=== PATIENT | male | born 1960 | race Caucasian/White ===

== ENCOUNTER 2021-04-22 11:32 | Inpatient (IN) | payer MEDICARE, SELFPAY ==
[2021-04-22] VITALS (8 sets, daily range): BP systolic 107–157; BP diastolic 74–95; PULSE 67–91; RESP 16–18; TEMP 36.4–37.1; O2SAT 10–99; BMI 25.7
--- NOTE | ~2021-04-22 | XR_ITS ---
EXAMINATION: XR ABDOMEN KUB CLINICAL INDICATION: Abdominal pain COMPARISON: Previous CT of the abdomen and pelvis 04/22/2021 TECHNIQUE: AP view of the abdomen. FINDINGS: There is a Gonzalez catheter in the bladder. There is stool throughout the colon suggestive of constipation. There are no dilated loops of bowel to suggest obstruction. There is no evidence of free air. No calcifications are seen. Bony structures are unremarkable. XR/XR KUB IMPRESSION: Constipation. No evidence of obstruction.
--- NOTE | ~2021-04-22 | CT_ITS ---
EXAMINATION: CT ABDOMEN AND PELVIS WITH CONTRAST CLINICAL INFORMATION: Urinary retention. Lower abdominal pain. COMPARISON: None TECHNIQUE: Multidetector volumetric images were obtained from the superior aspect of the liver through the pubic symphysis following administration 85 mL of Omnipaque 350 intravenous contrast. Sagittal and coronal reformatted images were obtained on the technologist's workstation. Oral contrast: No This CT examination was performed using dose optimization techniques as appropriate, variously including the following: *Automated exposure control *Adjustment of mA and/or kV according to patient size (this includes techniques or standardized protocols for targeted exams where dose is matched to indication/reason for exam; i.e. extremities or head) *Use of iterative reconstruction technique DLP: 635 mGy-cm FINDINGS: LUNG BASES: There is a bibasilar dependent atelectasis. The heart size is normal. LIVER, GALLBLADDER, AND BILIARY TREE: The liver is normal in size, shape, and attenuation. No focal hepatic lesion or biliary ductal dilatation is present. The gallbladder is unremarkable with no evidence of radiopaque gallstones, gallbladder wall thickening, or obvious pericholecystic inflammatory changes. PANCREAS: Unremarkable. SPLEEN: Unremarkable. ADRENAL GLANDS: Unremarkable. KIDNEYS AND URETERS: The kidneys are normal in size, shape, and attenuation. No hydronephrosis, hydroureter, or calculi seen. No perinephric stranding. BLADDER: The bladder is nondistended with a Gonzalez's catheter within. GASTROINTESTINAL TRACT: There is scattered stool in the right gas seen throughout the colon without any distention. The small bowel loops are normal caliber. Appendix is normal caliber. No free air or free fluid seen. ABDOMINAL WALL: No significant hernia is appreciated. LYMPH NODES: Normal. VASCULAR: Unremarkable. PELVIC VISCERA: The prostate gland is enlarged with central gland calcification. The periprostatic fat planes are hazy.. OSSEOUS STRUCTURES: No lytic or sclerotic process seen. CT/CT abdomen pelvis w con IMPRESSION: Mild prostatomegaly with moderate central gland calcification.. The periprostatic fat planes are hazy. The bladder is undistended with a Gonzalez's catheter within.
--- NOTE | ~2021-04-22 | XR_ITS ---
EXAMINATION: XR CHEST CLINICAL INFORMATION: Rule out foreign body COMPARISON: None TECHNIQUE: Frontal view of the chest was obtained. FINDINGS: The cardiac and mediastinal contours are normal. The lungs are clear. There is no pleural effusion or pneumothorax area no foreign body is seen. 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 XR/XR chest 1V IMPRESSION: No evidence for acute disease in the chest. No foreign body seen.
--- NOTE | ~2021-04-22 | CT_ITS ---
EXAMINATION: CT HEAD WITHOUT CONTRAST CLINICAL INFORMATION: Rule out intracranial pathology such as stroke. Delirium. COMPARISON: None TECHNIQUE: Contiguous axial imaging was performed from the skull base to vertex without intravenous administration of contrast. This CT examination was performed using dose optimization techniques as appropriate, variously including the following: *Automated exposure control *Adjustment of mA and/or kV according to patient size (this includes techniques or standardized protocols for targeted exams where dose is matched to indication/reason for exam; i.e. extremities or head) *Use of iterative reconstruction technique DLP: 663 mGy-cm FINDINGS: There is no evidence of acute intracranial hemorrhage or territorial infarction. No abnormal mass effect or midline shift is seen. Seay to white matter differentiation is well preserved. No extra-axial fluid collections are identified. The ventricles are normal in size. 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 The osseous structures and soft tissues are normal. The mastoid air cells and visualized portions of the paranasal sinuses are well aerated. CT/CT head/brain wo con IMPRESSION: No acute intracranial hemorrhage or territorial infarction.
--- NOTE | 2021-04-22 12:12 | PC.NURSE ---
patients brother in law whom he lives with spoke with this RN regarding the patients behaviors and medical care. per his brother in law, Vickey- the patient has had increased agitation since his medications had been adjusted several months ago- with statements that were both HI/SI. Per Vickey he feels that the patient needs inpatient care wherein which his medications can be adjusted and his needs be better addressed. Vickey # [phone] Patient at this time denies SI/HI
[2021-04-22 12:42] LABS: MANUAL DIFF FLAG NO
[2021-04-22 12:50] LABS: Glucose Urine UA NEG (NEG); Leukocyte Esterase Urine NEG (NEG); Nitrite Urine NEG (NEG); Specific Gravity - Urine >= 1.030 (1.005-1.025); Urine Blood TRACE (NEG); Urine Ketones 15 MG/DL (NEG); Urine Protein NEG (NEG-TRACE)
[2021-04-22 12:52] LABS: Basophils Percent Auto 0.2 % (0-2); Eosinophils Percent Auto 0.2 % (0-4); Hematocrit 38.3 % (42-52); Hemoglobin 12.7 g/dl (14.0-18.0); Imm Gran Abs Auto 0.02 X10*3/uL (0.00-0.03); Imm Gran Pct Auto 0.5 % (0.0-0.4); Lymphocytes Absolute Auto 0.8 X10*3/uL (1.2-4.9); Lymphocytes Percent Auto 20.2 % (20-40); Mean Corpuscular HGB Conc 33.2 g/dl (31.0-36.0); Mean Corpuscular Hemoglobin 28.7 pg (27.0-33.0); Mean Corpuscular Volume 86.5 fL (80-98); Mean Platelet Volume 8.8 fL (9.4-12.4); Monocytes Absolute Auto 0.3 X10*3/uL (0.1-1.2); Monocytes Percent Auto 8.2 % (2-11); Neutrophils Absolute Auto 2.9 X10*3/uL (2.0-8.3); Neutrophils Percent Auto 70.7 % (45-73); Platelet Count 283 X10*3/uL (160-400); Red Blood Count 4.43 X10*6/uL (4.60-5.80); Red Cell Distribution Width 12.4 % (11.0-16.0); White Blood Count 4.2 X10*3/uL (4.8-10.8)
[2021-04-22 12:53] LABS: Appearance Urine CLEAR; Color Urine YELLOW
[2021-04-22 13:12] LABS: Mucus Urine 3+ /LPF; Squamous Epithelial Cell Urine 1+ /LPF
--- NOTE | 2021-04-22 13:14 | PHA.MEDREC ---
Pharmacy Consult ? Medication Reconciliation Pharmacy has completed the medication reconciliation. Patient has not taken any medications this morning. Patient had some AMS and brother was able to verify his medications. His brother reported that Seven was suppose to stop his Paliperidone 1.5mg at bedtime, and he last took it about two days ago. All other medications had no issues. Erica Morales, PharmD
[2021-04-22 13:21] LABS: Alanine Aminotransferase 11 U/L (0-40); Albumin Level 4.2 g/dL (3.5-5.0); Alkaline Phosphatase 74 U/L (39-117); Anion Gap 13 (12-20); Aspartate Amino Transferase 19 U/L (5-37); Bilirubin Total 0.8 mg/dL (0.0-1.0); Blood Urea Nitrogen 15 mg/dL (9-16); Calcium 9.5 mg/dL (8.4-10.2); Carbon Dioxide 24 mmol/L (22-29); Chloride 105 mmol/L (96-108); Creatinine Clr Calc Pharmacy 58.2; Estimated Glomerular Filt Rate 51; Glucose Random 93 mg/dL (60-115); Magnesium 2.2 mg/dL (1.6-2.6); Potassium 4.3 mmol/L (3.3-5.1); Sodium 138 mmol/L (135-145); Total Protein 6.6 g/dL (6.5-8.0)
[2021-04-22 13:25] LABS: Amphetamine Screen Urine Not Detected (Not Detect); Barbiturates, Urine Not Detected (Not Detect); Benzodiazepines Screen Urine POSITIVE (Not Detect); Cannabinoid Screen Urine Not Detected (Not Detect); Cocaine Screen Urine Not Detected (Not Detect); Opiate Screen Urine Not Detected (Not Detect); Phencyclidine Screen Urine Not Detected (Not Detect)
[2021-04-22] MEDS: 0.9 % Sodium Chloride 1,000 ML 999 ML IVCONT (13:39)
[2021-04-22 14:05] LABS: Lactic Acid 0.9 mmol/L (0.5-2.0)
--- NOTE | 2021-04-22 14:05 | ED.ABDPAIN ---
HPI - Abdominal Pain General Chief Complaint: General Medical Stated Complaint: groin pain Time Seen by Provider: 04/22/21 12:10 Source: patient and family ( Brother at bedside) Mode of arrival: ambulatory Limitations: no limitations History of Present Illness HPI narrative: 56-year-old male with a past medical history of bipolar 1 disorder, hyperlipidemia, hypertension and currently being treated for UTI with Bactrim started yesterday by his PCP presenting to the ED with complaints of suprapubic abdominal pain with associated urinary retention for the past 2 days worse today despite being on the Bactrim. He reports that he feels like he needs to avoid although is unable to. Patient also admits to being constipated. Family /brother at bedside also concerned about his psych medication changes that have been made several months ago and patient has been increasing delayed in his verbal responses and demeanor therefore they were concerned about this. Brother at bedside reports this is not my brother this is a complete change of my brother and I just want my brother the way he was and I believe it is because all the medication he is taking and they need to be reviewed . otherwise patient denies any SI/HI/ auditory or visual hallucinations or thoughts of self injury. patient denies any fevers, dizziness, headaches, change of vision, nausea /vomiting, chest pain, shortness of breath, palpitations, diarrhea, hematuria or any other symptoms complaints or concerns at this time. MD elicited complaint: abdominal pain and other ( Urinary retention) Onset (ago): day(s) ( Two days worse today) Pain Consistency: constant Location: suprapubic, pelvis and groin Severity: moderate Quality: cramping, aching and fullness Radiation: none Migration to: no migration Exacerbating factors: other ( trying to urinate) Relieving factors: nothing Associated symptoms: denies other symptoms Treatments prior to arrival: other ( taking Bactrim as prescribed) Related Data Home Medications Medication Instructions Recorded Confirmed acetaminophen 650 mg PO Q4H PRN 04/22/21 04/22/21 amlodipine 5 mg PO DAILY 04/22/21 04/22/21 clonazepam 1 mg PO DAILY PRN 04/22/21 04/22/21 clonazepam 2 mg PO BEDTIME 04/22/21 04/22/21 docusate sodium 100 mg PO DAILY PRN 04/22/21 04/22/21 lisinopril 20 mg PO DAILY 04/22/21 04/22/21 polyethylene glycol 3350 [Miralax] 17 g PO DAILY 04/22/21 04/22/21 quetiapine 300 mg PO BEDTIME 04/22/21 04/22/21 sulfamethoxazole-trimethoprim 1 tab PO BID 04/22/21 04/22/21 Allergies Allergy/AdvReac Type Severity Reaction Status Date / Time atorvastatin [From LIPITOR] Allergy Intermediate ELEVATED Unverified 07/08/20 14:38 LIVER ENZYMES Review of Systems Review of Systems Constitutional : No Weight loss, No Fever, No Chills, No Night Sweats, No Fatigue, NoMalaise ENT/Mouth: No ear pain, No sore throat, No Difficulty swallowing Cardiovascular : No Chest Pain, No SOB, No Dyspnea on Exertion, No Orthopnea, NoEdema, No Palpitations Respiratory : No Cough, No Sputum, No Wheezing, No Dyspnea Gastrointestinal : Positive abdominal pain / constipation, No Nausea, No Vomiting, No Diarrhea, No blood streaked emesis, No coffee-ground emesis, No gross hematemesis, No blood streak stool, No gross hematochezia, No Melena Genitourinary : positive urinary retention, No irregular bleeding, No Hematuria,No Urinary Incontinence, No Flank Pain Musculoskeletal : No joint pain, No Myalgias, No Joint Swelling Skin : No Skin Lesions, No rash Neuro : No Weakness, No Numbness, No Paresthesias, No Loss of Consciousness, NoDizziness, No Headache Psych : No Social Issues, Heme/Lymph: No Bruising, No Bleeding,No Lymphadenopathy Endocrine : No Polyuria, No Polydipsia, No Temperature Intolerance Yes all other systems are reviewed and are negative Physical Exam Vital Signs: Vital Signs: Last Vital Signs Temp 98.3 F 04/22/21 16:38 Pulse 78 04/22/21 16:38 Resp 18 04/22/21 16:38 BP 132/85 04/22/21 16:38 Pulse Ox 99 04/22/21 16:38 Body Mass Index 25.7 vital signs have been reviewed as normal and appeared to be correct. Blood pressure normal. Heart rate normal. Respiration rate normal. Temperature normal. Oxygen saturation normal. Appearance: Alert. Oriented X3. No acute distress. Head: Normal external exam. Normocephalic. Eyes: PERRLA. EOMI. Conjunctiva and sclera normal. Eyelids normal. ENT: Pharynx normal. Uvula midline. Moist mucous membranes. Neck: Normal inspection. Neck supple. FROM. No adenopathy. No meningeal signs. CVS: Normal heart rate and rhythm. Heart sound normal. No murmurs noted. Pulses normal throughout. Respiratory: No respiratory distress. Painless inspiration. Breath sounds normal. No wheezes/rales/rhonchi noted. Chest nontender. No accessory muscle usage noted or decreased air movement noted. Abdomen: Soft and mild ttp to suprapubic/groin area. Nondistended. No guarding. No rigidity. Bowel sounds normal in all 4 quadrants. No distention noted. No organomegaly noted. No visible injury noted. No rebound tenderness. Negative Rovsing sign. Negative obturator's sign. Negative psoas sign. Negative Carl sign. Back: No CVA tenderness. Full range of motion noted. Skin: Skin warm and dry. Normal skin color. Normal skin turgor. No rashes/lesions/lacerations noted. Extremities: Extremities exhibit normal range of motion. Extremities nontender. Neuro: Oriented X 3. No motor deficit. No sensory deficit. Reflexes normal. Normal steady gait. Psych: Appearance grossly normal, well-kept, mental status normal, speech and movement normal, speech clear, patient appears very sad and anxious along with depressed. Is cooperative. Normal thought process. Normal thought content. Normal good insight. Judgment good. Course Course Course Narrative: 12pm - 56-year-old male who is currently being treated for UTI with Bactrim by his PCP which he started yesterday presenting to the ED with complaints of suprapubic abdominal pain associated urinary retention since yesterday worse today despite being on the Bactrim. Brother also at bedside concerned about all his medications that he is on for his bipolar 1 disorder and wants him to be evaluated by psychiatry/crisis. Although patient denies any SI/HI /auditory visual sign a franco thoughts of self-injury. Plan: Labs, Blood cultures, lactic acid. Provide a L of IV fluids, bladder scanned him Place a Gonzalez catheter and obtain a CT scan of abdomen pelvis with IV contrast and re-evaluate. Reevaluation(s) Reevaluation #1: - labs return patient with 0 white blood cell count 4000. Mild baseline anemia which is improved when compared to prior. Creatinine 1.41. Otherwise all other labs are within normal limits. UA with 5-9 white blood cells although negative nitrates and patient is currently on Bactrim therefore will not change just until urine culture returns. Patient also has 15 ketones in urine. Patient given a L of IV fluids. Patient positive for benzos negative for all other drugs. - CT scan of abdomen and pelvis with IV contrast revealed Mild prostatomegaly with moderate central gland calcification.. The periprostatic fat planes are hazy. The bladder is undistended with a Gonzalez's catheter within. - therefore at this time patient is medically cleared and patient's brother wanted the patient to be seen by crisis to review the patient's medications due to he is uncomfortable the way his brother has been with the changes on the medication over the past few months. - I will instruct the patient to leave the Gonzalez catheter in place will give him referral to Urology and instructions to continue taking the Bactrim until the urine culture returns back. Patient and brother at bedside understand and agree with this plan. - Therefore At this time patient was placed in physician observation because the patient needs more time to be evaluated by crisis for possible medication changes. Will continue to monitor until then. Time: 15:47 Reevaluation #2: - Patient was evaluated by the care team and they are placing him in a section 12 inpatient bed search. Section 12 signed at this time by Dr. Yao. Patient and family at bedside understand and agree with this plan. Physician observation will be continued. At this time patient remains neuro intact. No focal neural deficits noted. Lungs clear to auscultation. cv rrr. abd is soft and nontender. Will continue to monitor. Time: 17:59 MDM - Abdominal Pain Medical Records Attestation: I reviewed the patient's medical records. Lab Data Attestation: I reviewed the patient's lab results. Result diagrams: 04/22/21 12:29 04/22/21 12:29 Labs: Lab Results 04/22/21 04/22/21 04/22/21 Range/Units 12:29 12: 12:29 WBC 4.2 L (4.8-10.8) X10*3/uL RBC 4.43 L (4.60-5.80) X10*6/uL Hgb 12.7 L (14.0-18.0) g/dl Hct 38.3 L (42-52) % MCV 86.5 (80-98) fL MCH 28.7 (27.0-33.0) pg MCHC 33.2 (31.0-36.0) g/dl RDW 12.4 (11.0-16.0) % Plt Count 283 (160-400) X10*3/uL MPV 8.8 L (9.4-12.4) fL Immature Gran % (Auto) 0.5 H (0.0-0.4) % Neut % (Auto) 70.7 (45-73) % Lymph % (Auto) 20.2 (20-40) % [place] % (Auto) 8.2 (2-11) % Eos % (Auto) 0.2 (0-4) % Baso % (Auto) 0.2 (0-2) % Lymph # (Auto) 0.8 L (1.2-4.9) X10*3/uL [place] # (Auto) 0.3 (0.1-1.2) X10*3/uL Eos # (Auto) 0.0 (0.0-0.4) X10*3/uL Baso # (Auto) 0.0 (0.0-0.2) X10*3/uL Abs Immat Gran (auto) 0.02 (0.00-0.03) X10*3/uL Absolute Neuts (auto) 2.9 (2.0-8.3) X10*3/uL Absolute Nucleated RBC 0.000 (0.0-0.012) X10*3/uL Nucleated RBC % (auto) 0.0 (0.0-0.2) /100WBC Sodium 138 (135-145) mmol/L Potassium 4.3 (3.3-5.1) mmol/L Chloride 105 (96-108) mmol/L Carbon Dioxide 24 (22-29) mmol/L Anion Gap 13 (12-20) BUN 15 (9-16) mg/dL Creatinine 1.41 H (0.5-1.4) mg/dL Estim Creat Clear Calc 58.2 Estimated GFR 51 Random Glucose 93 (60-115) mg/dL Lactic Acid (0.5-2.0) mmol/L Calcium 9.5 (8.4-10.2) mg/dL Magnesium 2.2 (1.6-2.6) mg/dL Total Bilirubin 0.8 (0.0-1.0) mg/dL AST 19 (5-37) U/L ALT 11 (0-40) U/L Alkaline Phosphatase 74 (39-117) U/L Total Protein 6.6 (6.5-8.0) g/dL Albumin 4.2 (3.5-5.0) g/dL Urine Color YELLOW Urine Appearance CLEAR Urine pH 6.0 (5.0-8.0) Ur Specific [place] >= 1.030 H (1.005-1.025) Urine Protein NEG (NEG-TRACE) MG/DL Urine Glucose (UA) NEG (NEG) MG/DL Urine Ketones 15 (NEG) MG/DL Urine Blood TRACE (NEG) Urine Nitrite NEG (NEG) Ur Leukocyte Esterase NEG (NEG) Urine RBC 5-9 H (0) /HPF Urine WBC 5-9 H (0-4) /HPF Ur Squamous Epith Cells 1+ /LPF Urine Bacteria NONE /LPF Urine Mucus 3+ /LPF Urine Opiates Screen (Not Detect) Ur Barbiturates Screen (Not Detect) Ur Phencyclidine Scrn (Not Detect) Ur Amphetamines Screen (Not Detect) U Benzodiazepines Scrn (Not Detect) Urine Cocaine Screen (Not Detect) U Marijuana (THC) Screen (Not Detect) 04/22/21 04/22/21 Range/Units 12:29 13:36 WBC (4.8-10.8) X10*3/uL RBC (4.60-5.80) X10*6/uL Hgb (14.0-18.0) g/dl Hct (42-52) % MCV (80-98) fL MCH (27.0-33.0) pg MCHC (31.0-36.0) g/dl RDW (11.0-16.0) % Plt Count (160-400) X10*3/uL MPV (9.4-12.4) fL Immature Gran % (Auto) (0.0-0.4) % Neut % (Auto) (45-73) % Lymph % (Auto) (20-40) % [place] % (Auto) (2-11) % Eos % (Auto) (0-4) % Baso % (Auto) (0-2) % Lymph # (Auto) (1.2-4.9) X10*3/uL [place] # (Auto) (0.1-1.2) X10*3/uL Eos # (Auto) (0.0-0.4) X10*3/uL Baso # (Auto) (0.0-0.2) X10*3/uL Abs Immat Gran (auto) (0.00-0.03) X10*3/uL Absolute Neuts (auto) (2.0-8.3) X10*3/uL Absolute Nucleated RBC (0.0-0.012) X10*3/uL Nucleated RBC % (auto) (0.0-0.2) /100WBC Sodium (135-145) mmol/L Potassium (3.3-5.1) mmol/L Chloride (96-108) mmol/L Carbon Dioxide (22-29) mmol/L Anion Gap (12-20) BUN (9-16) mg/dL Creatinine (0.5-1.4) mg/dL Estim Creat Clear Calc Estimated GFR Random Glucose (60-115) mg/dL Lactic Acid 0.9 (0.5-2.0) mmol/L Calcium (8.4-10.2) mg/dL Magnesium (1.6-2.6) mg/dL Total Bilirubin (0.0-1.0) mg/dL AST (5-37) U/L ALT (0-40) U/L Alkaline Phosphatase (39-117) U/L Total Protein (6.5-8.0) g/dL Albumin (3.5-5.0) g/dL Urine Color Urine Appearance Urine pH (5.0-8.0) Ur Specific [place] (1.005-1.025) Urine Protein (NEG-TRACE) MG/DL Urine Glucose (UA) (NEG) MG/DL Urine Ketones (NEG) MG/DL Urine Blood (NEG) Urine Nitrite (NEG) Ur Leukocyte Esterase (NEG) Urine RBC (0) /HPF Urine WBC (0-4) /HPF Ur Squamous Epith Cells /LPF Urine Bacteria /LPF Urine Mucus /LPF Urine Opiates Screen Not Detected (Not Detect) Ur Barbiturates Screen Not Detected (Not Detect) Ur Phencyclidine Scrn Not Detected (Not Detect) Ur Amphetamines Screen Not Detected (Not Detect) U Benzodiazepines Scrn POSITIVE H (Not Detect) Urine Cocaine Screen Not Detected (Not Detect) U Marijuana (THC) Screen Not Detected (Not Detect) Imaging Data CT scan abdomen pelvis with IV contrast: Attestation: I personally reviewed and interpreted this imaging study as follows: Radiologist's impression: FINDINGS: LUNG BASES: There is a bibasilar dependent atelectasis. The heart size is normal. LIVER, GALLBLADDER, AND BILIARY TREE: The liver is normal in size, shape, and attenuation. No focal hepatic lesion or biliary ductal dilatation is present. The gallbladder is unremarkable with no evidence of radiopaque gallstones, gallbladder wall thickening, or obvious pericholecystic inflammatory changes. PANCREAS: Unremarkable. SPLEEN: Unremarkable. ADRENAL GLANDS: Unremarkable. KIDNEYS AND URETERS: The kidneys are normal in size, shape, and attenuation. No hydronephrosis, hydroureter, or calculi seen. No perinephric stranding. BLADDER: The bladder is nondistended with a Gonzalez's catheter within. GASTROINTESTINAL TRACT: There is scattered stool in the right gas seen throughout the colon without any distention. The small bowel loops are normal caliber. Appendix is normal caliber. No free air or free fluid seen. ABDOMINAL WALL: No significant hernia is appreciated. LYMPH NODES: Normal. VASCULAR: Unremarkable. PELVIC VISCERA: The prostate gland is enlarged with central gland calcification. The periprostatic fat planes are hazy.. OSSEOUS STRUCTURES: No lytic or sclerotic process seen. CT/CT abdomen pelvis w con IMPRESSION: Mild prostatomegaly with moderate central gland calcification.. The periprostatic fat planes are hazy. The bladder is undistended with a Gonzalez's catheter within. Critical Care Time Critical Care Time Critical Care Time: Yes Total Critical Care Time: 60 Attestation: I personally attest to this time spent taking care of the patient Discharge Plan Discharge Clinical Impression: UTI (urinary tract infection), Gonzalez catheter in place, Enlarged prostate, Acute urinary retention, Depression Instructions: Urinary Retention in Men (ED), Enlarged Prostate (BPH) (ED), Urinary Tract Infection in Men (ED), Gonzalez Catheter Placement and Care (ED) Additional Instructions: continue taking your previously prescribed Bactrim as previously prescribed. We sent a urine culture of your urine if that urine culture grows a bacterial that is not susceptible to the antibiotic you are currently on we will call you and change the antibiotic although at this time he should continue taking the Bactrim as prescribed. You have a Gonzalez catheter in place due to an enlarged prostate / urinary retention and urinary tract infection therefore you should follow-up with the urologist I gave him number below. Return if any new or worsening symptoms. Prescriptions: No Action quetiapine 300 mg tablet 300 mg PO BEDTIME RF: 0 sulfamethoxazole-trimethoprim 400-80 mg tablet 1 tab PO BID RF: 0 lisinopril 20 mg tablet 20 mg PO DAILY RF: 0 clonazepam 1 mg Tablet 1 mg PO DAILY PRN (Reason: Anxiety) RF: 0 amlodipine 5 mg tablet 5 mg PO DAILY RF: 0 clonazepam 2 mg tablet 2 mg PO BEDTIME RF: 0 docusate sodium 100 mg capsule 100 mg PO DAILY PRN (Reason: constipation) RF: 0 acetaminophen 325 mg Tablet 650 mg PO Q4H PRN (Reason: Pain) RF: 0 polyethylene glycol 3350 [Miralax] 17 gram Powder In Packet 17 g PO DAILY RF: 0 Referrals: Aly Medina MD [Physician] - 2 days Physician,Unknown [Primary Care Provider] - 2 days (your pcp) Print Language: Spanish [facility] Past Medical History Attestation statement: The following information was validated with the patient. Medical History Bipolar 1 disorder Hyperlipemia Hypertension UTI (urinary tract infection) Social History Social History Advance Directives: Yes Advance Directives Information Provided: Yes Advance Directives on File: No
[2021-04-22] MEDS: iohexoL 350 MG/ML 100 ML INFUS..BTL 85 ML IV (15:14)
[2021-04-22] MEDS: lisinopriL 20 MG TABLET PO (18:19)
[2021-04-22] MEDS: amLODIPine Besylate 5 MG TABLET PO (18:19)
[2021-04-22] MEDS: Lidocaine HCl 2 % Urojet 10 ML JEL.PF.APP TOPICAL (18:53)
--- NOTE | 2021-04-22 19:07 | PC.NURSE ---
Please contact, brother, George Nava at [phone]. He states w/ brothers permission he would like to be part of the plan of care, please call him to consult.
[2021-04-22 19:19] LABS: COVID-19 Test Negative (Negative)
[2021-04-22] MEDS: Acetaminophen 325 MG TABLET 650 MG PO (19:34)
--- NOTE | 2021-04-22 19:39 | PC.NURSE ---
Pt given dinner, but states he is not hungry, tolerating gingerale well. Offered and declined other food options. Pt has very flat affect, minimal/slow responsiveness, appears to be fixated on catheter- pulling up gown and sheets to constantly visualize cath. Pt is hesitant but cooperative and aware with plan of care.
[2021-04-22] MEDS: clonazePAM 1 MG TABLET 2 MG PO (21:01)
--- NOTE | 2021-04-22 21:18 | PC.NURSE ---
attempted to ambulate the patient in order to see if he was safe to move into the pod with assist from emergency room registered nurse this rn aided the patient from sitting to standing position patient sandip unsteady on his feet and required 2+ assist to get back into the bed surgical garment assembler made aware
--- NOTE | 2021-04-22 22:40 | PC.NURSE ---
Patient refusing medications that this RN offered per his med rec. This RN attempted to convince patient to take his medications for approximately 15-20 minutes. Patient continued to refuse his medications despite unsuccessfully attempting to convince him otherwise. senior bioinformatics scientist and ED doc made aware.
[2021-04-23] VITALS (7 sets, daily range): BP systolic 119–147; BP diastolic 79–87; PULSE 71–111; RESP 16–20; TEMP 36.4–37.2; O2SAT 96–98
--- NOTE | 2021-04-23 | ECG_ITS ---
Test Reason : MEDICAL CLEARANCE Blood Pressure : / mmHG Vent. Rate : 078 BPM Atrial Rate : 078 BPM P-R Int : 164 ms QRS Dur : 084 ms QT Int : 406 ms P-R-T Axes : 040 -04 030 degrees QTc Int : 462 ms Normal sinus rhythm Normal ECG No previous ECGs available Referred By: Julio Rashid Electronically Signed By:KAYLA RENTERIA MD
[2021-04-23] MEDS: clonazePAM 1 MG TABLET PO (01:37)
[2021-04-23] MEDS: QUEtiapine Fumarate 300 MG TABLET PO ×2 (01:37→20:10)
--- NOTE | 2021-04-23 01:41 | PC.NURSE ---
Patient just got transferred from main ED, ambulated to POD, gait unsteady, patient disoriented, Night time [place] which he refused earlier administered after 2 attempts, patient believes his catheter is not inserted correctly that is why he keeps pulling it out, patient is on 1:1 for safety, will continue to monitor.
--- NOTE | 2021-04-23 03:59 | PC.NURSE ---
Patient requires a lot of redirection for medication but eventually end up taking his Bactrim , patient seems clearing up, Gonzalez is patent, will continue to monitor.
[2021-04-23] MEDS: diphenhydrAMINE HCL 25 MG TABLET 50 MG PO (05:32)
--- NOTE | 2021-04-23 05:54 | PC.NURSE ---
Patient was up until 0430, patient was disoriented and restless eventually subsided, appears sleeping at this time, patient has indwelling catheter, urine output was 775 ml at 0555 and input was 240 ml, patient is Bactrim for UTI, patient's disposition is section 12 inpatient bed search, will continue to monitor.
--- NOTE | 2021-04-23 07:17 | PC.NURSE ---
discussed appropriateness of patient staying in behavioral pod with Ahsan Sanchez RN. PT is ambulatory with assist of staff, has indwelling rich catheter and is a high fall risk. He does not ambulate without assistance and is confused. Pt to remain in Pod at this time.
[2021-04-23] MEDS: amLODIPine Besylate 5 MG TABLET PO (10:38)
--- NOTE | 2021-04-23 10:47 | PC.NURSE ---
discussed rich catheter with provider, decision made to trial remove catheter. Catheter removed, pt tolerated well but has been pulling on his penis since catheter was removed. Pt is not oriented to self, not place, time or situation.
--- NOTE | 2021-04-23 11:11 | PC.NURSE ---
family was in to visit while pt was sleeping. Male family member Mani asked to have patient's health care proxy changed from pt's mother to this male family member. Advised this family member to leave his phone number and crisis staff would discuss.
--- NOTE | 2021-04-23 11:19 | PC.NURSE ---
brother of pt Hugo called and asking for update. He sates he will call for updates but allow pt to rest and visit this afternoon.
[2021-04-23] MEDS: lisinopriL 20 MG TABLET PO (11:27)
--- NOTE | 2021-04-23 12:08 | MHC.CARE ---
CARE team (Christy) secured auth for pt. Pt was given 3 days from 04/23-04/25 with Auth #[id number] by Veronica Gillette. The reviewer will be Ama Benjamin and will require review on 04/26 at [id number].
--- NOTE | 2021-04-23 13:10 | PC.NURSE ---
pt has been standing in the door to his room with his hand on his penis. He refuses to try using a urinal, also will not walk to the bathroom. Report to nursing staff on floor, they are aware of pt's current behavior.
--- NOTE | 2021-04-23 13:17 | MHC.CARE ---
CARE spoke w pts brother/emergency contact (Keon [phone]) for brief update of plan. He expressed full support of the proposed admission due to how the family has been dealing with this for a while now . He explained he is referring to pts presentation is currently new and that pt is usually quite manic and rarely is this low . He did not not seek to make HCP changes or address that issue in discussion with t/w but did state that the family will look into this at a later time and his only concern was that the brother in law Vickey has no legal right to be acting on pts behalf and the family is aware that the KATIE Vickey is acting out of bounds in his efforts to call the ED, of which the family will redirect him. Pts brother, sister and mother are active in pts life and will help in his care as needed. Family is status quo on this issue as of now. Pt was unable to sign CV due to acuity and ED secured a section 12b.
--- NOTE | 2021-04-23 13:19 | PC.NURSE ---
pt was bladder scanned for 214 ml urine in bladder. Pt is being fed at this time by staff.
--- NOTE | 2021-04-23 16:34 | PC.ADMIT ---
Patient [place] [facility] [place] [facility] [place] [facility] [place] via wheelchair on a Section 12b. Patient had indwelling Gonzalez Catheter removed at 11am this morning. According to ED staff, Patient reportedly has voided 200 ml since Gonzalez removal. Last Bladder Scan was 216 ml at 13:15pm. Patient is assisted out of wheelchair and to bed by two staff, one on either side of patient. Patient refuses vitals and is only answering questions with the word no. Patient is unable to form sentences and respond in conversation. Significant thought blocking present. Patient is unable to sign admission paperwork at this time. All admission assessments are completed with the assistance of patient's brother, Hugo Nava: [phone]. Hugo reports patient began to exhibit current symptoms on Monday, April 19, 2021 but was reportedly displaying depressive symptoms prior to this. Depressive symptoms included being tearful and stating My life sucks. Patient is currently on a 1:1 for safety as patient is a high fall risk at this time. He stands up frequently from the bed and wanders about the room and to doorways. Patient is encouraged to continue trying to void in bathroom. Patient requires 1:1 assistance with meals and fluids. ED staff report patient takes medications in pudding. Per CARE team assessment, Patient presented to [facility] by EMS called by family as patient had been experiencing groin pain, constipation and was being treated for UTI on Bactrim filled 04/20/21. Family reported concerns about medications not properly working and the need for a medication adjustment. Per brotherHugo, patient had been prescribed Paliperidone 1.5 mg that community provider had instructed patient to taper down, but patient was unable to properly taper the medication independently at home. Additionally, patient is prescribed Klonopin 2mg at bedtime, 1mg as needed during day, and Seroquel 300mg at bedtime. [facility], Klonopin Script last filled 03/29 with 40 tabs given, and Seroquel script last filled 04/20. Brother, Hugo, reports when family checked patient's closet they found many prescriptions lined up inside. Hugo reports It looks like he has never thrown any of them away. Removing old prescriptions and bringing them to a pharmacy for proper disposal was discussed with Hugo.
--- NOTE | 2021-04-23 18:11 | PC.NURSE ---
Patient is beginning to speak more. Patient reports I can't pee. Patient has made several attempts standing at toilet with staff. Kayy Sen notified. Order for Bladder Scan and Flomax entered. Patient Bladder Scanned for 404 ml; notified Kayy Sen.
[2021-04-23] MEDS: Tamsulosin HCL 0.4 MG CAPSULE PO (18:50)
[2021-04-23] MEDS: clonazePAM 1 MG TABLET 2 MG PO (20:10)
[2021-04-23] MEDS: Acetaminophen 325 MG TABLET 650 MG PO (20:10)
[2021-04-24] VITALS (8 sets, daily range): BP systolic 106–126; BP diastolic 67–83; PULSE 67–103; RESP 16–18; TEMP 36.5–36.9; O2SAT 96–99
[2021-04-24] MEDS: Acetaminophen 325 MG TABLET 650 MG PO ×2 (07:49→15:02)
[2021-04-24] MEDS: amLODIPine Besylate 5 MG TABLET PO (07:58)
[2021-04-24] MEDS: lisinopriL 20 MG TABLET PO (07:59)
[2021-04-24] MEDS: Docusate Sodium 100 MG CAPSULE PO (08:00)
[2021-04-24 08:37] LABS: Anion Gap 13 (12-20); Carbon Dioxide 24 mmol/L (22-29); Chloride 106 mmol/L (96-108); Potassium 3.7 mmol/L (3.3-5.1); Sodium 139 mmol/L (135-145)
[2021-04-24 11:45] LABS: Glucose Urine UA NEG (NEG); Leukocyte Esterase Urine NEG (NEG); Nitrite Urine NEG (NEG); PH 5.5 (5.0-8.0); Specific Gravity - Urine >= 1.030 (1.005-1.025); Urine Blood 1+ (NEG); Urine Ketones 5 MG/DL (NEG); Urine Protein NEG (NEG-TRACE)
[2021-04-24 12:03] LABS: Appearance Urine CLEAR; Color Urine YELLOW
[2021-04-24 12:04] LABS: Mucus Urine 1+ /LPF
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
[2021-04-24] MEDS: Ibuprofen 800 MG TABLET PO ×2 (12:26→17:45)
--- NOTE | 2021-04-24 13:51 | P.CONIM_ITS ---
History of Present Illness Data of Consult Service Date: 04/24/21 Requesting physician: Shorty Hawley Primary Care Provider: Unknown Physician HPI Reason for consult: Medical evaluation, UTI, urinary retention 60 year male with HTN, HLD, Bipolar d/o, h/o tubular adenoma, recent treatment for UTI. Patient is presently admitted to Psych facility for compensated Bipolar desorder posibly related to not taking medication right. He has been having high volume urinary retention and necessitated a rich catheter insertion by a urologist this morning. Patient was cooperative with my evaluation, seem quite stoic, blunt with thought blocking but seem to respond apropriately to question. He relates that has had trouble voiding with some pain in the lower abdomen as of recent and has been treated with Bactrim for UTI. Present UA does not support urinary tract infection. Additional has no fever, no dysuria and most recent blood count did not show leukocytosis. Apart from this he is not re laying in other acute medical issues. Review of Systems Review of Systems: Gen: no fever Resp: no sob, no cough CV: no chest, no RASHID, no leg edema GI/: No n/v, no abd pain, Had urinary retention and lower abdominal ,has rich Neuro: No confusion Yes all other systems are reviewed and are negative [facility] Medical History Bipolar 1 disorder Hyperlipemia Hypertension UTI (urinary tract infection) Pertinent family history: Father with lymphadema Surgical History (Updated 04/24/21 @ 13:58 by Carroll Guerrero MD) H/O shoulder surgery Social History Household Members: Family and Other Household Members Other:: 85 year old mother Housing: House Do you presently have visiting nurse or other home services: No Alcohol intake: unknown Patient Tobacco Use Status: Never used Tobacco Smoked in Last 30 Days: No e-Cigarette/Vaping Use: Never Used Patient Interested in Nicotine Replacement: No Patient Given Instructions on How to Stop Smoking: No Second Hand Smoke Exposure: No Use of substances other than those prescribed or required for medical reasons: No Currently Displaying Signs/Symptoms of Drug Intoxication Withdrawal: No Any prior treatment program specific to substance use: No Have you been hit, kicked, punched, or otherwise hurt by someone within the past year? If so, by whom?: No Do you feel safe in your current relationship?: No Is there a partner from a previous relationship who is making you feel unsafe now?: No Are you made to feel afraid or neglected: No Advance Directives: Yes Advance Directives Information Provided: Yes Advance Directives on File: No Healthcare Proxy: No Guardian: No Do you have thoughts of harming others: None Do you have a plan to hurt others: No Plan Recently lost weight without trying: No Nutrition Risks: No Nutritional Risk Poor oral hygiene: No Meds Allergies Allergy/AdvReac Type Severity Reaction Status Date / Time atorvastatin [From LIPITOR] Allergy Intermediate ELEVATED Unverified 07/08/20 14:38 LIVER ENZYMES Active Medications: Current Medications Generic Name Dose Route Start Last Admin Trade Name Freq PRN Reason Stop Dose Admin Acetaminophen 650 mg 04/22/21 17:58 04/24/21 07:49 Acetaminophen 325 Mg Tablet PO 650 mg Q4H PRN Administration Pain Al Hydroxide/Mg Hydroxide 30 ml 04/23/21 14:17 Magnesium Hydrox/Alum Hydrox 30 Ml Oral.Susp PO Q6H PRN Heartburn/Nausea Amlodipine Besylate 5 mg 04/22/21 18:00 04/24/21 07:58 Amlodipine Besylate 5 Mg Tablet PO 5 mg DAILY MITRA Administration Protocol Clonazepam 1 mg 04/22/21 17:58 04/23/21 01:37 Clonazepam 1 Mg Tablet PO 1 mg DAILY PRN Administration Anxiety Clonazepam 2 mg 04/22/21 21:00 04/23/21 20:10 Clonazepam 1 Mg Tablet PO 2 mg BEDTIME MITRA Administration Docusate Sodium 100 mg 04/22/21 17:58 04/24/21 08:00 Docusate Sodium 100 Mg Capsule PO 100 mg DAILY PRN Administration constipation Ibuprofen 800 mg 04/24/21 12:30 04/24/21 12:26 Ibuprofen 800 Mg Tablet PO 800 mg TIDWM MITRA Administration Lisinopril 20 mg 04/22/21 18:00 04/24/21 07:59 Lisinopril 20 Mg Tablet PO 20 mg DAILY MITRA Administration Protocol Magnesium Hydroxide 30 ml 04/23/21 14:17 Milk Of Magnesia 30 Ml Oral.Susp PO DAILY PRN Constipation Polyethylene Glycol 17 gm 04/22/21 18:00 04/24/21 11:40 Polyethylene Glycol 3350 17 Gm Powd.Pack PO Not Given DAILY MITRA Quetiapine Fumarate 300 mg 04/22/21 21:00 04/23/21 20:10 Quetiapine Fumarate 300 Mg Tablet PO 300 mg BEDTIME MITRA Administration Tamsulosin HCl 0.4 mg 04/23/21 21:00 04/23/21 18:50 Tamsulosin Hcl 0.4 Mg Capsule PO 0.4 mg BEDTIME MITRA Administration Trimethoprim/Sulfamethoxazole 1 tab 04/22/21 21:00 04/24/21 07:50 Sulfamethox/Trimeth 400/80 1 Tab Tablet PO 05/01/21 09:01 1 tab BID MITRA Administration Home Medications Medication Instructions Recorded Confirmed Last Taken Type acetaminophen 650 mg PO Q4H PRN 04/22/21 04/22/21 Unknown History amlodipine 5 mg PO DAILY 04/22/21 04/22/21 04/21/21 History clonazepam 1 mg PO DAILY PRN 04/22/21 04/22/21 Unknown History clonazepam 2 mg PO BEDTIME 04/22/21 04/22/21 04/21/21 History docusate sodium 100 mg PO DAILY PRN 04/22/21 04/22/21 04/21/21 History lisinopril 20 mg PO DAILY 04/22/21 04/22/21 04/21/21 History polyethylene glycol 3350 [Miralax] 17 g PO DAILY 04/22/21 04/22/21 Unknown History quetiapine 300 mg PO BEDTIME 04/22/21 04/22/21 04/21/21 History sulfamethoxazole-trimethoprim 1 tab PO BID 04/22/21 04/22/21 04/21/21 History Physical Exam Vital Signs and Narrative: Vital Signs: Last Vital Signs Temp 97.7 F 04/24/21 06:00 Pulse 80 04/24/21 07:59 Resp 18 04/24/21 06:00 BP 118/82 04/24/21 07:59 Pulse Ox 99 04/24/21 06:00 Body Mass Index 25.7 Const: Other: Constitutional Awake and Alert, No apparent distress Neck Supple, No lymphadenopathy Cardiovascular RRR, No M/R/G, S1 S2, No S3 S4, No pedal edema Respiratory Lungs clear, No respiratory distress, normal resp effort Gastrointestinal Non tender, Non-distended : Rich in place, no hematuria Skin No rash Neurological Alert & oriented x3 Psychological Appropriate affect Results Labs CBC and Chem 7: 04/22/21 12:29 04/24/21 08:12 Labs: Laboratory Results - last 24 hr 04/24/21 04/24/21 08:12 11:15 Anion Gap 13 Urine Color YELLOW Urine Appearance CLEAR Urine pH 5.5 Ur Specific [place] >= 1.030 H Urine Protein NEG Urine Glucose (UA) NEG Urine Ketones 5 Urine Blood 1+ H Urine Nitrite NEG Ur Leukocyte Esterase NEG Urine RBC 5-9 H Urine WBC 1-4 Ur Squamous Epith Cells NONE Urine Bacteria NONE Urine Mucus 1+ Assessment and Plan (1) Hypertension: Status: Acute (2) Hyperlipemia: Status: Acute (3) UTI (urinary tract infection): Status: Acute 60 year old male with HTN, HLD, Bipolar, BPH admitted to Psych for Bipolar treated and noted to have urinary retention, ?UTI 1/ HTN-continue Lisinopril, and NorvascBP is well controlled. 2/? UTI--Present UA doesn't suggest UTI but may have been partially treated on outpatient basis, as such I would suggest he finish course of Bactrim, should watch for High K and falsely elevated Cr, typically no an issues with younger patients 3/HLD--He doesn't tolerated statin and therefore should be avoided 4/Urinary retention-likely from BPH, take instruction from Urolgy, especially when catheter should come out. Continue Flomax 5/Constipation--Docusate and Miralax 6/Bipolar/Psych issues--Management per psychiatry/Behavioral Service. 7/Mild Leukopenia--Monitor, no specific work up indicated at this time. please contact us for new issues or concerns. Thanks
[2021-04-24] MEDS: clonazePAM 1 MG TABLET PO (15:02)
[2021-04-24] MEDS: Milk of Magnesia 30 ML ORAL.SUSP PO (15:52)
[2021-04-24] MEDS: Tamsulosin HCL 0.4 MG CAPSULE PO (22:49)
[2021-04-24] MEDS: QUEtiapine Fumarate 300 MG TABLET PO (22:50)
[2021-04-24] MEDS: clonazePAM 1 MG TABLET 2 MG PO (22:50)
--- NOTE | 2021-04-25 00:31 | PC.NURSE ---
New order for hospitalist consult to be seen for 'delirium requires medical management.
--- NOTE | 2021-04-25 00:33 | PC.NURSE ---
PT needed much coaxing to take medications at HS, reaproached 3 times, notified PT trying to pull on Gonzalez catheter, sitter in room having to give constant redirection.
--- NOTE | 2021-04-25 05:30 | PC.NURSE ---
PT fell asleep at 4:30 am.4:30 am.
[2021-04-25] MEDS: polyethylene glycoL 3350 17 GM POWD.PACK PO (09:41)
[2021-04-25 10:00] LABS: MANUAL DIFF FLAG NO
[2021-04-25] MEDS: Docusate Sodium 100 MG CAPSULE PO (10:02)
[2021-04-25] MEDS: Acetaminophen 325 MG TABLET 650 MG PO (10:02)
[2021-04-25] MEDS: Ibuprofen 800 MG TABLET PO ×3 (10:03→20:01)
[2021-04-25] MEDS: clonazePAM 1 MG TABLET PO (10:03)
[2021-04-25 10:04] LABS: Basophils Percent Auto 0.4 % (0-2); Eosinophils Absolute Auto 0.1 X10*3/uL (0.0-0.4); Eosinophils Percent Auto 1.1 % (0-4); Hematocrit 41.1 % (42-52); Hemoglobin 13.9 g/dl (14.0-18.0); Imm Gran Abs Auto 0.01 X10*3/uL (0.00-0.03); Imm Gran Pct Auto 0.2 % (0.0-0.4); Lymphocytes Absolute Auto 1.6 X10*3/uL (1.2-4.9); Lymphocytes Percent Auto 27.8 % (20-40); Mean Corpuscular HGB Conc 33.8 g/dl (31.0-36.0); Mean Corpuscular Hemoglobin 29.1 pg (27.0-33.0); Mean Corpuscular Volume 86.2 fL (80-98); Mean Platelet Volume 8.8 fL (9.4-12.4); Monocytes Absolute Auto 0.5 X10*3/uL (0.1-1.2); Monocytes Percent Auto 9.2 % (2-11); Neutrophils Absolute Auto 3.4 X10*3/uL (2.0-8.3); Neutrophils Percent Auto 61.3 % (45-73); Platelet Count 263 X10*3/uL (160-400); Red Blood Count 4.77 X10*6/uL (4.60-5.80); Red Cell Distribution Width 12.6 % (11.0-16.0); White Blood Count 5.6 X10*3/uL (4.8-10.8)
[2021-04-25 10:08] VITALS: BP 128/80; PULSE 83
[2021-04-25] MEDS: lisinopriL 20 MG TABLET PO (10:08)
[2021-04-25 10:09] VITALS: BP 128/80; PULSE 83
[2021-04-25] MEDS: amLODIPine Besylate 5 MG TABLET PO (10:09)
[2021-04-25 10:15] LABS: Ammonia 28 umol/L (13-55)
[2021-04-25 10:24] LABS: Anion Gap 14 (12-20); Blood Urea Nitrogen 14 mg/dL (9-16); Calcium 9.6 mg/dL (8.4-10.2); Carbon Dioxide 23 mmol/L (22-29); Chloride 106 mmol/L (96-108); Creatinine Clr Calc Pharmacy 63.1; Estimated Glomerular Filt Rate 57; Glucose Random 107 mg/dL (60-115); Lactate Dehydrogenase 145 U/L (118-273); Magnesium 2.4 mg/dL (1.6-2.6); Sodium 139 mmol/L (135-145)
[2021-04-25 10:44] LABS: TSH reflex Free T4 0.49 uIU/mL (0.32-4.0)
[2021-04-25 11:22] LABS: Folate 4.5 ng/mL (> or = 4.0); Vitamin B12 605 pg/mL (200-900)
[2021-04-25] MEDS: Magnesium Citrate 300 ML SOLUTION PO (13:44)
--- NOTE | 2021-04-25 14:17 | HO.PSYCHPN ---
Subjective Subjective Date of Service: 04/25/21 Reason For Visit: Altered mental status Interim History: per staff, period of increased disorientation last evening, refusing medications. eventually allowed meds. slept after 0100. this morning wanting to remove his rich, fixated on it, that he didn't like that it was there (rather than that it was necessarily painful). on MD lorenzana this morning presented much the same as on [place] yesterday - psychomotorically retarded, paucity of thought. does appear to have leaden ridigity. relates an apparently delusional anecdote about his being given a hard time by some people in the room where he was previously staying here. hospitalist consulted on opinion r.e. new labs, nothing remarkable enough to warrant new intervention per hospitalist. some concern for NMS, but it would be an atypical presentation. presumed etiology of delirium is UTI, thought it apparently be well treated such that hospitalist also recommended DC of bactrim. Mental Status Exam Mental Status Exam Narrative: dressed in hospital [facility], seated in medical bed. PMR. cooperative. speech halting, soft, sparse, flat, incr latency. paucity of thought, perseverative thought, and blocked thoughts. affect blunted. mood not assessed. no SI/HI/AVH reported. Diagnostics Vital Signs (24Hr): Vital Signs - 24 hr 04/24/21 14:25 04/24/21 14:27 04/24/21 14:28 Temperature Pulse Rate 82 99 103 H Respiratory Rate Blood Pressure 114/69 107/67 106/70 Pulse Oximetry 04/24/21 17:39 04/24/21 22:13 04/25/21 10:08 Temperature 98.3 F 98.4 F Pulse Rate 93 99 83 Respiratory Rate 18 16 Blood Pressure 126/82 114/83 128/80 Pulse Oximetry 96 99 04/25/21 10:09 Temperature Pulse Rate 83 Respiratory Rate Blood Pressure 128/80 Pulse Oximetry Body Mass Index 25.7 Labs Results: 04/25/21 09:55 04/25/21 09:54 Labs: Laboratory Results - last 48 hr 04/24/21 04/24/21 04/25/21 08:12 11:15 09:54 WBC RBC Hgb Hct MCV MCH MCHC RDW Plt Count MPV Immature Gran % (Auto) Neut % (Auto) Lymph % (Auto) [place] % (Auto) Eos % (Auto) Baso % (Auto) Lymph # (Auto) [place] # (Auto) Eos # (Auto) Baso # (Auto) Abs Immat Gran (auto) Absolute Neuts (auto) Absolute Nucleated RBC Nucleated RBC % (auto) Sodium 139 139 Potassium 3.7 4.0 Chloride 106 106 Carbon Dioxide 24 23 Anion Gap 13 14 BUN 14 Creatinine 1.30 Estim Creat Clear Calc 63.1 Estimated GFR 57 Random Glucose 107 Calcium 9.6 Magnesium 2.4 Ammonia Lactate Dehydrogenase 145 Total Creatine Kinase 471 H Vitamin B12 Folate TSH 0.49 Urine Color YELLOW Urine Appearance CLEAR Urine pH 5.5 Ur Specific [place] >= 1.030 H Urine Protein NEG Urine Glucose (UA) NEG Urine Ketones 5 Urine Blood 1+ H Urine Nitrite NEG Ur Leukocyte Esterase NEG Urine RBC 5-9 H Urine WBC 1-4 Ur Squamous Epith Cells NONE Urine Bacteria NONE Urine Mucus 1+ 04/25/21 04/25/21 04/25/21 09:54 09:54 09:55 WBC 5.6 RBC 4.77 Hgb 13.9 L Hct 41.1 L MCV 86.2 MCH 29.1 MCHC 33.8 RDW 12.6 Plt Count 263 MPV 8.8 L Immature Gran % (Auto) 0.2 Neut % (Auto) 61.3 Lymph % (Auto) 27.8 [place] % (Auto) 9.2 Eos % (Auto) 1.1 Baso % (Auto) 0.4 Lymph # (Auto) 1.6 [place] # (Auto) 0.5 Eos # (Auto) 0.1 Baso # (Auto) 0.0 Abs Immat Gran (auto) 0.01 Absolute Neuts (auto) 3.4 Absolute Nucleated RBC 0.000 Nucleated RBC % (auto) 0.0 Sodium Potassium Chloride Carbon Dioxide Anion Gap BUN Creatinine Estim Creat Clear Calc Estimated GFR Random Glucose Calcium Magnesium Ammonia 28 Lactate Dehydrogenase Total Creatine Kinase Vitamin B12 605 Folate 4.5 TSH Urine Color Urine Appearance Urine pH Ur Specific [place] Urine Protein Urine Glucose (UA) Urine Ketones Urine Blood Urine Nitrite Ur Leukocyte Esterase Urine RBC Urine WBC Ur Squamous Epith Cells Urine Bacteria Urine Mucus Imaging Radiology Impressions: ITS Impressions Abdomen/Pelvis CT 04/22/21 12:16 IMPRESSION: Mild prostatomegaly with moderate central gland calcification.. The periprostatic fat planes are hazy. The bladder is undistended with a Rich's catheter within. Head CT 04/25/21 10:48 IMPRESSION: No acute intracranial hemorrhage or territorial infarction. Medications Medications Current Medications Generic Name Dose Route Start Last Admin Trade Name Freq PRN Reason Stop Dose Admin Acetaminophen 650 mg 04/22/21 17:58 04/25/21 10:02 Acetaminophen 325 Mg Tablet PO 650 mg Q4H PRN Administration Pain Al Hydroxide/Mg Hydroxide 30 ml 04/23/21 14:17 Magnesium Hydrox/Alum Hydrox 30 Ml Oral.Susp PO Q6H PRN Heartburn/Nausea Amlodipine Besylate 5 mg 04/22/21 18:00 04/25/21 10:09 Amlodipine Besylate 5 Mg Tablet PO 5 mg DAILY MITRA Administration Protocol Clonazepam 1 mg 04/22/21 17:58 04/25/21 10:03 Clonazepam 1 Mg Tablet PO 1 mg DAILY PRN Administration Anxiety Clonazepam 2 mg 04/22/21 21:00 04/24/21 22:50 Clonazepam 1 Mg Tablet PO 2 mg BEDTIME MITRA Administration Docusate Sodium 100 mg 04/22/21 17:58 04/25/21 10:02 Docusate Sodium 100 Mg Capsule PO 100 mg DAILY PRN Administration constipation Ibuprofen 800 mg 04/24/21 12:30 04/25/21 13:43 Ibuprofen 800 Mg Tablet PO 800 mg TIDWM MITRA Administration Lisinopril 20 mg 04/22/21 18:00 04/25/21 10:08 Lisinopril 20 Mg Tablet PO 20 mg DAILY MITRA Administration Protocol Magnesium Hydroxide 30 ml 04/23/21 14:17 04/24/21 15:52 Milk Of Magnesia 30 Ml Oral.Susp PO 30 ml DAILY PRN Administration Constipation Polyethylene Glycol 17 gm 04/22/21 18:00 04/25/21 09:41 Polyethylene Glycol 3350 17 Gm Powd.Pack PO 17 gm DAILY MITRA Administration Tamsulosin HCl 0.4 mg 04/23/21 21:00 04/24/21 22:49 Tamsulosin Hcl 0.4 Mg Capsule PO 0.4 mg BEDTIME MITRA Administration Allergies Allergies Allergy/AdvReac Type Severity Reaction Status Date / Time atorvastatin [From LIPITOR] Allergy Intermediate ELEVATED Verified 04/24/21 19:53 LIVER ENZYMES Assessment & Plan Assessment & Plan (1) Hypertension: Status: Acute Code(s): I10 - Essential (primary) hypertension (2) Hyperlipemia: Status: Acute Code(s): E78.5 - Hyperlipidemia, unspecified (3) UTI (urinary tract infection): Status: Acute Code(s): N39.0 - Urinary tract infection, site not specified Assessment and Plan: seroquel 300 QHS DCed for now out of an abundance of caution that altered mental status might be NMS. will continue klonopin dosing as per home regimen. HOLD any additional anti-psychotic medication for now. collect collateral from family and outpt prescriber. same presentation as yesterday. unclear whether recent MS changes are related to med changes reported to have been made in the past month or UTI delirium. continue watchful waiting approach as UTI is treated and as bladder is drained with rich. VSS and WNL, but pt does appear to have some leaden rigidity, which in combination with the delirium is concerning for NMS. progression of Sx is typically altered mental status first, then rigidity, then hyperthermia, and finally autonomic instability. the first two appear present in this individual, should be vigilant for development of the second two. supportive care for the time being. Greater than 50% of the session was spent on counseling and/or coordination of care Reason for contiued inpatient stay Substantial Risk for: inability to function
--- NOTE | 2021-04-25 16:49 | P.PNIM_ITS ---
Subjective Subjective Date of Service: 04/25/21 Interval History: Patient seen in f/u UTI and ? delirium. While attempting to evaluate patient, he is again very stoic in appearance and does answer question but with very high latency periods, he was not agitated altough he obesses about pulling sheet of of himself. I revewied his most recent vitals and found to be unremarkable, labs have included metabolic panel, CBC to be unremarkable, TSH, LFTS, B12, folate all are unremarkable. CPK level is 471, patient has no rigidity, no tremors, no fever. A head CT today was negative. Review of Systems Gen: no fever Resp: no sob, no cough CV: no chest, no RASHID, no leg edema GI: No n/v, no abd pain Neuro: hard to ascertain Physical Exam Vital Signs: Vital Signs: Last Vital Signs Temp 98.4 F 04/24/21 22:13 Pulse 83 04/25/21 10:09 Resp 16 04/24/21 22:13 BP 128/80 04/25/21 10:09 Pulse Ox 99 04/24/21 22:13 Body Mass Index 25.7 Const: Other: Constitutional Awake and alert, but slow to answer question Neck Supple, No lymphadenopathy Cardiovascular RRR, No M/R/G, S1 S2, No S3 S4, No pedal edema Respiratory Lungs clear, No respiratory distress Gastrointestinal Non tender, Non-distended : he has rich cath in, urine is clear Skin No rash Neurological Alert, he tells me he is [place], knows his name, hemoves all limbs freely-Neuro exam is otherwise limitted as patient is very slow to follow through commands. Psychological flat affect Objective Data Current Medications Generic Name Dose Route Start Last Admin Trade Name Akash PRN Reason Stop Dose Admin Acetaminophen 650 mg 04/22/21 17:58 04/25/21 10:02 Acetaminophen 325 Mg Tablet PO 650 mg Q4H PRN Administration Pain Al Hydroxide/Mg Hydroxide 30 ml 04/23/21 14:17 Magnesium Hydrox/Alum Hydrox 30 Ml Oral.Susp PO Q6H PRN Heartburn/Nausea Amlodipine Besylate 5 mg 04/22/21 18:00 04/25/21 10:09 Amlodipine Besylate 5 Mg Tablet PO 5 mg DAILY MITRA Administration Protocol Clonazepam 1 mg 04/22/21 17:58 04/25/21 10:03 Clonazepam 1 Mg Tablet PO 1 mg DAILY PRN Administration Anxiety Clonazepam 2 mg 04/22/21 21:00 04/24/21 22:50 Clonazepam 1 Mg Tablet PO 2 mg BEDTIME MITRA Administration Docusate Sodium 100 mg 04/22/21 17:58 04/25/21 10:02 Docusate Sodium 100 Mg Capsule PO 100 mg DAILY PRN Administration constipation Ibuprofen 800 mg 04/24/21 12:30 04/25/21 13:43 Ibuprofen 800 Mg Tablet PO 800 mg TIDWM MITRA Administration Lisinopril 20 mg 04/22/21 18:00 04/25/21 10:08 Lisinopril 20 Mg Tablet PO 20 mg DAILY MITRA Administration Protocol Magnesium Hydroxide 30 ml 04/23/21 14:17 04/24/21 15:52 Milk Of Magnesia 30 Ml Oral.Susp PO 30 ml DAILY PRN Administration Constipation Polyethylene Glycol 17 gm 04/22/21 18:00 04/25/21 09:41 Polyethylene Glycol 3350 17 Gm Powd.Pack PO 17 gm DAILY MITRA Administration Tamsulosin HCl 0.4 mg 04/23/21 21:00 04/24/21 22:49 Tamsulosin Hcl 0.4 Mg Capsule PO 0.4 mg BEDTIME MITRA Administration Labs CBC & Chem 7: 04/25/21 09:55 04/25/21 09:54 Labs: Laboratory Results - last 24 hr 04/25/21 04/25/21 04/25/21 09:54 09:54 09:54 WBC RBC Hgb Hct MCV MCH MCHC RDW Plt Count MPV Immature Gran % (Auto) Neut % (Auto) Lymph % (Auto) [place] % (Auto) Eos % (Auto) Baso % (Auto) Lymph # (Auto) [place] # (Auto) Eos # (Auto) Baso # (Auto) Abs Immat Gran (auto) Absolute Neuts (auto) Absolute Nucleated RBC Nucleated RBC % (auto) Sodium 139 Potassium 4.0 Chloride 106 Carbon Dioxide 23 Anion Gap 14 BUN 14 Creatinine 1.30 Estim Creat Clear Calc 63.1 Estimated GFR 57 Random Glucose 107 Calcium 9.6 Magnesium 2.4 Ammonia 28 Lactate Dehydrogenase 145 Total Creatine Kinase 471 H Vitamin B12 605 Folate 4.5 TSH 0.49 04/25/21 09:55 WBC 5.6 RBC 4.77 Hgb 13.9 L Hct 41.1 L MCV 86.2 MCH 29.1 MCHC 33.8 RDW 12.6 Plt Count 263 MPV 8.8 L Immature Gran % (Auto) 0.2 Neut % (Auto) 61.3 Lymph % (Auto) 27.8 [place] % (Auto) 9.2 Eos % (Auto) 1.1 Baso % (Auto) 0.4 Lymph # (Auto) 1.6 [place] # (Auto) 0.5 Eos # (Auto) 0.1 Baso # (Auto) 0.0 Abs Immat Gran (auto) 0.01 Absolute Neuts (auto) 3.4 Absolute Nucleated RBC 0.000 Nucleated RBC % (auto) 0.0 Sodium Potassium Chloride Carbon Dioxide Anion Gap BUN Creatinine Estim Creat Clear Calc Estimated GFR Random Glucose Calcium Magnesium Ammonia Lactate Dehydrogenase Total Creatine Kinase Vitamin B12 Folate TSH Microbiology Microbiology Results: Microbiology 04/22/21 13:36 Blood Culture - Preliminary Blood - Venous No growth after 48 hours. 04/22/21 13:33 Blood Culture - Preliminary Blood - Venous No growth after 48 hours. Quality Stroke Does the patient have a stroke diagnosis?: No VTE Prior VTE?: No VTE Risk Level:: Medical - moderate - high VTE Device Contraindication: N/A - Device Ordered VTE Drug Contraindication: N/A - Med Ordered Assessment and Plan (1) Rich catheter in place: Status: Acute (2) Hyperlipemia: Status: Acute (3) Acute urinary retention: Status: Acute (4) Enlarged prostate: Status: Acute Assessment and Plan: 60 year old male with BPH, HTN, HLD who has been admitted to [facility] with diagnosis of bipolar 1, prior to admission has been started on Bactrim for UTI, he has been started on anti anxiety and anti-psychotic meds, he has had urinary retention as result of BPH and urology inserted a rich cath yesterday, Psych is stating that they unsure if his condition is primary Psych or medical cause of delirium. Plan: After close review of labs, medication, and personal evaluation, there are no obvious medical cause of his condition, he does not have an active infection, presumed UTI that was treated with bactrim seems to have clear, his las UA as of 04/24 was negative for UTI and so I suggest discontinuing bactrim and following clinically at this time. His metablic profile, LFTS, B12, Folate and TSH, reviewed to be unremarkable as well, CPK of 471 is insignificant and can be repeated tomorrow, there is no evidence of NMS (no fever, no tachycardia, no signs of autonomic dysfunction). He has had CT scan of the head that is unremarkable. I have no noticed patient's condition to be waxing and waning for acute medical delirium. Could it be that present Psych medications are making his condition worse? I suggest review meds and adjust according, if it is not believed that these are necessary. As next step, I would recommend obtaining an Neurology consult and consider an EEG. Will follow
[2021-04-25 18:00] VITALS: BP 109/66; PULSE 80; RESP 16; TEMP 36.8; O2SAT 96
[2021-04-25] MEDS: clonazePAM 1 MG TABLET 2 MG PO (20:47)
[2021-04-25] MEDS: Tamsulosin HCL 0.4 MG CAPSULE PO (20:47)
--- NOTE | 2021-04-25 21:15 | PC.NURSE ---
Change of shift report included PT at risk for developing pressure sore in the coccyx region. This nurse assessed the area to find a small blanchable red gopi in the coccyx region. Protective barrier cream was applied to the region to prevent further skin breakdown.
--- NOTE | 2021-04-26 | ECG_ITS ---
Test Reason : CP Blood Pressure : / mmHG Vent. Rate : 095 BPM Atrial Rate : 095 BPM P-R Int : 150 ms QRS Dur : 082 ms QT Int : 354 ms P-R-T Axes : 063 -01 047 degrees QTc Int : 444 ms Normal sinus rhythm Normal ECG When compared with ECG of 23-APR-2021 12:24, No significant change was found Referred By: Pawan Cagle Electronically Signed By:SUSAN RODAS
[2021-04-26] MEDS: clonazePAM 0.5 MG TABLET PO (04:10)
[2021-04-26 06:00] VITALS: BP 120/96; PULSE 84; RESP 16; TEMP 36.9; O2SAT 96
[2021-04-26] MEDS: Ibuprofen 800 MG TABLET PO ×3 (09:14→18:15)
[2021-04-26 09:15] VITALS: BP 130/78
[2021-04-26] MEDS: lisinopriL 20 MG TABLET PO (09:15)
[2021-04-26 09:16] VITALS: BP 130/78
[2021-04-26] MEDS: amLODIPine Besylate 5 MG TABLET PO (09:16)
[2021-04-26] MEDS: polyethylene glycoL 3350 17 GM POWD.PACK PO (09:24)
--- NOTE | 2021-04-26 11:05 | PM.UROCN ---
History of Present Illness Consult details Consult date: 04/24/21 Narrative: asked to see patient due to urinary retention bladder scan was 600 cc no prior documented issue regarding prostate flat affect secondary to exacerbation of bipolar 18 Frisian Gonzalez catheter placed without difficulty. Over 600 cc urine obtained recommendation catheter stays 1 week can be seen outpatient for voiding trial of no longer in facility start alpha-marcy and finasteride Review of Systems Constitutional: Constitutional: Denies chills and Denies fever(s) Cardiovascular: Cardiovascular: Reports no additional cardiovascular complaints and Denies syncope Respiratory: Respiratory: Denies cough Gastrointestinal: Gastrointestinal: Denies abdominal pain and Denies heartburn Genitourinary: Genitourinary: Reports as per HPI and Denies change in libido Neurologic: Denies syncope Psychiatric: Psychiatric: Denies change in libido Endocrine: Endocrine: Denies change in libido [facility] Past Medical History Medical History Bipolar 1 disorder Hyperlipemia Hypertension UTI (urinary tract infection) Surgical History Surgical History (Updated 04/24/21 @ 13:58 by Carroll Guerrero MD) H/O shoulder surgery Social History Social History Household Members: Family and Other Household Members Other:: 85 year old mother Housing: House Do you presently have visiting nurse or other home services: No Alcohol intake: unknown Patient Tobacco Use Status: Never used Tobacco Smoked in Last 30 Days: No e-Cigarette/Vaping Use: Never Used Patient Interested in Nicotine Replacement: No Patient Given Instructions on How to Stop Smoking: No Second Hand Smoke Exposure: No Use of substances other than those prescribed or required for medical reasons: No Currently Displaying Signs/Symptoms of Drug Intoxication Withdrawal: No Any prior treatment program specific to substance use: No Have you been hit, kicked, punched, or otherwise hurt by someone within the past year? If so, by whom?: No Do you feel safe in your current relationship?: No Is there a partner from a previous relationship who is making you feel unsafe now?: No Are you made to feel afraid or neglected: No Advance Directives: Yes Advance Directives Information Provided: Yes Advance Directives on File: No Healthcare Proxy: No Guardian: No Do you have thoughts of harming others: None Do you have a plan to hurt others: No Plan Recently lost weight without trying: No Nutrition Risks: No Nutritional Risk Poor oral hygiene: No service: No Sexual orientation: Don't Know Meds Allergies Allergy/AdvReac Type Severity Reaction Status Date / Time atorvastatin [From LIPITOR] Allergy Intermediate ELEVATED Verified 04/24/21 19:53 LIVER ENZYMES Active Medications: Current Medications Generic Name Dose Route Start Last Admin Trade Name Akash PRN Reason Stop Dose Admin Acetaminophen 650 mg 04/22/21 17:58 04/25/21 10:02 Acetaminophen 325 Mg Tablet PO 650 mg Q4H PRN Administration Pain Al Hydroxide/Mg Hydroxide 30 ml 04/23/21 14:17 Magnesium Hydrox/Alum Hydrox 30 Ml Oral.Susp PO Q6H PRN Heartburn/Nausea Amlodipine Besylate 5 mg 04/22/21 18:00 04/26/21 09:16 Amlodipine Besylate 5 Mg Tablet PO 5 mg DAILY MITRA Administration Protocol Clonazepam 1 mg 04/22/21 17:58 04/25/21 10:03 Clonazepam 1 Mg Tablet PO 1 mg DAILY PRN Administration Anxiety Clonazepam 2 mg 04/22/21 21:00 04/25/21 20:47 Clonazepam 1 Mg Tablet PO 2 mg BEDTIME MITRA Administration Docusate Sodium 100 mg 04/22/21 17:58 04/25/21 10:02 Docusate Sodium 100 Mg Capsule PO 100 mg DAILY PRN Administration constipation Ibuprofen 800 mg 04/24/21 12:30 04/26/21 09:14 Ibuprofen 800 Mg Tablet PO 800 mg TIDWM MITRA Administration Lisinopril 20 mg 04/22/21 18:00 04/26/21 09:15 Lisinopril 20 Mg Tablet PO 20 mg DAILY MITRA Administration Protocol Magnesium Hydroxide 30 ml 04/23/21 14:17 04/24/21 15:52 Milk Of Magnesia 30 Ml Oral.Susp PO 30 ml DAILY PRN Administration Constipation Polyethylene Glycol 17 gm 04/22/21 18:00 04/26/21 09:24 Polyethylene Glycol 3350 17 Gm Powd.Pack PO 17 gm DAILY MITRA Administration Tamsulosin HCl 0.4 mg 04/23/21 21:00 04/25/21 20:47 Tamsulosin Hcl 0.4 Mg Capsule PO 0.4 mg BEDTIME MITRA Administration Home Medications Medication Instructions Recorded Confirmed Last Taken Type acetaminophen 650 mg PO Q4H PRN 04/22/21 04/22/21 Unknown History amlodipine 5 mg PO DAILY 04/22/21 04/22/21 04/21/21 History clonazepam 1 mg PO DAILY PRN 04/22/21 04/22/21 Unknown History clonazepam 2 mg PO BEDTIME 04/22/21 04/22/21 04/21/21 History docusate sodium 100 mg PO DAILY PRN 04/22/21 04/22/21 04/21/21 History lisinopril 20 mg PO DAILY 04/22/21 04/22/21 04/21/21 History polyethylene glycol 3350 [Miralax] 17 g PO DAILY 04/22/21 04/22/21 Unknown History quetiapine 300 mg PO BEDTIME 04/22/21 04/22/21 04/21/21 History sulfamethoxazole-trimethoprim 1 tab PO BID 04/22/21 04/22/21 04/21/21 History Physical Exam Vital Signs: Vital Signs: Last Vital Signs Temp 98.4 F 04/26/21 06:00 Pulse 84 04/26/21 06:00 Resp 16 04/26/21 06:00 BP 130/78 04/26/21 09:16 Pulse Ox 96 04/26/21 06:00 Body Mass Index 25.7 Const: General: cooperative, healthy appearing, comfortable and no acute distress Orientation/consciousness: patient oriented x3 HENMT: Face and sinus: Yes normal facial exam Mouth: moist mucous membranes Neck: Neck: Yes normal visual inspection, Yes full ROM and Yes trachea midline Chest: Chest palpation & inspection: normal inspection of the chest Resp: Effort & Inspection: normal respiratory effort, able to speak in complete sentences and no respiratory distress GI: Inspection: Yes normal to inspection Back/Spine/Pelvis: Cervical Spine: normal cervical lordosis Thoracic/Lumbar Spine: thoracic and lumbar spine normal to inspection Skin: General skin exam: no rashes or lesions noted Neuro: General: patient oriented x3, gait normal, tone normal and moves all extremities Extrem: General: Yes normal to inspection and Yes capillary refill normal Results Labs Result diagrams: 04/25/21 09:55 04/25/21 09:54 Labs: Urine 04/22/21 04/24/21 Range/Units 12:29 11:15 Urine Color YELLOW YELLOW Urine Appearance CLEAR CLEAR Urine pH 6.0 5.5 (5.0-8.0) Ur Specific [place] >= 1.030 H >= 1.030 H (1.005-1.025) Urine Protein NEG NEG (NEG-TRACE) MG/DL Urine Glucose (UA) NEG NEG (NEG) MG/DL All other labs normal. Assessment and Plan (1) Enlarged prostate: Status: Acute (2) Acute urinary retention: Status: Acute alpha-marcy and finasteride catheter out in 7 days Procedures Date of Service Date of Service: 04/24/21 Catheter Insertion (Urinary) Date of insertion: 04/24/21 Time of insertion: 10:08 Replacement of catheter present on admission: No Reason for placing: Acute urinary retention Estimated amount of urine (mLs): 1,000
[2021-04-26] MEDS: Finasteride 5 MG TABLET PO (12:24)
--- NOTE | 2021-04-26 12:51 | HO.PSYCHPN ---
Subjective Subjective Date of Service: 04/26/21 Reason For Visit: Altered mental status Interim History: The patient was selectively mute, standing partially naked, trying to manipulate his Gonzalez Catheter, nearly catatonic, very disorganized. He had a very long latency of response. As per sign-out, he has an EEG order to be done. Review of Systems Review of Systems Yes Unobtainable due to mental status Mental Status Exam Mental Status Exam Patient Appearance: Disheveled (on hospital gowns) Patient Orientation: Person Level of Consciousness: Awake, Disoriented and Inappropriate Patient Behavior: Passive, Confused and Good Eye Contact Mood Description: Suspicious Affect Description: Blunted Patient Cognition Impaired: Yes Ability to Follow Directions: Poor Speech Pattern: No Speech Hallucinations: None (unable to assess) Thought Process: Incoherent and Illogical Thought Content: positive for Poverty of Content Judgement: Poor Diagnostics Vital Signs (24Hr): Vital Signs - 24 hr 04/25/21 18:00 04/26/21 06:00 04/26/21 09:15 Temperature 98.2 F 98.4 F Pulse Rate 80 84 Respiratory Rate 16 16 Blood Pressure 109/66 120/96 H 130/78 Pulse Oximetry 96 96 04/26/21 09:16 Temperature Pulse Rate Respiratory Rate Blood Pressure 130/78 Pulse Oximetry Body Mass Index 25.7 Labs Results: 04/25/21 09:55 04/25/21 09:54 Labs: Laboratory Results - last 48 hr 04/25/21 04/25/21 04/25/21 09:54 09:54 09:54 WBC RBC Hgb Hct MCV MCH MCHC RDW Plt Count MPV Immature Gran % (Auto) Neut % (Auto) Lymph % (Auto) Russell % (Auto) Eos % (Auto) Baso % (Auto) Lymph # (Auto) Russell # (Auto) Eos # (Auto) Baso # (Auto) Abs Immat Gran (auto) Absolute Neuts (auto) Absolute Nucleated RBC Nucleated RBC % (auto) Sodium 139 Potassium 4.0 Chloride 106 Carbon Dioxide 23 Anion Gap 14 BUN 14 Creatinine 1.30 Estim Creat Clear Calc 63.1 Estimated GFR 57 Random Glucose 107 Calcium 9.6 Magnesium 2.4 Ammonia 28 Lactate Dehydrogenase 145 Total Creatine Kinase 471 H Vitamin B12 605 Folate 4.5 TSH 0.49 04/25/21 09:55 WBC 5.6 RBC 4.77 Hgb 13.9 L Hct 41.1 L MCV 86.2 MCH 29.1 MCHC 33.8 RDW 12.6 Plt Count 263 MPV 8.8 L Immature Gran % (Auto) 0.2 Neut % (Auto) 61.3 Lymph % (Auto) 27.8 Russell % (Auto) 9.2 Eos % (Auto) 1.1 Baso % (Auto) 0.4 Lymph # (Auto) 1.6 Russell # (Auto) 0.5 Eos # (Auto) 0.1 Baso # (Auto) 0.0 Abs Immat Gran (auto) 0.01 Absolute Neuts (auto) 3.4 Absolute Nucleated RBC 0.000 Nucleated RBC % (auto) 0.0 Sodium Potassium Chloride Carbon Dioxide Anion Gap BUN Creatinine Estim Creat Clear Calc Estimated GFR Random Glucose Calcium Magnesium Ammonia Lactate Dehydrogenase Total Creatine Kinase Vitamin B12 Folate TSH Imaging Radiology Impressions: ITS Impressions Abdomen/Pelvis CT 04/22/21 12:16 IMPRESSION: Mild prostatomegaly with moderate central gland calcification.. The periprostatic fat planes are hazy. The bladder is undistended with a Gonzalez's catheter within. Head CT 04/25/21 10:48 IMPRESSION: No acute intracranial hemorrhage or territorial infarction. Medications Medications Current Medications Generic Name Dose Route Start Last Admin Trade Name Freq PRN Reason Stop Dose Admin Acetaminophen 650 mg 04/22/21 17:58 04/25/21 10:02 Acetaminophen 325 Mg Tablet PO 650 mg Q4H PRN Administration Pain Al Hydroxide/Mg Hydroxide 30 ml 04/23/21 14:17 Magnesium Hydrox/Alum Hydrox 30 Ml Oral.Susp PO Q6H PRN Heartburn/Nausea Amlodipine Besylate 5 mg 04/22/21 18:00 04/26/21 09:16 Amlodipine Besylate 5 Mg Tablet PO 5 mg DAILY MITRA Administration Protocol Clonazepam 1 mg 04/22/21 17:58 04/25/21 10:03 Clonazepam 1 Mg Tablet PO 1 mg DAILY PRN Administration Anxiety Clonazepam 2 mg 04/22/21 21:00 04/25/21 20:47 Clonazepam 1 Mg Tablet PO 2 mg BEDTIME MITRA Administration Docusate Sodium 100 mg 04/22/21 17:58 04/25/21 10:02 Docusate Sodium 100 Mg Capsule PO 100 mg DAILY PRN Administration constipation Finasteride 5 mg 04/26/21 11:15 04/26/21 12:24 Finasteride 5 Mg Tablet PO 5 mg DAILY MITRA Administration Ibuprofen 800 mg 04/24/21 12:30 04/26/21 12:23 Ibuprofen 800 Mg Tablet PO 800 mg TIDWM MITRA Administration Lisinopril 20 mg 04/22/21 18:00 04/26/21 09:15 Lisinopril 20 Mg Tablet PO 20 mg DAILY MITRA Administration Protocol Magnesium Hydroxide 30 ml 04/23/21 14:17 04/24/21 15:52 Milk Of Magnesia 30 Ml Oral.Susp PO 30 ml DAILY PRN Administration Constipation Polyethylene Glycol 17 gm 04/22/21 18:00 04/26/21 09:24 Polyethylene Glycol 3350 17 Gm Powd.Pack PO 17 gm DAILY MITRA Administration Tamsulosin HCl 0.4 mg 04/23/21 21:00 04/25/21 20:47 Tamsulosin Hcl 0.4 Mg Capsule PO 0.4 mg BEDTIME MITRA Administration Allergies Allergies Allergy/AdvReac Type Severity Reaction Status Date / Time atorvastatin [From LIPITOR] Allergy Intermediate ELEVATED Verified 04/24/21 19:53 LIVER ENZYMES Assessment & Plan Assessment & Plan (1) Enlarged prostate: Status: Acute Code(s): N40.0 - Benign prostatic hyperplasia without lower urinary tract symptoms (2) Acute urinary retention: Status: Acute Code(s): R33.8 - Other retention of urine (3) Bipolar 1 disorder: Status: Acute Code(s): F31.9 - Bipolar disorder, unspecified (4) Altered mental status: Status: Acute Code(s): R41.82 - Altered mental status, unspecified (5) Gonzalez catheter in place: Status: Acute Code(s): Z97.8 - Presence of other specified devices (6) Bipolar 1 disorder: Status: Acute Code(s): F31.9 - Bipolar disorder, unspecified Assessment and Plan: Adult male with bipolar disorder admitted for altered mental status after antpsychotics were chagned. No evidence of NMS at this moment, nl ammonia and low CPK. Plan: Gather collateral. Possibility of ECT? Greater than 50% of the session was spent on counseling and/or coordination of care Reason for contiued inpatient stay Substantial Risk for: inability to function, rapid decompensation, med/psych decompensation and other (catatonia)
[2021-04-26 17:21] VITALS: BP 118/78; PULSE 92; TEMP 36.2; O2SAT 96
--- NOTE | 2021-04-26 17:42 | HO.PM.IMPN ---
Subjective Subjective Date of Service: 04/26/21 Interval History: Patient seen in again this morning in f/u he is again very stoic in appearance and does answer question but with very high latency periods, he was not agitated altough he obesses about rich catheter. He is rather calm and uter very few words--in other words no significant change Review of Systems Gen: no fever Resp: no sob, no cough CV: no chest, no RASHID, no leg edema GI: No n/v, no abd pain Neuro: not participating, no focal finding Physical Exam Vital Signs: Vital Signs: Last Vital Signs Temp 97.2 F 04/26/21 17:21 Pulse 92 04/26/21 17:21 Resp 16 04/26/21 06:00 BP 118/78 04/26/21 17:21 Pulse Ox 96 04/26/21 17:21 Body Mass Index 25.7 Const: Other: Constitutional Awake and alert, but slow to answer question Neck Supple, No lymphadenopathy Cardiovascular RRR, No M/R/G, S1 S2, No S3 S4, No pedal edema Respiratory Lungs clear, No respiratory distress Gastrointestinal Non tender, Non-distended : he has rich cath in, urine is clear Skin No rash Neurological Alert, moves extremities spontaneously, exam very limitted Objective Data Current Medications Generic Name Dose Route Start Last Admin Trade Name Akash PRN Reason Stop Dose Admin Acetaminophen 650 mg 04/22/21 17:58 04/25/21 10:02 Acetaminophen 325 Mg Tablet PO 650 mg Q4H PRN Administration Pain Al Hydroxide/Mg Hydroxide 30 ml 04/23/21 14:17 Magnesium Hydrox/Alum Hydrox 30 Ml Oral.Susp PO Q6H PRN Heartburn/Nausea Amlodipine Besylate 5 mg 04/22/21 18:00 04/26/21 09:16 Amlodipine Besylate 5 Mg Tablet PO 5 mg DAILY MITRA Administration Protocol Clonazepam 1 mg 04/22/21 17:58 04/25/21 10:03 Clonazepam 1 Mg Tablet PO 1 mg DAILY PRN Administration Anxiety Clonazepam 2 mg 04/22/21 21:00 04/25/21 20:47 Clonazepam 1 Mg Tablet PO 2 mg BEDTIME MITRA Administration Docusate Sodium 100 mg 04/22/21 17:58 04/25/21 10:02 Docusate Sodium 100 Mg Capsule PO 100 mg DAILY PRN Administration constipation Finasteride 5 mg 07/06/21 11:15 04/26/21 12:24 Finasteride 5 Mg Tablet PO 5 mg DAILY MITRA Administration Ibuprofen 800 mg 04/24/21 12:30 04/26/21 12:23 Ibuprofen 800 Mg Tablet PO 800 mg TIDWM MITRA Administration Lisinopril 20 mg 04/22/21 18:00 04/26/21 09:15 Lisinopril 20 Mg Tablet PO 20 mg DAILY MITRA Administration Protocol Magnesium Hydroxide 30 ml 04/23/21 14:17 04/24/21 15:52 Milk Of Magnesia 30 Ml Oral.Susp PO 30 ml DAILY PRN Administration Constipation Polyethylene Glycol 17 gm 04/22/21 18:00 04/26/21 09:24 Polyethylene Glycol 3350 17 Gm Powd.Pack PO 17 gm DAILY MITRA Administration Tamsulosin HCl 0.4 mg 04/23/21 21:00 04/25/21 20:47 Tamsulosin Hcl 0.4 Mg Capsule PO 0.4 mg BEDTIME MITRA Administration Labs CBC & Chem 7: 04/25/21 09:55 04/25/21 09:54 Quality Stroke Does the patient have a stroke diagnosis?: No VTE Prior VTE?: No VTE Risk Level:: Medical - moderate - high VTE Device Contraindication: N/A - Device Ordered VTE Drug Contraindication: N/A - Med Ordered Assessment and Plan (1) Rich catheter in place: Status: Acute (2) Hyperlipemia: Status: Acute (3) Acute urinary retention: Status: Acute (4) Enlarged prostate: Status: Acute Assessment and Plan: 60 year old male with BPH, HTN, HLD who has been admitted to [facility] with diagnosis of bipolar 1, prior to admission has been started on Bactrim for UTI, he has been started on anti anxiety and anti-psychotic meds, he has had urinary retention as result of BPH and urology inserted a rich cath yesterday, Psych is stating that they unsure if his condition is primary Psych or medical cause of delirium. Plan: 04/25/21 After close review of labs, medication, and personal evaluation, there are no obvious medical cause of his condition, he does not have an active infection, presumed UTI that was treated with bactrim seems to have clear, his las UA as of 04/24 was negative for UTI and so I suggest discontinuing bactrim and following clinically at this time. His metablic profile, LFTS, B12, Folate and TSH, reviewed to be unremarkable as well, CPK of 471 is insignificant and can be repeated tomorrow, there is no evidence of NMS (no fever, no tachycardia, no signs of autonomic dysfunction). He has had CT scan of the head that is unremarkable. I have no noticed patient's condition to be waxing and waning for acute medical delirium. Could it be that present Psych medications are making his condition worse? I suggest review meds and adjust according, if it is not believed that these are necessary. As next step, I would recommend obtaining an Neurology consult and consider an EEG. Will follow 04/26/21 No sginificant change, vital are stable, there is still no medical explanation for his present condition, he seems very depressed and I would agree with ECT as treatment option, he was not able participate in EEG exam and we are still waiting ro Neurology evalation. Lisa welch is still in, Uro to decide on when this come out. Because he is highly imobile, I recommend Lovenox injection to prevent DVT. Continue HTN meds
--- NOTE | 2021-04-26 17:48 | P.CNNE_ITS ---
History of Present Illness Data of Consult Service Date: 04/26/21 Primary Care Provider: Unknown Physician HPI Reason for consult: Altered mental status, flat affect and very slow responses This is a 60-year-old man with a history of bipolar 1 disorder who apparently had acute urinary retention from an enlarged prostate and had a Gonzalez catheter in place and a UTI. He was recently taken off Invega which was apparently prescribed for her schizoaffective disorder. I was asked to see him because of his altered mental status. According to his family he has never been like this. He is very slow in his responses with a flat affect and almost catatonic. He does not provide any information and keeps talking about his catheter needing to be removed and repeating will it be taken out Review of Systems Eyes: Eyes: Reports no additional eye complaints ENT: Reports system reviewed and no additional complaints, except as documen sepideh and Reports Normal hearing present Cardiovascular: Cardiovascular: Reports no additional cardiovascular complaints Respiratory: Respiratory: Reports no additional respiratory complaints Gastrointestinal: Gastrointestinal: Reports no additional gastrointestinal complaints Genitourinary: Genitourinary: Reports no additional male genitourinary complaints Musculoskeletal: Musculoskeletal: Reports no additional musculoskeletal complaints Integumentary/Breasts: Skin/Breast: Reports system reviewed and no additional complaints, except as docu Neurologic: Reports as per HPI and Reports Normal hearing present Psychiatric: Psychiatric: Reports as per HPI Endocrine: Endocrine: Reports no additional endocrine complaints Hematologic/Lymphatic: Hematologic/Lymphatic: Reports no additional hemato logic/lymphatic complaints Allergic/Immunologic: Allergic/Immunologic: Reports no additional allergic/immunologic complaints [facility] Past Medical History Medical History (Updated 04/26/21 @ 12:57 by Pawan Cagle) Bipolar 1 disorder Hyperlipemia Hypertension UTI (urinary tract infection) Surgical History Surgical History (Updated 04/24/21 @ 13:58 by Carroll Guerrero MD) H/O shoulder surgery Social History Social History Household Members: Family and Other Household Members Other:: 85 year old mother Housing: House Do you presently have visiting nurse or other home services: No Alcohol intake: unknown Patient Tobacco Use Status: Never used Tobacco Smoked in Last 30 Days: No e-Cigarette/Vaping Use: Never Used Patient Interested in Nicotine Replacement: No Patient Given Instructions on How to Stop Smoking: No Second Hand Smoke Exposure: No Use of substances other than those prescribed or required for medical reasons: No Currently Displaying Signs/Symptoms of Drug Intoxication Withdrawal: No Any prior treatment program specific to substance use: No Have you been hit, kicked, punched, or otherwise hurt by someone within the past year? If so, by whom?: No Do you feel safe in your current relationship?: No Is there a partner from a previous relationship who is making you feel unsafe now?: No Are you made to feel afraid or neglected: No Advance Directives: Yes Advance Directives Information Provided: Yes Advance Directives on File: No Healthcare Proxy: No Guardian: No Do you have thoughts of harming others: None Do you have a plan to hurt others: No Plan Recently lost weight without trying: No Nutrition Risks: No Nutritional Risk Poor oral hygiene: No service: No Sexual orientation: Don't Know Meds Allergies Allergy/AdvReac Type Severity Reaction Status Date / Time atorvastatin [From LIPITOR] Allergy Intermediate ELEVATED Verified 04/24/21 19:53 LIVER ENZYMES Active Medications: Current Medications Generic Name Dose Route Start Last Admin Trade Name Ceferinoq PRN Reason Stop Dose Admin Acetaminophen 650 mg 04/22/21 17:58 04/25/21 10:02 Acetaminophen 325 Mg Tablet PO 650 mg Q4H PRN Administration Pain Al Hydroxide/Mg Hydroxide 30 ml 04/23/21 14:17 Magnesium Hydrox/Alum Hydrox 30 Ml Oral.Susp PO Q6H PRN Heartburn/Nausea Amlodipine Besylate 5 mg 04/22/21 18:00 04/26/21 09:16 Amlodipine Besylate 5 Mg Tablet PO 5 mg DAILY MITRA Administration Protocol Clonazepam 1 mg 04/22/21 17:58 04/25/21 10:03 Clonazepam 1 Mg Tablet PO 1 mg DAILY PRN Administration Anxiety Clonazepam 2 mg 04/22/21 21:00 04/25/21 20:47 Clonazepam 1 Mg Tablet PO 2 mg BEDTIME MITRA Administration Docusate Sodium 100 mg 04/22/21 17:58 04/25/21 10:02 Docusate Sodium 100 Mg Capsule PO 100 mg DAILY PRN Administration constipation Finasteride 5 mg 04/26/21 11:15 04/26/21 12:24 Finasteride 5 Mg Tablet PO 5 mg DAILY MITRA Administration Ibuprofen 800 mg 04/24/21 12:30 04/26/21 12:23 Ibuprofen 800 Mg Tablet PO 800 mg TIDWM MITRA Administration Lisinopril 20 mg 04/22/21 18:00 04/26/21 09:15 Lisinopril 20 Mg Tablet PO 20 mg DAILY MITRA Administration Protocol Magnesium Hydroxide 30 ml 04/23/21 14:17 04/24/21 15:52 Milk Of Magnesia 30 Ml Oral.Susp PO 30 ml DAILY PRN Administration Constipation Polyethylene Glycol 17 gm 04/22/21 18:00 04/26/21 09:24 Polyethylene Glycol 3350 17 Gm Powd.Pack PO 17 gm DAILY MITRA Administration Tamsulosin HCl 0.4 mg 04/23/21 21:00 04/25/21 20:47 Tamsulosin Hcl 0.4 Mg Capsule PO 0.4 mg BEDTIME MITRA Administration Home Medications Medication Instructions Recorded Confirmed Last Taken Type acetaminophen 650 mg PO Q4H PRN 04/22/21 04/22/21 Unknown History amlodipine 5 mg PO DAILY 04/22/21 04/22/21 04/21/21 History clonazepam 1 mg PO DAILY PRN 04/22/21 04/22/21 Unknown History clonazepam 2 mg PO BEDTIME 04/22/21 04/22/21 04/21/21 History docusate sodium 100 mg PO DAILY PRN 04/22/21 04/22/21 04/21/21 History lisinopril 20 mg PO DAILY 04/22/21 04/22/21 04/21/21 History polyethylene glycol 3350 [Miralax] 17 g PO DAILY 04/22/21 04/22/21 Unknown History quetiapine 300 mg PO BEDTIME 04/22/21 04/22/21 04/21/21 History sulfamethoxazole-trimethoprim 1 tab PO BID 04/22/21 04/22/21 04/21/21 History Physical Exam Vital Signs: Vital Signs: Last Vital Signs Temp 97.2 F 04/26/21 17:21 Pulse 92 04/26/21 17:21 Resp 16 04/26/21 06:00 BP 118/78 04/26/21 17:21 Pulse Ox 96 04/26/21 17:21 Body Mass Index 25.7 Const: Other: Flat affect bradycardia cane easier Almost catatonic with a mask facies with very slow and delayed responses. With only speaking single words or shoort sentence and keeps repeating the same thing. Does not follow commands. General: comfortable, no acute distress, well developed, alert and awake Nutritional Appearance: well nourished Limitations: no limitations HENMT: Head: Yes normal to inspection, Yes normocephalic and Yes atraumatic Ears: hearing grossly normal bilaterally General nose exam: Normal external nose present Face and sinus: Yes normal facial exam Mouth: Normal oral and palatal mucosa present Eyes: General: appearance normal, both eyes and all related structures Visual Sharma: normal visual sharma by confrontation Alignment and Position: alignment normal Periorbital: periorbital findings normal Eyelids: Yes eyelids normal Conjunctivae: conjunctivae normal Sclerae: sclerae normal Corneas: corneas normal Pupils: Equal, round and reactive pupils present and Pupil accommodation reflex normal EOM: EOMs intact bilaterally Direct Ophthalmoscopy: normal light reflex Neck: Neck: Yes normal visual inspection, Yes full ROM and Yes no meningeal signs Thyroid: Thyroid normal Carotids: normal carotid upstroke and bounding pulses Chest: Chest palpation & inspection: normal inspection of the chest Resp: Effort & Inspection: normal respiratory effort Auscultation: clear to auscultation bilaterally Cardio: Rate: regular rate Rhythm: regular rhythm Heart sounds: S1 normal heart sound present and S2 normal heart sound present Peripheral pulses: Peripheral pulses 2+ throughout GI: Inspection: Yes normal to inspection Percussion: Yes normal to percussion Auscultation: normal bowel sounds Rectal Exam - Male: Yes deferred Back/Spine/Pelvis: Cervical Spine: normal cervical lordosis and cervical ROM normal Thoracic/Lumbar Spine: thoracic and lumbar spine normal to inspection Skin: General skin exam: no rashes or lesions noted Neuro: Other: Flat affect with mask face sees general bradykinesia, almost catatonic. Very delayed responses, if any. General: gait normal, tone normal, moves all extremities, Normal light touch and pain sensation, no meningeal signs, no focal motor deficits, CN's II-XI intact bilaterally, normal sensation to monofilament and deep tendon reflexes 2+ bilaterally Cranial nerves: Yes CN's II-XII intact bilaterally, Yes Equal, round and reactive pupils present, Yes Bilaterally intact EOM present, Yes Nystagmus not present, Yes Normal facial strength present, Yes Midline tongue present, Yes Normal gag reflex present, Yes Symmetric palate elevation present, Yes Normal hearing present and Yes Ability to bilaterally rotate head present Cognition (Neuro): abnormal cognition Speech: Other speech findings present (Neuro) Motor exam (neuro): 5/5 motor strength present throughout, no tremor noted, no asterixis, Motor fasciculations not present, Normal motor muscle tone present throughout and Motor abnormalities not present Sensory Exam: Bilaterally intact graphesthesia Deep tendon reflexes (DTR's): Right triceps reflex intensity grade: 2+, Left triceps reflex intensity grade: 2+, Rt Biceps (C5, C6): 2+, Left biceps reflex intensity grade: 2+, Right brachioradialis reflex intensity grade: 2+, Left brachioradialis reflex intensity grade: 2+, Right patellar reflex intensity grade: 2+, Left patellar reflex intensity grade: 2+, Right ankle reflex intensity grade: 2+ and Left ankle reflex intensity grade: 2+ Plantar Reflex Responses: downgoing: right, left and bilateral Pupils: Normal pupillary reactivity/response: bilateral Extrem: General: Yes normal to inspection, Yes normal exam except as noted and Yes no pedal edema Psych: Appearance: grossly normal Mental Status: mental status grossly normal Speech and movement: Normal speech and movement present and Clear speech present Affect: normal affect Attitude: cooperative Thought process: Normal thought process present Results Labs CBC & Chem 7: 04/25/21 09:55 04/25/21 09:54 Microbiology Microbiology Results: Microbiology 04/22/21 13:36 Blood - Venous Blood Culture - Preliminary No growth after 48 hours. 04/22/21 13:33 Blood - Venous Blood Culture - Preliminary No growth after 48 hours. 04/22/21 13:37 Urine Catheterized - Straight Catheter Urine Culture - Final No growth. Assessment and Plan (1) Altered mental status: Status: Acute Would recommend MRI of the brain and an EEG. Investigate whether this could be from withdrawal of Invega Procedures Date of Service Date of Service: 04/26/21
[2021-04-26] MEDS: Tamsulosin HCL 0.4 MG CAPSULE PO (21:19)
[2021-04-26] MEDS: clonazePAM 1 MG TABLET 2 MG PO (21:20)
--- NOTE | 2021-04-27 | EEG_ITS ---
The waking background activity consists of low voltage fast frequencies seen diffusely, intermixed with muscle artifacts intermittently in the temporal regions. Photic stimulation and hyperventilation were omitted. No sleep stages are identified. No focal, lateralizing, or paroxysmal discharges seen. IMPRESSION: No definite diagnostic abnormality is seen on this waking EEG. There is no evidence of diffuse slowing to suggest encephalopathy and no epileptiform discharges. MD HERIBERTO Zeng/NICHOLAS / [id number]
[2021-04-27] MEDS: clonazePAM 1 MG TABLET PO ×2 (00:28→10:40)
[2021-04-27] MEDS: Acetaminophen 325 MG TABLET 650 MG PO (00:28)
[2021-04-27 06:00] VITALS: BP 102/69; BP 112/81; PULSE 69; PULSE 86; RESP 18; TEMP 36.2; O2SAT 99
[2021-04-27 06:54] VITALS: BP 123/72; PULSE 94
--- NOTE | 2021-04-27 07:48 | P.PNIM_ITS ---
Subjective Subjective Date of Service: 04/27/21 Interval History: Patient seen in again this morning in f/u, he seems a bit more response this morning, othwerwise no major changes. Neuro is recommending MRI and EEG Review of Systems Gen: no fever Resp: no sob, no cough CV: no chest, no RASHID, no leg edema GI: No n/v, no abd pain Neuro: not participating, no focal finding Physical Exam Vital Signs: Vital Signs: Last Vital Signs Temp 97.1 F 04/27/21 06:00 Pulse 94 04/27/21 06:54 Resp 18 04/27/21 06:00 BP 123/72 04/27/21 06:54 Pulse Ox 99 04/27/21 06:00 Body Mass Index 25.7 Const: Other: Constitutional Awake and alert, but slow to answer questions Neck Supple, No lymphadenopathy Cardiovascular RRR, No M/R/G, S1 S2, No S3 S4, No pedal edema Respiratory Lungs clear, No respiratory distress Gastrointestinal Non tender, Non-distended : he has rich cath in, urine is clear Skin No rash Neurological Alert, moves extremities spontaneously, exam very limitted Objective Data Current Medications Generic Name Dose Route Start Last Admin Trade Name Freq PRN Reason Stop Dose Admin Acetaminophen 650 mg 04/22/21 17:58 04/27/21 00:28 Acetaminophen 325 Mg Tablet PO 650 mg Q4H PRN Administration Pain Al Hydroxide/Mg Hydroxide 30 ml 04/23/21 14:17 Magnesium Hydrox/Alum Hydrox 30 Ml Oral.Susp PO Q6H PRN Heartburn/Nausea Amlodipine Besylate 5 mg 04/22/21 18:00 04/26/21 09:16 Amlodipine Besylate 5 Mg Tablet PO 5 mg DAILY MITRA Administration Protocol Clonazepam 1 mg 04/22/21 17:58 04/27/21 00:28 Clonazepam 1 Mg Tablet PO 1 mg DAILY PRN Administration Anxiety Clonazepam 2 mg 04/22/21 21:00 04/26/21 21:20 Clonazepam 1 Mg Tablet PO 2 mg BEDTIME MITRA Administration Docusate Sodium 100 mg 04/22/21 17:58 04/25/21 10:02 Docusate Sodium 100 Mg Capsule PO 100 mg DAILY PRN Administration constipation Enoxaparin Sodium 40 mg 04/26/21 18:00 04/26/21 19:43 Enoxaparin Sodium 40 Mg/0.4 Ml Syringe SUBCUT Not Given Q24H [facility] Finasteride 5 mg 04/26/21 11:15 04/26/21 12:24 Finasteride 5 Mg Tablet PO 5 mg DAILY MITRA Administration Ibuprofen 800 mg 04/24/21 12:30 04/26/21 18:15 Ibuprofen 800 Mg Tablet PO 800 mg TIDWM MITRA Administration Lisinopril 20 mg 04/22/21 18:00 04/26/21 09:15 Lisinopril 20 Mg Tablet PO 20 mg DAILY MITRA Administration Protocol Magnesium Hydroxide 30 ml 04/23/21 14:17 04/24/21 15:52 Milk Of Magnesia 30 Ml Oral.Susp PO 30 ml DAILY PRN Administration Constipation Polyethylene Glycol 17 gm 04/22/21 18:00 04/26/21 09:24 Polyethylene Glycol 3350 17 Gm Powd.Pack PO 17 gm DAILY MITRA Administration Tamsulosin HCl 0.4 mg 04/23/21 21:00 04/26/21 21:19 Tamsulosin Hcl 0.4 Mg Capsule PO 0.4 mg BEDTIME MITRA Administration Labs CBC & Chem 7: 04/25/21 09:55 04/25/21 09:54 Quality Stroke Does the patient have a stroke diagnosis?: No VTE Prior VTE?: No VTE Risk Level:: Medical - moderate - high VTE Device Contraindication: N/A - Device Ordered VTE Drug Contraindication: N/A - Med Ordered Assessment and Plan (1) Rich catheter in place: Status: Acute (2) Hyperlipemia: Status: Acute (3) Acute urinary retention: Status: Acute (4) Enlarged prostate: Status: Acute Assessment and Plan: 60 year old male with BPH, HTN, HLD who has been admitted to [facility] with diagnosis of bipolar 1, prior to admission has been started on Bactrim for UTI, he has been started on anti anxiety and anti-psychotic meds, he has had urinary retention as result of BPH and urology inserted a rich cath yesterday, Psych is stating that they unsure if his condition is primary Psych or medical cause of delirium. Plan: 04/25/21 After close review of labs, medication, and personal evaluation, there are no obvious medical cause of his condition, he does not have an active infection, presumed UTI that was treated with bactrim seems to have clear, his las UA as of 04/24 was negative for UTI and so I suggest discontinuing bactrim and following clinically at this time. His metablic profile, LFTS, B12, Folate and TSH, reviewed to be unremarkable as well, CPK of 471 is insignificant and can be repeated tomorrow, there is no evidence of NMS (no fever, no tachycardia, no signs of autonomic dysfunction). He has had CT scan of the head that is unremarkable. I have no noticed patient's condition to be waxing and waning for acute medical delirium. Could it be that present Psych medications are making his condition worse? I suggest review meds and adjust according, if it is not believed that these are necessary. As next step, I would recommend obtaining an Neurology consult and consider an EEG. Will follow 04/26/21 No sginificant change, vital are stable, there is still no medical explanation for his present condition, he seems very depressed and I would agree with ECT as treatment option, he was not able participate in EEG exam and we are still waiting ro Neurology evalation. Rich cather is still in, Uro to decide on when this come out. Because he is highly imobile, I recommend Lovenox injection to prevent DVT. Continue HTN meds 04/27/21 Requesting MRI and EEG per neuro recommendation, ? withdrawal from Invega. Recheck CPK level and BMP . will discuss with Psychiatrist
[2021-04-27 08:14] LABS: Anion Gap 15 (12-20); Blood Urea Nitrogen 16 mg/dL (9-16); Calcium 9.8 mg/dL (8.4-10.2); Carbon Dioxide 25 mmol/L (22-29); Chloride 106 mmol/L (96-108); Creatinine Clr Calc Pharmacy 57.8; Estimated Glomerular Filt Rate 51; Glucose Random 101 mg/dL (60-115); Potassium 4.7 mmol/L (3.3-5.1); Sodium 141 mmol/L (135-145)
[2021-04-27 09:21] VITALS: BP 114/74; PULSE 87
[2021-04-27] MEDS: Ibuprofen 800 MG TABLET PO ×3 (09:21→17:55)
[2021-04-27] MEDS: Finasteride 5 MG TABLET PO (09:21)
[2021-04-27] MEDS: lisinopriL 20 MG TABLET PO (09:21)
[2021-04-27] MEDS: amLODIPine Besylate 5 MG TABLET PO (09:34)
[2021-04-27] MEDS: polyethylene glycoL 3350 17 GM POWD.PACK PO (09:36)
--- NOTE | 2021-04-27 12:01 | P.PNPSI_ITS ---
Subjective Subjective Date of Service: 04/27/21 Reason For Visit: Altered mental status Interim History: The patient remains with an extreme delayed response. He has some waxy stifffness and he seems on delirium. Neurology is involved and they are going to do an EEG and MRI Review of Systems Acute medical concerns: No Medical Review of Systems: unchanged Mental Status Exam Mental Status Exam Patient Appearance: Disheveled Level of Consciousness: Obtunded Patient Behavior: Posturing and Confused Mood Description: Withdrawn Affect Description: Blunted Patient Cognition Impaired: Yes Ability to Follow Directions: Poor Speech Pattern: Difficulty Finding Words and Mumbled Thought Process: Slowed Thinking Thought Content: positive for Poverty of Content Judgement: Poor Diagnostics Vital Signs (24Hr): Vital Signs - 24 hr 04/26/21 17:21 04/27/21 06:00 04/27/21 06:54 Temperature 97.2 F 97.1 F Pulse Rate 92 86 94 Respiratory Rate 18 Blood Pressure 118/78 112/81 123/72 Pulse Oximetry 96 99 04/27/21 09:21 Temperature Pulse Rate 87 Respiratory Rate Blood Pressure 114/74 Pulse Oximetry Body Mass Index 25.7 Labs Results: 04/25/21 09:55 04/27/21 06:42 Labs: Laboratory Results - last 48 hr 04/27/21 06:42 Sodium 141 Potassium 4.7 Chloride 106 Carbon Dioxide 25 Anion Gap 15 BUN 16 Creatinine 1.42 H Estim Creat Clear Calc 57.8 Estimated GFR 51 Random Glucose 101 Calcium 9.8 Total Creatine Kinase 1098 H D Imaging Radiology Impressions: ITS Impressions Abdomen/Pelvis CT 04/22/21 12:16 IMPRESSION: Mild prostatomegaly with moderate central gland calcification.. The periprostatic fat planes are hazy. The bladder is undistended with a Rich's catheter within. Head CT 04/25/21 10:48 IMPRESSION: No acute intracranial hemorrhage or territorial infarction. Chest X-Ray 04/27/21 11:37 IMPRESSION: No evidence for acute disease in the chest. No foreign body seen. Medications Medications Current Medications Generic Name Dose Route Start Last Admin Trade Name Freq PRN Reason Stop Dose Admin Acetaminophen 650 mg 04/22/21 17:58 04/27/21 00:28 Acetaminophen 325 Mg Tablet PO 650 mg Q4H PRN Administration Pain Al Hydroxide/Mg Hydroxide 30 ml 04/23/21 14:17 Magnesium Hydrox/Alum Hydrox 30 Ml Oral.Susp PO Q6H PRN Heartburn/Nausea Amlodipine Besylate 5 mg 04/22/21 18:00 04/27/21 09:34 Amlodipine Besylate 5 Mg Tablet PO 5 mg DAILY MITRA Administration Protocol Clonazepam 1 mg 04/22/21 17:58 04/27/21 10:40 Clonazepam 1 Mg Tablet PO 1 mg DAILY PRN Administration Anxiety Clonazepam 2 mg 04/22/21 21:00 04/26/21 21:20 Clonazepam 1 Mg Tablet PO 2 mg BEDTIME MITRA Administration Docusate Sodium 100 mg 04/22/21 17:58 04/25/21 10:02 Docusate Sodium 100 Mg Capsule PO 100 mg DAILY PRN Administration constipation Enoxaparin Sodium 40 mg 04/26/21 18:00 04/26/21 19:43 Enoxaparin Sodium 40 Mg/0.4 Ml Syringe SUBCUT Not Given Q24H MITRA Finasteride 5 mg 04/26/21 11:15 04/27/21 09:21 Finasteride 5 Mg Tablet PO 5 mg DAILY MITRA Administration Ibuprofen 800 mg 04/24/21 12:30 04/27/21 09:21 Ibuprofen 800 Mg Tablet PO 800 mg TIDWM MITRA Administration Lisinopril 20 mg 04/22/21 18:00 04/27/21 09:21 Lisinopril 20 Mg Tablet PO 20 mg DAILY MITRA Administration Protocol Magnesium Hydroxide 30 ml 04/23/21 14:17 04/24/21 15:52 Milk Of Magnesia 30 Ml Oral.Susp PO 30 ml DAILY PRN Administration Constipation Polyethylene Glycol 17 gm 04/22/21 18:00 04/27/21 09:36 Polyethylene Glycol 3350 17 Gm Powd.Pack PO 17 gm DAILY MITRA Administration Tamsulosin HCl 0.4 mg 04/23/21 21:00 04/26/21 21:19 Tamsulosin Hcl 0.4 Mg Capsule PO 0.4 mg BEDTIME MITRA Administration Allergies Allergies Allergy/AdvReac Type Severity Reaction Status Date / Time atorvastatin [From LIPITOR] Allergy Intermediate ELEVATED Verified 04/24/21 19:53 LIVER ENZYMES Assessment & Plan Assessment & Plan (1) Rihc catheter in place: Status: Acute Code(s): Z97.8 - Presence of other specified devices (2) Hyperlipemia: Status: Acute Code(s): E78.5 - Hyperlipidemia, unspecified (3) Acute urinary retention: Status: Acute Code(s): R33.8 - Other retention of urine (4) Enlarged prostate: Status: Acute Code(s): N40.0 - Benign prostatic hyperplasia without lower urinary tract symptoms Assessment and Plan: 60 year old male with BPH, HTN, HLD who has been admitted to Psych with diagno sis of bipolar 1, prior to admission has been started on Bactrim for UTI, he has been started on anti anxiety and anti-psychotic meds, he has had urinary retention as result of BPH and urology inserted a rich cath yesterday, Psych is stating that they unsure if his condition is primary Psych or medical cause of delirium. Plan: 04/25/21 After close review of labs, medication, and personal evaluation, there are no obvious medical cause of his condition, he does not have an active infection, presumed UTI that was treated with bactrim seems to have clear, his las UA as of 04/24 was negative for UTI and so I suggest discontinuing bactrim and following clinically at this time. His metablic profile, LFTS, B12, Folate and TSH, reviewed to be unremarkable as well, CPK of 471 is insignificant and can be repeated tomorrow, there is no evidence of NMS (no fever, no tachycardia, no signs of autonomic dysfunction). He has had CT scan of the head that is unremarkable. I have no noticed patient's condition to be waxing and waning for acute medical delirium. Could it be that present Psych medications are making his condition worse? I suggest review meds and adjust according, if it is not believed that these are necessary. As next step, I would recommend obtaining an Neurology consult and consider an EEG. Will follow 04/26/21 No sginificant change, vital are stable, there is still no medical explanation for his present condition, he seems very depressed and I would agree with ECT as treatment option, he was not able participate in EEG exam and we are still waiting ro Neurology evalation. Rich cather is still in, Uro to decide on when this come out. Because he is highly imobile, I recommend Lovenox injection to prevent DVT. Continue HTN meds 04/27/21 Requesting MRI and EEG per neuro recommendation, ? withdrawal from Invega. Recheck CPK level and BMP . will discuss with Psychiatrist Psychiatry 04/27 Remains in a nearly catatonic state. No evidence of NMS since his VS are s table. Plan: Continue Neurologic assessment. File for Section 7 and 8 TODAY Greater than 50% of the session was spent on counseling and/or coordination of care Reason for contiued inpatient stay Substantial Risk for: harm to self, inability to function, rapid decompensation and med/psych decompensation
[2021-04-27] MEDS: LORazepam 1 MG TABLET PO ×2 (14:51→20:11)
[2021-04-27] MEDS: Enoxaparin Sodium 40 MG/0.4 ML SYRINGE SUBCUT (17:55)
[2021-04-27 18:00] VITALS: BP 125/75; PULSE 78; RESP 18; TEMP 36.3; O2SAT 98
[2021-04-27] MEDS: clonazePAM 1 MG TABLET 2 MG PO (20:11)
[2021-04-27] MEDS: Tamsulosin HCL 0.4 MG CAPSULE PO (20:11)
[2021-04-28 06:00] VITALS: BP 110/70; PULSE 60
[2021-04-28] MEDS: LORazepam 1 MG TABLET PO (06:49)
[2021-04-28 06:55] VITALS: BP 122/79; BP 127/76; PULSE 75; PULSE 89
[2021-04-28 08:00] VITALS: BP 110/72; PULSE 63; RESP 16; TEMP 36.9; O2SAT 96
--- NOTE | 2021-04-28 08:47 | P.PNIM_ITS ---
Subjective Subjective Date of Service: 04/28/21 Interval History: Patient seen in again this morning in f/u, he is again not saying much, he was not able to complete MRI due to lack of cooperation, and EEG was not performed either. Renal function has bumped as of yesterday. Review of Systems Gen: no fever Resp: no sob, no cough CV: no chest, no RASHID, no leg edema GI: No n/v, no abd pain Neuro: not participating, no focal finding, Physical Exam Vital Signs: Vital Signs: Last Vital Signs Temp 98.4 F 04/28/21 08:00 Pulse 63 04/28/21 08:00 Resp 16 04/28/21 08:00 BP 110/72 04/28/21 08:00 Pulse Ox 96 04/28/21 08:00 Body Mass Index 25.7 Const: Other: Constitutional Awake and alert, but very slow to ansewr Neck Supple, No lymphadenopathy Cardiovascular RRR, No M/R/G, S1 S2, No S3 S4, No pedal edema Respiratory Lungs clear, No respiratory distress Gastrointestinal Non tender, Non-distended : he has rich cath in, urine is clear Skin No rash Neurological Alert, moves extremities spontaneously, exam very limitte, he is not exhibiting any rigidity Objective Data Current Medications Generic Name Dose Route Start Last Admin Trade Name Ceferinoq PRN Reason Stop Dose Admin Acetaminophen 650 mg 04/22/21 17:58 04/27/21 00:28 Acetaminophen 325 Mg Tablet PO 650 mg Q4H PRN Administration Pain Al Hydroxide/Mg Hydroxide 30 ml 04/23/21 14:17 Magnesium Hydrox/Alum Hydrox 30 Ml Oral.Susp PO Q6H PRN Heartburn/Nausea Amlodipine Besylate 5 mg 04/22/21 18:00 04/27/21 09:34 Amlodipine Besylate 5 Mg Tablet PO 5 mg DAILY MITRA Administration Protocol Clonazepam 2 mg 04/22/21 21:00 04/27/21 20:11 Clonazepam 1 Mg Tablet PO 2 mg BEDTIME MITRA Administration Docusate Sodium 100 mg 04/22/21 17:58 04/25/21 10:02 Docusate Sodium 100 Mg Capsule PO 100 mg DAILY PRN Administration constipation Enoxaparin Sodium 40 mg 04/26/21 18:00 04/27/21 17:55 Enoxaparin Sodium 40 Mg/0.4 Ml Syringe SUBCUT 40 mg Q24H MITRA Administration Finasteride 5 mg 04/26/21 11:15 04/27/21 09:21 Finasteride 5 Mg Tablet PO 5 mg DAILY MITRA Administration Ibuprofen 800 mg 04/24/21 12:30 04/27/21 17:55 Ibuprofen 800 Mg Tablet PO 800 mg TIDWM MITRA Administration Lisinopril 20 mg 04/22/21 18:00 04/27/21 09:21 Lisinopril 20 Mg Tablet PO 20 mg DAILY MITRA Administration Protocol Lorazepam 1 mg 04/27/21 14:00 04/28/21 06:49 Lorazepam 1 Mg Tablet PO 1 mg Q8H MITRA Administration Lorazepam 0.5 mg 04/27/21 13:51 Lorazepam 0.5 Mg Tablet PO Q8H PRN Anxiety Magnesium Hydroxide 30 ml 04/23/21 14:17 04/24/21 15:52 Milk Of Magnesia 30 Ml Oral.Susp PO 30 ml DAILY PRN Administration Constipation Polyethylene Glycol 17 gm 04/22/21 18:00 04/27/21 09:36 Polyethylene Glycol 3350 17 Gm Powd.Pack PO 17 gm DAILY MITRA Administration Tamsulosin HCl 0.4 mg 04/23/21 21:00 04/27/21 20:11 Tamsulosin Hcl 0.4 Mg Capsule PO 0.4 mg BEDTIME MITRA Administration Labs CBC & Chem 7: 04/25/21 09:55 04/27/21 06:[address] scan abdomen pelvis with IV contrast: Radiologist's impression: Impressions Chest X-Ray 04/27/21 11:37 IMPRESSION: No evidence for acute disease in the chest. No foreign body seen. Microbiology Microbiology Results: Microbiology 04/22/21 13:33 Blood Culture - Final Blood - Venous No growth after 5 days. 04/22/21 13:36 Blood Culture - Final Blood - Venous No growth after 5 days. Quality Stroke Does the patient have a stroke diagnosis?: No VTE Prior VTE?: No VTE Risk Level:: Medical - moderate - high VTE Device Contraindication: N/A - Device Ordered VTE Drug Contraindication: N/A - Med Ordered Assessment and Plan (1) Rich catheter in place: Status: Acute (2) Hyperlipemia: Status: Acute (3) Acute urinary retention: Status: Acute (4) Enlarged prostate: Status: Acute Assessment and Plan: 60 year old male with BPH, HTN, HLD who has been admitted to Psych with diagnosis of bipolar 1, prior to admission has been started on Bactrim for UTI, he has been started on anti anxiety and anti-psychotic meds, he has had urinary retention as result of BPH and urology inserted a rich cath yesterday, Psych is stating that they unsure if his condition is primary Psych or medical cause of delirium. Plan: 04/25/21 After close review of labs, medication, and personal evaluation, there are no obvious medical cause of his condition, he does not have an active infect ion, presumed UTI that was treated with bactrim seems to have clear, his las UA as of 04/24 was negative for UTI and so I suggest discontinuing bactrim and following clinically at this time. His metablic profile, LFTS, B12, Folate and TSH, reviewed to be unremarkable as well, CPK of 471 is insignificant and can be repeated tomorrow, there is no evidence of NMS (no fever, no tachycardia, no signs of autonomic dysfunction). He has had CT scan of the head that is unremarkable. I have no noticed patient's condition to be waxing and waning for acute medical delirium. Could it be that present Psych medications are making his condition worse? I suggest review meds and adjust according, if it is not believed that these are necessary. As next step, I would recommend obtaining an Neurology consult and consider an EEG. Will follow 04/26/21 No sginificant change, vital are stable, there is still no medical explanation for his present condition, he seems very depressed and I would agree with ECT as treatment option, he was not able participate in EEG exam and we are still waiting ro Neurology evalation. Rich cather is still in, Uro to decide on when this come out. Because he is highly imobile, I recommend Lovenox injection to prevent DVT. Continue HTN meds 04/27/21 Requesting MRI and EEG per neuro recommendation, ? withdrawal from Invega. Recheck CPK level and BMP . will discuss with Psychiatrist 04/27 Remains in a nearly catatonic state. No evidence of NMS since his VS are sta ble. Plan: Continue Neurologic assessment. File for Section 7 and 8 TODAY 04/28 No major change, was not able to complete MRI d/t lack of cooperation, EEG not yet done either. Creatine was 1.42 (Record reviewed shows that he likely has CKD 2), I am told he's not eating much and probably not drinking much either. Repeat lab today, he may need IVF if labs worsening, I will discuss next step with Psychiatrist, MRI may need to be done under consicous sedation. Still not sure that this is state of delirium or primary psychitric state
[2021-04-28 10:40] LABS: Anion Gap 12 (12-20); Blood Urea Nitrogen 20 mg/dL (9-16); Calcium 9.6 mg/dL (8.4-10.2); Carbon Dioxide 27 mmol/L (22-29); Chloride 107 mmol/L (96-108); Creatinine Clr Calc Pharmacy 64.6; Estimated Glomerular Filt Rate 58; Glucose Random 112 mg/dL (60-115); Potassium 4.1 mmol/L (3.3-5.1); Sodium 142 mmol/L (135-145)
--- NOTE | 2021-04-28 12:56 | P.PNPSI_ITS ---
Subjective Subjective Date of Service: 04/28/21 Reason For Visit: Altered mental status Interim History: The patient's mental state is worse, now he is nearly mute, he couldn't cooperate with the MRI. Hospitalist has followed him closely and he is going to receive IV fluids and we will try to push Ativan IV to see if he wakes up. I called his brohter and left a message Review of Systems Review of Systems Yes Unobtainable due to mental status Mental Status Exam Mental Status Exam Patient Appearance: Disheveled and Inappropriate Level of Consciousness: Awake and Disoriented Patient Behavior: Posturing Mood Description: Apathetic Affect Description: Blunted Patient Cognition Impaired: No Ability to Follow Directions: Poor Speech Pattern: No Speech Thought Process: Confusion (thought blocking) Thought Content: positive for Poverty of Content Judgement: Poor Diagnostics Vital Signs (24Hr): Vital Signs - 24 hr 04/27/21 18:00 04/28/21 06:00 04/28/21 06:55 Temperature 97.3 F Pulse Rate 78 60 89 Respiratory Rate 18 Blood Pressure 125/75 110/70 122/79 Pulse Oximetry 98 04/28/21 08:00 Temperature 98.4 F Pulse Rate 63 Respiratory Rate 16 Blood Pressure 110/72 Pulse Oximetry 96 Body Mass Index 25.7 Labs Results: 04/25/21 09:55 04/28/21 09:27 Labs: Laboratory Results - last 48 hr 04/27/21 04/28/21 06:42 09:27 Sodium 141 142 Potassium 4.7 4.1 Chloride 106 107 Carbon Dioxide 25 27 Anion Gap 15 12 BUN 16 20 H Creatinine 1.42 H 1.27 Estim Creat Clear Calc 57.8 64.6 Estimated GFR 51 58 Random Glucose 101 112 Calcium 9.8 9.6 Total Creatine Kinase 1098 H D Imaging Radiology Impressions: ITS Impressions Abdomen/Pelvis CT 04/22/21 12:16 IMPRESSION: Mild prostatomegaly with moderate central gland calcification.. The periprostatic fat planes are hazy. The bladder is undistended with a Rich's catheter within. Head CT 04/25/21 10:48 IMPRESSION: No acute intracranial hemorrhage or territorial infarction. Chest X-Ray 04/27/21 11:37 IMPRESSION: No evidence for acute disease in the chest. No foreign body seen. Medications Medications Current Medications Generic Name Dose Route Start Last Admin Trade Name Freq PRN Reason Stop Dose Admin Acetaminophen 650 mg 04/22/21 17:58 04/27/21 00:28 Acetaminophen 325 Mg Tablet PO 650 mg Q4H PRN Administration Pain Al Hydroxide/Mg Hydroxide 30 ml 04/23/21 14:17 Magnesium Hydrox/Alum Hydrox 30 Ml Oral.Susp PO Q6H PRN Heartburn/Nausea Amlodipine Besylate 5 mg 04/22/21 18:00 04/27/21 09:34 Amlodipine Besylate 5 Mg Tablet PO 5 mg DAILY MITRA Administration Protocol Clonazepam 2 mg 04/22/21 21:00 04/27/21 20:11 Clonazepam 1 Mg Tablet PO 2 mg BEDTIME MITRA Administration Docusate Sodium 100 mg 04/22/21 17:58 04/25/21 10:02 Docusate Sodium 100 Mg Capsule PO 100 mg DAILY PRN Administration constipation Enoxaparin Sodium 40 mg 04/26/21 18:00 04/27/21 17:55 Enoxaparin Sodium 40 Mg/0.4 Ml Syringe SUBCUT 40 mg Q24H MITRA Administration Finasteride 5 mg 04/26/21 11:15 04/27/21 09:21 Finasteride 5 Mg Tablet PO 5 mg DAILY MITRA Administration Ibuprofen 800 mg 04/24/21 12:30 04/27/21 17:55 Ibuprofen 800 Mg Tablet PO 800 mg TIDWM MITRA Administration Lisinopril 20 mg 04/22/21 18:00 04/27/21 09:21 Lisinopril 20 Mg Tablet PO 20 mg DAILY MITRA Administration Protocol Lorazepam 1 mg 04/27/21 14:00 04/28/21 06:49 Lorazepam 1 Mg Tablet PO 1 mg Q8H MITRA Administration Lorazepam 0.5 mg 04/27/21 13:51 Lorazepam 0.5 Mg Tablet PO Q8H PRN Anxiety Magnesium Hydroxide 30 ml 04/23/21 14:17 04/24/21 15:52 Milk Of Magnesia 30 Ml Oral.Susp PO 30 ml DAILY PRN Administration Constipation Polyethylene Glycol 17 gm 04/22/21 18:00 04/27/21 09:36 Polyethylene Glycol 3350 17 Gm Powd.Pack PO 17 gm DAILY MITRA Administration Tamsulosin HCl 0.4 mg 04/23/21 21:00 04/27/21 20:11 Tamsulosin Hcl 0.4 Mg Capsule PO 0.4 mg BEDTIME MITRA Administration Allergies Allergies Allergy/AdvReac Type Severity Reaction Status Date / Time atorvastatin [From LIPITOR] Allergy Intermediate ELEVATED Verified 04/24/21 19:53 LIVER ENZYMES Assessment & Plan Assessment & Plan (1) Rich catheter in place: Status: Acute Code(s): Z97.8 - Presence of other specified devices (2) Hyperlipemia: Status: Acute Code(s): E78.5 - Hyperlipidemia, unspecified (3) Acute urinary retention: Status: Acute Code(s): R33.8 - Other retention of urine (4) Enlarged prostate: Status: Acute Code(s): N40.0 - Benign prostatic hyperplasia without lower urinary tract symptoms Assessment and Plan: 60 year old male with BPH, HTN, HLD who has been admitted to [facility] with diagnosis of bipolar 1, prior to admission has been started on Bactrim for UTI, he has been started on anti anxiety and anti-psychotic meds, he has had urinary retention as result of BPH and urology inserted a rich cath yesterday, Psych is stating that they unsure if his condition is primary Psych or medical cause of delirium. Plan: 04/25/21 After close review of labs, medication, and personal evaluation, there are no obvious medical cause of his condition, he does not have an active infection, presumed UTI that was treated with bactrim seems to have clear, his las UA as of 04/24 was negative for UTI and so I suggest discontinuing bactrim and following clinically at this time. His metablic profile, LFTS, B12, Folate and TSH, reviewed to be unremarkable as well, CPK of 471 is insignificant and can be repeated tomorrow, there is no evidence of NMS (no fever, no tachycardia, no signs of autonomic dysfunction). He has had CT scan of the head that is unremarkable. I have no noticed patient's condition to be waxing and waning for acute medical delirium. Could it be that present Psych medications are making his condition worse? I suggest review meds and adjust according, if it is not believed that these are necessary. As next step, I would recommend obtaining an Neurology consult and consider an EEG. Will follow 04/26/21 No sginificant change, vital are stable, there is still no medical explanation for his present condition, he seems very depressed and I would agree with ECT as treatment option, he was not able participate in EEG exam and we are still waiting ro Neurology evalation. Lisa welch is still in, Uro to decide on when this come out. Because he is highly imobile, I recommend Lovenox injection to prevent DVT. Continue HTN meds 04/27/21 Requesting MRI and EEG per neuro recommendation, ? withdrawal from In hebert. Recheck CPK level and BMP . will discuss with Psychiatrist 04/27 Remains in a nearly catatonic state. No evidence of NMS since his VS are stable. Plan: Continue Neurologic assessment. File for Section 7 and 8 TODAY 04/28 No major change, was not able to complete MRI d/t lack of cooperation, EEG not yet done either. Creatine was 1.42 (Record reviewed shows that he likely has CKD 2), I am told he's not eating much and probably not drinking much either. Repeat lab today, he may need IVF if labs worsening, I will discuss next step with Psychiatrist, MRI may need to be done under consicous sedation. Still not sure that this is state of delirium or primary psychitric state Psychiatry Since the patient is catatonic and he is not taking fluids, we will start an IV line, hydrate him and start Ativan IV and reassess Greater than 50% of the session was spent on counseling and/or coordination of care Reason for contiued inpatient stay Substantial Risk for: inability to function, rapid decompensation and med/psych decompensation
[2021-04-28 13:00] VITALS: BMI 24.1
[2021-04-28 13:45] VITALS: BP 110/72; PULSE 63
[2021-04-28 13:46] VITALS: BP 110/72; PULSE 63
[2021-04-28] MEDS: LORazepam 2 MG/ML VIAL 1 MG IVPUSH ×2 (14:41→21:57)
[2021-04-28] MEDS: 0.9 % Sodium Chloride 1,000 ML 100 ML IVCONT (14:50)
[2021-04-28 18:00] VITALS: BP 127/84; PULSE 64; RESP 16; TEMP 36.3; O2SAT 96
[2021-04-28] MEDS: Enoxaparin Sodium 40 MG/0.4 ML SYRINGE SUBCUT (19:29)
--- NOTE | 2021-04-28 19:55 | PC.NURSE ---
Soft wrist restraints applied to right and left wrist from 15:05pm - 15:55pm due to agitation and patient trying to remove IV site from right arm. Additionally, patient became agitated and aggressive with sitter, grabbing her arms and pulling her towards him. IV Ativan administered for psychomotor anxiety and agitation with positive effect. Wrist restraints removed as soon as Patient was safe enough to do so.
--- NOTE | 2021-04-28 19:59 | PC.NURSE ---
Patient's Brother - George's Email Address - [email or web address]
[2021-04-29] MEDS: 0.9 % Sodium Chloride 1,000 ML 100 ML IVCONT ×2 (00:02→09:30)
[2021-04-29] MEDS: LORazepam 2 MG/ML VIAL 1 MG IVPUSH ×2 (05:26→12:12)
[2021-04-29 06:00] VITALS: BP 120/81; PULSE 71; RESP 15; TEMP 36.9; O2SAT 97
[2021-04-29 08:54] LABS: Anion Gap 11 (12-20); Blood Urea Nitrogen 19 mg/dL (9-16); Calcium 9.2 mg/dL (8.4-10.2); Carbon Dioxide 23 mmol/L (22-29); Chloride 113 mmol/L (96-108); Creatinine Clr Calc Pharmacy 79.7; Estimated Glomerular Filt Rate > 60; Glucose Random 101 mg/dL (60-115); Potassium 4.2 mmol/L (3.3-5.1); Sodium 143 mmol/L (135-145)
--- NOTE | 2021-04-29 11:25 | HO.PM.IMPN ---
Subjective Subjective Date of Service: 04/29/21 Interval History: went to see patient this morning he is sleeping, did not wake him up since he only slept 10 hours in last 5 days case discussed with patient's nurse and psychiatrist. unable to obtain review of system as above. Physical Exam Vital Signs: Vital Signs: Last Vital Signs Temp 98.5 F 04/29/21 06:00 Pulse 71 04/29/21 06:00 Resp 15 04/29/21 06:00 BP 120/81 04/29/21 06:00 Pulse Ox 97 04/29/21 06:00 Body Mass Index 24.1 as per nurse and Psychiatry patient remains catatonic , noted to be moving all 4 extremities Objective Data Current Medications Generic Name Dose Route Start Last Admin Trade Name Freq PRN Reason Stop Dose Admin Acetaminophen 650 mg 04/22/21 17:58 04/27/21 00:28 Acetaminophen 325 Mg Tablet PO 650 mg Q4H PRN Administration Pain Al Hydroxide/Mg Hydroxide 30 ml 04/23/21 14:17 Magnesium Hydrox/Alum Hydrox 30 Ml Oral.Susp PO Q6H PRN Heartburn/Nausea Amlodipine Besylate 5 mg 04/22/21 18:00 04/29/21 10:35 Amlodipine Besylate 5 Mg Tablet PO Not Given DAILY MITRA Protocol Clonazepam 2 mg 04/22/21 21:00 04/28/21 23:25 Clonazepam 1 Mg Tablet PO Not Given BEDTIME MITRA Docusate Sodium 100 mg 04/22/21 17:58 04/25/21 10:02 Docusate Sodium 100 Mg Capsule PO 100 mg DAILY PRN Administration constipation Enoxaparin Sodium 40 mg 04/26/21 18:00 04/28/21 19:29 Enoxaparin Sodium 40 Mg/0.4 Ml Syringe SUBCUT 40 mg Q24H MITRA Administration Finasteride 5 mg 04/26/21 11:15 04/29/21 10:35 Finasteride 5 Mg Tablet PO Not Given DAILY MITRA Sodium Chloride 1,000 mls @ 100 mls/hr 04/28/21 13:00 04/29/21 09:30 Ns IVCONT 100 mls/hr .Q10H MITRA Administration Ibuprofen 800 mg 04/24/21 12:30 04/29/21 10:35 Ibuprofen 800 Mg Tablet PO Not Given TIDWM MITRA Lisinopril 20 mg 04/22/21 18:00 07/09/21 10:35 Lisinopril 20 Mg Tablet PO Not Given DAILY [facility] Protocol Lorazepam 0.5 mg 04/27/21 13:51 Lorazepam 0.5 Mg Tablet PO Q8H PRN Anxiety Lorazepam 1 mg 04/28/21 20:09 04/29/21 05:26 Lorazepam 2 Mg/Ml Vial IVPUSH 1 mg Q6H PRN Administration anxiety/restlessness Magnesium Hydroxide 30 ml 04/23/21 14:17 04/24/21 15:52 Milk Of Magnesia 30 Ml Oral.Susp PO 30 ml DAILY PRN Administration Constipation Polyethylene Glycol 17 gm 04/22/21 18:00 04/29/21 10:35 Polyethylene Glycol 3350 17 Gm Powd.Pack PO Not Given DAILY [facility] Sodium Chloride 3 ml 04/28/21 16:00 04/29/21 10:34 0.9 % Sodium Chloride Flush 3 Ml Syringe IVFLUSH Not Given QSHIFT [facility] Tamsulosin HCl 0.4 mg 04/23/21 21:00 04/28/21 23:25 Tamsulosin Hcl 0.4 Mg Capsule PO Not Given BEDTIME [facility] Labs CBC & Chem 7: 04/25/21 09:55 04/29/21 08:12 Labs: Laboratory Results - last 24 hr 04/29/21 08:12 Sodium 143 Potassium 4.2 Chloride 113 H Carbon Dioxide 23 Anion Gap 11 L BUN 19 H Creatinine 1.03 Estim Creat Clear Calc 79.7 Estimated GFR > 60 Random Glucose 101 Calcium 9.2 Total Creatine Kinase 197 H D Quality Stroke Does the patient have a stroke diagnosis?: No VTE Prior VTE?: No VTE Risk Level:: Medical - moderate - high VTE Device Contraindication: N/A - Device Ordered VTE Drug Contraindication: N/A - Med Ordered Assessment and Plan (1) Altered mental status: Status: Acute (2) Bipolar 1 disorder: Status: Acute (3) Acute urinary retention: Status: Acute (4) Enlarged prostate: Status: Acute (5) Rich catheter in place: Status: Acute (6) Hypertension: Status: Acute (7) Hyperlipemia: Status: Acute Assessment and Plan: 60 year old male with BPH, HTN, HLD who has been admitted to [facility] with diagnosis of bipolar 1, prior to admission has been started on Bactrim for UTI, he has been started on anti anxiety and anti-psychotic meds, he has had urinary retention as result of BPH and urology inserted a rich cath yesterday, Psych is stating that they unsure if his condition is primary Psych or medical cause of delirium. Plan: 04/25/21 After close review of labs, medication, and personal evaluation, there are no obvious medical cause of his condition, he does not have an active infection, presumed UTI that was treated with bactrim seems to have clear, his las UA as of 04/24 was negative for UTI and so I suggest discontinuing bactrim and following clinically at this time. His metablic profile, LFTS, B12, Folate and TSH, reviewed to be unremarkable as well, CPK of 471 is insignificant and can be repeated tomorrow, there is no evidence of NMS (no fever, no tachycardia, no signs of autonomic dysfunction). He has had CT scan of the head that is unremarkable. I have no noticed patient's condition to be waxing and waning for acute medical delirium. Could it be that present Psych medications are making his condition worse? I suggest review meds and adjust according, if it is not believed that these are necessary. As next step, I would recommend obtaining an Neurology consult and consider an EEG. Will follow 04/26/21 No sginificant change, vital are stable, there is still no medical explanation for his present condition, he seems very depressed and I would agree with ECT as treatment option, he was not able participate in EEG exam and we are still waiting ro Neurology evalation. Rich cather is still in, Uro to decide on when this come out. Because he is highly imobile, I recommend Lovenox injection to prevent DVT. Continue HTN meds 04/27/21 Requesting MRI and EEG per neuro recommendation, ? withdrawal from In[facility]ga. Recheck CPK level and BMP . will discuss with Psychiatrist Remains in a nearly catatonic state. No evidence of NMS since his VS are stable. Plan: Continue Neurologic assessment. File for Section 7 and 8 TODAY 04/28 No major change, was not able to complete MRI d/t lack of cooperation, EEG not yet done either. Creatine was 1.42 (Record reviewed shows that he likely has CKD 2), I am told he's not eating much and probably not drinking much either. Repeat lab today, he may need IVF if labs worsening, I will discuss next step with Psychiatrist, MRI may need to be done under consicous sedation. Still not sure that this is state of delirium or primary psychitric state 04/29 patient sleeping this morning, by mouth intake remains poor, remains catatonic as per nurse and Psychiatry, CPK improved to 197 and creatinine normalized, since patient moving all [address] on admission and now examination and findings most suggestive of catatonia will DC MRI, Psychiatry planning on ECT and will go to court to section him, will decrease IV fluid to 1 L daily and changed to Ringer lactate follow ANGEL [email or web address]
--- NOTE | 2021-04-29 12:29 | P.PNPSI_ITS ---
Subjective Subjective Date of Service: 04/29/21 Reason For Visit: Altered mental status Interim History: The patient has been sleeping after several days of poor sleep. Medically, he looks better but he is still catatonic. We discussed options and I consulted with Dr. Hurst so Ativan would be increased to target catatonia. Review of Systems Review of Systems Yes Unobtainable due to mental status Mental Status Exam Mental Status Exam Patient Appearance: Appropriate (on hospital gowns) Level of Consciousness: Sedated Patient Behavior: Confused Mood Description: Blunted Affect Description: Blunted Patient Cognition Impaired: No Ability to Follow Directions: Poor Speech Pattern: No Speech Thought Process: Illogical and Slowed Thinking Thought Content: positive for Poverty of Content and positive for Thought Blocking Judgement: Poor Diagnostics Vital Signs (24Hr): Vital Signs - 24 hr 04/28/21 13:45 04/28/21 13:46 04/28/21 18:00 Temperature 97.3 F Pulse Rate 63 63 64 Respiratory Rate 16 Blood Pressure 110/72 110/72 127/84 Pulse Oximetry 96 04/29/21 06:00 Temperature 98.5 F Pulse Rate 71 Respiratory Rate 15 Blood Pressure 120/81 Pulse Oximetry 97 Body Mass Index 24.1 Labs Results: 04/25/21 09:55 04/29/21 08:12 Labs: Laboratory Results - last 48 hr 04/28/21 04/29/21 09:27 08:12 Sodium 142 143 Potassium 4.1 4.2 Chloride 107 113 H Carbon Dioxide 27 23 Anion Gap 12 11 L BUN 20 H 19 H Creatinine 1.27 1.03 Estim Creat Clear Calc 64.6 79.7 Estimated GFR 58 > 60 Random Glucose 112 101 Calcium 9.6 9.2 Total Creatine Kinase 197 H D Imaging Radiology Impressions: ITS Impressions Abdomen/Pelvis CT 04/22/21 12:16 IMPRESSION: Mild prostatomegaly with moderate central gland calcification.. The periprostatic fat planes are hazy. The bladder is undistended with a Rich's catheter within. Head CT 04/25/21 10:48 IMPRESSION: No acute intracranial hemorrhage or territorial infarction. Chest X-Ray 04/27/21 11:37 IMPRESSION: No evidence for acute disease in the chest. No foreign body seen. Medications Medications Current Medications Generic Name Dose Route Start Last Admin Trade Name Freq PRN Reason Stop Dose Admin Acetaminophen 650 mg 04/22/21 17:58 04/27/21 00:28 Acetaminophen 325 Mg Tablet PO 650 mg Q4H PRN Administration Pain Al Hydroxide/Mg Hydroxide 30 ml 04/23/21 14:17 Magnesium Hydrox/Alum Hydrox 30 Ml Oral.Susp PO Q6H PRN Heartburn/Nausea Amlodipine Besylate 5 mg 04/22/21 18:00 04/29/21 10:35 Amlodipine Besylate 5 Mg Tablet PO Not Given DAILY COUNT INCLUDES THE [facility] Protocol Clonazepam 2 mg 04/22/21 21:00 04/28/21 23:25 Clonazepam 1 Mg Tablet PO Not Given BEDTIME COUNT INCLUDES THE [facility] Docusate Sodium 100 mg 04/22/21 17:58 04/25/21 10:02 Docusate Sodium 100 Mg Capsule PO 100 mg DAILY PRN Administration constipation Enoxaparin Sodium 40 mg 04/26/21 18:00 04/28/21 19:29 Enoxaparin Sodium 40 Mg/0.4 Ml Syringe SUBCUT 40 mg Q24H MITRA Administration Finasteride 5 mg 04/26/21 11:15 04/29/21 10:35 Finasteride 5 Mg Tablet PO Not Given DAILY COUNT INCLUDES THE [facility] Lactated Ringer's 1,000 mls @ 100 mls/hr 04/29/21 11:30 Lr IV 04/29/21 21:29 .Q10H COUNT INCLUDES THE [facility] Ibuprofen 800 mg 04/24/21 12:30 04/29/21 10:35 Ibuprofen 800 Mg Tablet PO Not Given TIDWM COUNT INCLUDES THE [facility] Lisinopril 20 mg 04/22/21 18:00 04/29/21 10:35 Lisinopril 20 Mg Tablet PO Not Given DAILY COUNT INCLUDES THE [facility] Protocol Lorazepam 0.5 mg 04/27/21 13:51 Lorazepam 0.5 Mg Tablet PO Q8H PRN Anxiety Lorazepam 1 mg 04/28/21 20:09 04/29/21 12:12 Lorazepam 2 Mg/Ml Vial IVPUSH 1 mg Q6H PRN Administration anxiety/restlessness Magnesium Hydroxide 30 ml 04/23/21 14:17 04/24/21 15:52 Milk Of Magnesia 30 Ml Oral.Susp PO 30 ml DAILY PRN Administration Constipation Polyethylene Glycol 17 gm 04/22/21 18:00 04/29/21 10:35 Polyethylene Glycol 3350 17 Gm Powd.Pack PO Not Given DAILY COUNT INCLUDES THE [facility] Sodium Chloride 3 ml 04/28/21 16:00 04/29/21 10:34 0.9 % Sodium Chloride Flush 3 Ml Syringe IVFLUSH Not Given QSHIFT MITRA Tamsulosin HCl 0.4 mg 04/23/21 21:00 04/28/21 23:25 Tamsulosin Hcl 0.4 Mg Capsule PO Not Given BEDTIME MITRA Allergies Allergies Allergy/AdvReac Type Severity Reaction Status Date / Time atorvastatin [From LIPITOR] Allergy Intermediate ELEVATED Verified 04/24/21 19:53 LIVER ENZYMES Assessment & Plan Assessment & Plan (1) Altered mental status: Status: Acute Code(s): R41.82 - Altered mental status, unspecified (2) Bipolar 1 disorder: Status: Acute Code(s): F31.9 - Bipolar disorder, unspecified (3) Acute urinary retention: Status: Acute Code(s): R33.8 - Other retention of urine (4) Enlarged prostate: Status: Acute Code(s): N40.0 - Benign prostatic hyperplasia without lower urinary tract symptoms (5) Rich catheter in place: Status: Acute Code(s): Z97.8 - Presence of other specified devices (6) Hypertension: Status: Acute Code(s): I10 - Essential (primary) hypertension (7) Hyperlipemia: Status: Acute Code(s): E78.5 - Hyperlipidemia, unspecified (8) Catatonia: Status: Acute Code(s): F06.1 - Catatonic disorder due to known physiological condition Assessment and Plan: 60 year old male with BPH, HTN, HLD who has been admitted to [facility] with diagnosis of bipolar 1, prior to admission has been started on Bactrim for UTI, he has been started on anti anxiety and anti-psychotic meds, he has had urinary retention as result of BPH and urology inserted a rich cath yesterday, Psych is stating that they unsure if his condition is primary Psych or medical cause of delirium. Plan: 04/25/21 After close review of labs, medication, and personal evaluation, there are no obvious medical cause of his condition, he does not have an active infection, presumed UTI that was treated with bactrim seems to have clear, his las UA as of 04/24 was negative for UTI and so I suggest discontinuing bactrim and following clinically at this time. His metablic profile, LFTS, B12, Folate and TSH, reviewed to be unremarkable as well, CPK of 471 is insignificant and can be repeated tomorrow, there is no evidence of NMS (no fever, no tachycardia, no signs of autonomic dysfunction). He has had CT scan of the head that is unremarkable. I have no noticed patient's condition to be waxing and waning for acute medical delirium. Could it be that present Psych medications are making his condition worse? I suggest review meds and adjust according, if it is not believed that these are necessary. As next step, I would recommend obtaining an Neurology consult and consider an EEG. Will follow 04/26/21 No sginificant change, vital are stable, there is still no medical explanation for his present condition, he seems very depressed and I would agree with ECT as treatment option, he was not able participate in EEG exam and we are still waiting ro Neurology evalation. Lisa welch is still in, Uro to decide on when this come out. Because he is highly imobile, I recommend Lovenox injection to prevent DVT. Continue HTN meds 04/27/21 Requesting MRI and EEG per neuro recommendation, ? withdrawal from [facility]. Recheck CPK level and BMP . will discuss with Psychiatrist Remains in a nearly catatonic state. No evidence of NMS since his VS are stable. Plan: Continue Neurologic assessment. File for Section 7 and 8 TODAY 04/28 No major change, was not able to complete MRI d/t lack of cooperation, EEG not yet done either. Creatine was 1.42 (Record reviewed shows that he likely has CKD 2), I am told he's not eating much and probably not drinking much either. Repeat lab today, he may need IVF if labs worsening, I will discuss next step with Psychiatrist, MRI may need to be done under consicous sedation. Still not sure that this is state of delirium or primary psychitric state 04/29 patient sleeping this morning, by mouth intake remains poor, remains catatonic as per nurse and Psychiatry, CPK improved to 197 and creatinine normalized, since patient moving all [address] on admission and now examination and findings most suggestive of catatonia will DC MRI, Psychiatry planning on ECT and will go to court to section him, will decrease IV fluid to 1 L daily and changed to Ringer lactate follow BMP closley Psychiatry: Increase Ativan to 2 mg IVP Q6H. Consider ECT Court for Sunday. Yesterday we explained the situation with details to his brother. Greater than 50% of the session was spent on counseling and/or coordination of care Reason for contiued inpatient stay Substantial Risk for: inability to function, rapid decompensation and med/psych decompensation
[2021-04-29 13:12] VITALS: BP 146/89; PULSE 81; RESP 14; TEMP 36.9; O2SAT 98
[2021-04-29] MEDS: Ibuprofen 800 MG TABLET PO (16:52)
[2021-04-29] MEDS: Enoxaparin Sodium 40 MG/0.4 ML SYRINGE SUBCUT (16:53)
[2021-04-29] MEDS: Lactated Ringers 1,000 ML 100 ML IV (18:42)
[2021-04-29 18:43] VITALS: BP 119/73; PULSE 89; RESP 18; TEMP 36.3; O2SAT 97
[2021-04-29] MEDS: LORazepam 2 MG/ML VIAL IVPUSH (18:43)
[2021-04-29 18:45] VITALS: BP 119/73; PULSE 89; RESP 18; TEMP 36.3
--- NOTE | 2021-04-29 20:06 | PC.NURSE ---
Patient started the day in a Catatonic state; nonverbal, poor eye contact, not participating in care. Delayed tracking, delayed responses, thought blocking, severe muscle rigidity. Direct care - Full Bed bath, bed change provided to patient and he was brought out to dayroom for meals. Patient initially refused water and food, but then took Sorbet from 1:1 sitter. Patient became more animated throughout the day engaging more with 1:1 sitter and eating/drinking more. Patient's brother, George arrived to unit and patient began standing up and sitting down and making repetitive statements You have to understand this is not my fault. This has gone too far. My brain is too far gone. Patient was assured staff and medical team were working to do everything they could to help patient get better. Patient presenting with paranoid thought content and acting suspicious of this RN. Patient comfortable with 1:1 sitters, Consuming all of dinner meal.
[2021-04-29] MEDS: Tamsulosin HCL 0.4 MG CAPSULE PO (20:42)
[2021-04-30 01:00] VITALS: BP 123/73; PULSE 73; RESP 16; TEMP 36.7; O2SAT 97
[2021-04-30] MEDS: 0.9 % Sodium Chloride Flush 3 ML SYRINGE IVFLUSH ×3 (01:10→17:48)
[2021-04-30] MEDS: LORazepam 2 MG/ML VIAL IVPUSH ×4 (01:10→18:02)
[2021-04-30 06:00] VITALS: BP 114/75; PULSE 62; RESP 16; TEMP 36.4; O2SAT 97
[2021-04-30 09:47] VITALS: BP 124/77; PULSE 72
[2021-04-30] MEDS: lisinopriL 20 MG TABLET PO (09:47)
[2021-04-30 09:49] VITALS: BP 124/77; PULSE 72
[2021-04-30] MEDS: Ibuprofen 800 MG TABLET PO ×2 (09:49→19:04)
[2021-04-30] MEDS: amLODIPine Besylate 5 MG TABLET PO (09:49)
[2021-04-30] MEDS: Finasteride 5 MG TABLET PO (09:51)
[2021-04-30] MEDS: polyethylene glycoL 3350 17 GM POWD.PACK PO (10:36)
[2021-04-30 10:58] VITALS: BP 124/77; PULSE 72; RESP 16
[2021-04-30 11:11] LABS: Anion Gap 11 (12-20); Blood Urea Nitrogen 22 mg/dL (9-16); Calcium 9.4 mg/dL (8.4-10.2); Carbon Dioxide 26 mmol/L (22-29); Chloride 111 mmol/L (96-108); Creatinine Clr Calc Pharmacy 72.6; Estimated Glomerular Filt Rate > 60; Glucose Random 114 mg/dL (60-115); Potassium 3.8 mmol/L (3.3-5.1); Sodium 144 mmol/L (135-145)
[2021-04-30] MEDS: Lactated Ringers 1,000 ML 100 ML IVCONT ×2 (11:30→22:42)
--- NOTE | 2021-04-30 15:52 | HO.PSYCHPN ---
Subjective Subjective Date of Service: 04/30/21 Reason For Visit: Altered mental status Interim History: Remains catatonic, akinetic and mute but has some PO intake. More expressive with eyes. IV ativan good response. Agree with Posey and ECT. Review of Systems Review of Systems Gen: no fever Resp: no sob, no cough CV: no chest, no RASHID, no leg edema GI: No n/v, no abd pain Neuro: not participating, no focal finding, Yes all other systems are reviewed and are negative and Unobtainable due to mental status Constitutional: Denies chills and Denies fever(s) Eyes: Reports no additional eye complaints Reports system reviewed and no additional complaints, except as documented and Reports Normal hearing present Cardiovascular: Reports no additional cardiovascular complaints and Denies syncope Respiratory: Reports no additional respiratory complaints and Denies cough Gastrointestinal: Reports no additional gastrointestinal complaints, Denies abdominal pain and Denies heartburn Genitourinary: Reports no additional male genitourinary complaints, Reports as per HPI and Denies change in libido Musculoskeletal: Reports no additional musculoskeletal complaints Skin/Breast: Reports system reviewed and no additional complaints, except as docu Reports as per HPI, Reports Normal hearing present and Denies syncope Psychiatric: Reports as per HPI and Denies change in libido Endocrine: Reports no additional endocrine complaints and Denies change in libido Hematologic/Lymphatic: Reports no additional hematologic/lymphatic complaints Allergic/Immunologic: Reports no additional allergic/immunologic complaints Mental Status Exam Mental Status Exam Narrative: dressed in [facility], seated in medical bed. PMR. cooperative. speech halting, soft, sparse, flat, incr latency. paucity of thought, perseverative thought, and blocked thoughts. affect blunted. mood not assessed. no SI/HI/AVH reported. Patient Appearance: Appropriate (on hospital gowns) Patient Orientation: Person Level of Consciousness: Sedated Patient Behavior: Confused Mood Description: Blunted Affect Description: Blunted Patient Cognition Impaired: No Ability to Follow Directions: Poor Speech Pattern: No Speech Diagnostics Vital Signs (24Hr): Vital Signs - 24 hr 04/29/21 18:43 04/29/21 18:45 04/30/21 01:00 Temperature 97.4 F 97.4 F 98.1 F Pulse Rate 89 89 73 Respiratory Rate 18 18 16 Blood Pressure 119/73 119/73 123/73 Pulse Oximetry 97 97 04/30/21 06:00 04/30/21 09:47 04/30/21 09:49 Temperature 97.5 F Pulse Rate 62 72 72 Respiratory Rate 16 Blood Pressure 114/75 124/77 124/77 Pulse Oximetry 97 04/30/21 10:58 Temperature Pulse Rate 72 Respiratory Rate 16 Blood Pressure 124/77 Pulse Oximetry Body Mass Index 24.1 Labs Results: 04/25/21 09:55 04/30/21 10:29 Labs: Laboratory Results - last 48 hr 04/29/21 04/30/21 08:12 10:29 Sodium 143 144 Potassium 4.2 3.8 Chloride 113 H 111 H Carbon Dioxide 23 26 Anion Gap 11 L 11 L BUN 19 H 22 H Creatinine 1.03 1.13 Estim Creat Clear Calc 79.7 72.6 Estimated GFR > 60 > 60 Random Glucose 101 114 Calcium 9.2 9.4 Total Creatine Kinase 197 H D Imaging Radiology Impressions: ITS Impressions Abdomen/Pelvis CT 04/22/21 12:16 IMPRESSION: Mild prostatomegaly with moderate central gland calcification.. The periprostatic fat planes are hazy. The bladder is undistended with a Rich's catheter within. Head CT 04/25/21 10:48 IMPRESSION: No acute intracranial hemorrhage or territorial infarction. Chest X-Ray 04/27/21 11:37 IMPRESSION: No evidence for acute disease in the chest. No foreign body seen. Medications Medications Current Medications Generic Name Dose Route Start Last Admin Trade Name Freq PRN Reason Stop Dose Admin Acetaminophen 650 mg 04/22/21 17:58 04/27/21 00:28 Acetaminophen 325 Mg Tablet PO 650 mg Q4H PRN Administration Pain Al Hydroxide/Mg Hydroxide 30 ml 04/23/21 14:17 Magnesium Hydrox/Alum Hydrox 30 Ml Oral.Susp PO Q6H PRN Heartburn/Nausea Amlodipine Besylate 5 mg 04/22/21 18:00 04/30/21 09:49 Amlodipine Besylate 5 Mg Tablet PO 5 mg DAILY MITRA Administration Protocol Docusate Sodium 100 mg 04/22/21 17:58 04/25/21 10:02 Docusate Sodium 100 Mg Capsule PO 100 mg DAILY PRN Administration constipation Enoxaparin Sodium 40 mg 04/26/21 18:00 04/29/21 16:53 Enoxaparin Sodium 40 Mg/0.4 Ml Syringe SUBCUT 40 mg Q24H MITRA Administration Finasteride 5 mg 04/26/21 11:15 04/30/21 09:51 Finasteride 5 Mg Tablet PO 5 mg DAILY MITRA Administration Lactated Ringer's 1,000 mls @ 100 mls/hr 04/30/21 10:00 04/30/21 11:30 Lr IVCONT 100 mls/hr .Q10H MITRA Administration Ibuprofen 800 mg 04/24/21 12:30 04/30/21 13:52 Ibuprofen 800 Mg Tablet PO Not Given TIDWM MITRA Lisinopril 20 mg 04/22/21 18:00 04/30/21 09:47 Lisinopril 20 Mg Tablet PO 20 mg DAILY MITRA Administration Protocol Lorazepam 0.5 mg 04/27/21 13:51 Lorazepam 0.5 Mg Tablet PO Q8H PRN Anxiety Lorazepam 2 mg 04/29/21 13:00 04/30/21 13:12 Lorazepam 2 Mg/Ml Vial IVPUSH 2 mg Q6H MITRA Administration Magnesium Hydroxide 30 ml 04/23/21 14:17 04/24/21 15:52 Milk Of Magnesia 30 Ml Oral.Susp PO 30 ml DAILY PRN Administration Constipation Polyethylene Glycol 17 gm 04/22/21 18:00 04/30/21 10:36 Polyethylene Glycol 3350 17 Gm Powd.Pack PO 17 gm DAILY MITRA Administration Sodium Chloride 3 ml 04/28/21 16:00 04/30/21 09:59 0.9 % Sodium Chloride Flush 3 Ml Syringe IVFLUSH 3 ml QSHIFT MITRA Administration Tamsulosin HCl 0.4 mg 04/23/21 21:00 04/29/21 20:42 Tamsulosin Hcl 0.4 Mg Capsule PO 0.4 mg BEDTIME MITRA Administration Allergies Allergies Allergy/AdvReac Type Severity Reaction Status Date / Time atorvastatin [From LIPITOR] Allergy Intermediate ELEVATED Verified 04/24/21 19:53 LIVER ENZYMES Assessment & Plan Assessment & Plan (1) Altered mental status: Status: Acute Code(s): R41.82 - Altered mental status, unspecified (2) Bipolar 1 disorder: Status: Acute Code(s): F31.9 - Bipolar disorder, unspecified (3) Acute urinary retention: Status: Acute Code(s): R33.8 - Other retention of urine (4) Enlarged prostate: Status: Acute Code(s): N40.0 - Benign prostatic hyperplasia without lower urinary tract symptoms (5) Rich catheter in place: Status: Acute Code(s): Z97.8 - Presence of other specified devices (6) Hypertension: Status: Acute Code(s): I10 - Essential (primary) hypertension (7) Hyperlipemia: Status: Acute Code(s): E78.5 - Hyperlipidemia, unspecified (8) Catatonia: Status: Acute Code(s): F06.1 - Catatonic disorder due to known physiological condition Assessment and Plan: 60 year old male with BPH, HTN, HLD who has been admitted to [facility] with diagnosis of bipolar 1, prior to admission has been started on Bactrim for UTI, he has been started on anti anxiety and anti-psychotic meds, he has had urinary retention as result of BPH and urology inserted a rich cath yesterday, Psych is stating that they unsure if his condition is primary Psych or medical cause of delirium. Plan: 04/25/21 After close review of labs, medication, and personal evaluation, there are no obvious medical cause of his condition, he does not have an active infection, presumed UTI that was treated with bactrim seems to have clear, his las UA as of 04/24 was negative for UTI and so I suggest discontinuing bactrim and following clinically at this time. His metablic profile, LFTS, B12, Folate and TSH, reviewed to be unremarkable as well, CPK of 471 is insignificant and can be repeated tomorrow, there is no evidence of NMS (no fever, no tachycardia, no signs of autonomic dysfunction). He has had CT scan of the head that is unremarkable. I have no noticed patient's condition to be waxing and waning for acute medical delirium. Could it be that present Psych medications are making his condition worse? I suggest review meds and adjust according, if it is not believed that these are necessary. As next step, I would recommend obtaining an Neurology consult and consider an EEG. Will follow 04/26/21 No sginificant change, vital are stable, there is still no medical explanation for his present condition, he seems very depressed and I would agree with ECT as treatment option, he was not able participate in EEG exam and we are still waiting ro Neurology evalation. Rich cather is still in, Uro to decide on when this come out. Because he is highly imobile, I recommend Lovenox injection to prevent DVT. Continue HTN meds 04/27/21 Requesting MRI and EEG per neuro recommendation, ? withdrawal from [facility]. Recheck CPK level and BMP . will discuss with Psychiatrist Remains in a nearly catatonic state. No evidence of NMS since his VS are stable. Plan: Continue Neurologic assessment. File for Section 7 and 8 TODAY 04/28 No major change, was not able to complete MRI d/t lack of cooperation, EEG not yet done either. Creatine was 1.42 (Record reviewed shows that he likely has CKD 2), I am told he's not eating much and probably not drinking much either. Repeat lab today, he may need IVF if labs worsening, I will discuss next step with Psychiatrist, MRI may need to be done under consicous sedation. Still not sure that this is state of delirium or primary psychitric state 04/29 patient sleeping this morning, by mouth intake remains poor, remains catatonic as per nurse and Psychiatry, CPK improved to 197 and creatinine normalized, since patient moving all [address] on admission and now examination and findings most suggestive of catatonia will DC MRI, Psychiatry planning on ECT and will go to court to section him, will decrease IV fluid to 1 L daily and changed to Ringer lactate follow BMP navi Psychiatry: Increase Ativan to 2 mg IVP Q6H. Consider ECT Court for Sunday. Yesterday we explained the situation with details to his brother. Greater than 50% of the session was spent on counseling and/or coordination of care Reason for contiued inpatient stay Substantial Risk for: inability to function and med/psych decompensation
[2021-04-30 18:00] VITALS: BP 123/79; PULSE 76; RESP 16; TEMP 36.5; O2SAT 98
[2021-04-30] MEDS: Enoxaparin Sodium 40 MG/0.4 ML SYRINGE SUBCUT (18:01)
--- NOTE | 2021-04-30 18:08 | P.PNIM_ITS ---
Subjective Subjective Date of Service: 04/30/21 Interval History: Patient seen examined, he remains catatonic, staring not answering any questions, RN notified patient took his meal today. Unable to obtain review of system due to catatonia Physical Exam Vital Signs: Vital Signs: Last Vital Signs Temp 97.5 F 04/30/21 06:00 Pulse 72 04/30/21 10:58 Resp 16 04/30/21 10:58 BP 124/77 04/30/21 10:58 Pulse Ox 97 04/30/21 06:00 Body Mass Index 24.1 General no acute distress, not verbalizing. Neck no JVD. CVS regular rate rhythm, Respiratory no respiratory distress Extremities no edema. Neuro not assist Objective Data Current Medications Generic Name Dose Route Start Last Admin Trade Name Freq PRN Reason Stop Dose Admin Acetaminophen 650 mg 04/22/21 17:58 04/27/21 00:28 Acetaminophen 325 Mg Tablet PO 650 mg Q4H PRN Administration Pain Al Hydroxide/Mg Hydroxide 30 ml 04/23/21 14:17 Magnesium Hydrox/Alum Hydrox 30 Ml Oral.Susp PO Q6H PRN Heartburn/Nausea Amlodipine Besylate 5 mg 04/22/21 18:00 04/30/21 09:49 Amlodipine Besylate 5 Mg Tablet PO 5 mg DAILY MITRA Administration Protocol Docusate Sodium 100 mg 04/22/21 17:58 04/25/21 10:02 Docusate Sodium 100 Mg Capsule PO 100 mg DAILY PRN Administration constipation Enoxaparin Sodium 40 mg 04/26/21 18:00 04/30/21 18:01 Enoxaparin Sodium 40 Mg/0.4 Ml Syringe SUBCUT 40 mg Q24H MITRA Administration Finasteride 5 mg 04/26/21 11:15 04/30/21 09:51 Finasteride 5 Mg Tablet PO 5 mg DAILY MITRA Administration Lactated Ringer's 1,000 mls @ 100 mls/hr 04/30/21 10:00 04/30/21 11:30 Lr IVCONT 100 mls/hr .Q10H MITRA Administration Ibuprofen 800 mg 04/24/21 12:30 04/30/21 13:52 Ibuprofen 800 Mg Tablet PO Not Given TIDWM MITRA Lisinopril 20 mg 04/22/21 18:00 04/30/21 09:47 Lisinopril 20 Mg Tablet PO 20 mg DAILY MITRA Administration Protocol Lorazepam 0.5 mg 04/27/21 13:51 Lorazepam 0.5 Mg Tablet PO Q8H PRN Anxiety Lorazepam 2 mg 04/29/21 13:00 04/30/21 18:02 Lorazepam 2 Mg/Ml Vial IVPUSH 2 mg Q6H MITRA Administration Magnesium Hydroxide 30 ml 04/23/21 14:17 04/24/21 15:52 Milk Of Magnesia 30 Ml Oral.Susp PO 30 ml DAILY PRN Administration Constipation Polyethylene Glycol 17 gm 04/22/21 18:00 04/30/21 10:36 Polyethylene Glycol 3350 17 Gm Powd.Pack PO 17 gm DAILY MITRA Administration Sodium Chloride 3 ml 04/28/21 16:00 04/30/21 17:48 0.9 % Sodium Chloride Flush 3 Ml Syringe IVFLUSH 3 ml QSHIFT MITRA Administration Tamsulosin HCl 0.4 mg 04/23/21 21:00 04/29/21 20:42 Tamsulosin Hcl 0.4 Mg Capsule PO 0.4 mg BEDTIME MITRA Administration Labs CBC & Chem 7: 04/25/21 09:55 04/30/21 10:29 Labs: Laboratory Results - last 24 hr 04/30/21 10:29 Sodium 144 Potassium 3.8 Chloride 111 H Carbon Dioxide 26 Anion Gap 11 L BUN 22 H Creatinine 1.13 Estim Creat Clear Calc 72.6 Estimated GFR > 60 Random Glucose 114 Calcium 9.4 Quality Stroke Does the patient have a stroke diagnosis?: No VTE Prior VTE?: No VTE Risk Level:: Medical - moderate - high VTE Device Contraindication: N/A - Device Ordered VTE Drug Contraindication: N/A - Med Ordered Assessment and Plan (1) Catatonia: Status: Acute (2) Bipolar 1 disorder: Status: Acute (3) Acute urinary retention: Status: Acute (4) Rich catheter in place: Status: Acute (5) Hypertension: Status: Acute (6) Hyperlipemia: Status: Acute Assessment and Plan: 60 year old male with BPH, HTN, HLD who has been admitted to Psych with diagnosi s of bipolar 1, prior to admission has been started on Bactrim for UTI, he has been started on anti anxiety and anti-psychotic meds, he has had urinary retention as result of BPH and urology inserted a rich cath yesterday, Psych is stating that they unsure if his condition is primary Psych or medical cause of delirium. Plan: 04/25/21 After close review of labs, medication, and personal evaluation, there are no obvious medical cause of his condition, he does not have an active infection, presumed UTI that was treated with bactrim seems to have clear, his las UA as of 04/24 was negative for UTI and so I suggest discontinuing bactrim and following clinically at this time. His metablic profile, LFTS, B12, Folate and TSH, reviewed to be unremarkable as well, CPK of 471 is insignificant and can be repeated tomorrow, there is no evidence of NMS (no fever, no tachycardia, no signs of autonomic dysfunction). He has had CT scan of the head that is unremarkable. I have no noticed patient's condition to be waxing and waning for acute medical delirium. Could it be that present Psych medications are making his condition worse? I suggest review meds and adjust according, if it is not believed that these are necessary. As next step, I would recommend obtaining an Neurology consult and consider an EEG. Will follow 04/26/21 No sginificant change, vital are stable, there is still no medical explanation for his present condition, he seems very depressed and I would agree with ECT as treatment option, he was not able participate in EEG exam and we are still waiting ro Neurology evalation. Rich cather is still in, Uro to decide on when this come out. Because he is highly imobile, I recommend Lovenox injection to prevent DVT. Continue HTN meds 04/27/21 Requesting MRI and EEG per neuro recommendation, ? withdrawal from Invega. Recheck CPK level and BMP . will discuss with Psychiatrist Remains in a nearly catatonic state. No evidence of NMS since his VS are stable. Plan: Continue Neurologic assessment. File for Section 7 and 8 TODAY 04/28 No major change, was not able to complete MRI d/t lack of cooperation, EEG not yet done either. Creatine was 1.42 (Record reviewed shows that he likely has CKD 2), I am told he's not eating much and probably not drinking much either. Repeat lab today, he may need IVF if labs worsening, I will discuss next step with Psychiatrist, MRI may need to be done under consicous sedation. Still not sure that this is state of delirium or primary psychitric state 04/29 patient sleeping this morning, by mouth intake remains poor, remains catatonic as per nurse and Psychiatry, CPK improved to 197 and creatinine normalized, since patient moving all [address] on admission and now examination and findings most suggestive of catatonia will DC MRI, Psychiatry planning on ECT and will go to court to section him, will decrease I V fluid to 1 L daily and changed to Ringer lactate follow BMP navi 04/30 patient remains catatonic, although some improvement in the sense that he is taking diet, electrolytes and renal function remains stable, if patient is tolerating diet will discontinue further IV fluid Reassess patient in the morning, check BMP on Sunday, psychiatrists increase Ativan to 2 mg q.6 hr plan is for ECT and court for Sunday.
[2021-04-30] MEDS: Tamsulosin HCL 0.4 MG CAPSULE PO (20:52)
[2021-05-01] MEDS: LORazepam 2 MG/ML VIAL IVPUSH ×4 (00:33→21:56)
[2021-05-01] MEDS: 0.9 % Sodium Chloride Flush 3 ML SYRINGE IVFLUSH ×2 (00:38→06:48)
[2021-05-01] MEDS: Acetaminophen 325 MG TABLET 650 MG PO (04:43)
[2021-05-01 04:59] VITALS: BP 156/96; PULSE 85; RESP 16; TEMP 36.4; O2SAT 95
--- NOTE | 2021-05-01 07:23 | HO.PSYCHPN ---
Subjective Subjective Date of Service: 05/01/21 Reason For Visit: Altered mental status Interim History: 04/30:Patient seen examined, he remains catatonic, staring not answering any questions, RN notified patient took his meal today. 05/01: Improving PO intake. Even talked to his brother but lapses into catatonia at other times. Was sedated when I visited. Marked waxy flexibility noted. Ct plan per Dr Orr. Hospitalist following Unable to obtain review of system due to catatonia Review of Systems Review of Systems Gen: no fever Resp: no sob, no cough CV: no chest, no RASHID, no leg edema GI: No n/v, no abd pain Neuro: not participating, no focal finding, Yes all other systems are reviewed and are negative and Unobtainable due to mental status Constitutional: Denies chills and Denies fever(s) Eyes: Reports no additional eye complaints Reports system reviewed and no additional complaints, except as documented and Reports Normal hearing present Cardiovascular: Reports no additional cardiovascular complaints and Denies syncope Respiratory: Reports no additional respiratory complaints and Denies cough Gastrointestinal: Reports no additional gastrointestinal complaints, Denies abdominal pain and Denies heartburn Genitourinary: Reports no additional male genitourinary complaints, Reports as per HPI and Denies change in libido Musculoskeletal: Reports no additional musculoskeletal complaints Skin/Breast: Reports system reviewed and no additional complaints, except as docu Reports as per HPI, Reports Normal hearing present and Denies syncope Psychiatric: Reports as per HPI and Denies change in libido Endocrine: Reports no additional endocrine complaints and Denies change in libido Hematologic/Lymphatic: Reports no additional hematologic/lymphatic complaints Allergic/Immunologic: Reports no additional allergic/immunologic complaints Mental Status Exam Mental Status Exam Narrative: dressed in [facility], seated in medical bed. PMR. cooperative. speech halting, soft, sparse, flat, incr latency. paucity of thought, perseverative thought, and blocked thoughts. affect blunted. mood not assessed. no SI/HI/AVH reported. Patient Appearance: Appropriate (on hospital gowns) Patient Orientation: Person Level of Consciousness: Sedated Patient Behavior: Confused Mood Description: Blunted Affect Description: Blunted Patient Cognition Impaired: No Ability to Follow Directions: Poor Speech Pattern: No Speech Diagnostics Vital Signs (24Hr): Vital Signs - 24 hr 04/30/21 09:47 04/30/21 09:49 04/30/21 10:58 Temperature Pulse Rate 72 72 72 Respiratory Rate 16 Blood Pressure 124/77 124/77 124/77 Pulse Oximetry 04/30/21 18:00 05/01/21 04:59 Temperature 97.7 F 97.5 F Pulse Rate 76 85 Respiratory Rate 16 16 Blood Pressure 123/79 156/96 H Pulse Oximetry 98 95 Body Mass Index 24.1 Labs Results: 04/25/21 09:55 04/30/21 10:29 Labs: Laboratory Results - last 48 hr 04/29/21 04/30/21 08:12 10:29 Sodium 143 144 Potassium 4.2 3.8 Chloride 113 H 111 H Carbon Dioxide 23 26 Anion Gap 11 L 11 L BUN 19 H 22 H Creatinine 1.03 1.13 Estim Creat Clear Calc 79.7 72.6 Estimated GFR > 60 > 60 Random Glucose 101 114 Calcium 9.2 9.4 Total Creatine Kinase 197 H D Imaging Radiology Impressions: ITS Impressions Abdomen/Pelvis CT 04/22/21 12:16 IMPRESSION: Mild prostatomegaly with moderate central gland calcification.. The periprostatic fat planes are hazy. The bladder is undistended with a Rich's catheter within. Head CT 04/25/21 10:48 IMPRESSION: No acute intracranial hemorrhage or territorial infarction. Chest X-Ray 04/27/21 11:37 IMPRESSION: No evidence for acute disease in the chest. No foreign body seen. Medications Medications Current Medications Generic Name Dose Route Start Last Admin Trade Name Freq PRN Reason Stop Dose Admin Acetaminophen 650 mg 04/22/21 17:58 05/01/21 04:43 Acetaminophen 325 Mg Tablet PO 650 mg Q4H PRN Administration Pain Al Hydroxide/Mg Hydroxide 30 ml 04/23/21 14:17 Magnesium Hydrox/Alum Hydrox 30 Ml Oral.Susp PO Q6H PRN Heartburn/Nausea Amlodipine Besylate 5 mg 04/22/21 18:00 04/30/21 09:49 Amlodipine Besylate 5 Mg Tablet PO 5 mg DAILY MITRA Administration Protocol Docusate Sodium 100 mg 04/22/21 17:58 04/25/21 10:02 Docusate Sodium 100 Mg Capsule PO 100 mg DAILY PRN Administration constipation Enoxaparin Sodium 40 mg 04/26/21 18:00 04/30/21 18:01 Enoxaparin Sodium 40 Mg/0.4 Ml Syringe SUBCUT 40 mg Q24H MITRA Administration Finasteride 5 mg 04/26/21 11:15 04/30/21 09:51 Finasteride 5 Mg Tablet PO 5 mg DAILY MITRA Administration Lactated Ringer's 1,000 mls @ 100 mls/hr 04/30/21 10:00 04/30/21 22:42 Lr IVCONT 100 mls/hr .Q10H MITRA Administration Ibuprofen 800 mg 04/24/21 12:30 04/30/21 19:04 Ibuprofen 800 Mg Tablet PO 800 mg TIDWM MITRA Administration Lisinopril 20 mg 04/22/21 18:00 04/30/21 09:47 Lisinopril 20 Mg Tablet PO 20 mg DAILY MITRA Administration Protocol Lorazepam 0.5 mg 04/27/21 13:51 Lorazepam 0.5 Mg Tablet PO Q8H PRN Anxiety Lorazepam 2 mg 04/29/21 13:00 05/01/21 06:37 Lorazepam 2 Mg/Ml Vial IVPUSH 2 mg Q6H MITRA Administration Magnesium Hydroxide 30 ml 04/23/21 14:17 04/24/21 15:52 Milk Of Magnesia 30 Ml Oral.Susp PO 30 ml DAILY PRN Administration Constipation Polyethylene Glycol 17 gm 04/22/21 18:00 04/30/21 10:36 Polyethylene Glycol 3350 17 Gm Powd.Pack PO 17 gm DAILY MITRA Administration Sodium Chloride 3 ml 04/28/21 16:00 05/01/21 06:48 0.9 % Sodium Chloride Flush 3 Ml Syringe IVFLUSH 3 ml QSHIFT MITRA Administration Tamsulosin HCl 0.4 mg 04/23/21 21:00 04/30/21 20:52 Tamsulosin Hcl 0.4 Mg Capsule PO 0.4 mg BEDTIME MITRA Administration Allergies Allergies Allergy/AdvReac Type Severity Reaction Status Date / Time atorvastatin [From LIPITOR] Allergy Intermediate ELEVATED Verified 04/24/21 19:53 LIVER ENZYMES Assessment & Plan Assessment & Plan (1) Catatonia: Status: Acute Code(s): F06.1 - Catatonic disorder due to known physiological condition (2) Bipolar 1 disorder: Status: Acute Code(s): F31.9 - Bipolar disorder, unspecified (3) Acute urinary retention: Status: Acute Code(s): R33.8 - Other retention of urine (4) Rich catheter in place: Status: Acute Code(s): Z97.8 - Presence of other specified devices (5) Hypertension: Status: Acute Code(s): I10 - Essential (primary) hypertension (6) Hyperlipemia: Status: Acute Code(s): E78.5 - Hyperlipidemia, unspecified Assessment and Plan: 60 year old male with BPH, HTN, HLD who has been admitted to [facility] with diagnosis of bipolar 1, prior to admission has been started on Bactrim for UTI, he has been started on anti anxiety and anti-psychotic meds, he has had urinary retention as result of BPH and urology inserted a rich cath yesterday, Psych is stating that they unsure if his condition is primary Psych or medical cause of delirium. Plan: 04/25/21 After close review of labs, medication, and personal evaluation, there are no obvious medical cause of his condition, he does not have an active infection, presumed UTI that was treated with bactrim seems to have clear, his las UA as of 04/24 was negative for UTI and so I suggest discontinuing bactrim and following clinically at this time. His metablic profile, LFTS, B12, Folate and TSH, reviewed to be unremarkable as well, CPK of 471 is insignificant and can be repeated tomorrow, there is no evidence of NMS (no fever, no tachycardia, no signs of autonomic dysfunction). He has had CT scan of the head that is unremarkable. I have no noticed patient's condition to be waxing and waning for acute medical delirium. Could it be that present Psych medications are making his condition worse? I suggest review meds and adjust according, if it is not believed that these are necessary. As next step, I would recommend obtaining an Neurology consult and consider an EEG. Will follow 04/26/21 No sginificant change, vital are stable, there is still no medical explanation for his present condition, he seems very depressed and I would agree with ECT as treatment option, he was not able participate in EEG exam and we are still waiting ro Neurology evalation. Rich cather is still in, Uro to decide on when this come out. Because he is highly imobile, I recommend Lovenox injection to prevent DVT. Continue HTN meds 04/27/21 Requesting MRI and EEG per neuro recommendation, ? withdrawal from Invega. Recheck CPK level and BMP . will discuss with Psychiatrist Remains in a nearly catatonic state. No evidence of NMS since his VS are stable. Plan: Continue Neurologic assessment. File for Section 7 and 8 TODAY 04/28 No major change, was not able to complete MRI d/t lack of cooperation, EEG not yet done either. Creatine was 1.42 (Record reviewed shows that he likely has CKD 2), I am told he's not eating much and probably not drinking much either. Repeat lab today, he may need IVF if labs worsening, I will discuss next step with Psychiatrist, MRI may need to be done under consicous sedation. Still not sure that this is state of delirium or primary psychitric state 04/29 patient sleeping this morning, by mouth intake remains poor, remains catatonic as per nurse and Psychiatry, CPK improved to 197 and creatinine normalized, since patient moving all [address] on admission and now examination and findings most suggestive of catatonia will DC MRI, Psychiatry planning on ECT and will go to court to section him, will decrease IV fluid to 1 L daily and changed to Ringer lactate follow BMP navi 04/30 patient remains catatonic, although some improvement in the sense that he is taking diet, electrolytes and renal function remains stable, if patient is tolerating diet will discontinue further IV fluid Reassess patient in the morning, check BMP on Sunday, psychiatrists increase Ativan to 2 mg q.6 hr plan is for ECT and court for Sunday. Greater than 50% of the session was spent on counseling and/or coordination of care Reason for contiued inpatient stay Substantial Risk for: inability to function and med/psych decompensation
[2021-05-01] MEDS: Ibuprofen 800 MG TABLET PO (12:08)
[2021-05-01 12:09] VITALS: BP 134/88; PULSE 93
[2021-05-01] MEDS: lisinopriL 20 MG TABLET PO (12:09)
[2021-05-01 12:10] VITALS: BP 134/88; PULSE 93
[2021-05-01] MEDS: amLODIPine Besylate 5 MG TABLET PO (12:10)
[2021-05-01] MEDS: Finasteride 5 MG TABLET PO (12:11)
[2021-05-01] MEDS: polyethylene glycoL 3350 17 GM POWD.PACK PO (12:19)
--- NOTE | 2021-05-01 16:04 | PM.EVENT ---
Event Note Date of Service: 05/01/21 Event Note: Patient started ambulating this afternoon, ate well, talking with family, family visiting at this time Spoke with RN no other acute issues Vitals stable Assessment and plan Catatonia, no acute medical issues renal function and electrolytes improved, DC IV fluids follow BMP at a.m. further treatment plan as per Psychiatry, will sign off.
--- NOTE | 2021-05-01 17:27 | PC.NURSE ---
Spoke with the Pt's brother, he reports the pt has a history of escalation of aggressive behaviors when in a manic phase. He reports the family has gotten crisis involved when necessary.
[2021-05-01 18:00] VITALS: BP 113/77; PULSE 87; RESP 16; TEMP 36.2; O2SAT 99
[2021-05-01] MEDS: Tamsulosin HCL 0.4 MG CAPSULE PO (21:10)
[2021-05-02] MEDS: 0.9 % Sodium Chloride Flush 3 ML SYRINGE IVFLUSH ×3 (02:06→17:20)
[2021-05-02] MEDS: LORazepam 2 MG/ML VIAL IVPUSH ×4 (02:06→19:20)
[2021-05-02 06:00] VITALS: BP 130/85; PULSE 66; RESP 15; TEMP 36.3; O2SAT 96
--- NOTE | 2021-05-02 07:45 | P.PNPSI_ITS ---
Subjective Subjective Date of Service: 05/02/21 Reason For Visit: Altered mental status Interim History: The patient has been catatonic during the weekend but at least he was eating but yesterday, after 1:30 pm he walked to the sensory room, he was verbal and ambulatory, paranoid but more awake. He later tried to pull his IV line and Fol[place], He slept only 2 hours after the fire alarm started at midnight. Today, he remains catatonic but more relatable with some staff, with a very long delayed on response. Review of Systems Acute medical concerns: No Medical Review of Systems: unchanged Mental Status Exam Mental Status Exam Patient Appearance: Disheveled (on hospital gowns) Patient Orientation: Person Level of Consciousness: Disoriented and Obtunded Patient Behavior: Avoidant and Confused Mood Description: Withdrawn Affect Description: Blunted Patient Cognition Impaired: No Ability to Follow Directions: Poor Speech Pattern: Long Pauses Hallucinations: None Delusions: Paranoid Ideation Thought Process: Slowed Thinking Thought Content: positive for Poverty of Content Judgement: Poor Diagnostics Vital Signs (24Hr): Vital Signs - 24 hr 05/01/21 12:09 05/01/21 12:10 05/01/21 18:00 Temperature 97.2 F Pulse Rate 93 93 87 Respiratory Rate 16 Blood Pressure 134/88 134/88 113/77 Pulse Oximetry 99 05/02/21 06:00 Temperature 97.3 F Pulse Rate 66 Respiratory Rate 15 Blood Pressure 130/85 Pulse Oximetry 96 Body Mass Index 24.1 Labs Results: 04/25/21 09:55 05/02/21 07:55 Labs: Laboratory Results - last 48 hr 04/30/21 10:29 Sodium 144 Potassium 3.8 Chloride 111 H Carbon Dioxide 26 Anion Gap 11 L BUN 22 H Creatinine 1.13 Estim Creat Clear Calc 72.6 Estimated GFR > 60 Random Glucose 114 Calcium 9.4 Imaging Radiology Impressions: ITS Impressions Abdomen/Pelvis CT 04/22/21 12:16 IMPRESSION: Mild prostatomegaly with moderate central gland calcification.. The periprostatic fat planes are hazy. The bladder is undistended with a Rich's catheter within. Head CT 04/25/21 10:48 IMPRESSION: No acute intracranial hemorrhage or territorial infarction. Chest X-Ray 04/27/21 11:37 IMPRESSION: No evidence for acute disease in the chest. No foreign body seen. Medications Medications Current Medications Generic Name Dose Route Start Last Admin Trade Name Freq PRN Reason Stop Dose Admin Acetaminophen 650 mg 04/22/21 17:58 05/01/21 04:43 Acetaminophen 325 Mg Tablet PO 650 mg Q4H PRN Administration Pain Al Hydroxide/Mg Hydroxide 30 ml 04/23/21 14:17 Magnesium Hydrox/Alum Hydrox 30 Ml Oral.Susp PO Q6H PRN Heartburn/Nausea Amlodipine Besylate 5 mg 04/22/21 18:00 05/01/21 12:10 Amlodipine Besylate 5 Mg Tablet PO 5 mg DAILY [facility] Administration Protocol Docusate Sodium 100 mg 04/22/21 17:58 04/25/21 10:02 Docusate Sodium 100 Mg Capsule PO 100 mg DAILY PRN Administration constipation Enoxaparin Sodium 40 mg 04/26/21 18:00 05/01/21 21:18 Enoxaparin Sodium 40 Mg/0.4 Ml Syringe SUBCUT Not Given Q24H MITRA Finasteride 5 mg 04/26/21 11:15 05/01/21 12:11 Finasteride 5 Mg Tablet PO 5 mg DAILY MITRA Administration Ibuprofen 800 mg 04/24/21 12:30 05/01/21 18:57 Ibuprofen 800 Mg Tablet PO Not Given TIDWM MITRA Lisinopril 20 mg 04/22/21 18:00 05/01/21 12:09 Lisinopril 20 Mg Tablet PO 20 mg DAILY MITRA Administration Protocol Lorazepam 0.5 mg 04/27/21 13:51 Lorazepam 0.5 Mg Tablet PO Q8H PRN Anxiety Lorazepam 2 mg 04/29/21 13:00 05/02/21 02:06 Lorazepam 2 Mg/Ml Vial IVPUSH 2 mg Q6H MITRA Administration Magnesium Hydroxide 30 ml 04/23/21 14:17 04/24/21 15:52 Milk Of Magnesia 30 Ml Oral.Susp PO 30 ml DAILY PRN Administration Constipation Polyethylene Glycol 17 gm 04/22/21 18:00 05/01/21 12:19 Polyethylene Glycol 3350 17 Gm Powd.Pack PO 17 gm DAILY MITRA Administration Sodium Chloride 3 ml 04/28/21 16:00 05/02/21 02:06 0.9 % Sodium Chloride Flush 3 Ml Syringe IVFLUSH 3 ml QSHIFT MITRA Administration Tamsulosin HCl 0.4 mg 04/23/21 21:00 05/01/21 21:10 Tamsulosin Hcl 0.4 Mg Capsule PO 0.4 mg BEDTIME MITRA Administration Allergies Allergies Allergy/AdvReac Type Severity Reaction Status Date / Time atorvastatin [From LIPITOR] Allergy Intermediate ELEVATED Verified 04/24/21 19:53 LIVER ENZYMES Assessment & Plan Assessment & Plan (1) Catatonia: Status: Acute Code(s): F06.1 - Catatonic disorder due to known physiological condition (2) Bipolar 1 disorder: Status: Acute Code(s): F31.9 - Bipolar disorder, unspecified (3) Acute urinary retention: Status: Acute Code(s): R33.8 - Other retention of urine (4) Rich catheter in place: Status: Acute Code(s): Z97.8 - Presence of other specified devices (5) Hypertension: Status: Acute Code(s): I10 - Essential (primary) hypertension (6) Hyperlipemia: Status: Acute Code(s): E78.5 - Hyperlipidemia, unspecified Assessment and Plan: 60 year old male with BPH, HTN, HLD who has been admitted to [facility] with diagnosis of bipolar 1, prior to admission has been started on Bactrim for UTI, he has been started on anti anxiety and anti-psychotic meds, he has had urinary retention as result of BPH and urology inserted a rich cath yesterday, [facility] is stating that they unsure if his condition is primary Psych or medical cause of delirium. Plan: 04/25/21 After close review of labs, medication, and personal evaluation, there are no obvious medical cause of his condition, he does not have an active infection, presumed UTI that was treated with bactrim seems to have clear, his las UA as of 04/24 was negative for UTI and so I suggest discontinuing bactrim and following clinically at this time. His metablic profile, LFTS, B12, Folate and TSH, reviewed to be unremarkable as well, CPK of 471 is insignificant and can be repeated tomorrow, there is no evidence of NMS (no fever, no tachycardia, no signs of autonomic dysfunction). He has had CT scan of the head that is unremarkable. I have no noticed patient's condition to be waxing and waning for acute medical delirium. Could it be that present Psych medications are making his condition worse? I suggest review meds and adjust according, if it is not believed that these are necessary. As next step, I would recommend obtaining an Neurology consult and consider an EEG. Will follow 04/26/21 No sginificant change, vital are stable, there is still no medical explanation for his present condition, he seems very depressed and I would agree with ECT as treatment option, he was not able participate in EEG exam and we are still waiting ro Neurology evalation. Lisa welch is still in, Uro to decide on when this come out. Because he is highly imobile, I recommend Loven ox injection to prevent DVT. Continue HTN meds 04/27/21 Requesting MRI and EEG per neuro recommendation, ? withdrawal from Invega. Recheck CPK level and BMP . will discuss with Psychiatrist Remains in a nearly catatonic state. No evidence of NMS since his VS are stable. Plan: Continue Neurologic assessment. File for Section 7 and 8 TODAY 04/28 No major change, was not able to complete MRI d/t lack of cooperation, EEG not yet done either. Creatine was 1.42 (Record reviewed shows that he likely has CKD 2), I am told he's not eating much and probably not drinking much either. Repeat lab today, he may need IVF if labs worsening, I will discuss next step with Psychiatrist, MRI may need to be done under consicous sedation. Still not sure that this is state of delirium or primary psychitric state 04/29 patient sleeping this morning, by mouth intake remains poor, remains catatonic as per nurse and Psychiatry, CPK improved to 197 and creatinine normalized, since patient moving all [address] on admission and now examination and findings most suggestive of catatonia will DC MRI, Psychiatry planning on ECT and will go to court to section him, will decrease IV fluid to 1 L daily and changed to Ringer lactate follow BMP rosa iselaley 04/30 patient remains catatonic, although some improvement in the sense that he is taking diet, electrolytes and renal function remains stable, if patient is tolerating diet will discontinue further IV fluid Reassess patient in the morning, check BMP on Sunday, psychiatrists increase Ativan to 2 mg q.6 hr plan is for ECT and court for Sunday. Psychiatry 05/02 Slight improvement of catatonia, seems more paranoid and psychotic. Plan: Gather collateral regareding prior treatment. I will call his prescriber Juan Carlos Reynolds at [facility] to get information of prior treatments. Continue with Ativan IVP Greater than 50% of the session was spent on counseling and/or coordination of care Reason for contiued inpatient stay Substantial Risk for: inability to function, rapid decompensation and med/psych decompensation
[2021-05-02] MEDS: Ibuprofen 800 MG TABLET PO ×2 (08:01→17:21)
[2021-05-02] MEDS: Finasteride 5 MG TABLET PO (08:01)
[2021-05-02] MEDS: polyethylene glycoL 3350 17 GM POWD.PACK PO (08:01)
[2021-05-02] MEDS: lisinopriL 20 MG TABLET PO (08:02)
[2021-05-02] MEDS: amLODIPine Besylate 5 MG TABLET PO (08:02)
[2021-05-02 08:15] VITALS: BP 134/82; PULSE 68
[2021-05-02 08:27] LABS: Anion Gap 14 (12-20); Blood Urea Nitrogen 16 mg/dL (9-16); Calcium 9.4 mg/dL (8.4-10.2); Carbon Dioxide 22 mmol/L (22-29); Chloride 109 mmol/L (96-108); Creatinine Clr Calc Pharmacy 90.2; Estimated Glomerular Filt Rate > 60; Glucose Random 105 mg/dL (60-115); Potassium 3.6 mmol/L (3.3-5.1); Sodium 141 mmol/L (135-145)
[2021-05-02] MEDS: Sodium Phosphate,Mono-Dibasic 133 ML ENEMA PR (14:09)
[2021-05-02 18:00] VITALS: BP 139/88; PULSE 75; TEMP 36.6; O2SAT 98
[2021-05-02] MEDS: Enoxaparin Sodium 40 MG/0.4 ML SYRINGE SUBCUT (18:10)
[2021-05-02] MEDS: Tamsulosin HCL 0.4 MG CAPSULE PO (20:30)
[2021-05-03] MEDS: 0.9 % Sodium Chloride Flush 3 ML SYRINGE IVFLUSH ×3 (00:38→16:08)
[2021-05-03] MEDS: LORazepam 2 MG/ML VIAL IVPUSH ×4 (01:16→20:05)
[2021-05-03 06:00] VITALS: BP 126/83; PULSE 75; RESP 20; TEMP 36.6; O2SAT 99
[2021-05-03] MEDS: Ibuprofen 800 MG TABLET PO ×3 (07:47→17:30)
[2021-05-03 07:48] VITALS: BP 115/85; PULSE 60
[2021-05-03] MEDS: amLODIPine Besylate 5 MG TABLET PO (07:48)
[2021-05-03 07:49] VITALS: BP 115/85; PULSE 60
[2021-05-03] MEDS: lisinopriL 20 MG TABLET PO (07:49)
[2021-05-03] MEDS: polyethylene glycoL 3350 17 GM POWD.PACK PO (07:49)
[2021-05-03] MEDS: Finasteride 5 MG TABLET PO (07:49)
[2021-05-03 07:59] VITALS: BP 115/85; PULSE 60; TEMP 36.4; O2SAT 98
--- NOTE | 2021-05-03 10:04 | HO.PSYCHPN ---
Subjective Subjective Date of Service: 05/03/21 Reason For Visit: Altered mental status Interim History: The patient remains catatonic but responds sproadically. We contacted Juan Carlos Reynolds and he gave a lot of collateral information. Still with poor sleep and catatonic but at least, he is having meals with help of staff. BM yesterday after fleet enema. Mental Status Exam Mental Status Exam Patient Appearance: Well Grooomed (on hospital gowns) Level of Consciousness: Disoriented and Lethargic Patient Behavior: Passive Mood Description: Withdrawn Affect Description: Blunted Patient Cognition Impaired: No Ability to Follow Directions: Poor Speech Pattern: Delayed (mute at times) Delusions: Paranoid Ideation Thought Process: Slowed Thinking (thought blocking) Thought Content: positive for Poverty of Content Judgement: Poor Diagnostics Vital Signs (24Hr): Vital Signs - 24 hr 05/02/21 18:00 05/03/21 06:00 05/03/21 07:48 Temperature 97.8 F 97.8 F Pulse Rate 75 75 60 Respiratory Rate 20 Blood Pressure 139/88 126/83 115/85 Pulse Oximetry 98 99 05/03/21 07:49 05/03/21 07:59 Temperature 97.5 F Pulse Rate 60 60 Respiratory Rate Blood Pressure 115/85 115/85 Pulse Oximetry 98 Body Mass Index 24.1 Labs Results: 04/25/21 09:55 05/02/21 07:55 Labs: Laboratory Results - last 48 hr 05/02/21 07:55 Sodium 141 Potassium 3.6 Chloride 109 H Carbon Dioxide 22 Anion Gap 14 BUN 16 Creatinine 0.91 Estim Creat Clear Calc 90.2 Estimated GFR > 60 Random Glucose 105 Calcium 9.4 Imaging Radiology Impressions: ITS Impressions Abdomen/Pelvis CT 04/22/21 12:16 IMPRESSION: Mild prostatomegaly with moderate central gland calcification.. The periprostatic fat planes are hazy. The bladder is undistended with a Rich's catheter within. Head CT 04/25/21 10:48 IMPRESSION: No acute intracranial hemorrhage or territorial infarction. Chest X-Ray 04/27/21 11:37 IMPRESSION: No evidence for acute disease in the chest. No foreign body seen. KUB X-Ray 05/02/21 10:19 IMPRESSION: Constipation. No evidence of obstruction. Medications Medications Current Medications Generic Name Dose Route Start Last Admin Trade Name Freq PRN Reason Stop Dose Admin Acetaminophen 650 mg 04/22/21 17:58 05/01/21 04:43 Acetaminophen 325 Mg Tablet PO 650 mg Q4H PRN Administration Pain Al Hydroxide/Mg Hydroxide 30 ml 04/23/21 14:17 Magnesium Hydrox/Alum Hydrox 30 Ml Oral.Susp PO Q6H PRN Heartburn/Nausea Amlodipine Besylate 5 mg 04/22/21 18:00 05/03/21 07:48 Amlodipine Besylate 5 Mg Tablet PO 5 mg DAILY MITRA Administration Protocol Docusate Sodium 100 mg 04/22/21 17:58 04/25/21 10:02 Docusate Sodium 100 Mg Capsule PO 100 mg DAILY PRN Administration constipation Enoxaparin Sodium 40 mg 04/26/21 18:00 05/02/21 18:10 Enoxaparin Sodium 40 Mg/0.4 Ml Syringe SUBCUT 40 mg Q24H MITRA Administration Finasteride 5 mg 04/26/21 11:15 05/03/21 07:49 Finasteride 5 Mg Tablet PO 5 mg DAILY MITRA Administration Ibuprofen 800 mg 04/24/21 12:30 05/03/21 07:47 Ibuprofen 800 Mg Tablet PO 800 mg TIDWM MITRA Administration Lisinopril 20 mg 04/22/21 18:00 05/03/21 07:49 Lisinopril 20 Mg Tablet PO 20 mg DAILY MITRA Administration Protocol Lorazepam 0.5 mg 04/27/21 13:51 Lorazepam 0.5 Mg Tablet PO Q8H PRN Anxiety Lorazepam 2 mg 04/29/21 13:00 05/03/21 06:52 Lorazepam 2 Mg/Ml Vial IVPUSH 2 mg Q6H MITRA Administration Magnesium Hydroxide 30 ml 04/23/21 14:17 04/24/21 15:52 Milk Of Magnesia 30 Ml Oral.Susp PO 30 ml DAILY PRN Administration Constipation Polyethylene Glycol 17 gm 04/22/21 18:00 05/03/21 07:49 Polyethylene Glycol 3350 17 Gm Powd.Pack PO 17 gm DAILY MITRA Administration Sodium Chloride 3 ml 04/28/21 16:00 05/03/21 07:49 0.9 % Sodium Chloride Flush 3 Ml Syringe IVFLUSH 3 ml QSHIFT MITRA Administration Tamsulosin HCl 0.4 mg 04/23/21 21:00 05/02/21 20:30 Tamsulosin Hcl 0.4 Mg Capsule PO 0.4 mg BEDTIME MITRA Administration Allergies Allergies Allergy/AdvReac Type Severity Reaction Status Date / Time atorvastatin [From LIPITOR] Allergy Intermediate ELEVATED Verified 04/24/21 19:53 LIVER ENZYMES Assessment & Plan Assessment & Plan (1) Catatonia: Status: Acute Code(s): F06.1 - Catatonic disorder due to known physiological condition (2) Bipolar 1 disorder: Status: Acute Code(s): F31.9 - Bipolar disorder, unspecified (3) Acute urinary retention: Status: Acute Code(s): R33.8 - Other retention of urine (4) Rich catheter in place: Status: Acute Code(s): Z97.8 - Presence of other specified devices (5) Hypertension: Status: Acute Code(s): I10 - Essential (primary) hypertension (6) Hyperlipemia: Status: Acute Code(s): E78.5 - Hyperlipidemia, unspecified Assessment and Plan: 60 year old male with BPH, HTN, HLD who has been admitted to [facility] with diagnosis of bipolar 1, prior to admission has been started on Bactrim for UTI, he has been started on anti anxiety and anti-psychotic meds, he has had urinary retention as result of BPH and urology inserted a rich cath yesterday, [facility] is stating that they unsure if his condition is primary Psych or medical cause of delirium. Plan: 04/25/21 After close review of labs, medication, and personal evaluation, there are no obvious medical cause of his condition, he does not have an active infection, presumed UTI that was treated with bactrim seems to have clear, his las UA as of 04/24 was negative for UTI and so I suggest discontinuing bactrim and following clinically at this time. His metablic profile, LFTS, B12, Folate and TSH, reviewed to be unremarkable as well, CPK of 471 is insignificant and can be repeated tomorrow, there is no evidence of NMS (no fever, no tachycardia, no signs of autonomic dysfunction). He has had CT scan of the head that is unremarkable. I have no noticed patient's condition to be waxing and waning for acute medical delirium. Could it be that present Psych medications are making his condition worse? I suggest review meds and adjust according, if it is not believed that these are necessary. As next step, I would recommend obtaining an Neurology consult and consider an EEG. Will follow 04/26/21 No sginificant change, vital are stable, there is still no medical explanation for his present condition, he seems very depressed and I would agree with ECT as treatment option, he was not able participate in EEG exam and we are still waiting ro Neurology evalation. Lisa welch is still in, Uro to decide on when this come out. Because he is highly imobile, I recommend Lovenox injection to prevent DVT. Continue HTN meds 04/27/21 Requesting MRI and EEG per neuro recommendation, ? withdrawal from Invega. Recheck CPK level and BMP . will discuss with Psychiatrist Remains in a nearly catatonic state. No evidence of NMS since his VS are stable. Plan: Continue Neurologic assessment. File for Section 7 and 8 TODAY 04/28 No major change, was not able to complete MRI d/t lack of cooperation, EEG not yet done either. Creatine was 1.42 (Record reviewed shows that he likely has CKD 2), I am told he's not eating much and probably not drinking much either. Repeat lab today, he may need IVF if labs worsening, I will discuss next step with Psychiatrist, MRI may need to be done under consicous sedation. Still not sure that this is state of delirium or primary psychitric state 04/29 patient sleeping this morning, by mouth intake remains poor, remains catatonic as per nurse and Psychiatry, CPK improved to 197 and creatinine normalized, since patient moving all [address] on admission and now examination and findings most suggestive of catatonia will DC MRI, Psychiatry planning on ECT and will go to court to section him, will decrease IV fluid to 1 L daily and changed to Ringer lactate follow BMP navi 04/30 patient remains catatonic, although some improvement in the sense that he is taking diet, electrolytes and renal function remains stable, if patient is tolerating diet will discontinue further IV fluid Reassess patient in the morning, check BMP on Sunday, psychiatrists increase Ativan to 2 mg q.6 hr plan is for ECT and court for Sunday. Psychiatry 05/03 Slight improvement of catatonia, seems more paranoid and psychotic. Plan: - Start Seroquel 200 mg p qhs - Continue with Ativan IVP Greater than 50% of the session was spent on counseling and/or coordination of care Reason for contiued inpatient stay Substantial Risk for: inability to function, rapid decompensation and med/psych decompensation
[2021-05-03] MEDS: QUEtiapine Fumarate 100 MG TABLET 200 MG PO ×2 (11:59→21:28)
--- NOTE | 2021-05-03 12:50 | PC.NURSE ---
Patient receiving IV Ativan. IV infiltrated 05/03/21. New IV inserted by Nurse Weasand Trimmer. Patient tolerated well. Due to agressive behavior that was beginning to escalate, notified. Orders were given for Seroquel 200 mg po stat. Patient observed to be resting comfortably at this time. Patient is perseverating on what he perceives to be the removal of his genitalia. He does have an indwelling rich in place. His thoughts and speech are becoming clearer however his speech continues to be delayed. His movements remain rigid and an assist is required to transfer. Uses WC on the unit. Appetitie fluctuates between adequate and poor.
[2021-05-03] MEDS: Enoxaparin Sodium 40 MG/0.4 ML SYRINGE SUBCUT (17:31)
[2021-05-03 17:57] VITALS: BP 133/82; PULSE 74; TEMP 36.8; O2SAT 100
[2021-05-03] MEDS: Tamsulosin HCL 0.4 MG CAPSULE PO (21:28)
[2021-05-03] MEDS: Acetaminophen 325 MG TABLET 650 MG PO (23:06)
[2021-05-03] MEDS: QUEtiapine Fumarate 200 MG TABLET PO (23:55)
[2021-05-04] MEDS: 0.9 % Sodium Chloride Flush 3 ML SYRINGE IVFLUSH ×4 (01:03→20:37)
--- NOTE | 2021-05-04 01:08 | PC.NURSE ---
PT got agitated at 11pm, trying to get out of bed, pulling at IV, notified, instructed this RN to give prn Seroquel. PRN Seroquel given at 23:55 with some effect. IV patent no S/S of infection or infiltration. Gonzalez catheter putting out clear yellow urine. PT appears delusional and says, My brain is never going to be the same. I am going to . Don't let me . Why are you doing this to me. Come on. PT is currently resting in bed.
[2021-05-04] MEDS: LORazepam 2 MG/ML VIAL IVPUSH ×4 (06:34→20:28)
[2021-05-04 06:45] VITALS: BP 138/85; PULSE 84; RESP 16; TEMP 36.4; O2SAT 98
[2021-05-04] MEDS: Finasteride 5 MG TABLET PO (09:30)
[2021-05-04] MEDS: lisinopriL 20 MG TABLET PO (09:30)
[2021-05-04] MEDS: Ibuprofen 800 MG TABLET PO ×3 (09:31→16:43)
[2021-05-04] MEDS: polyethylene glycoL 3350 17 GM POWD.PACK PO (09:32)
[2021-05-04 10:00] VITALS: BP 122/77; PULSE 105
[2021-05-04] MEDS: amLODIPine Besylate 5 MG TABLET PO (10:00)
--- NOTE | 2021-05-04 11:17 | P.PNPSI_ITS ---
Subjective Subjective Date of Service: 05/04/21 Reason For Visit: Altered mental status Interim History: The patient was agitated during the night and requiered SEroquel several times. It seems that he is having agitated catatonic symptoms. No food or liquid intake in the last hours. We will coordinate with medicine and hospitalist. Mental Status Exam Mental Status Exam Patient Appearance: Well Grooomed Level of Consciousness: Awake and Disoriented Patient Behavior: Confused, Uncooperative (Catatonic) and Poor Eye Contact Mood Description: Withdrawn Affect Description: Blunted and Angry Patient Cognition Impaired: No Ability to Follow Directions: Poor Speech Pattern: No Speech Hallucinations: None Delusions: Paranoid Ideation Thought Process: Incoherent and Illogical Thought Content: positive for Thought Blocking Judgement: Poor Diagnostics Vital Signs (24Hr): Vital Signs - 24 hr 05/03/21 17:57 05/04/21 06:45 05/04/21 10:00 Temperature 98.2 F 97.6 F Pulse Rate 74 84 105 H Respiratory Rate 16 Blood Pressure 133/82 138/85 122/77 Pulse Oximetry 100 98 Body Mass Index 24.1 Labs Results: 04/25/21 09:55 05/02/21 07:55 Imaging Radiology Impressions: ITS Impressions Abdomen/Pelvis CT 04/22/21 12:16 IMPRESSION: Mild prostatomegaly with moderate central gland calcification.. The periprostatic fat planes are hazy. The bladder is undistended with a Rich's catheter within. Head CT 04/25/21 10:48 IMPRESSION: No acute intracranial hemorrhage or territorial infarction. Chest X-Ray 04/27/21 11:37 IMPRESSION: No evidence for acute disease in the chest. No foreign body seen. KUB X-Ray 05/02/21 10:19 IMPRESSION: Constipation. No evidence of obstruction. Medications Medications Current Medications Generic Name Dose Route Start Last Admin Trade Name Freq PRN Reason Stop Dose Admin Acetaminophen 650 mg 04/22/21 17:58 05/03/21 23:06 Acetaminophen 325 Mg Tablet PO 650 mg Q4H PRN Administration Pain Al Hydroxide/Mg Hydroxide 30 ml 04/23/21 14:17 Magnesium Hydrox/Alum Hydrox 30 Ml Oral.Susp PO Q6H PRN Heartburn/Nausea Amlodipine Besylate 5 mg 04/22/21 18:00 05/04/21 10:00 Amlodipine Besylate 5 Mg Tablet PO 5 mg DAILY MITRA Administration Protocol Docusate Sodium 100 mg 04/22/21 17:58 04/25/21 10:02 Docusate Sodium 100 Mg Capsule PO 100 mg DAILY PRN Administration constipation Enoxaparin Sodium 40 mg 04/26/21 18:00 05/03/21 17:31 Enoxaparin Sodium 40 Mg/0.4 Ml Syringe SUBCUT 40 mg Q24H MITRA Administration Finasteride 5 mg 04/26/21 11:15 05/04/21 09:30 Finasteride 5 Mg Tablet PO 5 mg DAILY MITRA Administration Ibuprofen 800 mg 04/24/21 12:30 05/04/21 09:31 Ibuprofen 800 Mg Tablet PO 800 mg TIDWM MITRA Administration Lisinopril 20 mg 04/22/21 18:00 05/03/21 07:49 Lisinopril 20 Mg Tablet PO 20 mg DAILY MITRA Administration Protocol Lorazepam 2 mg 04/29/21 13:00 05/04/21 06:34 Lorazepam 2 Mg/Ml Vial IVPUSH 2 mg Q6H MITRA Administration Magnesium Hydroxide 30 ml 04/23/21 14:17 04/24/21 15:52 Milk Of Magnesia 30 Ml Oral.Susp PO 30 ml DAILY PRN Administration Constipation Polyethylene Glycol 17 gm 04/22/21 18:00 05/04/21 09:32 Polyethylene Glycol 3350 17 Gm Powd.Pack PO 17 gm DAILY MITRA Administration Quetiapine Fumarate 200 mg 05/03/21 21:00 05/03/21 21:28 Quetiapine Fumarate 100 Mg Tablet PO 200 mg BEDTIME MITRA Administration Quetiapine Fumarate 200 mg 05/03/21 11:52 05/03/21 23:55 Quetiapine Fumarate 200 Mg Tablet PO 200 mg TID PRN Administration PSYCHOSIS Sodium Chloride 3 ml 04/28/21 16:00 05/04/21 09:32 0.9 % Sodium Chloride Flush 3 Ml Syringe IVFLUSH 3 ml QSHIFT MITRA Administration Tamsulosin HCl 0.4 mg 04/23/21 21:00 05/03/21 21:28 Tamsulosin Hcl 0.4 Mg Capsule PO 0.4 mg BEDTIME MITRA Administration Allergies Allergies Allergy/AdvReac Type Severity Reaction Status Date / Time atorvastatin [From LIPITOR] Allergy Intermediate ELEVATED Verified 04/24/21 19:53 LIVER ENZYMES Assessment & Plan Assessment & Plan (1) Catatonia: Status: Acute Code(s): F06.1 - Catatonic disorder due to known physiological condition (2) Bipolar 1 disorder: Status: Acute Code(s): F31.9 - Bipolar disorder, unspecified (3) Acute urinary retention: Status: Acute Code(s): R33.8 - Other retention of urine (4) Rich catheter in place: Status: Acute Code(s): Z97.8 - Presence of other specified devices (5) Hypertension: Status: Acute Code(s): I10 - Essential (primary) hypertension (6) Hyperlipemia: Status: Acute Code(s): E78.5 - Hyperlipidemia, unspecified Assessment and Plan: 60 year old male with BPH, HTN, HLD who has been admitted to [facility] with diagnosis of bipolar 1, prior to admission has been started on Bactrim for UTI, he has been started on anti anxiety and anti-psychotic meds, he has had urinary retention as result of BPH and urology inserted a rich cath yesterday, Psych is stating that they unsure if his condition is primary Psych or medical cause of delirium. Plan: 04/25/21 After close review of labs, medication, and personal evaluation, there are no obvious medical cause of his condition, he does not have an active infection, presumed UTI that was treated with bactrim seems to have clear, his las UA as of 04/24 was negative for UTI and so I suggest discontinuing bactrim and following clinically at this time. His metablic profile, LFTS, B12, Folate and TSH, reviewed to be unremarkable as well, CPK of 471 is insignificant and can be repeated tomorrow, there is no evidence of NMS (no fever, no tachycardia, no signs of autonomic dysfunction). He has had CT scan of the head that is un remarkable. I have no noticed patient's condition to be waxing and waning for acute medical delirium. Could it be that present Psych medications are making his condition worse? I suggest review meds and adjust according, if it is not believed that these are necessary. As next step, I would recommend obtaining an Neurology consult and consider an EEG. Will follow 04/26/21 No sginificant change, vital are stable, there is still no medical explanation for his present condition, he seems very depressed and I would agree with ECT as treatment option, he was not able participate in EEG exam and we are still waiting ro Neurology evalation. Lisa welch is still in, Uro to decide on when this come out. Because he is highly imobile, I recommend Lovenox injection to prevent DVT. Continue HTN meds 04/27/21 Requesting MRI and EEG per neuro recommendation, ? withdrawal from Invega. Recheck CPK level and BMP . will discuss with Psychiatrist Remains in a nearly catatonic state. No evidence of NMS since his VS are stable. Plan: Continue Neurologic assessment. File for Section 7 and 8 TODAY 04/28 No major change, was not able to complete MRI d/t lack of cooperation, EEG not yet done either. Creatine was 1.42 (Record reviewed shows that he likely has CKD 2), I am told he's not eating much and probably not drinking much either. Repeat lab today, he may need IVF if labs worsening, I will discuss next step with Psychiatrist, MRI may need to be done under consicous sedation. Still not sure that this is state of delirium or primary psychitric state 04/29 patient sleeping this morning, by mouth intake remains poor, remains catatonic as per nurse and Psychiatry, CPK improved to 197 and creatinine normalized, since patient moving all [address] on admission and now examination and findings most suggestive of catatonia will DC MRI, Psychiatry planning on ECT and will go to court to section him, will decrease IV fluid to 1 L daily and changed to Ringer lactate follow BMP [facility] 04/30 patient remains catatonic, although some improvement in the sense that he is taking diet, electrolytes and renal function remains stable, if patient is tolerating diet will discontinue further IV fluid Reassess patient in the morning, check BMP on Sunday, psychiatrists increase Ativan to 2 mg q.6 hr plan is for ECT and court for Sunday. Psychiatry 05/03 Slight improvement of catatonia, seems more paranoid and psychotic. Plan: - Start Seroquel 200 mg p qhs - Continue with Ativan IVP Psychiatry 05/04 Increase Seroquel 100 mg po tid and 200 qhs, keep PRN Greater than 50% of the session was spent on counseling and/or coordination of care Reason for contiued inpatient stay Substantial Risk for: harm to self, harm to others, inability to function, rapid decompensation and med/psych decompensation
[2021-05-04] MEDS: QUEtiapine Fumarate 100 MG TABLET PO ×2 (16:15→20:28)
[2021-05-04 18:00] VITALS: BP 111/67; PULSE 93; RESP 18; TEMP 36.8; O2SAT 98
[2021-05-04] MEDS: Enoxaparin Sodium 40 MG/0.4 ML SYRINGE SUBCUT (18:52)
[2021-05-04] MEDS: QUEtiapine Fumarate 100 MG TABLET 200 MG PO (20:28)
[2021-05-04] MEDS: Tamsulosin HCL 0.4 MG CAPSULE PO (20:28)
[2021-05-05 07:00] VITALS: BMI 24.6
[2021-05-05] MEDS: QUEtiapine Fumarate 100 MG TABLET PO ×3 (09:19→20:38)
[2021-05-05] MEDS: Finasteride 5 MG TABLET PO (09:19)
[2021-05-05] MEDS: polyethylene glycoL 3350 17 GM POWD.PACK PO (09:19)
[2021-05-05] MEDS: 0.9 % Sodium Chloride Flush 3 ML SYRINGE IVFLUSH (09:22)
[2021-05-05] MEDS: LORazepam 2 MG/ML VIAL IVPUSH ×2 (09:22→14:07)
[2021-05-05] MEDS: Ibuprofen 800 MG TABLET PO ×3 (09:23→17:51)
[2021-05-05 10:24] VITALS: BP 129/83; PULSE 74; TEMP 36.8; O2SAT 98
--- NOTE | 2021-05-05 13:44 | HO.PSYCHPN ---
Subjective Subjective Date of Service: 05/05/21 Reason For Visit: Altered mental status Interim History: The patient remains catatonic with sporadic episodes of agitation mostly at hs. Last night, he abruptly woke up and nearly fell. Today, he was able to eat and drink with the support of the staff. Still, catatonic Review of Systems Acute medical concerns: No Medical Review of Systems: unchanged Mental Status Exam Mental Status Exam Patient Appearance: Well Grooomed (on hospital gowns.) Level of Consciousness: Awake, Disoriented and Obtunded (catatonic) Patient Behavior: Posturing, Confused and Poor Eye Contact Mood Description: Withdrawn Affect Description: Blunted Ability to Follow Directions: Poor Speech Pattern: No Speech Delusions: Paranoid Ideation Thought Process: Slowed Thinking Thought Content: positive for Poverty of Content Judgement: Poor Diagnostics Vital Signs (24Hr): Vital Signs - 24 hr 05/04/21 18:00 05/05/21 10:24 Temperature 98.3 F 98.3 F Pulse Rate 93 74 Respiratory Rate 18 Blood Pressure 111/67 129/83 Pulse Oximetry 98 98 Body Mass Index 24.1 Labs Results: 04/25/21 09:55 05/02/21 07:55 Imaging Radiology Impressions: ITS Impressions Abdomen/Pelvis CT 04/22/21 12:16 IMPRESSION: Mild prostatomegaly with moderate central gland calcification.. The periprostatic fat planes are hazy. The bladder is undistended with a Rich's catheter within. Head CT 04/25/21 10:48 IMPRESSION: No acute intracranial hemorrhage or territorial infarction. Chest X-Ray 04/27/21 11:37 IMPRESSION: No evidence for acute disease in the chest. No foreign body seen. KUB X-Ray 05/02/21 10:19 IMPRESSION: Constipation. No evidence of obstruction. Medications Medications Current Medications Generic Name Dose Route Start Last Admin Trade Name Freq PRN Reason Stop Dose Admin Acetaminophen 650 mg 04/22/21 17:58 05/03/21 23:06 Acetaminophen 325 Mg Tablet PO 650 mg Q4H PRN Administration Pain Al Hydroxide/Mg Hydroxide 30 ml 04/23/21 14:17 Magnesium Hydrox/Alum Hydrox 30 Ml Oral.Susp PO Q6H PRN Heartburn/Nausea Amlodipine Besylate 5 mg 04/22/21 18:00 05/04/21 10:00 Amlodipine Besylate 5 Mg Tablet PO 5 mg DAILY MITRA Administration Protocol Docusate Sodium 100 mg 04/22/21 17:58 04/25/21 10:02 Docusate Sodium 100 Mg Capsule PO 100 mg DAILY PRN Administration constipation Enoxaparin Sodium 40 mg 04/26/21 18:00 05/04/21 18:52 Enoxaparin Sodium 40 Mg/0.4 Ml Syringe SUBCUT 40 mg Q24H MITRA Administration Finasteride 5 mg 04/26/21 11:15 05/05/21 09:19 Finasteride 5 Mg Tablet PO 5 mg DAILY MITRA Administration Ibuprofen 800 mg 04/24/21 12:30 05/05/21 09:23 Ibuprofen 800 Mg Tablet PO 800 mg TIDWM MITRA Administration Lisinopril 20 mg 04/22/21 18:00 05/04/21 09:30 Lisinopril 20 Mg Tablet PO 20 mg DAILY MITRA Administration Protocol Lorazepam 2 mg 04/29/21 13:00 05/05/21 09:22 Lorazepam 2 Mg/Ml Vial IVPUSH 2 mg Q6H MITRA Administration Magnesium Hydroxide 30 ml 04/23/21 14:17 04/24/21 15:52 Milk Of Magnesia 30 Ml Oral.Susp PO 30 ml DAILY PRN Administration Constipation Polyethylene Glycol 17 gm 04/22/21 18:00 05/05/21 09:19 Polyethylene Glycol 3350 17 Gm Powd.Pack PO 17 gm DAILY MITRA Administration Quetiapine Fumarate 200 mg 05/03/21 21:00 05/04/21 20:28 Quetiapine Fumarate 100 Mg Tablet PO 200 mg BEDTIME MITRA Administration Quetiapine Fumarate 200 mg 05/03/21 11:52 05/03/21 23:55 Quetiapine Fumarate 200 Mg Tablet PO 200 mg TID PRN Administration PSYCHOSIS Quetiapine Fumarate 100 mg 05/04/21 15:00 05/05/21 09:19 Quetiapine Fumarate 100 Mg Tablet PO 100 mg TID MITRA Administration Sodium Chloride 3 ml 04/28/21 16:00 05/05/21 09:22 0.9 % Sodium Chloride Flush 3 Ml Syringe IVFLUSH 3 ml QSHIFT MITRA Administration Tamsulosin HCl 0.4 mg 04/23/21 21:00 05/04/21 20:28 Tamsulosin Hcl 0.4 Mg Capsule PO 0.4 mg BEDTIME MITRA Administration Allergies Allergies Allergy/AdvReac Type Severity Reaction Status Date / Time atorvastatin [From LIPITOR] Allergy Intermediate ELEVATED Verified 04/24/21 19:53 LIVER ENZYMES Assessment & Plan Assessment & Plan (1) Catatonia: Status: Acute Code(s): F06.1 - Catatonic disorder due to known physiological condition (2) Bipolar 1 disorder: Status: Acute Code(s): F31.9 - Bipolar disorder, unspecified (3) Acute urinary retention: Status: Acute Code(s): R33.8 - Other retention of urine (4) Rich catheter in place: Status: Acute Code(s): Z97.8 - Presence of other specified devices (5) Hypertension: Status: Acute Code(s): I10 - Essential (primary) hypertension (6) Hyperlipemia: Status: Acute Code(s): E78.5 - Hyperlipidemia, unspecified Assessment and Plan: 60 year old male with BPH, HTN, HLD who has been admitted to [facility] with diagnosis of bipolar 1, prior to admission has been started on Bactrim for UTI, he has been started on anti anxiety and anti-psychotic meds, he has had urinary retention as result of BPH and urology inserted a rich cath yesterday, [facility] is stating that they unsure if his condition is primary Psych or medical cause of delirium. Plan: 04/25/21 After close review of labs, medication, and personal evaluation, there are no obvious medical cause of his condition, he does not have an active infection, presumed UTI that was treated with bactrim seems to have clear, his las UA as of 04/24 was negative for UTI and so I suggest discontinuing bactrim and following clinically at this time. His metablic profile, LFTS, B12, Folate and TSH, reviewed to be unremarkable as well, CPK of 471 is insignificant and can be repeated tomorrow, there is no evidence of NMS (no fever, no tachycardia, no signs of autonomic dysfunction). He has had CT scan of the head that is unremarkable. I have no noticed patient's condition to be waxing and waning for acute medical delirium. Could it be that present Psych medications are making his condition worse? I suggest review meds and adjust according, if it is not believed that these are necessary. As next step, I would recommend obtaining an Neurology consult and consider an EEG. Will follow 04/26/21 No sginificant change, vital are stable, there is still no medical explanation for his present condition, he seems very depressed and I would agree with ECT as treatment option, he was not able participate in EEG exam and we are still waiting ro Neurology evalation. Lisa welch is still in, Uro to decide on when this come out. Because he is highly imobile, I recommend Lovenox injection to prevent DVT. Continue HTN meds 04/27/21 Requesting MRI and EEG per neuro recommendation, ? withdrawal from Invega. Recheck CPK level and BMP . will discuss with Psychiatrist Remains in a nearly catatonic state. No evidence of NMS since his VS are stable. Plan: Continue Neurologic assessment. File for Section 7 and 8 TODAY 04/28 No major change, was not able to complete MRI d/t lack of cooperation, EEG not yet done either. Creatine was 1.42 (Record reviewed shows that he likely has CKD 2), I am told he's not eating much and probably not drinking much either. Repeat lab today, he may need IVF if labs worsening, I will discuss next step with Psychiatrist, MRI may need to be done under consicous sedation. Still not sure that this is state of delirium or primary psychitric state 04/29 patient sleeping this morning, by mouth intake remains poor, remains catatonic as per nurse and Psychiatry, CPK improved to 197 and creatinine normalized, since patient moving all [address] on admission and now examination and findings most suggestive of catatonia will DC MRI, Psychiatry planning on ECT and will go to court to section him, will decrease IV fluid to 1 L daily and changed to Ringer lactate follow BMP rosa iselaley 04/30 patient remains catatonic, although some improvement in the sense that he is taking diet, electrolytes and renal function remains stable, if patient is tolerating diet will discontinue further IV fluid Reassess patient in the morning, check BMP on Sunday, psychiatrists increase Ativan to 2 mg q.6 hr plan is for ECT and court for Sunday. Psychiatry 05/03 Slight improvement of catatonia, seems more paranoid and psychotic. Plan: - Start Seroquel 200 mg p qhs - Continue with Ativan IVP Psychiatry 05/04 Increase Seroquel 100 mg po tid and 200 qhs, keep PRN Psychiatry 05/05 Keep same treatment Waiting for hearing on 05/10 Greater than 50% of the session was spent on counseling and/or coordination of care Reason for contiued inpatient stay Substantial Risk for: inability to function, rapid decompensation and med/psych decompensation
[2021-05-05] MEDS: Enoxaparin Sodium 40 MG/0.4 ML SYRINGE SUBCUT (17:51)
[2021-05-05 18:00] VITALS: BP 131/81; PULSE 96; RESP 16; TEMP 36.5; O2SAT 97
[2021-05-05] MEDS: QUEtiapine Fumarate 100 MG TABLET 200 MG PO (20:38)
[2021-05-05] MEDS: Tamsulosin HCL 0.4 MG CAPSULE PO (20:38)
--- NOTE | 2021-05-05 22:57 | PC.NURSE ---
PT was pulling on his IV site. The sitter in the room and this nurse were trying to prevent the PT from pulling at the IV, but IV site started to infiltrate. IV was removed from left forearm. PT was too agitated at this time to reobtain access.
[2021-05-06 08:39] VITALS: BP 113/69; PULSE 91
[2021-05-06] MEDS: lisinopriL 20 MG TABLET PO (08:39)
[2021-05-06] MEDS: Finasteride 5 MG TABLET PO (08:39)
[2021-05-06] MEDS: amLODIPine Besylate 5 MG TABLET PO (08:39)
[2021-05-06] MEDS: Docusate Sodium 100 MG CAPSULE PO (08:40)
[2021-05-06] MEDS: Ibuprofen 800 MG TABLET PO ×2 (08:40→17:49)
[2021-05-06] MEDS: QUEtiapine Fumarate 100 MG TABLET PO ×2 (08:40→20:48)
--- NOTE | 2021-05-06 11:04 | P.PNPSI_ITS ---
Subjective Subjective Date of Service: 05/06/21 Reason For Visit: Altered mental status Subjective Notes: Section 7 and Section 8 Interim History: The patient ripped off his IV line last night. He was awake and brighter today, he was able to talk with me and he was feeling guilty of not been stable. Pleasant and still on 1:1. We will discuss with urology regarding his Rich catheter. Review of Systems Acute medical concerns: No Medical Review of Systems: unchanged Mental Status Exam Mental Status Exam Patient Appearance: Well Grooomed (on hospital gowns, in a wheelchair) Patient Orientation: Person Level of Consciousness: Awake Patient Behavior: Passive and Avoidant Mood Description: Withdrawn and Apprehensive Affect Description: Blunted Patient Cognition Impaired: No Ability to Follow Directions: Poor Speech Pattern: Delayed and Long Pauses Hallucinations: None Delusions: Paranoid Ideation Thought Process: Slowed Thinking Thought Content: positive for Poverty of Content Judgement: Poor Diagnostics Vital Signs (24Hr): Vital Signs - 24 hr 05/05/21 18:00 05/06/21 08:39 Temperature 97.7 F Pulse Rate 96 91 Respiratory Rate 16 Blood Pressure 131/81 113/69 Pulse Oximetry 97 Body Mass Index 24.6 Labs Results: 04/25/21 09:55 05/02/21 07:55 Imaging Radiology Impressions: ITS Impressions Abdomen/Pelvis CT 04/22/21 12:16 IMPRESSION: Mild prostatomegaly with moderate central gland calcification.. The periprostatic fat planes are hazy. The bladder is undistended with a Rich's catheter within. Head CT 04/25/21 10:48 IMPRESSION: No acute intracranial hemorrhage or territorial infarction. Chest X-Ray 04/27/21 11:37 IMPRESSION: No evidence for acute disease in the chest. No foreign body seen. KUB X-Ray 05/02/21 10:19 IMPRESSION: Constipation. No evidence of obstruction. Medications Medications Current Medications Generic Name Dose Route Start Last Admin Trade Name Freq PRN Reason Stop Dose Admin Acetaminophen 650 mg 04/22/21 17:58 05/03/21 23:06 Acetaminophen 325 Mg Tablet PO 650 mg Q4H PRN Administration Pain Al Hydroxide/Mg Hydroxide 30 ml 04/23/21 14:17 Magnesium Hydrox/Alum Hydrox 30 Ml Oral.Susp PO Q6H PRN Heartburn/Nausea Amlodipine Besylate 5 mg 04/22/21 18:00 05/06/21 08:39 Amlodipine Besylate 5 Mg Tablet PO 5 mg DAILY MITRA Administration Protocol Docusate Sodium 100 mg 04/22/21 17:58 05/06/21 08:40 Docusate Sodium 100 Mg Capsule PO 100 mg DAILY PRN Administration constipation Enoxaparin Sodium 40 mg 04/26/21 18:00 05/05/21 17:51 Enoxaparin Sodium 40 Mg/0.4 Ml Syringe SUBCUT 40 mg Q24H MITRA Administration Finasteride 5 mg 04/26/21 11:15 05/06/21 08:39 Finasteride 5 Mg Tablet PO 5 mg DAILY MITRA Administration Ibuprofen 800 mg 04/24/21 12:30 05/06/21 08:40 Ibuprofen 800 Mg Tablet PO 800 mg TIDWM MITRA Administration Lisinopril 20 mg 04/22/21 18:00 05/06/21 08:39 Lisinopril 20 Mg Tablet PO 20 mg DAILY MITRA Administration Protocol Lorazepam 2 mg 05/06/21 15:00 Lorazepam 1 Mg Tablet PO TID MITRA Magnesium Hydroxide 30 ml 04/23/21 14:17 04/24/21 15:52 Milk Of Magnesia 30 Ml Oral.Susp PO 30 ml DAILY PRN Administration Constipation Polyethylene Glycol 17 gm 04/22/21 18:00 05/05/21 09:19 Polyethylene Glycol 3350 17 Gm Powd.Pack PO 17 gm DAILY MITRA Administration Quetiapine Fumarate 200 mg 05/03/21 21:00 05/05/21 20:38 Quetiapine Fumarate 100 Mg Tablet PO 200 mg BEDTIME MITRA Administration Quetiapine Fumarate 200 mg 05/03/21 11:52 05/03/21 23:55 Quetiapine Fumarate 200 Mg Tablet PO 200 mg TID PRN Administration PSYCHOSIS Quetiapine Fumarate 100 mg 05/04/21 15:00 05/06/21 08:40 Quetiapine Fumarate 100 Mg Tablet PO 100 mg TID MITRA Administration Sodium Chloride 3 ml 04/28/21 16:00 05/06/21 01:21 0.9 % Sodium Chloride Flush 3 Ml Syringe IVFLUSH Not Given QSHIFT MITRA Tamsulosin HCl 0.4 mg 04/23/21 21:00 05/05/21 20:38 Tamsulosin Hcl 0.4 Mg Capsule PO 0.4 mg BEDTIME MITRA Administration Allergies Allergies Allergy/AdvReac Type Severity Reaction Status Date / Time atorvastatin [From LIPITOR] Allergy Intermediate ELEVATED Verified 04/24/21 19:53 LIVER ENZYMES Assessment & Plan Assessment & Plan (1) Catatonia: Status: Acute Code(s): F06.1 - Catatonic disorder due to known physiological condition (2) Bipolar 1 disorder: Status: Acute Code(s): F31.9 - Bipolar disorder, unspecified (3) Acute urinary retention: Status: Acute Code(s): R33.8 - Other retention of urine (4) Rich catheter in place: Status: Acute Code(s): Z97.8 - Presence of other specified devices (5) Hypertension: Status: Acute Code(s): I10 - Essential (primary) hypertension (6) Hyperlipemia: Status: Acute Code(s): E78.5 - Hyperlipidemia, unspecified Assessment and Plan: 60 year old male with BPH, HTN, HLD who has been admitted to [facility] with diagnosis of bipolar 1, prior to admission has been started on Bactrim for UTI, he has been started on anti anxiety and anti-psychotic meds, he has had urinary retention as result of BPH and urology inserted a rich cath yesterday, [facility] is stating that they unsure if his condition is primary Psych or medical cause of delirium. Plan: 04/25/21 After close review of labs, medication, and personal evaluation, there are no obvious medical cause of his condition, he does not have an active infection, presumed UTI that was treated with bactrim seems to have clear, his las UA as of 04/24 was negative for UTI and so I suggest discontinuing bactrim and following clinically at this time. His metablic profile, LFTS, B12, Folate and TSH, reviewed to be unremarkable as well, CPK of 471 is insignificant and can be repeated tomorrow, there is no evidence of NMS (no fever, no tachycardia, no signs of autonomic dysfunction). He has had CT scan of the head that is unremarkable. I have no noticed patient's condition to be waxing and waning for acute medical delirium. Could it be that present Psych medications are making his condition worse? I suggest review meds and adjust according, if it is not believed that these are necessary. As next step, I would recommend obtaining an Neurology consult and consider an EEG. Will follow 04/26/21 No sginificant change, vital are stable, there is still no medical explanation for his present condition, he seems very depressed and I would agree with ECT as treatment option, he was not able participate in EEG exam and we are still waiting ro Neurology evalation. Lisa welch is still in, Uro to decide on when this come out. Because he is highly imobile, I recommend Lovenox injection to prevent DVT. Continue HTN meds 04/27/21 Requesting MRI and EEG per neuro recommendation, ? withdrawal from Invega. Recheck CPK level and BMP . will discuss with Psychiatrist Remains in a nearly catatonic state. No evidence of NMS since his VS are stable. Plan: Continue Neurologic assessment. File for Section 7 and 8 TODAY 04/28 No major change, was not able to complete MRI d/t lack of cooperation, EEG not yet done either. Creatine was 1.42 (Record reviewed shows that he likely has CKD 2), I am told he's not eating much and probably not drinking much either. Repeat lab today, he may need IVF if labs worsening, I will discuss next step with Psychiatrist, MRI may need to be done under consicous sedation. Still not sure that this is state of delirium or primary psychitric state 04/29 patient sleeping this morning, by mouth intake remains poor, remains catatonic as per nurse and Psychiatry, CPK improved to 197 and creatinine normalized, since patient moving all [address] on admission and now examination and findings most suggestive of catatonia will DC MRI, P sychiatry planning on ECT and will go to court to section him, will decrease IV fluid to 1 L daily and changed to Ringer lactate follow BMP navi 04/30 patient remains catatonic, although some improvement in the sense that he is taking diet, electrolytes and renal function remains stable, if patient is tolerating diet will discontinue further IV fluid Reassess patient in the morning, check BMP on Sunday, psychiatrists increase Ativan to 2 mg q.6 hr plan is for ECT and court for Sunday. Psychiatry 05/03 Slight improvement of catatonia, seems more paranoid and psychotic. Plan: - Start Seroquel 200 mg p qhs - Continue with Ativan IVP Psychiatry 05/04 Increase Seroquel 100 mg po tid and 200 qhs, keep PRN Psychiatry 05/05 Keep same treatment Waiting for hearing on 05/10 Psychiatry 05/06 Change Ativan to PO tid. Consult to urology for Rich. Greater than 50% of the session was spent on counseling and/or coordination of care Reason for contiued inpatient stay Substantial Risk for: inability to function, rapid decompensation and med/psych decompensation
[2021-05-06] MEDS: polyethylene glycoL 3350 17 GM POWD.PACK PO (12:18)
[2021-05-06 14:26] LABS: Glucose Urine UA NEG (NEG); Leukocyte Esterase Urine 1+ (NEG); Nitrite Urine POS (NEG); Specific Gravity - Urine >= 1.030 (1.005-1.025); Urine Blood 3+ (NEG); Urine Ketones NEG (NEG); Urine Protein TRACE MG/DL (NEG-TRACE)
[2021-05-06 14:28] LABS: Appearance Urine CLOUDY; Color Urine YELLOW
[2021-05-06 14:51] LABS: Bacteria Urine 3+ /LPF; RBC Urine 50-75 /HPF (0); Squamous Epithelial Cell Urine TRACE /LPF
--- NOTE | 2021-05-06 15:18 | PC.NURSE ---
After Consulting with Special Warfare Boat Operator, Determination was made to remove Gonzalez Catheter. Urine sample was obtained from bag and sent to lab. Gonzalez Catheter removed at 13:55pm.
[2021-05-06] MEDS: Amoxicillin/Potassium Clav 500 MG TABLET PO (17:50)
--- NOTE | 2021-05-06 18:42 | PC.NURSE ---
Patient Bladder Scanned at 18:30pm - 397 ml. Urologist, Dr. Medina came to the floor. Directions: If patient is unable to void and bladder scan amount is over 400 ml replace rich. Per Dr. Medina, do not use a Leg Bag as this will lead to continuous UTIs. Use Rich Bag or Rich Cap.
[2021-05-06] MEDS: LORazepam 1 MG TABLET 2 MG PO (20:48)
[2021-05-06] MEDS: Tamsulosin HCL 0.4 MG CAPSULE PO (20:48)
[2021-05-06] MEDS: QUEtiapine Fumarate 100 MG TABLET 200 MG PO (20:48)
[2021-05-06] MEDS: Enoxaparin Sodium 40 MG/0.4 ML SYRINGE SUBCUT (21:16)
--- NOTE | 2021-05-06 21:35 | PC.NURSE ---
Bladder scan done at 2130. 469 ml recorded.
[2021-05-07] VITALS (9 sets, daily range): BP systolic 97–119; BP diastolic 58–82; PULSE 77–90; RESP 16–20; TEMP 36.2–37.4; O2SAT 97–99
[2021-05-07] MEDS: Amoxicillin/Potassium Clav 500 MG TABLET PO ×4 (01:14→23:26)
--- NOTE | 2021-05-07 01:15 | PC.NURSE ---
PT was trying to get out of bed to use the bathroom. Sat on the side on the bed for a moment and started to void for a few seconds. PT was then assisted to the toilet and did not urinate while on the toilet. Scan was done to find 828 mL in the bladder.
--- NOTE | 2021-05-07 02:38 | PC.NURSE ---
Urologist asked to have straight cath inserted. This nurse went to straight cath PT and found bed soaked, PT was incontinent of urine. Scan done to find 541 mL residual urine in bladder.
[2021-05-07] MEDS: polyethylene glycoL 3350 17 GM POWD.PACK PO (08:24)
[2021-05-07] MEDS: amLODIPine Besylate 5 MG TABLET PO ×2 (08:36→08:39)
[2021-05-07] MEDS: lisinopriL 20 MG TABLET PO ×2 (08:36→08:39)
[2021-05-07] MEDS: Acetaminophen 325 MG TABLET 650 MG PO (08:36)
[2021-05-07] MEDS: Docusate Sodium 100 MG CAPSULE PO (08:38)
[2021-05-07] MEDS: Ibuprofen 800 MG TABLET PO ×2 (08:38→16:26)
[2021-05-07] MEDS: QUEtiapine Fumarate 100 MG TABLET PO (08:40)
[2021-05-07] MEDS: LORazepam 1 MG TABLET 2 MG PO (08:40)
[2021-05-07] MEDS: Finasteride 5 MG TABLET PO (08:40)
--- NOTE | 2021-05-07 10:51 | P.PNGPS_ITS ---
Subjective/Objective Subjective Current Medications: Active Medications Generic Name Dose Route Start Last Admin Trade Name Freq PRN Reason Stop Dose Admin Acetaminophen 650 mg 04/22/21 17:58 05/07/21 08:36 Acetaminophen 325 Mg Tablet PO 650 mg Q4H PRN Administration Pain Al Hydroxide/Mg Hydroxide 30 ml 04/23/21 14:17 Magnesium Hydrox/Alum Hydrox 30 Ml Oral.Susp PO Q6H PRN Heartburn/Nausea Amlodipine Besylate 5 mg 04/22/21 18:00 05/07/21 08:39 Amlodipine Besylate 5 Mg Tablet PO 5 mg DAILY MITRA Administration Protocol Amoxicillin/Clavulanate Potassium 500 mg 05/06/21 15:30 05/07/21 08:40 Amoxicillin/Potassium Clav 500 Mg Tablet PO 500 mg Q8H MITRA Administration Docusate Sodium 100 mg 04/22/21 17:58 05/07/21 08:38 Docusate Sodium 100 Mg Capsule PO 100 mg DAILY PRN Administration constipation Enoxaparin Sodium 40 mg 04/26/21 18:00 05/06/21 21:16 Enoxaparin Sodium 40 Mg/0.4 Ml Syringe SUBCUT 40 mg Q24H MITRA Administration Finasteride 5 mg 04/26/21 11:15 05/07/21 08:40 Finasteride 5 Mg Tablet PO 5 mg DAILY MITRA Administration Ibuprofen 800 mg 04/24/21 12:30 05/07/21 08:38 Ibuprofen 800 Mg Tablet PO 800 mg TIDWM MITRA Administration Lisinopril 20 mg 04/22/21 18:00 05/07/21 08:39 Lisinopril 20 Mg Tablet PO 20 mg DAILY MITRA Administration Protocol Lorazepam 1 mg 05/08/21 10:46 Lorazepam 1 Mg Tablet PO TID PRN catatonia/benzo withdrawl Magnesium Hydroxide 30 ml 04/23/21 14:17 04/24/21 15:52 Milk Of Magnesia 30 Ml Oral.Susp PO 30 ml DAILY PRN Administration Constipation Polyethylene Glycol 17 gm 04/22/21 18:00 05/07/21 08:24 Polyethylene Glycol 3350 17 Gm Powd.Pack PO 17 gm DAILY MITRA Administration Quetiapine Fumarate 200 mg 05/03/21 21:00 05/06/21 20:48 Quetiapine Fumarate 100 Mg Tablet PO 200 mg BEDTIME MITRA Administration Quetiapine Fumarate 200 mg 05/03/21 11:52 05/03/21 23:55 Quetiapine Fumarate 200 Mg Tablet PO 200 mg TID PRN Administration PSYCHOSIS Quetiapine Fumarate 100 mg 05/07/21 14:30 Quetiapine Fumarate 100 Mg Tablet PO BID@0830,1430 [facility] Sodium Biphosphate/Sodium Phosphate 133 ml 05/07/21 10:10 Sodium Phosphate,[place]-Dibasic 133 Ml Enema [place] ONCE PRN Constipation Tamsulosin HCl 0.4 mg 04/23/21 21:00 05/06/21 20:48 Tamsulosin Hcl 0.4 Mg Capsule PO 0.4 mg BEDTIME [facility] Administration Data Labs CBC & Chem 7: 04/25/21 09:55 05/02/21 07:55 Labs: Laboratory Results - last 48 hr 05/06/21 13:55 Urine Color YELLOW Urine Appearance CLOUDY Urine pH 6.0 Ur Specific [place] >= 1.030 H Urine Protein TRACE Urine Glucose (UA) NEG Urine Ketones NEG Urine Blood 3+ H Urine Nitrite POS H Ur Leukocyte Esterase 1+ H Urine RBC 50-75 H Urine WBC 10-14 H Ur Squamous Epith Cells TRACE Urine Bacteria 3+
--- NOTE | 2021-05-07 12:44 | PM.UROPN ---
Subjective Subjective Date of Service: 05/07/21 Interval history: Seen this morning Nurse tells me has been voiding with minimal control Also with constipation They would like to address constipation see if this allows him to void Can be reviewed for catheter tomorrow Physical Exam Vital Signs: Vital Signs: Last Vital Signs Temp 99.3 F 05/07/21 06:00 Pulse 90 05/07/21 08:39 Resp 16 05/07/21 06:00 BP 112/82 05/07/21 08:39 Pulse Ox 97 05/07/21 06:00 Body Mass Index 24.6 Const: General: cooperative, healthy appearing, comfortable and no acute distress Orientation/consciousness: patient oriented x3 HENMT: Face and sinus: Yes normal facial exam Mouth: moist mucous membranes Neck: Neck: Yes normal visual inspection, Yes full ROM and Yes trachea midline Chest: Chest palpation & inspection: normal inspection of the chest Resp: Effort & Inspection: normal respiratory effort, able to speak in complete sentences and no respiratory distress GI: Inspection: Yes normal to inspection Back/Spine/Pelvis: Cervical Spine: normal cervical lordosis Thoracic/Lumbar Spine: thoracic and lumbar spine normal to inspection Skin: General skin exam: no rashes or lesions noted Neuro: General: patient oriented x3, gait normal, tone normal and moves all extremities Extrem: General: Yes normal to inspection and Yes capillary refill normal Urology Results Labs CBC & Chem 7: 04/25/21 09:55 05/02/21 07:55 Labs: Laboratory Results - last 24 hr 05/06/21 13:55 Urine Color YELLOW Urine Appearance CLOUDY Urine pH 6.0 Ur Specific [place] >= 1.030 H Urine Protein TRACE Urine Glucose (UA) NEG Urine Ketones NEG Urine Blood 3+ H Urine Nitrite POS H Ur Leukocyte Esterase 1+ H Urine RBC 50-75 H Urine WBC 10-14 H Ur Squamous Epith Cells TRACE Urine Bacteria 3+ Progress Note: A&P Assessment and plan (1) Urinary retention with incomplete bladder emptying: Status: Acute Assessment and Plan: Check PVR once constipation resolved Fall Risk Details Current Medications: Current Medications Generic Name Dose Route Start Last Admin Trade Name Freq PRN Reason Stop Dose Admin Acetaminophen 650 mg 04/22/21 17:58 05/07/21 08:36 Acetaminophen 325 Mg Tablet PO 650 mg Q4H PRN Administration Pain Al Hydroxide/Mg Hydroxide 30 ml 04/23/21 14:17 Magnesium Hydrox/Alum Hydrox 30 Ml Oral.Susp PO Q6H PRN Heartburn/Nausea Amlodipine Besylate 5 mg 04/22/21 18:00 05/07/21 08:39 Amlodipine Besylate 5 Mg Tablet PO 5 mg DAILY MITRA Administration Protocol Amoxicillin/Clavulanate Potassium 500 mg 05/06/21 15:30 05/07/21 08:40 Amoxicillin/Potassium Clav 500 Mg Tablet PO 500 mg Q8H MITRA Administration Docusate Sodium 100 mg 04/22/21 17:58 05/07/21 08:38 Docusate Sodium 100 Mg Capsule PO 100 mg DAILY PRN Administration constipation Enoxaparin Sodium 40 mg 04/26/21 18:00 05/06/21 21:16 Enoxaparin Sodium 40 Mg/0.4 Ml Syringe SUBCUT 40 mg Q24H MITRA Administration Finasteride 5 mg 04/26/21 11:15 05/07/21 08:40 Finasteride 5 Mg Tablet PO 5 mg DAILY MITRA Administration Ibuprofen 800 mg 04/24/21 12:30 05/07/21 08:38 Ibuprofen 800 Mg Tablet PO 800 mg TIDWM MITRA Administration Lisinopril 20 mg 04/22/21 18:00 05/07/21 08:39 Lisinopril 20 Mg Tablet PO 20 mg DAILY [facility] Administration Protocol Lorazepam 1 mg 05/08/21 10:46 Lorazepam 1 Mg Tablet PO TID PRN catatonia/benzo withdrawl Magnesium Hydroxide 30 ml 04/23/21 14:17 04/24/21 15:52 Milk Of Magnesia 30 Ml Oral.Susp PO 30 ml DAILY PRN Administration Constipation Polyethylene Glycol 17 gm 04/22/21 18:00 05/07/21 08:24 Polyethylene Glycol 3350 17 Gm Powd.Pack PO 17 gm DAILY MITRA Administration Quetiapine Fumarate 200 mg 05/03/21 21:00 05/06/21 20:48 Quetiapine Fumarate 100 Mg Tablet PO 200 mg BEDTIME MITRA Administration Quetiapine Fumarate 200 mg 05/03/21 11:52 05/03/21 23:55 Quetiapine Fumarate 200 Mg Tablet PO 200 mg TID PRN Administration PSYCHOSIS Quetiapine Fumarate 100 mg 05/07/21 14:30 Quetiapine Fumarate 100 Mg Tablet PO BID@0830,1430 [facility] Sodium Biphosphate/Sodium Phosphate 133 ml 07/17/21 10:10 Sodium Phosphate,[place]-Dibasic 133 Ml Enema [place] ONCE PRN Constipation Tamsulosin HCl 0.4 mg 04/23/21 21:00 05/06/21 20:48 Tamsulosin Hcl 0.4 Mg Capsule PO 0.4 mg BEDTIME MITRA Administration Time Spent With Patient Time: Total time spent is greater than 50% in coordination of care (as documented) at patient's floor/unit and/or counseling patient: Time with patient: less than 15 minutes Progress Note: Quality Stroke Does the patient have a stroke diagnosis?: No
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
[2021-05-07] MEDS: Haloperidol Lactate 5 MG/ML VIAL IM (16:04)
[2021-05-07] MEDS: LORazepam 2 MG/ML VIAL 1 MG IM (16:06)
[2021-05-07] MEDS: diphenhydrAMINE HCL 50 MG/ML VIAL 25 MG IM (16:07)
--- NOTE | 2021-05-07 19:23 | PC.NURSE ---
Patient rests in bed in agitated state for afternoon hours. He refuses Afternoon P.O. Medications. Stating No, no, no, You don't understand. Those aren't the right ones. Patient perseverating on Medications not being what he wants, needs, or being the right ones. He is sitting at side of bed, standing up and sitting down over and over again. Patient continues to retain urine. Bladder scanned at 3:06pm for 486ml. Patient's behavior and urine retention reported to Hang Segundo. Hang Sultana Placed orders for Benadryl 25 mg, Haldol 5 mg, and Ativan 1 mg IV due to increased agitation and concern for muscle breakdown due to prolonged period of standing in room as well as continued urinary retention. Orders place at approximately 3:30pm. Patient's family arrived for visit at approximately 3:45pm. This service writer advisor informed family members of Patient's current behavior and urine retention. Family members and RN entered patient's room to talk with him and present P.O. medications one more time. Offers for P.O. medications were made for approx another 15 minutes. Patient continued to refuse stating No, no, no, no. You don't understand. They're not the right ones. Patient given option of P.O. medications or IM medications. Patient declined both. IM medications were administered in right and left Deltoid without incident. Patient continued visiting with family members. No order for Gonzalez Catheter entered at this time, due to hopes patient would void on own once agitation had subsided. Patient placed in incontinence brief. Patient continued to be monitored on 1:1 status with vital signs assessed; all within normal limits. Hospitalist Consult ordered for Patient to be seen S/P IM injections. Patient resting quietly and comfortably in bed with staff at bedside. Update provided to Kayy Gonzalez at 5pm, Patient still had not voided. Kayy Instructed RN to wait till patient falls into resting state to see if he has incontinent voids as he did last night. Patient bladder scanned at 6:50pm total amount 547 ml. Reported to Hang Sultana and Lacquer Dipping Machine Operator RN.
--- NOTE | 2021-05-07 21:10 | P.PNPSI_ITS ---
Subjective Subjective Date of Service: 05/07/21 Reason For Visit: Altered mental status Medical Problems Affecting Mental Status: Yes Medication Compliance: Intermittent Side effects from medications: Yes (? worsening urinary retention) Attending Groups: No Review of Systems Acute medical concerns: Yes urinary rention Mental Status Exam Mental Status Exam Narrative: Patient standing mildly restlessly - not speaking holding communication paper but not pointing to any communication nor responding when provider pointed to communication Patient Appearance: Disheveled and Rigid Level of Consciousness: Awake Patient Behavior: Passive Mood Description: Blunted Ability to Follow Directions: Poor Speech Pattern: Aphasic Thought Content: positive for Poverty of Content and positive for Thought Blocking Abnormal Motor Activity Signs and Symptoms: Psychomotor Retardation and Muscle Rigidity Judgement: Poor Diagnostics Vital Signs (24Hr): Vital Signs - 24 hr 05/07/21 06:00 05/07/21 08:36 05/07/21 08:39 Temperature 99.3 F Pulse Rate 84 90 90 Respiratory Rate 16 Blood Pressure 112/58 L 112/82 112/82 Pulse Oximetry 97 05/07/21 16:15 05/07/21 16:30 05/07/21 16:45 Temperature Pulse Rate Respiratory Rate 20 18 18 Blood Pressure Pulse Oximetry 05/07/21 17:00 05/07/21 17:41 05/07/21 18:41 Temperature 98.2 F 98.1 F 97.1 F Pulse Rate 79 77 84 Respiratory Rate 18 16 18 Blood Pressure 97/62 101/64 119/70 Pulse Oximetry 97 98 99 Body Mass Index 24.6 Labs Results: 04/25/21 09:55 05/02/21 07:55 Labs: Laboratory Results - last 48 hr 05/06/21 13:55 Urine Color YELLOW Urine Appearance CLOUDY Urine pH 6.0 Ur Specific [place] >= 1.030 H Urine Protein TRACE Urine Glucose (UA) NEG Urine Ketones NEG Urine Blood 3+ H Urine Nitrite POS H Ur Leukocyte Esterase 1+ H Urine RBC 50-75 H Urine WBC 10-14 H Ur Squamous Epith Cells TRACE Urine Bacteria 3+ Imaging Radiology Impressions: ITS Impressions Abdomen/Pelvis CT 04/22/21 12:16 IMPRESSION: Mild prostatomegaly with moderate central gland calcification.. The periprostatic fat planes are hazy. The bladder is undistended with a Rich's catheter within. Head CT 04/25/21 10:48 IMPRESSION: No acute intracranial hemorrhage or territorial infarction. Chest X-Ray 04/27/21 11:37 IMPRESSION: No evidence for acute disease in the chest. No foreign body seen. KUB X-Ray 05/02/21 10:19 IMPRESSION: Constipation. No evidence of obstruction. Medications Medications Current Medications Generic Name Dose Route Start Last Admin Trade Name Freq PRN Reason Stop Dose Admin Acetaminophen 650 mg 04/22/21 17:58 05/07/21 08:36 Acetaminophen 325 Mg Tablet PO 650 mg Q4H PRN Administration Pain Al Hydroxide/Mg Hydroxide 30 ml 04/23/21 14:17 Magnesium Hydrox/Alum Hydrox 30 Ml Oral.Susp PO Q6H PRN Heartburn/Nausea Amlodipine Besylate 5 mg 04/22/21 18:00 05/07/21 08:39 Amlodipine Besylate 5 Mg Tablet PO 5 mg DAILY MITRA Administration Protocol Amoxicillin/Clavulanate Potassium 500 mg 05/06/21 15:30 05/07/21 16:26 Amoxicillin/Potassium Clav 500 Mg Tablet PO 500 mg Q8H MITRA Administration Docusate Sodium 100 mg 04/22/21 17:58 05/07/21 08:38 Docusate Sodium 100 Mg Capsule PO 100 mg DAILY PRN Administration constipation Enoxaparin Sodium 40 mg 04/26/21 18:00 05/06/21 21:16 Enoxaparin Sodium 40 Mg/0.4 Ml Syringe SUBCUT 40 mg Q24H MITRA Administration Finasteride 5 mg 04/26/21 11:15 05/07/21 08:40 Finasteride 5 Mg Tablet PO 5 mg DAILY MITRA Administration Ibuprofen 800 mg 04/24/21 12:30 05/07/21 16:26 Ibuprofen 800 Mg Tablet PO 800 mg TIDWM MITRA Administration Lisinopril 20 mg 04/22/21 18:00 05/07/21 08:39 Lisinopril 20 Mg Tablet PO 20 mg DAILY MITRA Administration Protocol Lorazepam 1 mg 05/08/21 10:46 Lorazepam 1 Mg Tablet PO TID PRN catatonia/benzo withdrawl Magnesium Hydroxide 30 ml 04/23/21 14:17 04/24/21 15:52 Milk Of Magnesia 30 Ml Oral.Susp PO 30 ml DAILY PRN Administration Constipation Polyethylene Glycol 17 gm 04/22/21 18:00 05/07/21 08:24 Polyethylene Glycol 3350 17 Gm Powd.Pack PO 17 gm DAILY MITRA Administration Quetiapine Fumarate 200 mg 05/03/21 21:00 05/06/21 20:48 Quetiapine Fumarate 100 Mg Tablet PO 200 mg BEDTIME MITRA Administration Quetiapine Fumarate 200 mg 05/03/21 11:52 05/03/21 23:55 Quetiapine Fumarate 200 Mg Tablet PO 200 mg TID PRN Administration PSYCHOSIS Quetiapine Fumarate 100 mg 05/07/21 14:30 05/07/21 16:19 Quetiapine Fumarate 100 Mg Tablet PO Not Given BID@0830,1430 MITRA Sodium Biphosphate/Sodium Phosphate 133 ml 05/07/21 10:10 Sodium Phosphate,[place]-Dibasic 133 Ml Enema [place] ONCE PRN Constipation Tamsulosin HCl 0.4 mg 04/23/21 21:00 05/06/21 20:48 Tamsulosin Hcl 0.4 Mg Capsule PO 0.4 mg BEDTIME MITRA Administration Allergies Allergies Allergy/AdvReac Type Severity Reaction Status Date / Time atorvastatin [From LIPITOR] Allergy Intermediate ELEVATED Verified 04/24/21 19:53 LIVER ENZYMES Assessment & Plan Assessment & Plan (1) Urinary retention with incomplete bladder emptying: Status: Acute Code(s): R33.9 - Retention of urine, unspecified (2) UTI (urinary tract infection): Status: Acute Code(s): N39.0 - Urinary tract infection, site not specified (3) Catatonia: Status: Acute Code(s): F06.1 - Catatonic disorder due to known physiological condition Assessment and Plan: rich is out- now pt not urinating refusing meds got IMs was better this am till nursing observed he got am meds ? if ativan is worsening mental state now? after IM meds when family there took abitoic for uti stopped standing in one place for hours ?is whether to replace cath after hours of not urinating with 500+ residual Believe we are observing overnight as he had incontinence with some bladder rel ief last pm Greater than 50% of the session was spent on counseling and/or coordination of care Reason for contiued inpatient stay Substantial Risk for: inability to function and med/psych decompensation
[2021-05-07] MEDS: Enoxaparin Sodium 40 MG/0.4 ML SYRINGE SUBCUT (21:25)
[2021-05-07] MEDS: Tamsulosin HCL 0.4 MG CAPSULE PO (21:25)
[2021-05-07] MEDS: QUEtiapine Fumarate 100 MG TABLET 200 MG PO (21:26)
--- NOTE | 2021-05-07 21:45 | PC.NURSE ---
PT seen and cleared by hospitalist after medication restraint.
--- NOTE | 2021-05-07 22:16 | PC.NURSE ---
PT bladder scanned at 2210. Reading was 640 mL. Bark Spudder is reaching out to ED staff for assistance in placing the coude with rich catheter.
--- NOTE | 2021-05-08 00:53 | PC.NURSE ---
Coude/rich placed by ED charge nurse. Insertion went smoothly, no blood in drainage bag. Bag was drained with 625 mL of urine 20 minutes after insertion. PT went back to sleep after.
--- NOTE | 2021-05-08 01:07 | PC.NURSE ---
NOTE FOR CATHETER REMOVAL: BALLOON HAS 30 mL OF FLUID TO BE REMOVED PRIOR TO PULLING OUT CATHETER.
--- NOTE | 2021-05-08 01:16 | PC.NURSE ---
Provider made aware of bladder scanner reading 640 mL. Provider verbal ordered catheter insertion to this nurse.
[2021-05-08 06:00] VITALS: BP 122/76; PULSE 77; RESP 16; TEMP 36.6; O2SAT 99
[2021-05-08 08:46] VITALS: BP 131/83; PULSE 87; RESP 16; TEMP 36.8; O2SAT 98
[2021-05-08] MEDS: Ibuprofen 800 MG TABLET PO ×3 (09:26→17:11)
[2021-05-08] MEDS: polyethylene glycoL 3350 17 GM POWD.PACK PO (09:26)
[2021-05-08] MEDS: Amoxicillin/Potassium Clav 500 MG TABLET PO ×3 (09:26→23:32)
[2021-05-08] MEDS: Finasteride 5 MG TABLET PO (09:34)
[2021-05-08 09:37] VITALS: BP 131/83; PULSE 87
[2021-05-08] MEDS: amLODIPine Besylate 5 MG TABLET PO (09:37)
[2021-05-08] MEDS: lisinopriL 20 MG TABLET PO (09:37)
--- NOTE | 2021-05-08 09:40 | PC.NURSE ---
Addendum entered by Jolene Guzman RN 05/08/21 17:06: Patient states I don't take anything at night. - Should say. Patient states, I don't take anything in the morning. Original Note: Patient is alert and oriented at start of shift. He is alert to self, location, and states reason for hospitalization is due to Taking too much drugs. He is sitting up in bed and talking with staff. Patient talks with mother on phone and has mostly clear conversation. Patient reports feeling dizzy Medications from yesterday and last night are reviewed with Patient. He states No, those are not good drugs for me. I need to take Seroquel 300mg at night and Klonopin 2 mg at night. Patient states I don't take anything at night. Patient is lifting sheets looking at rich catheter and states It's not working. I really don't think it's working because I am blocked up. Patient denies Suicidal ideation. When asked if he is hearing auditory hallucinations he replies It's hard to communicate. Patient denies Visual and Olfactory hallucinations. Patient reports concerns about not having gone in 5 days. Plans are made to administer a Fleets Enema. Patient voices concerns about physical appearance. He states I must look like a crazy person, I need to shower and brush my hair.
--- NOTE | 2021-05-08 09:55 | PC.NURSE ---
Patient refuses Ativan and Seroquel this morning stating I am already feeling paralyzed. And it's only 9:50am in the morning. I take Seroquel to sleep. I don't want to sleep all day. I take 300mg at night. Can I still take it tonight? Seven is assured he has Seroquel ordered at bedtime. Medications are held.
--- NOTE | 2021-05-08 11:07 | P.PNPSI_ITS ---
Subjective Subjective Date of Service: 05/08/21 Reason For Visit: Altered mental status Subjective Notes: Section 7 Healthcare Proxy: No Guardianship: No Medical Problems Affecting Mental Status: Yes (uti, urinary retention) Interim History: Patient much better this am with med held- nursing clearly felt ativan was destabilizing him atleast after he took AM meds yesterday he was returned to delusional state now this am - he is clear, and was able to get an enema with good effect- though bleeding no external hemmorhoids noted - got shower, and was able to tell us he wants to be on seroquel 300mg qhs and clonazepam 2mg Medication Compliance: Yes Side effects from medications: Yes (? if ativan worsening ) Attending Groups: No Review of Systems Review of Systems red blood per rectum after enema- also co RLQ pain/tenderness Mental Status Exam Mental Status Exam Narrative: unshaven- cooperative, verbal though still slow thoughts- Patient Orientation: Person and Situation Level of Consciousness: Awake Patient Behavior: Dependent and Passive Mood Description: Flat Affect Description: Constricted Speech Pattern: Impoverished and Long Pauses Thought Content: positive for [place] Depressive Symptoms: Unexplained Stomach Pain and Difficulty Concentrating Abnormal Motor Activity Signs and Symptoms: Psychomotor Retardation Judgement: Fair (better than yesterday) Diagnostics Vital Signs (24Hr): Vital Signs - 24 hr 05/07/21 16:15 05/07/21 16:30 05/07/21 16:45 Temperature Pulse Rate Respiratory Rate 20 18 18 Blood Pressure Pulse Oximetry 05/07/21 17:00 05/07/21 17:41 05/07/21 18:41 Temperature 98.2 F 98.1 F 97.1 F Pulse Rate 79 77 84 Respiratory Rate 18 16 18 Blood Pressure 97/62 101/64 119/70 Pulse Oximetry 97 98 99 05/08/21 06:00 05/08/21 08:46 05/08/21 09:37 Temperature 97.8 F 98.2 F Pulse Rate 77 87 87 Respiratory Rate 16 16 Blood Pressure 122/76 131/83 131/83 Pulse Oximetry 99 98 Body Mass Index 24.6 Labs Results: 04/25/21 09:55 05/02/21 07:55 Labs: Laboratory Results - last 48 hr 05/06/21 13:55 Urine Color YELLOW Urine Appearance CLOUDY Urine pH 6.0 Ur Specific [place] >= 1.030 H Urine Protein TRACE Urine Glucose (UA) NEG Urine Ketones NEG Urine Blood 3+ H Urine Nitrite POS H Ur Leukocyte Esterase 1+ H Urine RBC 50-75 H Urine WBC 10-14 H Ur Squamous Epith Cells TRACE Urine Bacteria 3+ Imaging Radiology Impressions: ITS Impressions Abdomen/Pelvis CT 04/22/21 12:16 IMPRESSION: Mild prostatomegaly with moderate central gland calcification.. The periprostatic fat planes are hazy. The bladder is undistended with a Rich's catheter within. Head CT 04/25/21 10:48 IMPRESSION: No acute intracranial hemorrhage or territorial infarction. Chest X-Ray 04/27/21 11:37 IMPRESSION: No evidence for acute disease in the chest. No foreign body seen. KUB X-Ray 05/02/21 10:19 IMPRESSION: Constipation. No evidence of obstruction. Medications Medications Current Medications Generic Name Dose Route Start Last Admin Trade Name Freq PRN Reason Stop Dose Admin Acetaminophen 650 mg 04/22/21 17:58 05/07/21 08:36 Acetaminophen 325 Mg Tablet PO 650 mg Q4H PRN Administration Pain Al Hydroxide/Mg Hydroxide 30 ml 04/23/21 14:17 Magnesium Hydrox/Alum Hydrox 30 Ml Oral.Susp PO Q6H PRN Heartburn/Nausea Amlodipine Besylate 5 mg 04/22/21 18:00 05/08/21 09:37 Amlodipine Besylate 5 Mg Tablet PO 5 mg DAILY MITRA Administration Protocol Amoxicillin/Clavulanate Potassium 500 mg 05/06/21 15:30 05/08/21 09:26 Amoxicillin/Potassium Clav 500 Mg Tablet PO 500 mg Q8H MITRA Administration Clonazepam 1 mg 05/08/21 21:00 Clonazepam 1 Mg Tablet PO BEDTIME MITRA Docusate Sodium 100 mg 04/22/21 17:58 05/07/21 08:38 Docusate Sodium 100 Mg Capsule PO 100 mg DAILY PRN Administration constipation Enoxaparin Sodium 40 mg 04/26/21 18:00 05/07/21 21:25 Enoxaparin Sodium 40 Mg/0.4 Ml Syringe SUBCUT 40 mg Q24H MITRA Administration Finasteride 5 mg 04/26/21 11:15 05/08/21 09:34 Finasteride 5 Mg Tablet PO 5 mg DAILY MITRA Administration Ibuprofen 800 mg 04/24/21 12:30 05/08/21 09:26 Ibuprofen 800 Mg Tablet PO 800 mg TIDWM MITRA Administration Lisinopril 20 mg 04/22/21 18:00 05/08/21 09:37 Lisinopril 20 Mg Tablet PO 20 mg DAILY MITRA Administration Protocol Lorazepam 1 mg 05/08/21 10:46 Lorazepam 1 Mg Tablet PO TID PRN catatonia/benzo withdrawl Magnesium Hydroxide 30 ml 04/23/21 14:17 04/24/21 15:52 Milk Of Magnesia 30 Ml Oral.Susp PO 30 ml DAILY PRN Administration Constipation Polyethylene Glycol 17 gm 04/22/21 18:00 05/08/21 09:26 Polyethylene Glycol 3350 17 Gm Powd.Pack PO 17 gm DAILY MITRA Administration Quetiapine Fumarate 200 mg 05/03/21 11:52 05/03/21 23:55 Quetiapine Fumarate 200 Mg Tablet PO 200 mg TID PRN Administration PSYCHOSIS Quetiapine Fumarate 300 mg 05/08/21 21:00 Quetiapine Fumarate 100 Mg Tablet PO BEDTIME MITRA Sodium Biphosphate/Sodium Phosphate 133 ml 05/07/21 10:10 Sodium Phosphate,[place]-Dibasic 133 Ml Enema [place] ONCE PRN Constipation Tamsulosin HCl 0.4 mg 04/23/21 21:00 05/07/21 21:25 Tamsulosin Hcl 0.4 Mg Capsule PO 0.4 mg BEDTIME MITRA Administration Allergies Allergies Allergy/AdvReac Type Severity Reaction Status Date / Time atorvastatin [From LIPITOR] Allergy Intermediate ELEVATED Verified 04/24/21 19:53 LIVER ENZYMES Assessment & Plan Assessment & Plan (1) Urinary retention with incomplete bladder emptying: Status: Acute Code(s): R33.9 - Retention of urine, unspecified (2) UTI (urinary tract infection): Status: Acute Code(s): N39.0 - Urinary tract infection, site not specified (3) Catatonia: Status: Acute Code(s): F06.1 - Catatonic disorder due to known physiological condition Assessment and Plan: Patient able to report on himself today which is a huge improvement! will hold ativan for now- changed to ativan 1mg tid prn Started meds as he wanted to seroquel 300mg qhs , and clonazepam 1mg (he says 2mg but giving him 1mg...to start) has rich in - having output large BM in comode with some bright red blood minimal amount Greater than 50% of the session was spent on counseling and/or coordination of care Reason for contiued inpatient stay Substantial Risk for: inability to function, rapid decompensation and med/psych decompensation
--- NOTE | 2021-05-08 11:38 | PC.NURSE ---
Patient spoke with Brother, George on phone this morning. Made plans for afternoon visit between 2:30pm-3:00pm. Had mostly clear conversation. Reports feeling Not good.
--- NOTE | 2021-05-08 11:39 | PC.NURSE ---
Addendum entered by Jolene Guzman RN 05/08/21 19:29: Patient consumes 100% of dinner. Shortly after finishing up dinner patient becomes very alert to surroundings, naming off every item he sees. initially, focusing on staff then his room. He becomes active in the room reorganizing his dresser, throwing out un-wanted items, etc. This behavior goes on for about 60 minutes. He is noted to be diaphoretic with beads forming on face and heart rate is 120. Seven is encouraged to rest in bed. He gets into bed and closes eyes. resting comfortably. Addendum entered by Jolene Guzman RN 05/08/21 17:01: Patient continues to report pins/needles - neuropathy in hands and feet. Additionally, he reports sore throat/trouble swallowing and feeling like the room is slanted. However, Seven is alert and oriented x 4 with a covarrubias but constricted affect. Addendum entered by Jolene Guzman RN 05/08/21 16:55: Patient has family visitors: Brother, George and Mother, Vanesa at 15:10pm and Sister, Taina, and Lekoolj-Ht-Hgk, Vickye at 16:30pm. Patient is expressive at seeing family members. Smiling and greeting them each by name. He visits with family members 2 at a time till dinner arrives at which point visitors leave. BrotherGeorge and Mother, Vanesa note Seven is much better today than yesterday. Seven is in good spirits at end of visit and states he is ready to get out of bed. Seven is assisted out of bed and to hallway. Seven sees Dayroom with other patients and pauses. He is given the option to eat in his own room or in Day and clearly articulates he would like to eat in his own room. He is set up in a chair with portable table for dinner and begins eagerly eating dinner. Addendum entered by Jolene Guzman RN 05/08/21 13:41: 13:30pm - Patient is sitting very still and quiet. When asked what he was thinking about he states That I want to ... I don't want to live like this. Conversation about progress ensues but Seven continues to shake head no. Addendum entered by Jolene Guzman RN 05/08/21 13:08: Pt. sits up in Dayroom from 11:35am - 1pm. Patient is served lunch in dayroom but only consumes 2-3 bites. He sits quietly in dayroom taking in events. He listens to music with another male patient for music group. He is mildly communicative with other male patient in day room, responding when other patient states his name. Patient begins to be fatigued and reports he would like to go back to his room. He is escorted back to room. Once back in the room he asks this functional tester typewriters, Why did you do this to me? When asked what he was referring to, patient replies You cut me up into tiny pieces. Patient reports feeling pins and needles in his whole body and that his throat hurts. When asked asked what his throat felt like, he replies It feels like I can't breathe, though patient is breathing normally with good oxygenation. Patient then asks this functional tester typewriters, Why did you do all this to me? Stick me with things? This functional tester typewriters discusses yesterdays events with Seven. He shakes his head No when we discuss he is slowly getting better. Original Note: Fleets Enema Administered with positive effect. Large Moderately hard BM produced. Patient noted to have Bright Red Blood coming from Rectum S/P BM. Kayy Gonzalez Notified and attended patient bedside as she was present on unit. Patient showered with two assist walk to Shower. Dressed in own clothing and assisted back Dayroom where he sat with 1:1 sat to watch Television till Lunch arrived.
[2021-05-08] MEDS: Acetaminophen 325 MG TABLET 650 MG PO ×2 (13:02→17:12)
[2021-05-08] MEDS: Docusate Sodium 100 MG CAPSULE PO (13:03)
--- NOTE | 2021-05-08 13:25 | PC.NURSE ---
This morning Veronique was a little more clear and making sense when having conversation with staff. Veronique did ask if we poured gasoline yesterday. I reassured him that there was no gasoline anywhere near him yesterday. Later on Veronique was forced on the catheter saying it wasn't working. I told veronique that when you drink it doesn't go right threw the tube into the bag, that it takes time to go threw the system.
--- NOTE | 2021-05-08 14:55 | PC.NURSE ---
Pt. responded more appropriately to questions today. Pt. told me, early in the morning, that the needed to wash his hair and shave. And that he needed a haircut. Pt was much more aware of his surroundings. Pt. took a shower and did most of his bathing himself. Pt. ate lunch in the community room with his peers. Pt. did not interact with peers, but did remain and ate very little. After lunch Pt. stated that he did not think that he was getting any better. I explained to him that he was much more aware and lucid than the previous day. In the afternoon Pt. stated that he did not want to live this way and that he just wanted to feel better.
[2021-05-08 18:40] VITALS: BP 133/91; PULSE 120; RESP 20; TEMP 36.8; O2SAT 95
--- NOTE | 2021-05-08 21:10 | P.PNUR_ITS ---
Subjective Subjective Date of Service: 05/08/21 Interval history: catheter placed last night good urine output would leave for 7 days then voiding trial can use catheter cap Physical Exam Vital Signs: Vital Signs: Last Vital Signs Temp 98.3 F 05/08/21 18:40 Pulse 120 H 05/08/21 18:40 Resp 20 05/08/21 18:40 BP 133/91 H 05/08/21 18:40 Pulse Ox 95 05/08/21 18:40 Body Mass Index 24.6 Const: General: cooperative, healthy appearing, comfortable and no acute distress Orientation/consciousness: patient oriented x3 HENMT: Face and sinus: Yes normal facial exam Mouth: moist mucous membranes Neck: Neck: Yes normal visual inspection, Yes full ROM and Yes trachea midline Chest: Chest palpation & inspection: normal inspection of the chest Resp: Effort & Inspection: normal respiratory effort, able to speak in comple te sentences and no respiratory distress GI: Inspection: Yes normal to inspection Back/Spine/Pelvis: Cervical Spine: normal cervical lordosis Thoracic/Lumbar Spine: thoracic and lumbar spine normal to inspection Skin: General skin exam: no rashes or lesions noted Neuro: General: patient oriented x3, gait normal, tone normal and moves all extremities Extrem: General: Yes normal to inspection and Yes capillary refill normal Urology Results Labs CBC & Chem 7: 04/25/21 09:55 05/02/21 07:55 Progress Note: A&P Assessment and plan (1) Urinary retention with incomplete bladder emptying: Status: Acute Assessment and Plan: catheter in place Fall Risk Details Current Medications: Current Medications Generic Name Dose Route Start Last Admin Trade Name Freq PRN Reason Stop Dose Admin Acetaminophen 650 mg 04/22/21 17:58 05/08/21 17:12 Acetaminophen 325 Mg Tablet PO 650 mg Q4H PRN Administration Pain Al Hydroxide/Mg Hydroxide 30 ml 04/23/21 14:17 Magnesium Hydrox/Alum Hydrox 30 Ml Oral.Susp PO Q6H PRN Heartburn/Nausea Amlodipine Besylate 5 mg 04/22/21 18:00 05/08/21 09:37 Amlodipine Besylate 5 Mg Tablet PO 5 mg DAILY MITRA Administration Protocol Amoxicillin/Clavulanate Potassium 500 mg 05/06/21 15:30 05/08/21 15:52 Amoxicillin/Potassium Clav 500 Mg Tablet PO 500 mg Q8H MITRA Administration Clonazepam 1 mg 05/08/21 21:00 Clonazepam 1 Mg Tablet PO BEDTIME MITRA Docusate Sodium 100 mg 04/22/21 17:58 05/08/21 13:03 Docusate Sodium 100 Mg Capsule PO 100 mg DAILY PRN Administration constipation Enoxaparin Sodium 40 mg 04/26/21 18:00 05/08/21 17:17 Enoxaparin Sodium 40 Mg/0.4 Ml Syringe SUBCUT Not Given Q24H MITRA Finasteride 5 mg 04/26/21 11:15 05/08/21 09:34 Finasteride 5 Mg Tablet PO 5 mg DAILY MITRA Administration Ibuprofen 800 mg 04/24/21 12:30 05/08/21 17:11 Ibuprofen 800 Mg Tablet PO 800 mg TIDWM MITRA Administration Lisinopril 20 mg 04/22/21 18:00 05/08/21 09:37 Lisinopril 20 Mg Tablet PO 20 mg DAILY MITRA Administration Protocol Lorazepam 1 mg 05/08/21 10:46 Lorazepam 1 Mg Tablet PO TID PRN catatonia/benzo withdrawl Magnesium Hydroxide 30 ml 04/23/21 14:17 04/24/21 15:52 Milk Of Magnesia 30 Ml Oral.Susp PO 30 ml DAILY PRN Administration Constipation Polyethylene Glycol 17 gm 04/22/21 18:00 05/08/21 09:26 Polyethylene Glycol 3350 17 Gm Powd.Pack PO 17 gm DAILY MITRA Administration Quetiapine Fumarate 200 mg 05/03/21 11:52 05/03/21 23:55 Quetiapine Fumarate 200 Mg Tablet PO 200 mg TID PRN Administration PSYCHOSIS Quetiapine Fumarate 300 mg 05/08/21 21:00 Quetiapine Fumarate 100 Mg Tablet PO BEDTIME MITRA Sodium Biphosphate/Sodium Phosphate 133 ml 05/07/21 10:10 Sodium Phosphate,[place]-Dibasic 133 Ml Enema [place] ONCE PRN Constipation Tamsulosin HCl 0.4 mg 04/23/21 21:00 05/07/21 21:25 Tamsulosin Hcl 0.4 Mg Capsule PO 0.4 mg BEDTIME MITRA Administration Time Spent With Patient Time: Total time spent is greater than 50% in coordination of care (as documented) at patient's floor/unit and/or counseling patient: Time with patient: less than 15 minutes Progress Note: Quality Stroke Does the patient have a stroke diagnosis?: No
[2021-05-08 21:54] VITALS: BP 140/89; PULSE 108; RESP 18; TEMP 37.4; O2SAT 94
--- NOTE | 2021-05-08 23:45 | PC.NURSE ---
Pt. refused HS medications including quetiapine, tamsulosin, clonazepam. Pt. with visible diaphoresis on forehead only. Cold compresses applied. VS: 99.4, HR108, RR18, BP140/89 left lower arm, 94% on RA. Attempted to give tylenol 650mg. Pt. refused to open mouth for medications. Breathing unlabored. No shortness of breath at rest. Pt. calm but resisting when repositioned. inbound call center agent psychiatric provider notified regarding missed medications and VS. Pt. took 2330 augmentin dose. Pt. resting quietly with eye opened. Sitter at bedside. Gonzalez catheter draining light yellow urine. Pt. has not spoken other than to say yes when asked if he would take the augmentin.
[2021-05-09] MEDS: QUEtiapine Fumarate 200 MG TABLET PO ×2 (00:57→09:56)
[2021-05-09 06:00] VITALS: BP 130/82; PULSE 83; RESP 18; TEMP 36.1; O2SAT 96
--- NOTE | 2021-05-09 09:51 | HO.PSYCHPN ---
Subjective Subjective Date of Service: 05/09/21 Reason For Visit: Altered mental status Interim History: The patient over the weekend was able to interact minimally with staff. Today, early AM, he stopped talking but on the assessment, he was able to talk with me very briefly with a low voice. Apparently, he needs to have the Gonzalez catheter permanently as per Dr. Medina. I started treating his UTI withAugmentin Medication Compliance: Yes Mental Status Exam Mental Status Exam Patient Appearance: Well Grooomed (on hospital gowns) Patient Orientation: Person Level of Consciousness: Awake and Disoriented Patient Behavior: Posturing and Suspicious Mood Description: Withdrawn Affect Description: Constricted Patient Cognition Impaired: No Ability to Follow Directions: Fair Speech Pattern: Monotone, Soft-Spoken and Delayed Hallucinations: None Delusions: Paranoid Ideation Thought Process: Evasive Thought Content: positive for Poverty of Content Judgement: Poor Diagnostics Vital Signs (24Hr): Vital Signs - 24 hr 05/08/21 18:40 05/08/21 21:54 05/09/21 06:00 Temperature 98.3 F 99.4 F 97 F Pulse Rate 120 H 108 H 83 Respiratory Rate 20 18 18 Blood Pressure 133/91 H 140/89 H 130/82 Pulse Oximetry 95 94 96 Body Mass Index 24.6 Labs Results: 04/25/21 09:55 05/02/21 07:55 Imaging Radiology Impressions: ITS Impressions Abdomen/Pelvis CT 04/22/21 12:16 IMPRESSION: Mild prostatomegaly with moderate central gland calcification.. The periprostatic fat planes are hazy. The bladder is undistended with a Gonzalez's catheter within. Head CT 04/25/21 10:48 IMPRESSION: No acute intracranial hemorrhage or territorial infarction. Chest X-Ray 04/27/21 11:37 IMPRESSION: No evidence for acute disease in the chest. No foreign body seen. KUB X-Ray 05/02/21 10:19 IMPRESSION: Constipation. No evidence of obstruction. Medications Medications Current Medications Generic Name Dose Route Start Last Admin Trade Name Freq PRN Reason Stop Dose Admin Acetaminophen 650 mg 04/22/21 17:58 05/08/21 17:12 Acetaminophen 325 Mg Tablet PO 650 mg Q4H PRN Administration Pain Al Hydroxide/Mg Hydroxide 30 ml 04/23/21 14:17 Magnesium Hydrox/Alum Hydrox 30 Ml Oral.Susp PO Q6H PRN Heartburn/Nausea Amlodipine Besylate 5 mg 04/22/21 18:00 05/08/21 09:37 Amlodipine Besylate 5 Mg Tablet PO 5 mg DAILY MITRA Administration Protocol Amoxicillin/Clavulanate Potassium 500 mg 05/06/21 15:30 05/08/21 23:32 Amoxicillin/Potassium Clav 500 Mg Tablet PO 500 mg Q8H MITRA Administration Clonazepam 1 mg 05/08/21 21:00 05/08/21 21:52 Clonazepam 1 Mg Tablet PO Not Given BEDTIME [facility]RA Docusate Sodium 100 mg 04/22/21 17:58 05/08/21 13:03 Docusate Sodium 100 Mg Capsule PO 100 mg DAILY PRN Administration constipation Enoxaparin Sodium 40 mg 04/26/21 18:00 05/08/21 17:17 Enoxaparin Sodium 40 Mg/0.4 Ml Syringe SUBCUT Not Given Q24H MITRA Finasteride 5 mg 04/26/21 11:15 05/08/21 09:34 Finasteride 5 Mg Tablet PO 5 mg DAILY [facility]RA Administration Ibuprofen 800 mg 04/24/21 12:30 05/08/21 17:11 Ibuprofen 800 Mg Tablet PO 800 mg TIDWM MITRA Administration Lisinopril 20 mg 04/22/21 18:00 05/08/21 09:37 Lisinopril 20 Mg Tablet PO 20 mg DAILY [facility] Administration Protocol Lorazepam 1 mg 05/08/21 10:46 Lorazepam 1 Mg Tablet PO TID PRN catatonia/benzo withdrawl Magnesium Hydroxide 30 ml 04/23/21 14:17 04/24/21 15:52 Milk Of Magnesia 30 Ml Oral.Susp PO 30 ml DAILY PRN Administration Constipation Polyethylene Glycol 17 gm 04/22/21 18:00 05/08/21 09:26 Polyethylene Glycol 3350 17 Gm Powd.Pack PO 17 gm DAILY [facility]RA Administration Quetiapine Fumarate 200 mg 05/03/21 11:52 05/09/21 00:57 Quetiapine Fumarate 200 Mg Tablet PO 200 mg TID PRN Administration PSYCHOSIS Quetiapine Fumarate 300 mg 05/08/21 21:00 05/08/21 21:52 Quetiapine Fumarate 100 Mg Tablet PO Not Given BEDTIME [facility] Sodium Biphosphate/Sodium Phosphate 133 ml 05/07/21 10:10 Sodium Phosphate,[place]-Dibasic 133 Ml Enema [place] ONCE PRN Constipation Tamsulosin HCl 0.4 mg 04/23/21 21:00 05/08/21 21:50 Tamsulosin Hcl 0.4 Mg Capsule PO Not Given BEDTIME [facility]RA Allergies Allergies Allergy/AdvReac Type Severity Reaction Status Date / Time atorvastatin [From LIPITOR] Allergy Intermediate ELEVATED Verified 04/24/21 19:53 LIVER ENZYMES Assessment & Plan Assessment & Plan (1) Urinary retention with incomplete bladder emptying: Status: Acute Code(s): R33.9 - Retention of urine, unspecified (2) Bipolar 1 disorder: Status: Acute Code(s): F31.9 - Bipolar disorder, unspecified (3) Catatonia: Status: Acute Code(s): F06.1 - Catatonic disorder due to known physiological condition Assessment and Plan: Adult male with bipolar disorder with a recent onset of catatonia. Plan: Keep same treatment F/U section 7 and 8 Greater than 50% of the session was spent on counseling and/or coordination of care Reason for contiued inpatient stay Substantial Risk for: inability to function, rapid decompensation and med/psych decompensation
[2021-05-09] MEDS: LORazepam 1 MG TABLET PO (09:56)
[2021-05-09 10:00] VITALS: BP 147/94; PULSE 98; TEMP 37.6; O2SAT 98
[2021-05-09] MEDS: Finasteride 5 MG TABLET PO (10:38)
[2021-05-09] MEDS: amLODIPine Besylate 5 MG TABLET PO (10:38)
[2021-05-09] MEDS: Ibuprofen 800 MG TABLET PO ×3 (10:38→17:00)
[2021-05-09] MEDS: lisinopriL 20 MG TABLET PO (10:38)
[2021-05-09] MEDS: Amoxicillin/Potassium Clav 500 MG TABLET PO ×3 (10:38→22:49)
[2021-05-09] MEDS: polyethylene glycoL 3350 17 GM POWD.PACK PO (10:39)
[2021-05-09 11:52] VITALS: BP 131/92; PULSE 106; TEMP 37.1; O2SAT 98
[2021-05-09 13:00] LABS: MANUAL DIFF FLAG NO
[2021-05-09 13:07] LABS: Basophils Percent Auto 0.3 % (0-2); Eosinophils Percent Auto 0.5 % (0-4); Imm Gran Abs Auto 0.01 X10*3/uL (0.00-0.03); Imm Gran Pct Auto 0.2 % (0.0-0.4); Lymphocytes Percent Auto 16.5 % (20-40); Mean Corpuscular HGB Conc 33.3 g/dl (31.0-36.0); Mean Corpuscular Hemoglobin 29.1 pg (27.0-33.0); Mean Corpuscular Volume 87.3 fL (80-98); Monocytes Absolute Auto 0.4 X10*3/uL (0.1-1.2); Monocytes Percent Auto 6.1 % (2-11); Neutrophils Absolute Auto 4.4 X10*3/uL (2.0-8.3); Neutrophils Percent Auto 76.4 % (45-73); Platelet Count 321 X10*3/uL (160-400); Red Blood Count 4.81 X10*6/uL (4.60-5.80); Red Cell Distribution Width 12.4 % (11.0-16.0); White Blood Count 5.8 X10*3/uL (4.8-10.8)
[2021-05-09 13:54] LABS: Anion Gap 14 (12-20); Blood Urea Nitrogen 14 mg/dL (9-16); Calcium 9.3 mg/dL (8.4-10.2); Carbon Dioxide 24 mmol/L (22-29); Chloride 105 mmol/L (96-108); Creatinine Clr Calc Pharmacy 78.9; Estimated Glomerular Filt Rate > 60; Glucose Random 144 mg/dL (60-115); Potassium 4.1 mmol/L (3.3-5.1); Sodium 139 mmol/L (135-145)
[2021-05-09 18:00] VITALS: BP 117/80; PULSE 87; RESP 16; TEMP 36.6; O2SAT 95
[2021-05-09] MEDS: clonazePAM 1 MG TABLET PO (21:34)
[2021-05-09] MEDS: Tamsulosin HCL 0.4 MG CAPSULE PO (21:34)
[2021-05-09] MEDS: QUEtiapine Fumarate 100 MG TABLET 300 MG PO (21:34)
[2021-05-10 00:43] LABS: Appearance Urine CLEAR; Color Urine YELLOW; Glucose Urine UA NEG (NEG); Leukocyte Esterase Urine TRACE (NEG); Nitrite Urine NEG (NEG); Specific Gravity - Urine <= 1.005 (1.005-1.025); Urine Blood TRACE (NEG); Urine Ketones NEG (NEG); Urine Protein NEG (NEG-TRACE)
[2021-05-10 00:51] LABS: Calcium Oxalate Crystals Urine 3+ /LPF; Mucus Urine TRACE /LPF; RBC Urine 0-2 /HPF (0); Squamous Epithelial Cell Urine TRACE /LPF
[2021-05-10 06:00] VITALS: BP 126/59; PULSE 85; RESP 14; TEMP 36.6; O2SAT 95
[2021-05-10] MEDS: Ibuprofen 800 MG TABLET PO ×3 (07:59→17:00)
[2021-05-10] MEDS: Amoxicillin/Potassium Clav 500 MG TABLET PO ×2 (07:59→15:20)
[2021-05-10] MEDS: polyethylene glycoL 3350 17 GM POWD.PACK PO (07:59)
[2021-05-10 08:00] VITALS: BP 118/73; PULSE 80
[2021-05-10] MEDS: Finasteride 5 MG TABLET PO (08:00)
[2021-05-10] MEDS: amLODIPine Besylate 5 MG TABLET PO (08:00)
[2021-05-10 08:05] VITALS: BP 118/73; PULSE 80
[2021-05-10] MEDS: lisinopriL 20 MG TABLET PO (08:05)
--- NOTE | 2021-05-10 12:06 | HO.PSYCHPN ---
Subjective Subjective Date of Service: 05/10/21 Reason For Visit: Altered mental status Interim History: The patient is more awake, today we had a long conversation, he can't remember what happened. I explained about his UTI and catatonia and he is willing to continue his medications. Review of Systems Acute medical concerns: Yes UTI on ATB Mental Status Exam Mental Status Exam Patient Appearance: Well Grooomed Patient Orientation: Person and Place Level of Consciousness: Awake and Disoriented Patient Behavior: Cooperative Mood Description: Calm and Withdrawn Affect Description: Constricted Patient Cognition Impaired: No Ability to Follow Directions: Fair Speech Pattern: Clear Memory Description: Intact Hallucinations: None Delusions: Not Present Thought Process: Slowed Thinking Thought Content: positive for Thought Blocking Judgement: Fair Diagnostics Vital Signs (24Hr): Vital Signs - 24 hr 05/09/21 18:00 05/10/21 06:00 05/10/21 08:00 Temperature 97.9 F 97.9 F Pulse Rate 87 85 80 Respiratory Rate 16 14 Blood Pressure 117/80 126/59 L 118/73 Pulse Oximetry 95 95 05/10/21 08:05 Temperature Pulse Rate 80 Respiratory Rate Blood Pressure 118/73 Pulse Oximetry Body Mass Index 24.6 Labs Results: 05/09/21 12:54 05/09/21 12:54 Labs: Laboratory Results - last 48 hr 05/09/21 05/09/21 05/10/21 12:54 12:54 00:32 WBC 5.8 RBC 4.81 Hgb 14.0 Hct 42.0 MCV 87.3 MCH 29.1 MCHC 33.3 RDW 12.4 Plt Count 321 MPV 9.0 L Immature Gran % (Auto) 0.2 Neut % (Auto) 76.4 H Lymph % (Auto) 16.5 L [place] % (Auto) 6.1 Eos % (Auto) 0.5 Baso % (Auto) 0.3 Lymph # (Auto) 1.0 L [place] # (Auto) 0.4 Eos # (Auto) 0.0 Baso # (Auto) 0.0 Abs Immat Gran (auto) 0.01 Absolute Neuts (auto) 4.4 Absolute Nucleated RBC 0.000 Nucleated RBC % (auto) 0.0 Sodium 139 Potassium 4.1 Chloride 105 Carbon Dioxide 24 Anion Gap 14 BUN 14 Creatinine 1.04 Estim Creat Clear Calc 78.9 Estimated GFR > 60 Random Glucose 144 H D Calcium 9.3 Total Creatine Kinase 376 H D Urine Color YELLOW Urine Appearance CLEAR Urine pH 6.0 Ur Specific [place] <= 1.005 Urine Protein NEG Urine Glucose (UA) NEG Urine Ketones NEG Urine Blood TRACE Urine Nitrite NEG Ur Leukocyte Esterase TRACE H Urine RBC 0-2 Urine WBC 1-4 Ur Squamous Epith Cells TRACE Calcium Oxalate Crystal 3+ Urine Bacteria NONE Urine Mucus TRACE Imaging Radiology Impressions: ITS Impressions Abdomen/Pelvis CT 04/22/21 12:16 IMPRESSION: Mild prostatomegaly with moderate central gland calcification.. The periprostatic fat planes are hazy. The bladder is undistended with a Gonzalez's catheter within. Head CT 04/25/21 10:48 IMPRESSION: No acute intracranial hemorrhage or territorial infarction. Chest X-Ray 04/27/21 11:37 IMPRESSION: No evidence for acute disease in the chest. No foreign body seen. KUB X-Ray 05/02/21 10:19 IMPRESSION: Constipation. No evidence of obstruction. Medications Medications Current Medications Generic Name Dose Route Start Last Admin Trade Name Freq PRN Reason Stop Dose Admin Acetaminophen 650 mg 04/22/21 17:58 05/08/21 17:12 Acetaminophen 325 Mg Tablet PO 650 mg Q4H PRN Administration Pain Al Hydroxide/Mg Hydroxide 30 ml 04/23/21 14:17 Magnesium Hydrox/Alum Hydrox 30 Ml Oral.Susp PO Q6H PRN Heartburn/Nausea Amlodipine Besylate 5 mg 04/22/21 18:00 05/10/21 08:00 Amlodipine Besylate 5 Mg Tablet PO 5 mg DAILY [facility] Administration Protocol Amoxicillin/Clavulanate Potassium 500 mg 05/06/21 15:30 05/10/21 07:59 Amoxicillin/Potassium Clav 500 Mg Tablet PO 500 mg Q8H MITRA Administration Clonazepam 1 mg 05/08/21 21:00 05/09/21 21:34 Clonazepam 1 Mg Tablet PO 1 mg BEDTIME [facility] Administration Docusate Sodium 100 mg 04/22/21 17:58 05/08/21 13:03 Docusate Sodium 100 Mg Capsule PO 100 mg DAILY PRN Administration constipation Enoxaparin Sodium 40 mg 04/26/21 18:00 05/09/21 17:00 Enoxaparin Sodium 40 Mg/0.4 Ml Syringe SUBCUT Not Given Q24H MITRA Finasteride 5 mg 04/26/21 11:15 05/10/21 08:00 Finasteride 5 Mg Tablet PO 5 mg DAILY [facility] Administration Ibuprofen 800 mg 04/24/21 12:30 05/10/21 11:42 Ibuprofen 800 Mg Tablet PO 800 mg TIDWM MITRA Administration Lisinopril 20 mg 04/22/21 18:00 05/10/21 08:05 Lisinopril 20 Mg Tablet PO 20 mg DAILY [facility] Administration Protocol Lorazepam 1 mg 05/08/21 10:46 05/09/21 09:56 Lorazepam 1 Mg Tablet PO 1 mg TID PRN Administration catatonia/benzo withdrawl Magnesium Hydroxide 30 ml 04/23/21 14:17 04/24/21 15:52 Milk Of Magnesia 30 Ml Oral.Susp PO 30 ml DAILY PRN Administration Constipation Polyethylene Glycol 17 gm 04/22/21 18:00 05/10/21 07:59 Polyethylene Glycol 3350 17 Gm Powd.Pack PO 17 gm DAILY [facility] Administration Quetiapine Fumarate 200 mg 05/03/21 11:52 05/09/21 09:56 Quetiapine Fumarate 200 Mg Tablet PO 200 mg TID PRN Administration PSYCHOSIS Quetiapine Fumarate 300 mg 05/08/21 21:00 05/09/21 21:34 Quetiapine Fumarate 100 Mg Tablet PO 300 mg BEDTIME [facility] Administration Sodium Biphosphate/Sodium Phosphate 133 ml 05/07/21 10:10 Sodium Phosphate,[place]-Dibasic 133 Ml Enema [place] ONCE PRN Constipation Tamsulosin HCl 0.4 mg 04/23/21 21:00 05/09/21 21:34 Tamsulosin Hcl 0.4 Mg Capsule PO 0.4 mg BEDTIME [facility]RA Administration Allergies Allergies Allergy/AdvReac Type Severity Reaction Status Date / Time atorvastatin [From LIPITOR] Allergy Intermediate ELEVATED Verified 04/24/21 19:53 LIVER ENZYMES Assessment & Plan Assessment & Plan (1) Urinary retention with incomplete bladder emptying: Status: Acute Code(s): R33.9 - Retention of urine, unspecified (2) Bipolar 1 disorder: Status: Acute Code(s): F31.9 - Bipolar disorder, unspecified (3) Catatonia: Status: Acute Code(s): F06.1 - Catatonic disorder due to known physiological condition Assessment and Plan: Adult male with bipolar disorder with a recent onset of catatonia. Plan: Keep same treatment F/U section 7 and 8 but probably, he would be able to sign himself CV in the next days Greater than 50% of the session was spent on counseling and/or coordination of care Reason for contiued inpatient stay Substantial Risk for: harm to self, inability to function, rapid decompensation and med/psych decompensation
[2021-05-10] MEDS: QUEtiapine Fumarate 200 MG TABLET PO (13:12)
[2021-05-10] MEDS: LORazepam 1 MG TABLET PO (13:12)
--- NOTE | 2021-05-10 17:17 | PC.NURSE ---
Patient was awake and alert this morning. Speaking coherently and participating in conversation. Soon after lunch he began perseverating on having received a covid shot and because of that he was repeating I sscrewed up . He was medicated with Ativan 1 mg and Seroquel 200 mg at 1315 and within 15-30 minutes was very clear. He participated in group exercise, had his meals in the dayroom, fed himself, shaved himself and brushed his teeth standing up at sink in . He is not preoccupied with his catheter which has drained 1300 so far this shift of pale yellow urine. He is compliant with his meds. Dr. Cagle spoke with him and obtained a signature from patient on a CV.
[2021-05-10 17:47] VITALS: BP 115/71; PULSE 71; RESP 14; TEMP 36.9; O2SAT 97
[2021-05-10] MEDS: Enoxaparin Sodium 40 MG/0.4 ML SYRINGE SUBCUT (17:58)
[2021-05-10] MEDS: QUEtiapine Fumarate 100 MG TABLET 300 MG PO (20:22)
[2021-05-10] MEDS: Tamsulosin HCL 0.4 MG CAPSULE PO (20:22)
[2021-05-10] MEDS: clonazePAM 1 MG TABLET PO (20:22)
[2021-05-11] MEDS: Amoxicillin/Potassium Clav 500 MG TABLET PO ×4 (00:09→22:36)
[2021-05-11 06:00] VITALS: BP 109/68; PULSE 68; RESP 14; TEMP 36.7; O2SAT 98
[2021-05-11 09:30] VITALS: BP 128/72; PULSE 74
[2021-05-11] MEDS: Finasteride 5 MG TABLET PO (09:30)
[2021-05-11] MEDS: Ibuprofen 800 MG TABLET PO ×3 (09:30→16:31)
[2021-05-11] MEDS: amLODIPine Besylate 5 MG TABLET PO (09:30)
[2021-05-11 09:31] VITALS: BP 128/72; PULSE 77
[2021-05-11] MEDS: lisinopriL 20 MG TABLET PO (09:31)
[2021-05-11] MEDS: polyethylene glycoL 3350 17 GM POWD.PACK PO (09:32)
[2021-05-11] MEDS: QUEtiapine Fumarate 200 MG TABLET PO (11:03)
[2021-05-11] MEDS: LORazepam 1 MG TABLET PO (11:03)
--- NOTE | 2021-05-11 12:17 | HO.PSYCHPN ---
Subjective Subjective Date of Service: 05/11/21 Reason For Visit: Altered mental status Subjective Notes: Conditional Voluntary Interim History: The patient can't remember while he was catatonic, he is awake and alert but confused at times. Today, we had a long conversation and he agreed to sign CV. Family is in close contact. Review of Systems Acute medical concerns: No Medical Review of Systems: unchanged Mental Status Exam Mental Status Exam Patient Appearance: Well Grooomed Patient Orientation: Person Level of Consciousness: Disoriented (at times at AM) Patient Behavior: Cooperative and Passive Mood Description: Withdrawn Affect Description: Constricted Patient Cognition Impaired: No Ability to Follow Directions: Fair Speech Pattern: Soft-Spoken Hallucinations: None Delusions: Not Present Thought Content: positive for Thought Blocking Judgement: Fair Diagnostics Vital Signs (24Hr): Vital Signs - 24 hr 05/10/21 17:47 05/11/21 06:00 05/11/21 09:30 Temperature 98.4 F 98.0 F Pulse Rate 71 68 74 Respiratory Rate 14 14 Blood Pressure 115/71 109/68 128/72 Pulse Oximetry 97 98 05/11/21 09:31 Temperature Pulse Rate 77 Respiratory Rate Blood Pressure 128/72 Pulse Oximetry Body Mass Index 24.6 Labs Results: 05/09/21 12:54 05/09/21 12:54 Labs: Laboratory Results - last 48 hr 05/09/21 05/09/21 05/10/21 12:54 12:54 00:32 WBC 5.8 RBC 4.81 Hgb 14.0 Hct 42.0 MCV 87.3 MCH 29.1 MCHC 33.3 RDW 12.4 Plt Count 321 MPV 9.0 L Immature Gran % (Auto) 0.2 Neut % (Auto) 76.4 H Lymph % (Auto) 16.5 L [place] % (Auto) 6.1 Eos % (Auto) 0.5 Baso % (Auto) 0.3 Lymph # (Auto) 1.0 L [place] # (Auto) 0.4 Eos # (Auto) 0.0 Baso # (Auto) 0.0 Abs Immat Gran (auto) 0.01 Absolute Neuts (auto) 4.4 Absolute Nucleated RBC 0.000 Nucleated RBC % (auto) 0.0 Sodium 139 Potassium 4.1 Chloride 105 Carbon Dioxide 24 Anion Gap 14 BUN 14 Creatinine 1.04 Estim Creat Clear Calc 78.9 Estimated GFR > 60 Random Glucose 144 H D Calcium 9.3 Total Creatine Kinase 376 H D Urine Color YELLOW Urine Appearance CLEAR Urine pH 6.0 Ur Specific [place] <= 1.005 Urine Protein NEG Urine Glucose (UA) NEG Urine Ketones NEG Urine Blood TRACE Urine Nitrite NEG Ur Leukocyte Esterase TRACE H Urine RBC 0-2 Urine WBC 1-4 Ur Squamous Epith Cells TRACE Calcium Oxalate Crystal 3+ Urine Bacteria NONE Urine Mucus TRACE Imaging Radiology Impressions: ITS Impressions Abdomen/Pelvis CT 04/22/21 12:16 IMPRESSION: Mild prostatomegaly with moderate central gland calcification.. The periprostatic fat planes are hazy. The bladder is undistended with a Gonzalez's catheter within. Head CT 04/25/21 10:48 IMPRESSION: No acute intracranial hemorrhage or territorial infarction. Chest X-Ray 04/27/21 11:37 IMPRESSION: No evidence for acute disease in the chest. No foreign body seen. KUB X-Ray 05/02/21 10:19 IMPRESSION: Constipation. No evidence of obstruction. Medications Medications Current Medications Generic Name Dose Route Start Last Admin Trade Name Freq PRN Reason Stop Dose Admin Acetaminophen 650 mg 04/22/21 17:58 05/08/21 17:12 Acetaminophen 325 Mg Tablet PO 650 mg Q4H PRN Administration Pain Al Hydroxide/Mg Hydroxide 30 ml 04/23/21 14:17 Magnesium Hydrox/Alum Hydrox 30 Ml Oral.Susp PO Q6H PRN Heartburn/Nausea Amlodipine Besylate 5 mg 04/22/21 18:00 05/11/21 09:30 Amlodipine Besylate 5 Mg Tablet PO 5 mg DAILY [facility]RA Administration Protocol Amoxicillin/Clavulanate Potassium 500 mg 05/06/21 15:30 05/11/21 09:30 Amoxicillin/Potassium Clav 500 Mg Tablet PO 500 mg Q8H MITRA Administration Clonazepam 1 mg 05/08/21 21:00 05/10/21 20:22 Clonazepam 1 Mg Tablet PO 1 mg BEDTIME [facility]RA Administration Docusate Sodium 100 mg 04/22/21 17:58 05/08/21 13:03 Docusate Sodium 100 Mg Capsule PO 100 mg DAILY PRN Administration constipation Enoxaparin Sodium 40 mg 04/26/21 18:00 05/10/21 17:58 Enoxaparin Sodium 40 Mg/0.4 Ml Syringe SUBCUT 40 mg Q24H MITRA Administration Finasteride 5 mg 04/26/21 11:15 05/11/21 09:30 Finasteride 5 Mg Tablet PO 5 mg DAILY [facility]RA Administration Ibuprofen 800 mg 04/24/21 12:30 05/11/21 09:30 Ibuprofen 800 Mg Tablet PO 800 mg TIDWM MITRA Administration Lisinopril 20 mg 04/22/21 18:00 05/11/21 09:31 Lisinopril 20 Mg Tablet PO 20 mg DAILY [facility]RA Administration Protocol Lorazepam 1 mg 05/08/21 10:46 05/11/21 11:03 Lorazepam 1 Mg Tablet PO 1 mg TID PRN Administration catatonia/benzo withdrawl Magnesium Hydroxide 30 ml 04/23/21 14:17 04/24/21 15:52 Milk Of Magnesia 30 Ml Oral.Susp PO 30 ml DAILY PRN Administration Constipation Polyethylene Glycol 17 gm 04/22/21 18:00 05/11/21 09:32 Polyethylene Glycol 3350 17 Gm Powd.Pack PO 17 gm DAILY [facility]RA Administration Quetiapine Fumarate 200 mg 05/03/21 11:52 05/11/21 11:03 Quetiapine Fumarate 200 Mg Tablet PO 200 mg TID PRN Administration PSYCHOSIS Quetiapine Fumarate 300 mg 05/08/21 21:00 05/10/21 20:22 Quetiapine Fumarate 100 Mg Tablet PO 300 mg BEDTIME [facility] Administration Sodium Biphosphate/Sodium Phosphate 133 ml 05/07/21 10:10 Sodium Phosphate,[place]-Dibasic 133 Ml Enema [place] ONCE PRN Constipation Tamsulosin HCl 0.4 mg 04/23/21 21:00 05/10/21 20:22 Tamsulosin Hcl 0.4 Mg Capsule PO 0.4 mg BEDTIME MITRA Administration Allergies Allergies Allergy/AdvReac Type Severity Reaction Status Date / Time atorvastatin [From LIPITOR] Allergy Intermediate ELEVATED Verified 04/24/21 19:53 LIVER ENZYMES Assessment & Plan Assessment & Plan (1) Urinary retention with incomplete bladder emptying: Status: Acute Code(s): R33.9 - Retention of urine, unspecified (2) Bipolar 1 disorder: Status: Acute Code(s): F31.9 - Bipolar disorder, unspecified (3) Catatonia: Status: Acute Code(s): F06.1 - Catatonic disorder due to known physiological condition Assessment and Plan: Adult male with bipolar disorder with a recent onset of catatonia. Plan: Keep same treatment Greater than 50% of the session was spent on counseling and/or coordination of care Reason for contiued inpatient stay Substantial Risk for: inability to function, rapid decompensation and med/psych decompensation
[2021-05-11] MEDS: Milk of Magnesia 30 ML ORAL.SUSP PO (16:31)
--- NOTE | 2021-05-11 17:39 | PC.NURSE ---
Patient thought process was much clearer today. 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 He participated in group and it was reported by OT that he was joking and laughing. Patient is perseverating on not having had a BM since Sunday when he had an enema. He requested a list of meds to go over. He was encouraged to do more walking in the unit instead of using WC to build strength and help with having BM.Patient has been calm and cooperative and is med compliant.
[2021-05-11 17:59] VITALS: BP 100/64; PULSE 76; RESP 18; TEMP 36.4; O2SAT 97
[2021-05-11] MEDS: Enoxaparin Sodium 40 MG/0.4 ML SYRINGE SUBCUT (18:18)
[2021-05-11] MEDS: clonazePAM 1 MG TABLET PO (21:54)
[2021-05-11] MEDS: QUEtiapine Fumarate 100 MG TABLET 300 MG PO (21:54)
[2021-05-11] MEDS: Tamsulosin HCL 0.4 MG CAPSULE PO (21:54)
[2021-05-12 07:00] VITALS: BMI 24.5
[2021-05-12] MEDS: Ibuprofen 800 MG TABLET PO ×2 (08:19→17:47)
[2021-05-12] MEDS: Finasteride 5 MG TABLET PO (08:19)
[2021-05-12] MEDS: Amoxicillin/Potassium Clav 500 MG TABLET PO ×3 (08:19→23:05)
[2021-05-12] MEDS: Docusate Sodium 100 MG CAPSULE PO (08:19)
[2021-05-12] MEDS: polyethylene glycoL 3350 17 GM POWD.PACK PO (08:21)
[2021-05-12 08:28] VITALS: BP 101/59; PULSE 72; RESP 16; TEMP 36.8; O2SAT 95
[2021-05-12 10:33] VITALS: BP 101/59; PULSE 72
[2021-05-12] MEDS: Acetaminophen 325 MG TABLET 650 MG PO ×2 (10:56→17:47)
[2021-05-12] MEDS: LORazepam 1 MG TABLET PO (10:56)
--- NOTE | 2021-05-12 13:30 | P.PNPSI_ITS ---
Subjective Subjective Date of Service: 05/12/21 Reason For Visit: Altered mental status Interim History: The patient is now able to answer questions slowly, he is awake and alert but still there is some bradykinesia. Yesterday, he was able to participate on the psychotherapy group and he was coherent and assertive. Mental Status Exam Mental Status Exam Patient Appearance: Well Grooomed Patient Orientation: Person Level of Consciousness: Awake and Follows Commands Patient Behavior: Passive Mood Description: Withdrawn Affect Description: Constricted Patient Cognition Impaired: No Ability to Follow Directions: Good Speech Pattern: Clear Hallucinations: None Delusions: Not Present Thought Process: Distracted Thought Content: positive for Circumstantial Judgement: Fair Diagnostics Vital Signs (24Hr): Vital Signs - 24 hr 05/11/21 17:59 05/12/21 08:28 05/12/21 10:33 Temperature 97.5 F 98.3 F Pulse Rate 76 72 72 Respiratory Rate 18 16 Blood Pressure 100/64 101/59 L 101/59 L Pulse Oximetry 97 95 Body Mass Index 24.5 Labs Results: 05/09/21 12:54 05/09/21 12:54 Imaging Radiology Impressions: ITS Impressions Abdomen/Pelvis CT 04/22/21 12:16 IMPRESSION: Mild prostatomegaly with moderate central gland calcification.. The periprostatic fat planes are hazy. The bladder is undistended with a Gonzalez's catheter within. Head CT 04/25/21 10:48 IMPRESSION: No acute intracranial hemorrhage or territorial infarction. Chest X-Ray 04/27/21 11:37 IMPRESSION: No evidence for acute disease in the chest. No foreign body seen. KUB X-Ray 05/02/21 10:19 IMPRESSION: Constipation. No evidence of obstruction. Medications Medications Current Medications Generic Name Dose Route Start Last Admin Trade Name Freq PRN Reason Stop Dose Admin Acetaminophen 650 mg 04/22/21 17:58 05/12/21 10:56 Acetaminophen 325 Mg Tablet PO 650 mg Q4H PRN Administration Pain Al Hydroxide/Mg Hydroxide 30 ml 04/23/21 14:17 Magnesium Hydrox/Alum Hydrox 30 Ml Oral.Susp PO Q6H PRN Heartburn/Nausea Amlodipine Besylate 5 mg 04/22/21 18:00 05/12/21 10:33 Amlodipine Besylate 5 Mg Tablet PO Not Given DAILY [facility] Protocol Amoxicillin/Clavulanate Potassium 500 mg 05/06/21 15:30 05/12/21 08:19 Amoxicillin/Potassium Clav 500 Mg Tablet PO 500 mg Q8H [facility]RA Administration Clonazepam 1 mg 05/08/21 21:00 05/11/21 21:54 Clonazepam 1 Mg Tablet PO 1 mg BEDTIME [facility] Administration Docusate Sodium 100 mg 04/22/21 17:58 05/12/21 08:19 Docusate Sodium 100 Mg Capsule PO 100 mg DAILY PRN Administration constipation Enoxaparin Sodium 40 mg 04/26/21 18:00 05/11/21 18:18 Enoxaparin Sodium 40 Mg/0.4 Ml Syringe SUBCUT 40 mg Q24H MITRA Administration Finasteride 5 mg 04/26/21 11:15 05/12/21 08:19 Finasteride 5 Mg Tablet PO 5 mg DAILY [facility] Administration Ibuprofen 800 mg 04/24/21 12:30 05/12/21 08:19 Ibuprofen 800 Mg Tablet PO 800 mg TIDWM MITRA Administration Lisinopril 20 mg 04/22/21 18:00 05/12/21 10:33 Lisinopril 20 Mg Tablet PO Not Given DAILY [facility] Protocol Lorazepam 1 mg 05/08/21 10:46 05/12/21 10:56 Lorazepam 1 Mg Tablet PO 1 mg TID PRN Administration catatonia/benzo withdrawl Magnesium Hydroxide 30 ml 04/23/21 14:17 05/11/21 16:31 Milk Of Magnesia 30 Ml Oral.Susp PO 30 ml DAILY PRN Administration Constipation Polyethylene Glycol 17 gm 04/22/21 18:00 05/12/21 08:21 Polyethylene Glycol 3350 17 Gm Powd.Pack PO 17 gm DAILY [facility] Administration Quetiapine Fumarate 200 mg 05/03/21 11:52 05/11/21 11:03 Quetiapine Fumarate 200 Mg Tablet PO 200 mg TID PRN Administration PSYCHOSIS Quetiapine Fumarate 300 mg 05/08/21 21:00 05/11/21 21:54 Quetiapine Fumarate 100 Mg Tablet PO 300 mg BEDTIME [facility] Administration Sodium Biphosphate/Sodium Phosphate 133 ml 05/07/21 10:10 Sodium Phosphate,[place]-Dibasic 133 Ml Enema [place] ONCE PRN Constipation Tamsulosin HCl 0.4 mg 04/23/21 21:00 05/11/21 21:54 Tamsulosin Hcl 0.4 Mg Capsule PO 0.4 mg BEDTIME [facility]RA Administration Allergies Allergies Allergy/AdvReac Type Severity Reaction Status Date / Time atorvastatin [From LIPITOR] Allergy Intermediate ELEVATED Verified 04/24/21 19:53 LIVER ENZYMES Assessment & Plan Assessment & Plan (1) Urinary retention with incomplete bladder emptying: Status: Acute Code(s): R33.9 - Retention of urine, unspecified (2) Bipolar 1 disorder: Status: Acute Code(s): F31.9 - Bipolar disorder, unspecified (3) Catatonia: Status: Acute Code(s): F06.1 - Catatonic disorder due to known physiological condition Assessment and Plan: Adult male with bipolar disorder with a recent onset of catatonia. Plan: Keep same treatment Greater than 50% of the session was spent on counseling and/or coordination of care Reason for contiued inpatient stay Substantial Risk for: rapid decompensation and med/psych decompensation
[2021-05-12 18:00] VITALS: BP 115/78; PULSE 78; RESP 16; TEMP 36.3; O2SAT 97
[2021-05-12] MEDS: Gabapentin 100 MG CAPSULE PO ×2 (18:22→20:44)
--- NOTE | 2021-05-12 19:58 | PC.NURSE ---
PT complaining, stating, I can't breath because this (Gonzalez) cord is suffocating me . PT's vitals were obatined: BP - 115/86, P - 83, R - 16, O2 - 100%. This nurse asked the PT if he felt anxious. PT denied any anxiety. This nurse asked the PT if he would like me to look at his catheter. PT accepted. This nurse assessed the catheter insertion site to find some dried discharge around the opening to the urethra. Site was cleaned and PT's anxiety decreased. PT stopped perseveration on the catheter/Gonzalez.
[2021-05-12] MEDS: Tamsulosin HCL 0.4 MG CAPSULE PO (20:43)
[2021-05-12] MEDS: clonazePAM 1 MG TABLET PO (20:44)
[2021-05-12] MEDS: QUEtiapine Fumarate 100 MG TABLET 300 MG PO (20:44)
[2021-05-13 06:00] VITALS: BP 103/66; PULSE 69; RESP 16; TEMP 36.8; O2SAT 95
[2021-05-13 08:03] VITALS: BP 103/66; PULSE 69; O2SAT 95
[2021-05-13] MEDS: Gabapentin 100 MG CAPSULE PO (09:15)
[2021-05-13] MEDS: Ibuprofen 800 MG TABLET PO ×3 (09:15→17:30)
[2021-05-13 09:17] VITALS: BP 108/69; PULSE 67
[2021-05-13] MEDS: Docusate Sodium 100 MG CAPSULE PO (09:17)
[2021-05-13] MEDS: LORazepam 1 MG TABLET PO (09:17)
[2021-05-13] MEDS: lisinopriL 20 MG TABLET PO (09:17)
[2021-05-13] MEDS: Amoxicillin/Potassium Clav 500 MG TABLET PO ×2 (09:17→14:36)
[2021-05-13 09:18] VITALS: BP 108/69; PULSE 67
[2021-05-13] MEDS: amLODIPine Besylate 5 MG TABLET PO (09:18)
[2021-05-13] MEDS: Finasteride 5 MG TABLET PO (09:18)
[2021-05-13] MEDS: polyethylene glycoL 3350 17 GM POWD.PACK PO (09:22)
[2021-05-13] MEDS: Sodium Phosphate,Mono-Dibasic 133 ML ENEMA PR (11:20)
--- NOTE | 2021-05-13 12:26 | P.PNPSI_ITS ---
Subjective Subjective Date of Service: 05/13/21 Reason For Visit: Altered mental status Interim History: The patient was more pesimistic and worried about been set for life in the hospital and he was worried that the papers of HCP would hurt him. We started Gabapentin since he was anxious and he had chronic pain. Mental Status Exam Mental Status Exam Patient Appearance: Well Grooomed Patient Orientation: Person Level of Consciousness: Awake Patient Behavior: Appropriate Mood Description: Withdrawn Affect Description: Constricted Patient Cognition Impaired: No Ability to Follow Directions: Good Speech Pattern: Clear Hallucinations: None Thought Process: Distracted Thought Content: positive for Preoccupation Judgement: Fair Diagnostics Vital Signs (24Hr): Vital Signs - 24 hr 05/12/21 18:00 05/13/21 06:00 05/13/21 08:03 Temperature 97.4 F 98.2 F Pulse Rate 78 69 69 Respiratory Rate 16 16 Blood Pressure 115/78 103/66 103/66 Pulse Oximetry 97 95 95 05/13/21 09:17 05/13/21 09:18 Temperature Pulse Rate 67 67 Respiratory Rate Blood Pressure 108/69 108/69 Pulse Oximetry Body Mass Index 24.5 Labs Results: 05/09/21 12:54 05/09/21 12:54 Imaging Radiology Impressions: ITS Impressions Abdomen/Pelvis CT 04/22/21 12:16 IMPRESSION: Mild prostatomegaly with moderate central gland calcification.. The periprostatic fat planes are hazy. The bladder is undistended with a Gonzalez's catheter within. Head CT 04/25/21 10:48 IMPRESSION: No acute intracranial hemorrhage or territorial infarction. Chest X-Ray 04/27/21 11:37 IMPRESSION: No evidence for acute disease in the chest. No foreign body seen. KUB X-Ray 05/02/21 10:19 IMPRESSION: Constipation. No evidence of obstruction. Medications Medications Current Medications Generic Name Dose Route Start Last Admin Trade Name Freq PRN Reason Stop Dose Admin Acetaminophen 650 mg 04/22/21 17:58 05/12/21 17:47 Acetaminophen 325 Mg Tablet PO 650 mg Q4H PRN Administration Pain Al Hydroxide/Mg Hydroxide 30 ml 04/23/21 14:17 Magnesium Hydrox/Alum Hydrox 30 Ml Oral.Susp PO Q6H PRN Heartburn/Nausea Amlodipine Besylate 5 mg 04/22/21 18:00 05/13/21 09:18 Amlodipine Besylate 5 Mg Tablet PO 5 mg DAILY MITRA Administration Protocol Amoxicillin/Clavulanate Potassium 500 mg 05/06/21 15:30 05/13/21 09:17 Amoxicillin/Potassium Clav 500 Mg Tablet PO 500 mg Q8H MITRA Administration Clonazepam 1 mg 05/08/21 21:00 05/12/21 20:44 Clonazepam 1 Mg Tablet PO 1 mg BEDTIME MITRA Administration Docusate Sodium 100 mg 04/22/21 17:58 05/13/21 09:17 Docusate Sodium 100 Mg Capsule PO 100 mg DAILY PRN Administration constipation Enoxaparin Sodium 40 mg 04/26/21 18:00 05/12/21 19:19 Enoxaparin Sodium 40 Mg/0.4 Ml Syringe SUBCUT Not Given Q24H MITRA Finasteride 5 mg 04/26/21 11:15 05/13/21 09:18 Finasteride 5 Mg Tablet PO 5 mg DAILY MITRA Administration Gabapentin 200 mg 05/13/21 15:00 Gabapentin 100 Mg Capsule PO TID MITRA Ibuprofen 800 mg 04/24/21 12:30 05/13/21 09:15 Ibuprofen 800 Mg Tablet PO 800 mg TIDWM MITRA Administration Lisinopril 20 mg 04/22/21 18:00 05/13/21 09:17 Lisinopril 20 Mg Tablet PO 20 mg DAILY MITRA Administration Protocol Magnesium Hydroxide 30 ml 04/23/21 14:17 05/11/21 16:31 Milk Of Magnesia 30 Ml Oral.Susp PO 30 ml DAILY PRN Administration Constipation Polyethylene Glycol 17 gm 04/22/21 18:00 05/13/21 09:22 Polyethylene Glycol 3350 17 Gm Powd.Pack PO 17 gm DAILY MITRA Administration Quetiapine Fumarate 300 mg 05/08/21 21:00 05/12/21 20:44 Quetiapine Fumarate 100 Mg Tablet PO 300 mg BEDTIME [facility]RA Administration Quetiapine Fumarate 200 mg 05/13/21 15:00 Quetiapine Fumarate 200 Mg Tablet PO TID [facility] Sodium Biphosphate/Sodium Phosphate 133 ml 05/07/21 10:10 05/13/21 11:20 Sodium Phosphate,[place]-Dibasic 133 Ml Enema [place] 133 ml ONCE PRN Administration Constipation Tamsulosin HCl 0.4 mg 04/23/21 21:00 05/12/21 20:43 Tamsulosin Hcl 0.4 Mg Capsule PO 0.4 mg BEDTIME MITRA Administration Allergies Allergies Allergy/AdvReac Type Severity Reaction Status Date / Time atorvastatin [From LIPITOR] Allergy Intermediate ELEVATED Verified 04/24/21 19:53 LIVER ENZYMES Assessment & Plan Assessment & Plan (1) Urinary retention with incomplete bladder emptying: Status: Acute Code(s): R33.9 - Retention of urine, unspecified (2) Bipolar 1 disorder: Status: Acute Code(s): F31.9 - Bipolar disorder, unspecified (3) Catatonia: Status: Acute Code(s): F06.1 - Catatonic disorder due to known physiological condition Assessment and Plan: Adult male with bipolar disorder with a recent onset of catatonia. Plan: Change Seroquel to 200 mg po tid and 300 qhs Increase Gabapentin for anxiety and chronic pain. Greater than 50% of the session was spent on counseling and/or coordination of care Reason for contiued inpatient stay Substantial Risk for: inability to function, rapid decompensation and med/psych decompensation
[2021-05-13] MEDS: QUEtiapine Fumarate 200 MG TABLET PO (14:36)
[2021-05-13] MEDS: Gabapentin 100 MG CAPSULE 200 MG PO ×2 (14:36→21:24)
[2021-05-13] MEDS: Enoxaparin Sodium 40 MG/0.4 ML SYRINGE SUBCUT (17:31)
[2021-05-13 18:00] VITALS: BP 92/56; PULSE 74; RESP 18; TEMP 36.3; O2SAT 99
[2021-05-13] MEDS: Acetaminophen 325 MG TABLET 650 MG PO (19:45)
[2021-05-13] MEDS: QUEtiapine Fumarate 100 MG TABLET 300 MG PO (21:24)
[2021-05-13] MEDS: clonazePAM 1 MG TABLET PO (21:24)
[2021-05-13] MEDS: Tamsulosin HCL 0.4 MG CAPSULE PO (21:24)
[2021-05-14 06:00] VITALS: BP 102/62; PULSE 61; RESP 16; TEMP 36.6; O2SAT 95
[2021-05-14] MEDS: polyethylene glycoL 3350 17 GM POWD.PACK PO (09:12)
[2021-05-14 09:17] VITALS: BP 100/59; PULSE 70
[2021-05-14] MEDS: lisinopriL 20 MG TABLET PO (09:17)
[2021-05-14] MEDS: Finasteride 5 MG TABLET PO (09:17)
[2021-05-14] MEDS: QUEtiapine Fumarate 200 MG TABLET PO ×2 (09:18→16:44)
[2021-05-14] MEDS: Ibuprofen 800 MG TABLET PO ×3 (09:18→19:24)
[2021-05-14] MEDS: Gabapentin 100 MG CAPSULE 200 MG PO ×3 (09:19→20:31)
[2021-05-14] MEDS: amLODIPine Besylate 5 MG TABLET PO (09:20)
--- NOTE | 2021-05-14 14:41 | P.PNPSI_ITS ---
Subjective Subjective Date of Service: 05/14/21 Reason For Visit: Altered mental status Interim History: seen in room. Was in bed with sitter. Did engage with interview, however was very flat and psychomotor retardation evident. Has significant difficulty around orientation, time frame and remembering people with associated distress. Was very perseverative on memory challenges. No evidence of SI HI agitation or psychosis. As per staff has been attending the ADLs. Medication Compliance: Yes Review of Systems Review of Systems unremarkable Mental Status Exam Mental Status Exam Narrative: pleasant. Did engage in interview. Distressed by memory challenges. Difficulty with orientation, people's names and timeframe. Does not appear delirious. Has obvious psychomotor retardation. Likely depressed. No evidence of SI, HI or psychosis. Insight and judgment is limited Diagnostics Vital Signs (24Hr): Vital Signs - 24 hr 05/13/21 18:00 05/14/21 06:00 05/14/21 09:17 Temperature 97.3 F 97.8 F Pulse Rate 74 61 70 Respiratory Rate 18 16 Blood Pressure 92/56 L 102/62 100/59 L Pulse Oximetry 99 95 Body Mass Index 24.5 Labs Results: 05/09/21 12:54 05/09/21 12:54 Imaging Radiology Impressions: ITS Impressions Abdomen/Pelvis CT 04/22/21 12:16 IMPRESSION: Mild prostatomegaly with moderate central gland calcification.. The periprostatic fat planes are hazy. The bladder is undistended with a Gonzalez's catheter within. Head CT 04/25/21 10:48 IMPRESSION: No acute intracranial hemorrhage or territorial infarction. Chest X-Ray 04/27/21 11:37 IMPRESSION: No evidence for acute disease in the chest. No foreign body seen. KUB X-Ray 05/02/21 10:19 IMPRESSION: Constipation. No evidence of obstruction. Medications Medications Current Medications Generic Name Dose Route Start Last Admin Trade Name Freq PRN Reason Stop Dose Admin Acetaminophen 650 mg 04/22/21 17:58 05/13/21 19:45 Acetaminophen 325 Mg Tablet PO 650 mg Q4H PRN Administration Pain Al Hydroxide/Mg Hydroxide 30 ml 04/23/21 14:17 Magnesium Hydrox/Alum Hydrox 30 Ml Oral.Susp PO Q6H PRN Heartburn/Nausea Amlodipine Besylate 5 mg 04/22/21 18:00 05/14/21 09:20 Amlodipine Besylate 5 Mg Tablet PO 5 mg DAILY MITRA Administration Protocol Clonazepam 1 mg 05/08/21 21:00 05/13/21 21:24 Clonazepam 1 Mg Tablet PO 1 mg BEDTIME [facility]RA Administration Docusate Sodium 100 mg 04/22/21 17:58 05/13/21 09:17 Docusate Sodium 100 Mg Capsule PO 100 mg DAILY PRN Administration constipation Enoxaparin Sodium 40 mg 04/26/21 18:00 05/13/21 17:31 Enoxaparin Sodium 40 Mg/0.4 Ml Syringe SUBCUT 40 mg Q24H MITRA Administration Finasteride 5 mg 04/26/21 11:15 05/14/21 09:17 Finasteride 5 Mg Tablet PO 5 mg DAILY [facility]RA Administration Gabapentin 200 mg 05/13/21 15:00 05/14/21 09:19 Gabapentin 100 Mg Capsule PO 200 mg TID MITRA Administration Ibuprofen 800 mg 04/24/21 12:30 05/14/21 12:03 Ibuprofen 800 Mg Tablet PO 800 mg TIDWM MITRA Administration Lisinopril 20 mg 04/22/21 18:00 05/14/21 09:17 Lisinopril 20 Mg Tablet PO 20 mg DAILY MITRA Administration Protocol Magnesium Hydroxide 30 ml 04/23/21 14:17 05/11/21 16:31 Milk Of Magnesia 30 Ml Oral.Susp PO 30 ml DAILY PRN Administration Constipation Polyethylene Glycol 17 gm 04/22/21 18:00 05/14/21 09:12 Polyethylene Glycol 3350 17 Gm Powd.Pack PO 17 gm DAILY MITRA Administration Quetiapine Fumarate 300 mg 05/08/21 21:00 05/13/21 21:24 Quetiapine Fumarate 100 Mg Tablet PO 300 mg BEDTIME MITRA Administration Quetiapine Fumarate 200 mg 05/14/21 15:00 Quetiapine Fumarate 200 Mg Tablet PO BID@0800,1500 [facility] Sodium Biphosphate/Sodium Phosphate 133 ml 05/07/21 10:10 05/13/21 11:20 Sodium Phosphate,[place]abela-Dibasic 133 Ml Enema [place] 133 ml ONCE PRN Administration Constipation Tamsulosin HCl 0.4 mg 04/23/21 21:00 05/13/21 21:24 Tamsulosin Hcl 0.4 Mg Capsule PO 0.4 mg BEDTIME MITRA Administration Allergies Allergies Allergy/AdvReac Type Severity Reaction Status Date / Time atorvastatin [From LIPITOR] Allergy Intermediate ELEVATED Verified 04/24/21 19:53 LIVER ENZYMES Assessment & Plan Assessment & Plan (1) Urinary retention with incomplete bladder emptying: Status: Acute Code(s): R33.9 - Retention of urine, unspecified (2) Bipolar 1 disorder: Status: Acute Code(s): F31.9 - Bipolar disorder, unspecified (3) Catatonia: Status: Acute Code(s): F06.1 - Catatonic disorder due to known physiological condition Assessment and Plan: no changes to evaluation and treatment plan as per primary team on 05/13/2021- did adjust Seroquel dosing for/clarify orders so 200 mg morning and afternoon and 300 mg at bedtime; otherwise noted gabapentin for anxiety and chronic pain. Greater than 50% of the session was spent on counseling and/or coordination of care Reason for contiued inpatient stay Substantial Risk for: inability to function
[2021-05-14 18:00] VITALS: BP 102/66; PULSE 88; RESP 17; TEMP 36.7; O2SAT 99
[2021-05-14] MEDS: QUEtiapine Fumarate 100 MG TABLET 300 MG PO (20:29)
[2021-05-14] MEDS: clonazePAM 1 MG TABLET PO (20:30)
[2021-05-14] MEDS: Tamsulosin HCL 0.4 MG CAPSULE PO (20:30)
[2021-05-15] MEDS: lisinopriL 20 MG TABLET PO (10:04)
[2021-05-15] MEDS: amLODIPine Besylate 5 MG TABLET PO (10:04)
[2021-05-15] MEDS: Gabapentin 100 MG CAPSULE 200 MG PO ×2 (10:04→20:23)
[2021-05-15] MEDS: Finasteride 5 MG TABLET PO (10:05)
[2021-05-15] MEDS: Ibuprofen 800 MG TABLET PO ×2 (10:05→16:51)
[2021-05-15] MEDS: polyethylene glycoL 3350 17 GM POWD.PACK PO (10:05)
[2021-05-15] MEDS: QUEtiapine Fumarate 200 MG TABLET PO (10:05)
--- NOTE | 2021-05-15 10:40 | PC.NURSE ---
Rich catheter removed, pt tolerated procedure well. Pt stating I don't think I'm going to be able to pee . 800ml drained from rich bag before removel.
--- NOTE | 2021-05-15 15:06 | HO.PSYCHPN ---
Subjective Subjective Date of Service: 05/15/21 Reason For Visit: Altered mental status Interim History: Seen in room. Was eating breakfast. As per sitter had made comments about catheter being uncomfortable and painful. Reassure the catheter will be removed, which was planned and would hopefully be a positive voiding trial. He seemed anxious and apprehensive about this. Was ambivalent but agreeable. Did appear to be slightly more engaged today. Still difficulty with orientation and memory, however did remember from yesterday. Continued to be perseverative. No evidence of SI HI agitation or psychosis. As per staff has been attending the ADLs. Review of Systems Review of Systems unremarkable Yes all other systems are reviewed and are negative and Unobtainable due to mental status Constitutional: Denies chills and Denies fever(s) Eyes: Reports no additional eye complaints Reports system reviewed and no additional complaints, except as documented and Reports Normal hearing present Cardiovascular: Reports no additional cardiovascular complaints and Denies syncope Respiratory: Reports no additional respiratory complaints and Denies cough Gastrointestinal: Reports no additional gastrointestinal complaints, Denies abdominal pain and Denies heartburn Genitourinary: Reports no additional male genitourinary complaints, Reports as per HPI and Denies change in libido Musculoskeletal: Reports no additional musculoskeletal complaints Skin/Breast: Reports system reviewed and no additional complaints, except as docu Reports as per HPI, Reports Normal hearing present and Denies syncope Psychiatric: Reports as per HPI and Denies change in libido Endocrine: Reports no additional endocrine complaints and Denies change in libido Hematologic/Lymphatic: Reports no additional hematologic/lymphatic complaints Allergic/Immunologic: Reports no additional allergic/immunologic complaints Mental Status Exam Mental Status Exam Narrative: pleasant. Did engage in interview. Distressed by memory challenges. Difficulty with orientation, people's names and timeframe. Does not appear delirious. Has obvious psychomotor retardation. Likely depressed. No evidence of SI, HI or psychosis. Insight and judgment is limited Patient Appearance: Well Grooomed Patient Orientation: Person Level of Consciousness: Awake Patient Behavior: Appropriate Mood Description: Withdrawn Affect Description: Constricted Patient Cognition Impaired: No Ability to Follow Directions: Good Speech Pattern: Clear Memory Description: Intact Diagnostics Vital Signs (24Hr): Vital Signs - 24 hr 05/14/21 18:00 Temperature 98.1 F Pulse Rate 88 Respiratory Rate 17 Blood Pressure 102/66 Pulse Oximetry 99 Body Mass Index 24.5 Labs Results: 05/09/21 12:54 05/09/21 12:54 Imaging Radiology Impressions: ITS Impressions Abdomen/Pelvis CT 04/22/21 12:16 IMPRESSION: Mild prostatomegaly with moderate central gland calcification.. The periprostatic fat planes are hazy. The bladder is undistended with a Gonzalez's catheter within. Head CT 04/25/21 10:48 IMPRESSION: No acute intracranial hemorrhage or territorial infarction. Chest X-Ray 04/27/21 11:37 IMPRESSION: No evidence for acute disease in the chest. No foreign body seen. KUB X-Ray 05/02/21 10:19 IMPRESSION: Constipation. No evidence of obstruction. Medications Medications Current Medications Generic Name Dose Route Start Last Admin Trade Name Freq PRN Reason Stop Dose Admin Acetaminophen 650 mg 04/22/21 17:58 05/13/21 19:45 Acetaminophen 325 Mg Tablet PO 650 mg Q4H PRN Administration Pain Al Hydroxide/Mg Hydroxide 30 ml 04/23/21 14:17 Magnesium Hydrox/Alum Hydrox 30 Ml Oral.Susp PO Q6H PRN Heartburn/Nausea Amlodipine Besylate 5 mg 04/22/21 18:00 05/15/21 10:04 Amlodipine Besylate 5 Mg Tablet PO 5 mg DAILY MITRA Administration Protocol Clonazepam 1 mg 05/08/21 21:00 05/14/21 20:30 Clonazepam 1 Mg Tablet PO 1 mg BEDTIME MITRA Administration Docusate Sodium 100 mg 04/22/21 17:58 05/13/21 09:17 Docusate Sodium 100 Mg Capsule PO 100 mg DAILY PRN Administration constipation Enoxaparin Sodium 40 mg 04/26/21 18:00 05/14/21 19:31 Enoxaparin Sodium 40 Mg/0.4 Ml Syringe SUBCUT Not Given Q24H MITRA Finasteride 5 mg 04/26/21 11:15 05/15/21 10:05 Finasteride 5 Mg Tablet PO 5 mg DAILY MITRA Administration Gabapentin 200 mg 05/13/21 15:00 05/15/21 10:04 Gabapentin 100 Mg Capsule PO 200 mg TID MITRA Administration Ibuprofen 800 mg 04/24/21 12:30 05/15/21 12:23 Ibuprofen 800 Mg Tablet PO Not Given TIDWM MITRA Lisinopril 20 mg 04/22/21 18:00 05/15/21 10:04 Lisinopril 20 Mg Tablet PO 20 mg DAILY MITRA Administration Protocol Magnesium Hydroxide 30 ml 04/23/21 14:17 05/11/21 16:31 Milk Of Magnesia 30 Ml Oral.Susp PO 30 ml DAILY PRN Administration Constipation Polyethylene Glycol 17 gm 04/22/21 18:00 05/15/21 10:05 Polyethylene Glycol 3350 17 Gm Powd.Pack PO 17 gm DAILY MITRA Administration Quetiapine Fumarate 300 mg 05/08/21 21:00 05/14/21 20:29 Quetiapine Fumarate 100 Mg Tablet PO 300 mg BEDTIME MITRA Administration Quetiapine Fumarate 200 mg 05/14/21 15:00 05/15/21 10:05 Quetiapine Fumarate 200 Mg Tablet PO 200 mg BID@0800,1500 MITRA Administration Sodium Biphosphate/Sodium Phosphate 133 ml 05/07/21 10:10 05/13/21 11:20 Sodium Phosphate,[place]-Dibasic 133 Ml Enema [place] 133 ml ONCE PRN Administration Constipation Tamsulosin HCl 0.4 mg 04/23/21 21:00 05/14/21 20:30 Tamsulosin Hcl 0.4 Mg Capsule PO 0.4 mg BEDTIME MITRA Administration Allergies Allergies Allergy/AdvReac Type Severity Reaction Status Date / Time atorvastatin [From LIPITOR] Allergy Intermediate ELEVATED Verified 04/24/21 19:53 LIVER ENZYMES Assessment & Plan Assessment & Plan (1) Urinary retention with incomplete bladder emptying: Status: Acute Code(s): R33.9 - Retention of urine, unspecified (2) Bipolar 1 disorder: Status: Acute Code(s): F31.9 - Bipolar disorder, unspecified (3) Catatonia: Status: Acute Code(s): F06.1 - Catatonic disorder due to known physiological condition Assessment and Plan: no changes to evaluation and treatment plan as per primary team on 05/13/2021- did adjust Seroquel dosing for/clarify orders so 200 mg morning and afternoon and 300 mg at bedtime; otherwise noted gabapentin for anxiety and chronic pain. urinary catheter to be removed today Greater than 50% of the session was spent on counseling and/or coordination of care Reason for contiued inpatient stay Substantial Risk for: inability to function and rapid decompensation
[2021-05-15 18:00] VITALS: BP 110/69; PULSE 87; TEMP 36.4; O2SAT 100
[2021-05-15] MEDS: QUEtiapine Fumarate 100 MG TABLET 300 MG PO (20:23)
[2021-05-15] MEDS: Tamsulosin HCL 0.4 MG CAPSULE PO (20:23)
[2021-05-15] MEDS: clonazePAM 1 MG TABLET PO (20:23)
--- NOTE | 2021-05-16 05:07 | PC.NURSE ---
Fleets Enema administered 05/13/21 with BM produced. Patient noted to have bleeding hemorrhoid producing moderate volume of Bright Red Blood.
[2021-05-16] MEDS: Docusate Sodium 100 MG CAPSULE PO (09:48)
[2021-05-16] MEDS: Ibuprofen 800 MG TABLET PO ×2 (09:48→15:21)
[2021-05-16 09:49] VITALS: BP 109/57; PULSE 82
[2021-05-16] MEDS: lisinopriL 20 MG TABLET PO (09:49)
[2021-05-16 09:52] VITALS: BP 109/57; PULSE 82
[2021-05-16] MEDS: Gabapentin 100 MG CAPSULE 200 MG PO (09:52)
[2021-05-16] MEDS: Finasteride 5 MG TABLET PO (09:52)
[2021-05-16] MEDS: amLODIPine Besylate 5 MG TABLET PO (09:52)
[2021-05-16] MEDS: polyethylene glycoL 3350 17 GM POWD.PACK PO (10:01)
--- NOTE | 2021-05-16 11:55 | P.PNPSI_ITS ---
Subjective Subjective Date of Service: 05/16/21 Reason For Visit: Altered mental status Interim History: The patient had his Gonzalez removed and he was able to urinate by himself. He is awake and alert, still with delayed response but much better. Nursing staff has reported that the patient sometimes refuses his Seroquel since it oversedates him. Review of Systems Acute medical concerns: No Medical Review of Systems: unchanged Mental Status Exam Mental Status Exam Patient Appearance: Well Grooomed Patient Orientation: Person and Place Level of Consciousness: Awake and Obtunded Patient Behavior: Appropriate Mood Description: Withdrawn Affect Description: Calm Patient Cognition Impaired: No Ability to Follow Directions: Fair Speech Pattern: Delayed Memory Description: Intact Hallucinations: None Delusions: Not Present Thought Process: Distracted and Confusion Thought Content: positive for Circumstantial and positive for Poverty of Content Judgement: Fair Diagnostics Vital Signs (24Hr): Vital Signs - 24 hr 05/15/21 18:00 05/16/21 09:49 05/16/21 09:52 Temperature 97.5 F Pulse Rate 87 82 82 Blood Pressure 110/69 109/57 L 109/57 L Pulse Oximetry 100 Body Mass Index 24.5 Labs Results: 05/09/21 12:54 05/09/21 12:54 Imaging Radiology Impressions: ITS Impressions Abdomen/Pelvis CT 04/22/21 12:16 IMPRESSION: Mild prostatomegaly with moderate central gland calcification.. The periprostatic fat planes are hazy. The bladder is undistended with a Gonzalez's catheter within. Head CT 04/25/21 10:48 IMPRESSION: No acute intracranial hemorrhage or territorial infarction. Chest X-Ray 04/27/21 11:37 IMPRESSION: No evidence for acute disease in the chest. No foreign body seen. KUB X-Ray 05/02/21 10:19 IMPRESSION: Constipation. No evidence of obstruction. Medications Medications Current Medications Generic Name Dose Route Start Last Admin Trade Name Freq PRN Reason Stop Dose Admin Acetaminophen 650 mg 04/22/21 17:58 05/13/21 19:45 Acetaminophen 325 Mg Tablet PO 650 mg Q4H PRN Administration Pain Al Hydroxide/Mg Hydroxide 30 ml 04/23/21 14:17 Magnesium Hydrox/Alum Hydrox 30 Ml Oral.Susp PO Q6H PRN Heartburn/Nausea Amlodipine Besylate 5 mg 04/22/21 18:00 05/16/21 09:52 Amlodipine Besylate 5 Mg Tablet PO 5 mg DAILY [facility] Administration Protocol Clonazepam 1 mg 05/08/21 21:00 05/15/21 20:23 Clonazepam 1 Mg Tablet PO 1 mg BEDTIME MITRA Administration Docusate Sodium 100 mg 04/22/21 17:58 05/16/21 09:48 Docusate Sodium 100 Mg Capsule PO 100 mg DAILY PRN Administration constipation Enoxaparin Sodium 40 mg 04/26/21 18:00 05/15/21 17:28 Enoxaparin Sodium 40 Mg/0.4 Ml Syringe SUBCUT Not Given Q24H [facility] Finasteride 5 mg 04/26/21 11:15 05/16/21 09:52 Finasteride 5 Mg Tablet PO 5 mg DAILY [facility] Administration Gabapentin 300 mg 05/16/21 15:00 Gabapentin 300 Mg Capsule PO TID MITRA Ibuprofen 800 mg 04/24/21 12:30 05/16/21 09:48 Ibuprofen 800 Mg Tablet PO 800 mg TIDWM [facility] Administration Lisinopril 20 mg 04/22/21 18:00 05/16/21 09:49 Lisinopril 20 Mg Tablet PO 20 mg DAILY [facility] Administration Protocol Magnesium Hydroxide 30 ml 04/23/21 14:17 05/11/21 16:31 Milk Of Magnesia 30 Ml Oral.Susp PO 30 ml DAILY PRN Administration Constipation Non-Formulary Medication 400 mg 05/16/21 21:00 Seroquel Xr PO BEDTIME [facility] Polyethylene Glycol 17 gm 04/22/21 18:00 05/16/21 10:01 Polyethylene Glycol 3350 17 Gm Powd.Pack PO 17 gm DAILY MITRA Administration Quetiapine Fumarate 300 mg 05/08/21 21:00 05/15/21 20:23 Quetiapine Fumarate 100 Mg Tablet PO 300 mg BEDTIME MITRA Administration Quetiapine Fumarate 200 mg 05/14/21 15:00 05/16/21 09:57 Quetiapine Fumarate 200 Mg Tablet PO Not Given BID@0800,1500 [facility] Sodium Biphosphate/Sodium Phosphate 133 ml 05/07/21 10:10 05/13/21 11:20 Sodium Phosphate,[place]-Dibasic 133 Ml Enema [place] 133 ml ONCE PRN Administration Constipation Tamsulosin HCl 0.4 mg 04/23/21 21:00 05/15/21 20:23 Tamsulosin Hcl 0.4 Mg Capsule PO 0.4 mg BEDTIME MITRA Administration Allergies Allergies Allergy/AdvReac Type Severity Reaction Status Date / Time atorvastatin [From LIPITOR] Allergy Intermediate ELEVATED Verified 04/24/21 19:53 LIVER ENZYMES Assessment & Plan Assessment & Plan (1) Urinary retention with incomplete bladder emptying: Status: Acute Code(s): R33.9 - Retention of urine, unspecified (2) Bipolar 1 disorder: Status: Acute Code(s): F31.9 - Bipolar disorder, unspecified (3) Catatonia: Status: Acute Code(s): F06.1 - Catatonic disorder due to known physiological condition Assessment and Plan: no changes to evaluation and treatment plan as per primary team on 05/16/2021- did adjust Seroquel dosing for/clarify orders so 200 mg morning and afternoon and 300 mg at bedtime; otherwise noted gabapentin for anxiety and chronic pain. Plan: Change to Seroquel XR 400 MG AT HS and 300 mg at hs REst the same. Greater than 50% of the session was spent on counseling and/or coordination of care Reason for contiued inpatient stay Substantial Risk for: inability to function, rapid decompensation and med/psych decompensation
[2021-05-16] MEDS: Gabapentin 300 MG CAPSULE PO ×2 (15:21→21:27)
[2021-05-16] MEDS: Acetaminophen 325 MG TABLET 650 MG PO (16:15)
[2021-05-16 18:00] VITALS: BP 156/79; PULSE 86; TEMP 36.8; O2SAT 97
--- NOTE | 2021-05-16 19:59 | PC.NURSE ---
Patient voiding freely at will throughout the shift with good output of 200 - 400 ml each void.
[2021-05-16] MEDS: Tamsulosin HCL 0.4 MG CAPSULE PO (21:27)
[2021-05-16] MEDS: clonazePAM 1 MG TABLET PO (21:27)
[2021-05-16] MEDS: QUEtiapine Fumarate 100 MG TABLET 300 MG PO (21:27)
--- NOTE | 2021-05-17 05:38 | PC.NURSE ---
Pt alert and confused. VSS. Bladder distended. bladder scan shows 500ml. call circuit worker provider notified.
[2021-05-17 06:00] VITALS: BP 139/87; PULSE 73; RESP 18; TEMP 36; O2SAT 100
[2021-05-17] MEDS: Finasteride 5 MG TABLET PO (07:34)
[2021-05-17 09:24] VITALS: BP 113/85; PULSE 74
[2021-05-17] MEDS: amLODIPine Besylate 5 MG TABLET PO (09:24)
[2021-05-17] MEDS: Milk of Magnesia 30 ML ORAL.SUSP PO (09:24)
[2021-05-17 09:25] VITALS: BP 113/85; PULSE 74
[2021-05-17] MEDS: Docusate Sodium 100 MG CAPSULE PO (09:25)
[2021-05-17] MEDS: Gabapentin 300 MG CAPSULE PO ×3 (09:25→20:54)
[2021-05-17] MEDS: lisinopriL 20 MG TABLET PO (09:25)
[2021-05-17] MEDS: Ibuprofen 800 MG TABLET PO ×2 (09:26→17:44)
[2021-05-17] MEDS: polyethylene glycoL 3350 17 GM POWD.PACK PO (09:27)
--- NOTE | 2021-05-17 10:47 | PC.NURSE ---
Patient is alert and oriented x3 with paranoid thought content related to situation. Patient states, Everything was fine till that ammy gave me medication to make my groin go numb. I can't feel it anymore. It's not working. You don't believe me do you? Patient states he believes overnight staff intentionally gave him the wrong medications without documenting them to hinder his medical progress. It should be noted, overnight staff were all new to Patient. Seven is resistant to engaging in activities of self care, requiring staff encouragement to begin. He is resistant to taking medications due to paranoid thought content that staff are trying to poison him. Patient states, I'm getting worse. I'm not getting better! It's not going to work anyway! Patient continues to be isolative to self and room and perseverative on negative thoughts of not getting better. Overnight RN reports Urine Retention. Bladder Scanned at 5am for 500 ml. Patient voided 350 ml at 10:30am.
--- NOTE | 2021-05-17 13:26 | P.PNPSI_ITS ---
Subjective Subjective Date of Service: 05/17/21 Reason For Visit: Altered mental status Interim History: The patient reported that he has been feeling worse, nothing helps . He is awake and alert but very dysphoric and anxious, very perseverative. He stated that he is retaining urine. Mental Status Exam Mental Status Exam Patient Appearance: Well Grooomed Patient Orientation: Person Level of Consciousness: Awake and Restless Patient Behavior: Passive Mood Description: Withdrawn Affect Description: Labile Patient Cognition Impaired: No Ability to Follow Directions: Fair Speech Pattern: Clear Hallucinations: None Delusions: Paranoid Ideation Thought Process: Incoherent and Evasive Thought Content: positive for Disoriented Judgement: Fair Diagnostics Vital Signs (24Hr): Vital Signs - 24 hr 05/16/21 18:00 05/17/21 06:00 05/17/21 09:24 Temperature 98.3 F 96.8 F Pulse Rate 86 73 74 Respiratory Rate 18 Blood Pressure 156/79 H 139/87 113/85 Pulse Oximetry 97 100 05/17/21 09:25 Temperature Pulse Rate 74 Respiratory Rate Blood Pressure 113/85 Pulse Oximetry Body Mass Index 24.5 Labs Results: 05/09/21 12:54 05/09/21 12:54 Imaging Radiology Impressions: ITS Impressions Abdomen/Pelvis CT 04/22/21 12:16 IMPRESSION: Mild prostatomegaly with moderate central gland calcification.. The periprostatic fat planes are hazy. The bladder is undistended with a Gonzalez's catheter within. Head CT 04/25/21 10:48 IMPRESSION: No acute intracranial hemorrhage or territorial infarction. Chest X-Ray 04/27/21 11:37 IMPRESSION: No evidence for acute disease in the chest. No foreign body seen. KUB X-Ray 05/02/21 10:19 IMPRESSION: Constipation. No evidence of obstruction. Medications Medications Current Medications Generic Name Dose Route Start Last Admin Trade Name Freq PRN Reason Stop Dose Admin Acetaminophen 650 mg 04/22/21 17:58 05/16/21 16:15 Acetaminophen 325 Mg Tablet PO 650 mg Q4H PRN Administration Pain Al Hydroxide/Mg Hydroxide 30 ml 04/23/21 14:17 Magnesium Hydrox/Alum Hydrox 30 Ml Oral.Susp PO Q6H PRN Heartburn/Nausea Amlodipine Besylate 5 mg 04/22/21 18:00 07/27/21 09:24 Amlodipine Besylate 5 Mg Tablet PO 5 mg DAILY MITRA Administration Protocol Clonazepam 1 mg 05/08/21 21:00 05/16/21 21:27 Clonazepam 1 Mg Tablet PO 1 mg BEDTIME MITRA Administration Docusate Sodium 100 mg 04/22/21 17:58 05/17/21 09:25 Docusate Sodium 100 Mg Capsule PO 100 mg DAILY PRN Administration constipation Enoxaparin Sodium 40 mg 04/26/21 18:00 05/16/21 17:32 Enoxaparin Sodium 40 Mg/0.4 Ml Syringe SUBCUT Not Given Q24H MITRA Finasteride 5 mg 04/26/21 11:15 05/17/21 07:34 Finasteride 5 Mg Tablet PO 5 mg DAILY MITRA Administration Gabapentin 300 mg 05/16/21 15:00 05/17/21 09:25 Gabapentin 300 Mg Capsule PO 300 mg TID MITRA Administration Ibuprofen 800 mg 04/24/21 12:30 05/17/21 09:26 Ibuprofen 800 Mg Tablet PO 800 mg TIDWM MITRA Administration Lisinopril 20 mg 04/22/21 18:00 05/17/21 09:25 Lisinopril 20 Mg Tablet PO 20 mg DAILY MITRA Administration Protocol Magnesium Hydroxide 30 ml 04/23/21 14:17 05/17/21 09:24 Milk Of Magnesia 30 Ml Oral.Susp PO 30 ml DAILY PRN Administration Constipation Polyethylene Glycol 17 gm 04/22/21 18:00 05/17/21 09:27 Polyethylene Glycol 3350 17 Gm Powd.Pack PO 17 gm DAILY MITRA Administration Quetiapine Fumarate 300 mg 05/08/21 21:00 05/16/21 21:27 Quetiapine Fumarate 100 Mg Tablet PO 300 mg BEDTIME MITRA Administration Quetiapine Fumarate 200 mg 05/14/21 15:00 05/17/21 09:26 Quetiapine Fumarate 200 Mg Tablet PO Not Given BID@0800,1500 [facility] Sodium Biphosphate/Sodium Phosphate 133 ml 05/07/21 10:10 05/13/21 11:20 Sodium Phosphate,[place]-Dibasic 133 Ml Enema [place] 133 ml ONCE PRN Administration Constipation Tamsulosin HCl 0.4 mg 04/23/21 21:00 05/16/21 21:27 Tamsulosin Hcl 0.4 Mg Capsule PO 0.4 mg BEDTIME MITRA Administration Allergies Allergies Allergy/AdvReac Type Severity Reaction Status Date / Time atorvastatin [From LIPITOR] Allergy Intermediate ELEVATED Verified 04/24/21 19:53 LIVER ENZYMES Assessment & Plan Assessment & Plan (1) Urinary retention with incomplete bladder emptying: Status: Acute Code(s): R33.9 - Retention of urine, unspecified (2) Bipolar 1 disorder: Status: Acute Code(s): F31.9 - Bipolar disorder, unspecified (3) Catatonia: Status: Acute Code(s): F06.1 - Catatonic disorder due to known physiological condition Assessment and Plan: no changes to evaluation and treatment plan as per primary team on 05/16/2021- did adjust Seroquel dosing for/clarify orders so 200 mg morning and afternoon and 300 mg at bedtime; otherwise noted gabapentin for anxiety and chronic pain. Plan: Mg Citrate for constipation. bladder scan. Change to Seroquel XR 400 MG AT HS and 300 mg at hs REst the same. Greater than 50% of the session was spent on counseling and/or coordination of care Reason for contiued inpatient stay Substantial Risk for: inability to function, rapid decompensation and med/psych decompensation
[2021-05-17] MEDS: Magnesium Citrate 300 ML SOLUTION PO (14:22)
[2021-05-17] MEDS: clonazePAM 0.5 MG TABLET PO (14:49)
[2021-05-17] MEDS: Sodium Phosphate,Mono-Dibasic 133 ML ENEMA PR (17:44)
[2021-05-17 18:00] VITALS: BP 135/89; PULSE 77; RESP 16; TEMP 36.1; O2SAT 96
[2021-05-17] MEDS: QUEtiapine Fumarate 100 MG TABLET 300 MG PO (20:54)
[2021-05-17] MEDS: clonazePAM 1 MG TABLET PO (20:54)
[2021-05-17] MEDS: Tamsulosin HCL 0.4 MG CAPSULE PO (20:54)
[2021-05-18 06:00] VITALS: BP 90/58; PULSE 57; RESP 18; TEMP 36.3; O2SAT 96
[2021-05-18] MEDS: Gabapentin 300 MG CAPSULE PO (08:15)
[2021-05-18] MEDS: Ibuprofen 800 MG TABLET PO ×3 (08:16→16:47)
[2021-05-18] MEDS: polyethylene glycoL 3350 17 GM POWD.PACK PO (08:16)
[2021-05-18] MEDS: Finasteride 5 MG TABLET PO (08:16)
[2021-05-18 08:19] VITALS: BP 107/77; PULSE 75
[2021-05-18] MEDS: lisinopriL 20 MG TABLET PO (08:19)
[2021-05-18] MEDS: amLODIPine Besylate 5 MG TABLET PO (08:23)
[2021-05-18] MEDS: clonazePAM 0.5 MG TABLET PO (08:28)
--- NOTE | 2021-05-18 11:17 | HO.PSYCHPN ---
Subjective Subjective Date of Service: 05/18/21 Reason For Visit: Altered mental status Interim History: Seven has been very negative, stating that he is getting worse but he is much better, catatonia has been resolved but he is depressed and with pains and aches all over his body. I explained that he is doing much better, he is able to urinate by himself and he doesn't need a straight cath Mental Status Exam Mental Status Exam Patient Appearance: Well Grooomed Patient Orientation: Person and Place Level of Consciousness: Awake and Restless Patient Behavior: Suspicious and Avoidant Mood Description: Depressed Affect Description: Constricted Patient Cognition Impaired: No Ability to Follow Directions: Fair Speech Pattern: Clear Memory Description: Recent Impaired Hallucinations: None Delusions: Not Present Thought Process: Slowed Thinking Thought Content: positive for Obsessional Thoughts Judgement: Fair Diagnostics Vital Signs (24Hr): Vital Signs - 24 hr 05/17/21 18:00 05/18/21 06:00 05/18/21 08:19 Temperature 97.0 F 97.3 F Pulse Rate 77 57 75 Respiratory Rate 16 18 Blood Pressure 135/89 90/58 L 107/77 Pulse Oximetry 96 96 Body Mass Index 24.5 Labs Results: 05/09/21 12:54 05/09/21 12:54 Imaging Radiology Impressions: ITS Impressions Abdomen/Pelvis CT 04/22/21 12:16 IMPRESSION: Mild prostatomegaly with moderate central gland calcification.. The periprostatic fat planes are hazy. The bladder is undistended with a Gonzalez's catheter within. Head CT 04/25/21 10:48 IMPRESSION: No acute intracranial hemorrhage or territorial infarction. Chest X-Ray 04/27/21 11:37 IMPRESSION: No evidence for acute disease in the chest. No foreign body seen. KUB X-Ray 05/02/21 10:19 IMPRESSION: Constipation. No evidence of obstruction. Medications Medications Current Medications Generic Name Dose Route Start Last Admin Trade Name Freq PRN Reason Stop Dose Admin Acetaminophen 650 mg 04/22/21 17:58 05/16/21 16:15 Acetaminophen 325 Mg Tablet PO 650 mg Q4H PRN Administration Pain Al Hydroxide/Mg Hydroxide 30 ml 04/23/21 14:17 Magnesium Hydrox/Alum Hydrox 30 Ml Oral.Susp PO Q6H PRN Heartburn/Nausea Amlodipine Besylate 5 mg 04/22/21 18:00 05/18/21 08:23 Amlodipine Besylate 5 Mg Tablet PO 5 mg DAILY MITRA Administration Protocol Clonazepam 1 mg 05/08/21 21:00 05/17/21 20:54 Clonazepam 1 Mg Tablet PO 1 mg BEDTIME MITRA Administration Clonazepam 0.5 mg 05/17/21 15:52 05/18/21 08:28 Clonazepam 0.5 Mg Tablet PO 0.5 mg TID PRN Administration Anxiety Docusate Sodium 100 mg 04/22/21 17:58 05/17/21 09:25 Docusate Sodium 100 Mg Capsule PO 100 mg DAILY PRN Administration constipation Finasteride 5 mg 04/26/21 11:15 05/18/21 08:16 Finasteride 5 Mg Tablet PO 5 mg DAILY MITRA Administration Gabapentin 400 mg 05/18/21 15:00 Gabapentin 400 Mg Capsule PO TID MITRA Ibuprofen 800 mg 04/24/21 12:30 05/18/21 08:16 Ibuprofen 800 Mg Tablet PO 800 mg TIDWM MITRA Administration Lisinopril 20 mg 04/22/21 18:00 05/18/21 08:19 Lisinopril 20 Mg Tablet PO 20 mg DAILY MITRA Administration Protocol Magnesium Hydroxide 30 ml 04/23/21 14:17 05/17/21 09:24 Milk Of Magnesia 30 Ml Oral.Susp PO 30 ml DAILY PRN Administration Constipation Polyethylene Glycol 17 gm 04/22/21 18:00 05/18/21 08:16 Polyethylene Glycol 3350 17 Gm Powd.Pack PO 17 gm DAILY MITRA Administration Quetiapine Fumarate 300 mg 05/08/21 21:00 05/17/21 20:54 Quetiapine Fumarate 100 Mg Tablet PO 300 mg BEDTIME MITRA Administration Sodium Biphosphate/Sodium Phosphate 133 ml 05/07/21 10:10 05/17/21 17:44 Sodium Phosphate,[place]-Dibasic 133 Ml Enema [place] 133 ml ONCE PRN Administration Constipation Tamsulosin HCl 0.4 mg 04/23/21 21:00 05/17/21 20:54 Tamsulosin Hcl 0.4 Mg Capsule PO 0.4 mg BEDTIME MITRA Administration Allergies Allergies Allergy/AdvReac Type Severity Reaction Status Date / Time atorvastatin [From LIPITOR] Allergy Intermediate ELEVATED Verified 04/24/21 19:53 LIVER ENZYMES Assessment & Plan Assessment & Plan (1) Urinary retention with incomplete bladder emptying: Status: Acute Code(s): R33.9 - Retention of urine, unspecified (2) Bipolar 1 disorder: Status: Acute Code(s): F31.9 - Bipolar disorder, unspecified (3) Catatonia: Status: Acute Code(s): F06.1 - Catatonic disorder due to known physiological condition Assessment and Plan: no changes to evaluation and treatment plan as per primary team on 05/16/2021- did adjust Seroquel dosing for/clarify orders so 200 mg morning and afternoon and 300 mg at bedtime; otherwise noted gabapentin for anxiety and chronic pain. Plan: Mg Citrate for constipation. bladder scan. Increase Gabapenitn up to 400 mg po tid Instead of Ativan, Klonopin PRN REst the same Greater than 50% of the session was spent on counseling and/or coordination of care Reason for contiued inpatient stay Substantial Risk for: inability to function, rapid decompensation and med/psych decompensation
[2021-05-18] MEDS: Gabapentin 400 MG CAPSULE PO ×2 (15:21→21:00)
[2021-05-18 17:44] VITALS: BP 118/69; PULSE 75; RESP 16; TEMP 36.7; O2SAT 97
[2021-05-18] MEDS: clonazePAM 1 MG TABLET PO (21:00)
[2021-05-18] MEDS: QUEtiapine Fumarate 100 MG TABLET 300 MG PO (21:00)
[2021-05-18] MEDS: Tamsulosin HCL 0.4 MG CAPSULE PO (21:00)
[2021-05-19 07:00] VITALS: BMI 24.9
[2021-05-19] MEDS: Gabapentin 400 MG CAPSULE PO ×2 (08:32→20:39)
[2021-05-19] MEDS: Finasteride 5 MG TABLET PO (08:32)
[2021-05-19] MEDS: amLODIPine Besylate 5 MG TABLET PO (08:32)
[2021-05-19] MEDS: Ibuprofen 800 MG TABLET PO ×2 (08:32→19:39)
[2021-05-19] MEDS: lisinopriL 20 MG TABLET PO (08:33)
[2021-05-19] MEDS: polyethylene glycoL 3350 17 GM POWD.PACK PO (08:34)
--- NOTE | 2021-05-19 12:40 | HO.PSYCHPN ---
Subjective Subjective Date of Service: 05/19/21 Reason For Visit: Altered mental status Interim History: The patient has been able to void without the need of catheterization but he feels that he is worse. He remains paranoid and negative, but he is deambulating without help. Review of Systems Acute medical concerns: No Medical Review of Systems: unchanged Mental Status Exam Mental Status Exam Patient Appearance: Well Grooomed Patient Orientation: Person, Place and Situation Patient Behavior: Suspicious and Anxious Mood Description: Depressed Affect Description: Constricted Patient Cognition Impaired: No Ability to Follow Directions: Fair Speech Pattern: Delayed Hallucinations: None Delusions: Not Present Thought Process: Evasive and Slowed Thinking Thought Content: positive for Poverty of Content Depressive Symptoms: Increased Anxiety, Loss of Int. in Activity and Feelings of Worthlessness Judgement: Fair Diagnostics Vital Signs (24Hr): Vital Signs - 24 hr 05/18/21 17:44 Temperature 98.0 F Pulse Rate 75 Respiratory Rate 16 Blood Pressure 118/69 Pulse Oximetry 97 Body Mass Index 24.5 Labs Results: 05/09/21 12:54 05/09/21 12:54 Imaging Radiology Impressions: ITS Impressions Abdomen/Pelvis CT 04/22/21 12:16 IMPRESSION: Mild prostatomegaly with moderate central gland calcification.. The periprostatic fat planes are hazy. The bladder is undistended with a Gonzalez's catheter within. Head CT 04/25/21 10:48 IMPRESSION: No acute intracranial hemorrhage or territorial infarction. Chest X-Ray 04/27/21 11:37 IMPRESSION: No evidence for acute disease in the chest. No foreign body seen. KUB X-Ray 05/02/21 10:19 IMPRESSION: Constipation. No evidence of obstruction. Medications Medications Current Medications Generic Name Dose Route Start Last Admin Trade Name Freq PRN Reason Stop Dose Admin Acetaminophen 650 mg 04/22/21 17:58 05/16/21 16:15 Acetaminophen 325 Mg Tablet PO 650 mg Q4H PRN Administration Pain Al Hydroxide/Mg Hydroxide 30 ml 04/23/21 14:17 Magnesium Hydrox/Alum Hydrox 30 Ml Oral.Susp PO Q6H PRN Heartburn/Nausea Amlodipine Besylate 5 mg 04/22/21 18:00 05/19/21 08:32 Amlodipine Besylate 5 Mg Tablet PO 5 mg DAILY MITRA Administration Protocol Clonazepam 1 mg 05/08/21 21:00 05/18/21 21:00 Clonazepam 1 Mg Tablet PO 1 mg BEDTIME MITRA Administration Clonazepam 0.5 mg 05/17/21 15:52 05/18/21 08:28 Clonazepam 0.5 Mg Tablet PO 0.5 mg TID PRN Administration Anxiety Docusate Sodium 100 mg 04/22/21 17:58 05/17/21 09:25 Docusate Sodium 100 Mg Capsule PO 100 mg DAILY PRN Administration constipation Finasteride 5 mg 04/26/21 11:15 05/19/21 08:32 Finasteride 5 Mg Tablet PO 5 mg DAILY MITRA Administration Gabapentin 400 mg 05/18/21 15:00 05/19/21 08:32 Gabapentin 400 Mg Capsule PO 400 mg TID MITRA Administration Ibuprofen 800 mg 04/24/21 12:30 05/19/21 11:45 Ibuprofen 800 Mg Tablet PO Not Given TIDWM MITRA Lisinopril 20 mg 04/22/21 18:00 05/19/21 08:33 Lisinopril 20 Mg Tablet PO 20 mg DAILY MITRA Administration Protocol Magnesium Hydroxide 30 ml 04/23/21 14:17 05/17/21 09:24 Milk Of Magnesia 30 Ml Oral.Susp PO 30 ml DAILY PRN Administration Constipation Polyethylene Glycol 17 gm 04/22/21 18:00 05/19/21 08:34 Polyethylene Glycol 3350 17 Gm Powd.Pack PO 17 gm DAILY MITRA Administration Quetiapine Fumarate 300 mg 05/08/21 21:00 05/18/21 21:00 Quetiapine Fumarate 100 Mg Tablet PO 300 mg BEDTIME MITRA Administration Sodium Biphosphate/Sodium Phosphate 133 ml 05/07/21 10:10 05/17/21 17:44 Sodium Phosphate,[place]-Dibasic 133 Ml Enema [place] 133 ml ONCE PRN Administration Constipation Tamsulosin HCl 0.4 mg 04/23/21 21:00 05/18/21 21:00 Tamsulosin Hcl 0.4 Mg Capsule PO 0.4 mg BEDTIME MITRA Administration Allergies Allergies Allergy/AdvReac Type Severity Reaction Status Date / Time atorvastatin [From LIPITOR] Allergy Intermediate ELEVATED Verified 04/24/21 19:53 LIVER ENZYMES Assessment & Plan Assessment & Plan (1) Urinary retention with incomplete bladder emptying: Status: Acute Code(s): R33.9 - Retention of urine, unspecified (2) Bipolar 1 disorder: Status: Acute Code(s): F31.9 - Bipolar disorder, unspecified (3) Catatonia: Status: Acute Code(s): F06.1 - Catatonic disorder due to known physiological condition Assessment and Plan: no changes to evaluation and treatment plan as per primary team on 05/16/2021- did adjust Seroquel dosing for/clarify orders so 200 mg morning and afternoon and 300 mg at bedtime; otherwise noted gabapentin for anxiety and chronic pain. Plan: Mg Citrate for constipation. bladder scan. Keep Gabapenitn up to 400 mg po tid D/C Ativan, Klonopin PRN Abilify 5 mg po qam REst the same Greater than 50% of the session was spent on counseling and/or coordination of care Reason for contiued inpatient stay Substantial Risk for: inability to function, rapid decompensation and med/psych decompensation
[2021-05-19 18:00] VITALS: BP 132/68; PULSE 78; RESP 18; TEMP 36.6; O2SAT 93
[2021-05-19] MEDS: clonazePAM 1 MG TABLET PO (20:39)
[2021-05-19] MEDS: QUEtiapine Fumarate 100 MG TABLET 300 MG PO (20:39)
[2021-05-19] MEDS: Tamsulosin HCL 0.4 MG CAPSULE PO (20:39)
[2021-05-20 06:00] VITALS: BP 110/70; PULSE 59; RESP 18; TEMP 35.9; O2SAT 97
[2021-05-20] MEDS: Ibuprofen 800 MG TABLET PO ×2 (08:31→11:29)
[2021-05-20] MEDS: polyethylene glycoL 3350 17 GM POWD.PACK PO (08:31)
[2021-05-20 08:32] VITALS: BP 112/65; PULSE 64
[2021-05-20] MEDS: Gabapentin 400 MG CAPSULE PO ×3 (08:32→20:54)
[2021-05-20] MEDS: Finasteride 5 MG TABLET PO (08:32)
[2021-05-20] MEDS: lisinopriL 20 MG TABLET PO (08:32)
[2021-05-20] MEDS: amLODIPine Besylate 5 MG TABLET PO (08:32)
[2021-05-20] MEDS: ARIPiprazole 5 MG TABLET PO (11:51)
--- NOTE | 2021-05-20 13:21 | HO.PSYCHPN ---
Subjective Subjective Date of Service: 05/20/21 Reason For Visit: Altered mental status Interim History: The patient remains negative and stating that nothing gets better , even though, he is urinating by himself, probably he had a BM. Still dysphoric with some delayed response Review of Systems Acute medical concerns: No Medical Review of Systems: unchanged Mental Status Exam Mental Status Exam Patient Appearance: Well Grooomed Patient Orientation: Person, Place and Situation Level of Consciousness: Awake Patient Behavior: Passive and Suspicious Mood Description: Withdrawn and Sad Affect Description: Constricted and Depressed Patient Cognition Impaired: No Ability to Follow Directions: Fair Speech Pattern: Monotone Hallucinations: None Delusions: Not Present Thought Process: Slowed Thinking Thought Content: positive for Perseveration and positive for Poverty of Content Judgement: Fair Diagnostics Vital Signs (24Hr): Vital Signs - 24 hr 05/19/21 18:00 05/20/21 06:00 05/20/21 08:32 Temperature 97.8 F 96.6 F L Pulse Rate 78 59 64 Respiratory Rate 18 18 Blood Pressure 132/68 110/70 112/65 Pulse Oximetry 93 97 Body Mass Index 24.9 Labs Results: 05/09/21 12:54 05/09/21 12:54 Imaging Radiology Impressions: ITS Impressions Abdomen/Pelvis CT 04/22/21 12:16 IMPRESSION: Mild prostatomegaly with moderate central gland calcification.. The periprostatic fat planes are hazy. The bladder is undistended with a Gonzalez's catheter within. Head CT 04/25/21 10:48 IMPRESSION: No acute intracranial hemorrhage or territorial infarction. Chest X-Ray 04/27/21 11:37 IMPRESSION: No evidence for acute disease in the chest. No foreign body seen. KUB X-Ray 05/02/21 10:19 IMPRESSION: Constipation. No evidence of obstruction. Medications Medications Current Medications Generic Name Dose Route Start Last Admin Trade Name Freq PRN Reason Stop Dose Admin Acetaminophen 650 mg 04/22/21 17:58 05/16/21 16:15 Acetaminophen 325 Mg Tablet PO 650 mg Q4H PRN Administration Pain Al Hydroxide/Mg Hydroxide 30 ml 04/23/21 14:17 Magnesium Hydrox/Alum Hydrox 30 Ml Oral.Susp PO Q6H PRN Heartburn/Nausea Amlodipine Besylate 5 mg 04/22/21 18:00 05/20/21 08:32 Amlodipine Besylate 5 Mg Tablet PO 5 mg DAILY MITRA Administration Protocol Aripiprazole 5 mg 05/21/21 09:00 Aripiprazole 5 Mg Tablet PO DAILY MITRA Clonazepam 1 mg 05/08/21 21:00 05/19/21 20:39 Clonazepam 1 Mg Tablet PO 1 mg BEDTIME MITRA Administration Clonazepam 0.5 mg 05/17/21 15:52 05/18/21 08:28 Clonazepam 0.5 Mg Tablet PO 0.5 mg TID PRN Administration Anxiety Docusate Sodium 100 mg 04/22/21 17:58 05/17/21 09:25 Docusate Sodium 100 Mg Capsule PO 100 mg DAILY PRN Administration constipation Finasteride 5 mg 04/26/21 11:15 05/20/21 08:32 Finasteride 5 Mg Tablet PO 5 mg DAILY MITRA Administration Gabapentin 400 mg 05/18/21 15:00 05/20/21 08:32 Gabapentin 400 Mg Capsule PO 400 mg TID MITRA Administration Ibuprofen 800 mg 04/24/21 12:30 05/20/21 11:29 Ibuprofen 800 Mg Tablet PO 800 mg TIDWM MTIRA Administration Lisinopril 20 mg 04/22/21 18:00 05/20/21 08:32 Lisinopril 20 Mg Tablet PO 20 mg DAILY MITRA Administration Protocol Magnesium Hydroxide 30 ml 04/23/21 14:17 05/17/21 09:24 Milk Of Magnesia 30 Ml Oral.Susp PO 30 ml DAILY PRN Administration Constipation Polyethylene Glycol 17 gm 04/22/21 18:00 05/20/21 08:31 Polyethylene Glycol 3350 17 Gm Powd.Pack PO 17 gm DAILY MITRA Administration Quetiapine Fumarate 300 mg 05/08/21 21:00 05/19/21 20:39 Quetiapine Fumarate 100 Mg Tablet PO 300 mg BEDTIME MITRA Administration Sodium Biphosphate/Sodium Phosphate 133 ml 05/07/21 10:10 05/17/21 17:44 Sodium Phosphate,[place]-Dibasic 133 Ml Enema [place] 133 ml ONCE PRN Administration Constipation Tamsulosin HCl 0.4 mg 04/23/21 21:00 05/19/21 20:39 Tamsulosin Hcl 0.4 Mg Capsule PO 0.4 mg BEDTIME MITRA Administration Allergies Allergies Allergy/AdvReac Type Severity Reaction Status Date / Time atorvastatin [From LIPITOR] Allergy Intermediate ELEVATED Verified 04/24/21 19:53 LIVER ENZYMES Assessment & Plan Assessment & Plan (1) Urinary retention with incomplete bladder emptying: Status: Acute Code(s): R33.9 - Retention of urine, unspecified (2) Bipolar 1 disorder: Status: Acute Code(s): F31.9 - Bipolar disorder, unspecified (3) Catatonia: Status: Acute Code(s): F06.1 - Catatonic disorder due to known physiological condition Assessment and Plan: no changes to evaluation and treatment plan as per primary team on 05/16/2021- did adjust Seroquel dosing for/clarify orders so 200 mg morning and afternoon and 300 mg at bedtime; otherwise noted gabapentin for anxiety and chronic pain. Plan: Mg Citrate for constipation. bladder scan. Keep Gabapenitn up to 400 mg po tid and keep Klonopin PRN Abilify 5 mg po qam REst the same Greater than 50% of the session was spent on counseling and/or coordination of care Reason for contiued inpatient stay Substantial Risk for: inability to function, rapid decompensation and med/psych decompensation
[2021-05-20] MEDS: Magnesium Citrate 300 ML SOLUTION PO (15:15)
[2021-05-20 16:03] VITALS: BP 116/80; PULSE 70; RESP 16; TEMP 36.5; O2SAT 100
[2021-05-20] MEDS: clonazePAM 1 MG TABLET PO (20:54)
[2021-05-20] MEDS: Tamsulosin HCL 0.4 MG CAPSULE PO (20:54)
[2021-05-20] MEDS: QUEtiapine Fumarate 100 MG TABLET 300 MG PO (20:54)
--- NOTE | 2021-05-21 03:44 | PC.NURSE ---
refusing bladder scan-oob to use bathroom. when this was reported to t/w patient was approached to do scan, pt refused and stated ''I'm urinating fine but I need to poop more''
[2021-05-21 09:13] VITALS: BP 125/71; PULSE 81; RESP 18; TEMP 36.7; O2SAT 100
[2021-05-21] MEDS: polyethylene glycoL 3350 17 GM POWD.PACK PO (09:15)
[2021-05-21 09:17] VITALS: BP 125/71; PULSE 84
[2021-05-21] MEDS: Docusate Sodium 100 MG CAPSULE PO (09:17)
[2021-05-21] MEDS: Ibuprofen 800 MG TABLET PO (09:17)
[2021-05-21] MEDS: clonazePAM 0.5 MG TABLET PO ×2 (09:17→16:52)
[2021-05-21] MEDS: Gabapentin 400 MG CAPSULE PO ×3 (09:17→21:14)
[2021-05-21] MEDS: ARIPiprazole 5 MG TABLET PO (09:17)
[2021-05-21] MEDS: amLODIPine Besylate 5 MG TABLET PO (09:17)
[2021-05-21 09:46] VITALS: BP 125/71; PULSE 81
[2021-05-21] MEDS: lisinopriL 20 MG TABLET PO (09:46)
[2021-05-21] MEDS: Finasteride 5 MG TABLET PO (09:47)
--- NOTE | 2021-05-21 16:19 | PC.NURSE ---
Patient is alert and oriented x 3. He is dressed in his own clothing with clean hygiene and ambulating independently without walker. Patient is working on independently managing toileting hygiene. Patient voices frustrations with having to ask for assistance. Patient reports pain 7/10 to his right hand; pins & needles feeling. Patient reports depression and anxiety 7/10 related to his bladder and bowel functioning; chronic constipation and fears surrounding urinary retention. Patient reports feeling like someone is mad at him several times throughout shift. Seven is assured by both staff and peers alike, that no one is mad at him. Patient denies SI/HI/AVH. Seven is isolated in room for morning hours. He participates in unit based activities throughout the afternoon, appropriately engaging with staff and peers.
--- NOTE | 2021-05-21 17:03 | PC.NURSE ---
Patient asks to speak with this advertising copy writer. Patient states I think I have brain damage. Patient states, I can't find my rhythm anymore. 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 This advertising copy writer discusses with patient having had a CT with a negative result and unsuccessful attempts for him to have an MRI. Patient worried something was missed.
[2021-05-21 17:45] VITALS: BP 131/77; PULSE 74; RESP 18; TEMP 37; O2SAT 99
[2021-05-21] MEDS: clonazePAM 1 MG TABLET PO (21:14)
[2021-05-21] MEDS: Tamsulosin HCL 0.4 MG CAPSULE PO (21:14)
[2021-05-21] MEDS: QUEtiapine Fumarate 100 MG TABLET 300 MG PO (21:14)
[2021-05-21] MEDS: Milk of Magnesia 30 ML ORAL.SUSP PO (21:15)
--- NOTE | 2021-05-21 23:47 | HO.PSYCHPN ---
Subjective Subjective Date of Service: 05/21/21 Reason For Visit: Altered mental status Interim History: Patient seen DW tem. Patient fixated on constipation. He was given MOM and had a BM but says it was small. He remains dysphoric. Denies SI Medication Compliance: Yes Side effects from medications: No Review of Systems Medical Review of Systems: unchanged Review of Systems Review of Systems unremarkable Yes all other systems are reviewed and are negative and Unobtainable due to mental status Constitutional: Denies chills and Denies fever(s) Eyes: Reports no additional eye complaints Reports system reviewed and no additional complaints, except as documented and Reports Normal hearing present Cardiovascular: Reports no additional cardiovascular complaints and Denies syncope Respiratory: Reports no additional respiratory complaints and Denies cough Gastrointestinal: Reports no additional gastrointestinal complaints, Denies abdominal pain and Denies heartburn Genitourinary: Reports no additional male genitourinary complaints, Reports as per HPI and Denies change in libido Musculoskeletal: Reports no additional musculoskeletal complaints Skin/Breast: Reports system reviewed and no additional complaints, except as docu Reports as per HPI, Reports Normal hearing present and Denies syncope Psychiatric: Reports as per HPI and Denies change in libido Endocrine: Reports no additional endocrine complaints and Denies change in libido Hematologic/Lymphatic: Reports no additional hematologic/lymphatic complaints Allergic/Immunologic: Reports no additional allergic/immunologic complaints Mental Status Exam Mental Status Exam Narrative: pleasant. Did engage in interview. Distressed by memory challenges. Difficulty with orientation, people's names and timeframe. Does not appear delirious. Has obvious psychomotor retardation. Likely depressed. No evidence of SI, HI or psychosis. Insight and judgment is limited Patient Appearance: Well Grooomed Patient Orientation: Person, Place and Situation Level of Consciousness: Awake Patient Behavior: Passive and Suspicious Mood Description: Withdrawn and Sad Affect Description: Constricted and Depressed Patient Cognition Impaired: No Ability to Follow Directions: Fair Speech Pattern: Monotone Memory Description: Recent Impaired Hallucinations: None Thought Process: Slowed Thinking Thought Content: positive for Hypochondriasis Depressive Symptoms: Increased Anxiety, Diff. Making Decisions, Changes in Appetite, Isolating-Friends/Family and Unhappiness Abnormal Motor Activity Signs and Symptoms: Psychomotor Retardation Judgement: Fair Diagnostics Vital Signs (24Hr): Vital Signs - 24 hr 05/21/21 09:13 05/21/21 09:17 05/21/21 09:46 Temperature 98.1 F Pulse Rate 81 84 81 Respiratory Rate 18 Blood Pressure 125/71 125/71 125/71 Pulse Oximetry 100 05/21/21 17:45 Temperature 98.6 F Pulse Rate 74 Respiratory Rate 18 Blood Pressure 131/77 Pulse Oximetry 99 Body Mass Index 24.9 Labs Results: 05/09/21 12:54 05/09/21 12:54 Imaging Radiology Impressions: ITS Impressions Abdomen/Pelvis CT 04/22/21 12:16 IMPRESSION: Mild prostatomegaly with moderate central gland calcification.. The periprostatic fat planes are hazy. The bladder is undistended with a Gonzalez's catheter within. Head CT 04/25/21 10:48 IMPRESSION: No acute intracranial hemorrhage or territorial infarction. Chest X-Ray 04/27/21 11:37 IMPRESSION: No evidence for acute disease in the chest. No foreign body seen. KUB X-Ray 05/02/21 10:19 IMPRESSION: Constipation. No evidence of obstruction. Medications Medications Current Medications Generic Name Dose Route Start Last Admin Trade Name Freq PRN Reason Stop Dose Admin Acetaminophen 650 mg 04/22/21 17:58 05/16/21 16:15 Acetaminophen 325 Mg Tablet PO 650 mg Q4H PRN Administration Pain Al Hydroxide/Mg Hydroxide 30 ml 04/23/21 14:17 Magnesium Hydrox/Alum Hydrox 30 Ml Oral.Susp PO Q6H PRN Heartburn/Nausea Amlodipine Besylate 5 mg 04/22/21 18:00 05/21/21 09:17 Amlodipine Besylate 5 Mg Tablet PO 5 mg DAILY MITRA Administration Protocol Aripiprazole 5 mg 05/21/21 09:00 05/21/21 09:17 Aripiprazole 5 Mg Tablet PO 5 mg DAILY MITRA Administration Clonazepam 1 mg 05/08/21 21:00 05/21/21 21:14 Clonazepam 1 Mg Tablet PO 1 mg BEDTIME MITRA Administration Clonazepam 0.5 mg 05/17/21 15:52 05/21/21 16:52 Clonazepam 0.5 Mg Tablet PO 0.5 mg TID PRN Administration Anxiety Docusate Sodium 100 mg 04/22/21 17:58 05/21/21 09:17 Docusate Sodium 100 Mg Capsule PO 100 mg DAILY PRN Administration constipation Finasteride 5 mg 04/26/21 11:15 05/21/21 09:47 Finasteride 5 Mg Tablet PO 5 mg DAILY MITRA Administration Gabapentin 400 mg 05/18/21 15:00 05/21/21 21:14 Gabapentin 400 Mg Capsule PO 400 mg TID MITRA Administration Ibuprofen 800 mg 04/24/21 12:30 05/21/21 17:03 Ibuprofen 800 Mg Tablet PO Not Given TIDWM MITRA Lisinopril 20 mg 04/22/21 18:00 05/21/21 09:46 Lisinopril 20 Mg Tablet PO 20 mg DAILY MITRA Administration Protocol Magnesium Hydroxide 30 ml 04/23/21 14:17 05/21/21 21:15 Milk Of Magnesia 30 Ml Oral.Susp PO 30 ml DAILY PRN Administration Constipation Polyethylene Glycol 17 gm 04/22/21 18:00 05/21/21 09:15 Polyethylene Glycol 3350 17 Gm Powd.Pack PO 17 gm DAILY MITRA Administration Quetiapine Fumarate 300 mg 05/08/21 21:00 05/21/21 21:14 Quetiapine Fumarate 100 Mg Tablet PO 300 mg BEDTIME MITRA Administration Sodium Biphosphate/Sodium Phosphate 133 ml 05/07/21 10:10 05/17/21 17:44 Sodium Phosphate,[place]-Dibasic 133 Ml Enema [place] 133 ml ONCE PRN Administration Constipation Tamsulosin HCl 0.4 mg 04/23/21 21:00 05/21/21 21:14 Tamsulosin Hcl 0.4 Mg Capsule PO 0.4 mg BEDTIME MITRA Administration Allergies Allergies Allergy/AdvReac Type Severity Reaction Status Date / Time atorvastatin [From LIPITOR] Allergy Intermediate ELEVATED Verified 04/24/21 19:53 LIVER ENZYMES Assessment & Plan Assessment & Plan (1) Urinary retention with incomplete bladder emptying: Status: Acute Code(s): R33.9 - Retention of urine, unspecified (2) Bipolar 1 disorder: Status: Acute Code(s): F31.9 - Bipolar disorder, unspecified (3) Catatonia: Status: Acute Code(s): F06.1 - Catatonic disorder due to known physiological condition Assessment and Plan: no changes to evaluation and treatment plan as per primary team Plan: Mg Citrate for constipation. bladder scan. Keep Gabapenitn up to 400 mg po tid and keep Klonopin PRN Abilify 5 mg po qam REst the same Greater than 50% of the session was spent on counseling and/or coordination of care Reason for contiued inpatient stay Substantial Risk for: inability to function
[2021-05-22 09:00] VITALS: BP 103/65; PULSE 90; RESP 18; TEMP 36.9; O2SAT 99
[2021-05-22] MEDS: Ibuprofen 800 MG TABLET PO ×2 (09:02→16:28)
[2021-05-22 09:03] VITALS: BP 103/65; PULSE 90
[2021-05-22] MEDS: polyethylene glycoL 3350 17 GM POWD.PACK PO (09:03)
[2021-05-22] MEDS: lisinopriL 20 MG TABLET PO (09:03)
[2021-05-22] MEDS: Finasteride 5 MG TABLET PO (09:03)
[2021-05-22] MEDS: Docusate Sodium 100 MG CAPSULE PO (09:03)
[2021-05-22 09:04] VITALS: BP 103/65; PULSE 90
[2021-05-22] MEDS: ARIPiprazole 5 MG TABLET PO (09:04)
[2021-05-22] MEDS: amLODIPine Besylate 5 MG TABLET PO (09:04)
[2021-05-22] MEDS: Gabapentin 400 MG CAPSULE PO ×3 (09:04→21:46)
[2021-05-22] MEDS: clonazePAM 0.5 MG TABLET PO ×2 (09:04→14:27)
[2021-05-22] MEDS: Sodium Phosphate,Mono-Dibasic 133 ML ENEMA PR (09:54)
[2021-05-22 13:42] LABS: Glucose, Whole Blood 181 mg/dL (60-115)
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
[2021-05-22 18:00] VITALS: BP 110/66; PULSE 55; RESP 16; TEMP 36.6; O2SAT 99
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
[2021-05-22] MEDS: Tamsulosin HCL 0.4 MG CAPSULE PO (21:46)
[2021-05-22] MEDS: QUEtiapine Fumarate 100 MG TABLET 300 MG PO (21:46)
[2021-05-22] MEDS: clonazePAM 1 MG TABLET PO (21:46)
[2021-05-23 06:00] VITALS: BP 106/66; PULSE 61; TEMP 36.6; O2SAT 96
--- NOTE | 2021-05-23 08:07 | P.PNPSI_ITS ---
Subjective Subjective Date of Service: 05/23/21 Reason For Visit: Altered mental status Subjective Notes: Conditional Voluntary Interim History: The patient is verbal but he still complaints of constipation. We will follow his BM schedule and increase his medication management. No side effects wtih Abilify 5 mg, we will increase up to 10 mg. Mental Status Exam Mental Status Exam Patient Appearance: Well Grooomed Patient Orientation: Person, Place, Time and Situation Level of Consciousness: Awake Patient Behavior: Cooperative and Timid Mood Description: Withdrawn Affect Description: Constricted Patient Cognition Impaired: No Ability to Follow Directions: Fair Speech Pattern: Clear Memory Description: Intact Hallucinations: None Delusions: Not Present Thought Process: Slowed Thinking Thought Content: positive for [place] and positive for Circumstantial Judgement: Fair Diagnostics Vital Signs (24Hr): Vital Signs - 24 hr 05/22/21 09:00 05/22/21 09:03 05/22/21 09:04 Temperature 98.4 F Pulse Rate 90 90 90 Respiratory Rate 18 Blood Pressure 103/65 103/65 103/65 Pulse Oximetry 99 05/22/21 18:00 05/23/21 06:00 Temperature 97.8 F 97.9 F Pulse Rate 55 61 Respiratory Rate 16 Blood Pressure 110/66 106/66 Pulse Oximetry 99 96 Body Mass Index 24.9 Labs Results: 05/09/21 12:54 05/09/21 12:54 Labs: Laboratory Results - last 48 hr 05/22/21 13:35 POC Glucose 181 H Imaging Radiology Impressions: ITS Impressions Abdomen/Pelvis CT 04/22/21 12:16 IMPRESSION: Mild prostatomegaly with moderate central gland calcification.. The periprostatic fat planes are hazy. The bladder is undistended with a Gonzalez's catheter within. Head CT 04/25/21 10:48 IMPRESSION: No acute intracranial hemorrhage or territorial infarction. Chest X-Ray 04/27/21 11:37 IMPRESSION: No evidence for acute disease in the chest. No foreign body seen. KUB X-Ray 05/02/21 10:19 IMPRESSION: Constipation. No evidence of obstruction. Medications Medications Current Medications Generic Name Dose Route Start Last Admin Trade Name Freq PRN Reason Stop Dose Admin Acetaminophen 650 mg 04/22/21 17:58 05/16/21 16:15 Acetaminophen 325 Mg Tablet PO 650 mg Q4H PRN Administration Pain Al Hydroxide/Mg Hydroxide 30 ml 07/03/21 14:17 Magnesium Hydrox/Alum Hydrox 30 Ml Oral.Susp PO Q6H PRN Heartburn/Nausea Amlodipine Besylate 5 mg 04/22/21 18:00 05/22/21 09:04 Amlodipine Besylate 5 Mg Tablet PO 5 mg DAILY MITRA Administration Protocol Aripiprazole 5 mg 05/21/21 09:00 05/22/21 09:04 Aripiprazole 5 Mg Tablet PO 5 mg DAILY MITRA Administration Clonazepam 1 mg 05/08/21 21:00 05/22/21 21:46 Clonazepam 1 Mg Tablet PO 1 mg BEDTIME MITRA Administration Docusate Sodium 100 mg 04/22/21 17:58 05/22/21 09:03 Docusate Sodium 100 Mg Capsule PO 100 mg DAILY PRN Administration constipation Finasteride 5 mg 04/26/21 11:15 05/22/21 09:03 Finasteride 5 Mg Tablet PO 5 mg DAILY MITRA Administration Gabapentin 400 mg 05/18/21 15:00 05/22/21 21:46 Gabapentin 400 Mg Capsule PO 400 mg TID MITRA Administration Ibuprofen 800 mg 04/24/21 12:30 05/22/21 16:28 Ibuprofen 800 Mg Tablet PO 800 mg TIDWM MITRA Administration Lisinopril 20 mg 04/22/21 18:00 05/22/21 09:03 Lisinopril 20 Mg Tablet PO 20 mg DAILY MITRA Administration Protocol Magnesium Hydroxide 30 ml 04/23/21 14:17 05/21/21 21:15 Milk Of Magnesia 30 Ml Oral.Susp PO 30 ml DAILY PRN Administration Constipation Polyethylene Glycol 17 gm 04/22/21 18:00 05/22/21 09:03 Polyethylene Glycol 3350 17 Gm Powd.Pack PO 17 gm DAILY MITRA Administration Quetiapine Fumarate 300 mg 05/08/21 21:00 05/22/21 21:46 Quetiapine Fumarate 100 Mg Tablet PO 300 mg BEDTIME MITRA Administration Sodium Biphosphate/Sodium Phosphate 133 ml 05/07/21 10:10 05/22/21 09:54 Sodium Phosphate,[place]-Dibasic 133 Ml Enema [place] 133 ml ONCE PRN Administration Constipation Tamsulosin HCl 0.4 mg 04/23/21 21:00 05/22/21 21:46 Tamsulosin Hcl 0.4 Mg Capsule PO 0.4 mg BEDTIME MITRA Administration Allergies Allergies Allergy/AdvReac Type Severity Reaction Status Date / Time atorvastatin [From LIPITOR] Allergy Intermediate ELEVATED Verified 04/24/21 19:53 LIVER ENZYMES Assessment & Plan Assessment & Plan (1) Urinary retention with incomplete bladder emptying: Status: Acute Code(s): R33.9 - Retention of urine, unspecified (2) Bipolar 1 disorder: Status: Acute Code(s): F31.9 - Bipolar disorder, unspecified (3) Catatonia: Status: Acute Code(s): F06.1 - Catatonic disorder due to known physiological condition Assessment and Plan: no changes to evaluation and treatment plan as per primary team Plan: Keep Gabapenitn up to 400 mg po tid and keep Klonopin PRN Increase Abilify up to 10 mg po qam Seroquel at bedtime 300 mg HS. Rest the same Greater than 50% of the session was spent on counseling and/or coordination of care Reason for contiued inpatient stay Substantial Risk for: inability to function, rapid decompensation and med/psych decompensation
[2021-05-23] MEDS: polyethylene glycoL 3350 17 GM POWD.PACK PO (08:19)
[2021-05-23 08:20] VITALS: BP 106/66; PULSE 61
[2021-05-23] MEDS: Docusate Sodium 100 MG CAPSULE PO ×2 (08:20→21:08)
[2021-05-23] MEDS: ARIPiprazole 5 MG TABLET PO ×2 (08:20→11:19)
[2021-05-23] MEDS: amLODIPine Besylate 5 MG TABLET PO (08:20)
[2021-05-23] MEDS: Finasteride 5 MG TABLET PO (08:20)
[2021-05-23 08:21] VITALS: BP 106/66; PULSE 61
[2021-05-23] MEDS: Ibuprofen 800 MG TABLET PO ×3 (08:21→17:05)
[2021-05-23] MEDS: Gabapentin 400 MG CAPSULE PO ×3 (08:21→21:22)
[2021-05-23] MEDS: lisinopriL 20 MG TABLET PO (08:21)
[2021-05-23] MEDS: Magnesium Citrate 300 ML SOLUTION PO (11:19)
[2021-05-23] MEDS: Sodium Phosphate,Mono-Dibasic 133 ML ENEMA PR (16:29)
[2021-05-23 18:00] VITALS: BP 116/70; PULSE 78; TEMP 36.7; O2SAT 97
[2021-05-23] MEDS: QUEtiapine Fumarate 100 MG TABLET 300 MG PO (21:08)
[2021-05-23] MEDS: Tamsulosin HCL 0.4 MG CAPSULE PO (21:08)
[2021-05-24] MEDS: Acetaminophen 325 MG TABLET 650 MG PO (02:18)
[2021-05-24 06:00] VITALS: BP 120/82; PULSE 61; RESP 18; TEMP 36.6; O2SAT 98
[2021-05-24] MEDS: Docusate Sodium 100 MG CAPSULE PO ×2 (10:11→21:08)
[2021-05-24] MEDS: ARIPiprazole 10 MG TABLET PO (10:12)
[2021-05-24] MEDS: Gabapentin 400 MG CAPSULE PO ×3 (10:12→21:09)
[2021-05-24] MEDS: Ibuprofen 800 MG TABLET PO ×2 (10:12→17:34)
[2021-05-24] MEDS: Finasteride 5 MG TABLET PO (10:14)
[2021-05-24 10:15] VITALS: BP 128/76; PULSE 76
[2021-05-24] MEDS: lisinopriL 20 MG TABLET PO (10:15)
[2021-05-24 10:17] VITALS: BP 128/76; PULSE 76
[2021-05-24] MEDS: amLODIPine Besylate 5 MG TABLET PO (10:17)
[2021-05-24] MEDS: polyethylene glycoL 3350 17 GM POWD.PACK PO (10:58)
[2021-05-24] MEDS: Hydrocortisone 2.5 % Rectal Cr 30 GM TUBE 1 APPL PR (11:08)
--- NOTE | 2021-05-24 14:04 | HO.PSYCHPN ---
Subjective Subjective Date of Service: 05/24/21 Reason For Visit: Altered mental status Interim History: The patient couldn't sleep last night even though that he had Seroquel 300 mg at hs. No side effects with Abilify 10 mg. He complained of stiff muscles and on exam there is EPS. Mental Status Exam Mental Status Exam Patient Appearance: Well Grooomed Patient Orientation: Person, Place and Time Level of Consciousness: Awake and Restless Patient Behavior: Cooperative and Passive Mood Description: Withdrawn Affect Description: Constricted Patient Cognition Impaired: No Ability to Follow Directions: Good Speech Pattern: Clear Memory Description: Intact Hallucinations: None Delusions: Not Present Thought Process: Distracted and Slowed Thinking Thought Content: positive for Perseveration and positive for Preoccupation Judgement: Fair Diagnostics Vital Signs (24Hr): Vital Signs - 24 hr 05/23/21 18:00 05/24/21 06:00 05/24/21 10:15 Temperature 98.1 F 97.8 F Pulse Rate 78 61 76 Respiratory Rate 18 Blood Pressure 116/70 120/82 128/76 Pulse Oximetry 97 98 05/24/21 10:17 Temperature Pulse Rate 76 Respiratory Rate Blood Pressure 128/76 Pulse Oximetry Body Mass Index 24.9 Labs Results: 05/09/21 12:54 05/09/21 12:54 Imaging Radiology Impressions: ITS Impressions Abdomen/Pelvis CT 04/22/21 12:16 IMPRESSION: Mild prostatomegaly with moderate central gland calcification.. The periprostatic fat planes are hazy. The bladder is undistended with a Gonzalez's catheter within. Head CT 04/25/21 10:48 IMPRESSION: No acute intracranial hemorrhage or territorial infarction. Chest X-Ray 04/27/21 11:37 IMPRESSION: No evidence for acute disease in the chest. No foreign body seen. KUB X-Ray 05/02/21 10:19 IMPRESSION: Constipation. No evidence of obstruction. Medications Medications Current Medications Generic Name Dose Route Start Last Admin Trade Name Freq PRN Reason Stop Dose Admin Acetaminophen 650 mg 04/22/21 17:58 05/24/21 02:18 Acetaminophen 325 Mg Tablet PO 650 mg Q4H PRN Administration Pain Al Hydroxide/Mg Hydroxide 30 ml 04/23/21 14:17 Magnesium Hydrox/Alum Hydrox 30 Ml Oral.Susp PO Q6H PRN Heartburn/Nausea Amlodipine Besylate 5 mg 04/22/21 18:00 05/24/21 10:17 Amlodipine Besylate 5 Mg Tablet PO 5 mg DAILY MITRA Administration Protocol Aripiprazole 10 mg 05/24/21 09:00 05/24/21 10:12 Aripiprazole 10 Mg Tablet PO 10 mg DAILY MITRA Administration Diazepam 2 mg 05/24/21 15:00 Diazepam 2 Mg Tablet PO TID MITRA Docusate Sodium 100 mg 05/23/21 21:00 05/24/21 10:11 Docusate Sodium 100 Mg Capsule PO 100 mg BID MITRA Administration Finasteride 5 mg 04/26/21 11:15 05/24/21 10:14 Finasteride 5 Mg Tablet PO 5 mg DAILY MITRA Administration Gabapentin 400 mg 05/18/21 15:00 05/24/21 10:12 Gabapentin 400 Mg Capsule PO 400 mg TID MITRA Administration Hydrocortisone 1 appl 05/23/21 21:00 05/24/21 11:08 Hydrocortisone 2.5 % Rectal Cr 30 Gm Tube [place] 1 appl BID MITRA Administration Ibuprofen 800 mg 04/24/21 12:30 05/24/21 10:12 Ibuprofen 800 Mg Tablet PO 800 mg TIDWM MITRA Administration Lisinopril 20 mg 04/22/21 18:00 05/24/21 10:15 Lisinopril 20 Mg Tablet PO 20 mg DAILY MITRA Administration Protocol Magnesium Hydroxide 30 ml 04/23/21 14:17 05/21/21 21:15 Milk Of Magnesia 30 Ml Oral.Susp PO 30 ml DAILY PRN Administration Constipation Polyethylene Glycol 17 gm 04/22/21 18:00 05/24/21 10:58 Polyethylene Glycol 3350 17 Gm Powd.Pack PO 17 gm DAILY MITRA Administration Quetiapine Fumarate 300 mg 05/08/21 21:00 05/23/21 21:08 Quetiapine Fumarate 100 Mg Tablet PO 300 mg BEDTIME MITRA Administration Sodium Biphosphate/Sodium Phosphate 133 ml 05/07/21 10:10 05/22/21 09:54 Sodium Phosphate,[place]-Dibasic 133 Ml Enema [place] 133 ml ONCE PRN Administration Constipation Sodium Biphosphate/Sodium Phosphate 133 ml 05/23/21 14:03 05/23/21 16:29 Sodium Phosphate,[place]-Dibasic 133 Ml Enema [place] 133 ml ONCE PRN Administration Constipation Tamsulosin HCl 0.4 mg 04/23/21 21:00 05/23/21 21:08 Tamsulosin Hcl 0.4 Mg Capsule PO 0.4 mg BEDTIME MITRA Administration Allergies Allergies Allergy/AdvReac Type Severity Reaction Status Date / Time atorvastatin [From LIPITOR] Allergy Intermediate ELEVATED Verified 04/24/21 19:53 LIVER ENZYMES Assessment & Plan Assessment & Plan (1) Urinary retention with incomplete bladder emptying: Status: Acute Code(s): R33.9 - Retention of urine, unspecified (2) Bipolar 1 disorder: Status: Acute Code(s): F31.9 - Bipolar disorder, unspecified (3) Catatonia: Status: Acute Code(s): F06.1 - Catatonic disorder due to known physiological condition Assessment and Plan: no changes to evaluation and treatment plan as per primary team Plan: Keep Gabapenitn up to 400 mg po tid and D/C Klonopin PRN Keep Abilify 10 mg po qam Seroquel at bedtime 300 mg HS. Add Valium 2 mg po tid Rest the same Greater than 50% of the session was spent on counseling and/or coordination of care Reason for contiued inpatient stay Substantial Risk for: inability to function, rapid decompensation and med/psych decompensation
[2021-05-24] MEDS: diazePAM 2 MG TABLET PO ×2 (15:31→21:08)
[2021-05-24 18:00] VITALS: BP 133/89; PULSE 79; RESP 16; TEMP 36.5; O2SAT 99
[2021-05-24] MEDS: Tamsulosin HCL 0.4 MG CAPSULE PO (21:08)
[2021-05-24] MEDS: QUEtiapine Fumarate 100 MG TABLET 300 MG PO (21:09)
[2021-05-25 06:00] VITALS: BP 107/65; PULSE 64; RESP 18; TEMP 36.6; O2SAT 97
[2021-05-25 09:35] VITALS: BP 143/73; PULSE 70; TEMP 36.3; O2SAT 98
[2021-05-25 09:43] VITALS: BP 143/73; PULSE 70
[2021-05-25] MEDS: Finasteride 5 MG TABLET PO (09:43)
[2021-05-25] MEDS: amLODIPine Besylate 5 MG TABLET PO (09:43)
[2021-05-25] MEDS: Milk of Magnesia 30 ML ORAL.SUSP PO (09:43)
[2021-05-25] MEDS: Ibuprofen 800 MG TABLET PO ×3 (09:44→18:11)
[2021-05-25] MEDS: diazePAM 2 MG TABLET PO ×3 (09:44→20:43)
[2021-05-25] MEDS: Gabapentin 400 MG CAPSULE PO ×3 (09:44→20:44)
[2021-05-25] MEDS: ARIPiprazole 10 MG TABLET PO (09:44)
[2021-05-25] MEDS: Docusate Sodium 100 MG CAPSULE PO ×2 (09:45→20:43)
[2021-05-25] MEDS: lisinopriL 20 MG TABLET PO (09:45)
[2021-05-25] MEDS: polyethylene glycoL 3350 17 GM POWD.PACK PO (09:45)
[2021-05-25] MEDS: Hydrocortisone 2.5 % Rectal Cr 30 GM TUBE 1 APPL PR (09:56)
[2021-05-25] MEDS: diazePAM 5 MG TABLET PO (12:11)
--- NOTE | 2021-05-25 15:08 | HO.PSYCHPN ---
Subjective Subjective Date of Service: 05/25/21 Reason For Visit: Altered mental status Interim History: The patient remains obsessive with his bowel movements. He complained of constipation even though he has had a BM yesterday after Fleet enema. On physical exam, there is less EPS. Medication Compliance: Yes Side effects from medications: No Attending Groups: Intermittent Review of Systems Acute medical concerns: No Medical Review of Systems: unchanged Mental Status Exam Mental Status Exam Patient Appearance: Well Grooomed Patient Orientation: Person, Place and Situation Level of Consciousness: Awake and Follows Commands Patient Behavior: Appropriate and Cooperative Mood Description: Depressed and Apprehensive Affect Description: Constricted Patient Cognition Impaired: No Ability to Follow Directions: Good Speech Pattern: Clear and Spontaneous Speech Hallucinations: None Thought Process: Linear and Slowed Thinking Thought Content: positive for Perseveration and positive for Preoccupation Judgement: Fair Diagnostics Vital Signs (24Hr): Vital Signs - 24 hr 05/24/21 18:00 05/25/21 06:00 05/25/21 09:35 Temperature 97.7 F 97.8 F 97.3 F Pulse Rate 79 64 70 Respiratory Rate 16 18 Blood Pressure 133/89 107/65 143/73 H Pulse Oximetry 99 97 98 05/25/21 09:43 Temperature Pulse Rate 70 Respiratory Rate Blood Pressure 143/73 H Pulse Oximetry Body Mass Index 24.9 Labs Results: 05/09/21 12:54 05/09/21 12:54 Imaging Radiology Impressions: ITS Impressions Abdomen/Pelvis CT 04/22/21 12:16 IMPRESSION: Mild prostatomegaly with moderate central gland calcification.. The periprostatic fat planes are hazy. The bladder is undistended with a Gonzalez's catheter within. Head CT 04/25/21 10:48 IMPRESSION: No acute intracranial hemorrhage or territorial infarction. Chest X-Ray 04/27/21 11:37 IMPRESSION: No evidence for acute disease in the chest. No foreign body seen. KUB X-Ray 05/02/21 10:19 IMPRESSION: Constipation. No evidence of obstruction. Medications Medications Current Medications Generic Name Dose Route Start Last Admin Trade Name Freq PRN Reason Stop Dose Admin Acetaminophen 650 mg 04/22/21 17:58 05/24/21 02:18 Acetaminophen 325 Mg Tablet PO 650 mg Q4H PRN Administration Pain Al Hydroxide/Mg Hydroxide 30 ml 04/23/21 14:17 Magnesium Hydrox/Alum Hydrox 30 Ml Oral.Susp PO Q6H PRN Heartburn/Nausea Amlodipine Besylate 5 mg 04/22/21 18:00 05/25/21 09:43 Amlodipine Besylate 5 Mg Tablet PO 5 mg DAILY MITRA Administration Protocol Aripiprazole 15 mg 05/26/21 09:00 Aripiprazole 15 Mg Tablet PO DAILY MITRA Diazepam 2 mg 05/24/21 15:00 05/25/21 14:20 Diazepam 2 Mg Tablet PO 2 mg TID MITRA Administration Diazepam 5 mg 05/25/21 11:10 05/25/21 12:11 Diazepam 5 Mg Tablet PO 5 mg TID PRN Administration Anxiety Docusate Sodium 100 mg 05/23/21 21:00 05/25/21 09:45 Docusate Sodium 100 Mg Capsule PO 100 mg BID MITRA Administration Finasteride 5 mg 04/26/21 11:15 05/25/21 09:43 Finasteride 5 Mg Tablet PO 5 mg DAILY MITRA Administration Gabapentin 400 mg 05/18/21 15:00 05/25/21 14:20 Gabapentin 400 Mg Capsule PO 400 mg TID MITRA Administration Hydrocortisone 1 appl 05/23/21 21:00 05/25/21 09:56 Hydrocortisone 2.5 % Rectal Cr 30 Gm Tube [place] 1 appl BID MITRA Administration Ibuprofen 800 mg 04/24/21 12:30 05/25/21 14:18 Ibuprofen 800 Mg Tablet PO 800 mg TIDWM MITRA Administration Lisinopril 20 mg 04/22/21 18:00 05/25/21 09:45 Lisinopril 20 Mg Tablet PO 20 mg DAILY MITRA Administration Protocol Magnesium Hydroxide 30 ml 04/23/21 14:17 05/25/21 09:43 Milk Of Magnesia 30 Ml Oral.Susp PO 30 ml DAILY PRN Administration Constipation Polyethylene Glycol 17 gm 04/22/21 18:00 05/25/21 09:45 Polyethylene Glycol 3350 17 Gm Powd.Pack PO 17 gm DAILY MITRA Administration Quetiapine Fumarate 300 mg 05/08/21 21:00 05/24/21 21:09 Quetiapine Fumarate 100 Mg Tablet PO 300 mg BEDTIME MITRA Administration Sodium Biphosphate/Sodium Phosphate 133 ml 05/07/21 10:10 05/22/21 09:54 Sodium Phosphate,[place]-Dibasic 133 Ml Enema [place] 133 ml ONCE PRN Administration Constipation Sodium Biphosphate/Sodium Phosphate 133 ml 05/23/21 14:03 05/23/21 16:29 Sodium Phosphate,[place]-Dibasic 133 Ml Enema [place] 133 ml ONCE PRN Administration Constipation Tamsulosin HCl 0.4 mg 04/23/21 21:00 05/24/21 21:08 Tamsulosin Hcl 0.4 Mg Capsule PO 0.4 mg BEDTIME MITRA Administration Allergies Allergies Allergy/AdvReac Type Severity Reaction Status Date / Time atorvastatin [From LIPITOR] Allergy Intermediate ELEVATED Verified 04/24/21 19:53 LIVER ENZYMES Assessment & Plan Assessment & Plan (1) Urinary retention with incomplete bladder emptying: Status: Acute Code(s): R33.9 - Retention of urine, unspecified (2) Bipolar 1 disorder: Status: Acute Code(s): F31.9 - Bipolar disorder, unspecified (3) Catatonia: Status: Acute Code(s): F06.1 - Catatonic disorder due to known physiological condition Assessment and Plan: no changes to evaluation and treatment plan as per primary team Plan: Keep Gabapenitn up to 400 mg po tid and D/C Klonopin PRN Increase Abilify up to 15 mg mg po qam Seroquel at bedtime 300 mg HS. Add Valium 2 mg po tid Under volume 5 mg p.o. t.i.d. p.r.n. anxiety Rest the same Greater than 50% of the session was spent on counseling and/or coordination of care Reason for contiued inpatient stay Substantial Risk for: inability to function, rapid decompensation and med/psych decompensation
[2021-05-25 18:00] VITALS: BP 136/80; PULSE 68; RESP 18; TEMP 36.7; O2SAT 100
[2021-05-25] MEDS: QUEtiapine Fumarate 100 MG TABLET 300 MG PO (20:43)
[2021-05-25] MEDS: Tamsulosin HCL 0.4 MG CAPSULE PO (20:44)
[2021-05-26 06:00] VITALS: BP 100/60; PULSE 73; RESP 16; TEMP 36.2; O2SAT 97
[2021-05-26 07:00] VITALS: BMI 25.1
[2021-05-26] MEDS: Gabapentin 400 MG CAPSULE PO ×3 (09:54→20:41)
[2021-05-26] MEDS: Docusate Sodium 100 MG CAPSULE PO ×2 (09:55→20:40)
[2021-05-26] MEDS: ARIPiprazole 15 MG TABLET PO (09:55)
[2021-05-26] MEDS: Ibuprofen 800 MG TABLET PO ×3 (09:56→17:57)
[2021-05-26] MEDS: diazePAM 2 MG TABLET PO (09:56)
[2021-05-26 09:57] VITALS: BP 100/60; PULSE 73; PULSE 99
[2021-05-26] MEDS: amLODIPine Besylate 5 MG TABLET PO (09:57)
[2021-05-26] MEDS: lisinopriL 20 MG TABLET PO (09:57)
[2021-05-26] MEDS: Finasteride 5 MG TABLET PO (09:59)
[2021-05-26] MEDS: polyethylene glycoL 3350 17 GM POWD.PACK PO (10:22)
[2021-05-26] MEDS: Hydrocortisone 2.5 % Rectal Cr 30 GM TUBE 1 APPL PR ×2 (10:27→20:44)
--- NOTE | 2021-05-26 13:29 | HO.PSYCHPN ---
Subjective Subjective Date of Service: 05/26/21 Reason For Visit: Altered mental status Interim History: The patient remains obsessed with his BM and urination but so far, he is not obstructed. Staff has noticed that he is better with Valium 5 mg, no oversedation Review of Systems Acute medical concerns: No Medical Review of Systems: unchanged Mental Status Exam Mental Status Exam Patient Appearance: Well Grooomed Patient Orientation: Person, Place and Situation Level of Consciousness: Awake Patient Behavior: Appropriate and Guarded Mood Description: Suspicious and Withdrawn Affect Description: Depressed Patient Cognition Impaired: No Ability to Follow Directions: Good Speech Pattern: Clear Hallucinations: None Delusions: Not Present Thought Process: Distracted Thought Content: positive for Perseveration and positive for Poverty of Content Judgement: Fair Diagnostics Vital Signs (24Hr): Vital Signs - 24 hr 05/25/21 18:00 05/26/21 06:00 05/26/21 09:57 Temperature 98.1 F 97.1 F Pulse Rate 68 73 73 Respiratory Rate 18 16 Blood Pressure 136/80 100/60 100/60 Pulse Oximetry 100 97 Body Mass Index 25.1 Labs Results: 05/09/21 12:54 05/09/21 12:54 Imaging Radiology Impressions: ITS Impressions Abdomen/Pelvis CT 04/22/21 12:16 IMPRESSION: Mild prostatomegaly with moderate central gland calcification.. The periprostatic fat planes are hazy. The bladder is undistended with a Gonzalez's catheter within. Head CT 04/25/21 10:48 IMPRESSION: No acute intracranial hemorrhage or territorial infarction. Chest X-Ray 04/27/21 11:37 IMPRESSION: No evidence for acute disease in the chest. No foreign body seen. KUB X-Ray 05/02/21 10:19 IMPRESSION: Constipation. No evidence of obstruction. Medications Medications Current Medications Generic Name Dose Route Start Last Admin Trade Name Freq PRN Reason Stop Dose Admin Acetaminophen 650 mg 04/22/21 17:58 05/24/21 02:18 Acetaminophen 325 Mg Tablet PO 650 mg Q4H PRN Administration Pain Al Hydroxide/Mg Hydroxide 30 ml 04/23/21 14:17 Magnesium Hydrox/Alum Hydrox 30 Ml Oral.Susp PO Q6H PRN Heartburn/Nausea Amlodipine Besylate 5 mg 04/22/21 18:00 05/26/21 09:57 Amlodipine Besylate 5 Mg Tablet PO 5 mg DAILY MITRA Administration Protocol Aripiprazole 15 mg 05/26/21 09:00 05/26/21 09:55 Aripiprazole 15 Mg Tablet PO 15 mg DAILY MITRA Administration Diazepam 5 mg 05/26/21 15:00 Diazepam 5 Mg Tablet PO TID MITRA Diazepam 5 mg 05/26/21 13:28 Diazepam 5 Mg Tablet PO BID PRN Anxiety Docusate Sodium 100 mg 05/23/21 21:00 05/26/21 09:55 Docusate Sodium 100 Mg Capsule PO 100 mg BID MITRA Administration Finasteride 5 mg 04/26/21 11:15 05/26/21 09:59 Finasteride 5 Mg Tablet PO 5 mg DAILY MITRA Administration Gabapentin 400 mg 05/18/21 15:00 05/26/21 09:54 Gabapentin 400 Mg Capsule PO 400 mg TID MITRA Administration Hydrocortisone 1 appl 05/23/21 21:00 05/26/21 10:27 Hydrocortisone 2.5 % Rectal Cr 30 Gm Tube [place] 1 appl BID MITRA Administration Ibuprofen 800 mg 04/24/21 12:30 05/26/21 12:25 Ibuprofen 800 Mg Tablet PO 800 mg TIDWM MITRA Administration Lisinopril 20 mg 04/22/21 18:00 05/26/21 09:57 Lisinopril 20 Mg Tablet PO 20 mg DAILY MITRA Administration Protocol Magnesium Hydroxide 30 ml 04/23/21 14:17 05/25/21 09:43 Milk Of Magnesia 30 Ml Oral.Susp PO 30 ml DAILY PRN Administration Constipation Polyethylene Glycol 17 gm 04/22/21 18:00 05/26/21 10:22 Polyethylene Glycol 3350 17 Gm Powd.Pack PO 17 gm DAILY MITRA Administration Quetiapine Fumarate 300 mg 05/08/21 21:00 05/25/21 20:43 Quetiapine Fumarate 100 Mg Tablet PO 300 mg BEDTIME MITRA Administration Sodium Biphosphate/Sodium Phosphate 133 ml 05/07/21 10:10 05/22/21 09:54 Sodium Phosphate,[place]-Dibasic 133 Ml Enema [place] 133 ml ONCE PRN Administration Constipation Sodium Biphosphate/Sodium Phosphate 133 ml 05/23/21 14:03 05/23/21 16:29 Sodium Phosphate,[place]-Dibasic 133 Ml Enema [place] 133 ml ONCE PRN Administration Constipation Tamsulosin HCl 0.4 mg 04/23/21 21:00 05/25/21 20:44 Tamsulosin Hcl 0.4 Mg Capsule PO 0.4 mg BEDTIME MITRA Administration Allergies Allergies Allergy/AdvReac Type Severity Reaction Status Date / Time atorvastatin [From LIPITOR] Allergy Intermediate ELEVATED Verified 04/24/21 19:53 LIVER ENZYMES Assessment & Plan Assessment & Plan (1) Urinary retention with incomplete bladder emptying: Status: Acute Code(s): R33.9 - Retention of urine, unspecified (2) Bipolar 1 disorder: Status: Acute Code(s): F31.9 - Bipolar disorder, unspecified (3) Catatonia: Status: Acute Code(s): F06.1 - Catatonic disorder due to known physiological condition Assessment and Plan: no changes to evaluation and treatment plan as per primary team Plan: Keep Gabapenitn up to 400 mg po tid and D/C Klonopin PRN Keep Abilify 15 mg mg po qam Seroquel at bedtime 300 mg HS. Increase Valium up to 5 mg po tid Rest the same Greater than 50% of the session was spent on counseling and/or coordination of care Reason for contiued inpatient stay Substantial Risk for: inability to function, rapid decompensation and med/psych decompensation
[2021-05-26] MEDS: diazePAM 5 MG TABLET PO ×2 (15:03→20:40)
[2021-05-26 18:58] VITALS: BP 117/16; PULSE 83; RESP 18; TEMP 36.4; O2SAT 98
[2021-05-26] MEDS: QUEtiapine Fumarate 100 MG TABLET 300 MG PO (20:42)
[2021-05-26] MEDS: Tamsulosin HCL 0.4 MG CAPSULE PO (20:42)
[2021-05-27] MEDS: amLODIPine Besylate 5 MG TABLET PO (09:28)
[2021-05-27] MEDS: ARIPiprazole 15 MG TABLET PO (09:28)
[2021-05-27] MEDS: Finasteride 5 MG TABLET PO (09:28)
[2021-05-27] MEDS: polyethylene glycoL 3350 17 GM POWD.PACK PO (09:29)
[2021-05-27] MEDS: Ibuprofen 800 MG TABLET PO ×2 (09:29→15:32)
[2021-05-27] MEDS: Gabapentin 400 MG CAPSULE PO ×3 (09:29→19:25)
[2021-05-27] MEDS: lisinopriL 20 MG TABLET PO (09:29)
[2021-05-27] MEDS: Docusate Sodium 100 MG CAPSULE PO ×2 (09:29→19:25)
[2021-05-27] MEDS: Hydrocortisone 2.5 % Rectal Cr 30 GM TUBE 1 APPL PR (09:29)
[2021-05-27] MEDS: diazePAM 5 MG TABLET PO ×3 (09:29→19:25)
--- NOTE | 2021-05-27 12:10 | P.PNPSI_ITS ---
Subjective Subjective Date of Service: 05/27/21 Reason For Visit: Altered mental status Interim History: The patient has been perseverating on his urination and BM but he has normal urine and BM. Very OCD. Review of Systems Acute medical concerns: No Medical Review of Systems: unchanged Mental Status Exam Mental Status Exam Patient Appearance: Well Grooomed and Disheveled Patient Orientation: Person, Place and Situation Level of Consciousness: Awake and Appropriate Patient Behavior: Guarded and Cooperative Mood Description: Withdrawn and Constricted Affect Description: Constricted Patient Cognition Impaired: No Ability to Follow Directions: Good Speech Pattern: Clear Hallucinations: None Delusions: Ideas of Reference Thought Process: Slowed Thinking Thought Content: positive for [place], positive for Perseveration and positive for Poverty of Content Judgement: Fair Diagnostics Vital Signs (24Hr): Vital Signs - 24 hr 05/26/21 18:58 Temperature 97.5 F Pulse Rate 83 Respiratory Rate 18 Blood Pressure 117/16 L Pulse Oximetry 98 Body Mass Index 25.1 Labs Results: 05/09/21 12:54 05/09/21 12:54 Imaging Radiology Impressions: ITS Impressions Abdomen/Pelvis CT 04/22/21 12:16 IMPRESSION: Mild prostatomegaly with moderate central gland calcification.. The periprostatic fat planes are hazy. The bladder is undistended with a Gonzalez's catheter within. Head CT 04/25/21 10:48 IMPRESSION: No acute intracranial hemorrhage or territorial infarction. Chest X-Ray 04/27/21 11:37 IMPRESSION: No evidence for acute disease in the chest. No foreign body seen. KUB X-Ray 05/02/21 10:19 IMPRESSION: Constipation. No evidence of obstruction. Medications Medications Current Medications Generic Name Dose Route Start Last Admin Trade Name Freq PRN Reason Stop Dose Admin Acetaminophen 650 mg 04/22/21 17:58 05/24/21 02:18 Acetaminophen 325 Mg Tablet PO 650 mg Q4H PRN Administration Pain Al Hydroxide/Mg Hydroxide 30 ml 04/23/21 14:17 Magnesium Hydrox/Alum Hydrox 30 Ml Oral.Susp PO Q6H PRN Heartburn/Nausea Amlodipine Besylate 5 mg 04/22/21 18:00 05/27/21 09:28 Amlodipine Besylate 5 Mg Tablet PO 5 mg DAILY MITRA Administration Protocol Aripiprazole 15 mg 05/26/21 09:00 05/27/21 09:28 Aripiprazole 15 Mg Tablet PO 15 mg DAILY MITRA Administration Diazepam 5 mg 05/26/21 15:00 05/27/21 09:29 Diazepam 5 Mg Tablet PO 5 mg TID MITRA Administration Diazepam 5 mg 05/26/21 13:28 Diazepam 5 Mg Tablet PO BID PRN Anxiety Docusate Sodium 100 mg 05/23/21 21:00 05/27/21 09:29 Docusate Sodium 100 Mg Capsule PO 100 mg BID MITRA Administration Finasteride 5 mg 04/26/21 11:15 05/27/21 09:28 Finasteride 5 Mg Tablet PO 5 mg DAILY MITRA Administration Gabapentin 400 mg 05/18/21 15:00 05/27/21 09:29 Gabapentin 400 Mg Capsule PO 400 mg TID MITRA Administration Hydrocortisone 1 appl 05/23/21 21:00 05/27/21 09:29 Hydrocortisone 2.5 % Rectal Cr 30 Gm Tube [place] 1 appl BID MITRA Administration Ibuprofen 800 mg 04/24/21 12:30 05/27/21 09:29 Ibuprofen 800 Mg Tablet PO 800 mg TIDWM MITRA Administration Lisinopril 20 mg 04/22/21 18:00 05/27/21 09:29 Lisinopril 20 Mg Tablet PO 20 mg DAILY MITRA Administration Protocol Magnesium Hydroxide 30 ml 04/23/21 14:17 05/25/21 09:43 Milk Of Magnesia 30 Ml Oral.Susp PO 30 ml DAILY PRN Administration Constipation Polyethylene Glycol 17 gm 04/22/21 18:00 05/27/21 09:29 Polyethylene Glycol 3350 17 Gm Powd.Pack PO 17 gm DAILY MITRA Administration Quetiapine Fumarate 300 mg 05/08/21 21:00 05/26/21 20:42 Quetiapine Fumarate 100 Mg Tablet PO 300 mg BEDTIME MITRA Administration Sodium Biphosphate/Sodium Phosphate 133 ml 05/07/21 10:10 05/22/21 09:54 Sodium Phosphate,[place]-Dibasic 133 Ml Enema [place] 133 ml ONCE PRN Administration Constipation Sodium Biphosphate/Sodium Phosphate 133 ml 05/23/21 14:03 05/23/21 16:29 Sodium Phosphate,[place]-Dibasic 133 Ml Enema [place] 133 ml ONCE PRN Administration Constipation Tamsulosin HCl 0.4 mg 04/23/21 21:00 05/26/21 20:42 Tamsulosin Hcl 0.4 Mg Capsule PO 0.4 mg BEDTIME MITRA Administration Allergies Allergies Allergy/AdvReac Type Severity Reaction Status Date / Time atorvastatin [From LIPITOR] Allergy Intermediate ELEVATED Verified 04/24/21 19:53 LIVER ENZYMES Assessment & Plan Assessment & Plan (1) Urinary retention with incomplete bladder emptying: Status: Acute Code(s): R33.9 - Retention of urine, unspecified (2) Bipolar 1 disorder: Status: Acute Code(s): F31.9 - Bipolar disorder, unspecified (3) Catatonia: Status: Acute Code(s): F06.1 - Catatonic disorder due to known physiological condition Assessment and Plan: no changes to evaluation and treatment plan as per primary team Plan: Keep Gabapenitn up to 400 mg po tid and D/C Klonopin PRN Increase Abilify up to 20 mg mg po qam Seroquel at bedtime 300 mg HS. Increase Valium up to 5 mg po tid Rest the same Greater than 50% of the session was spent on counseling and/or coordination of care Reason for contiued inpatient stay Substantial Risk for: inability to function, rapid decompensation and med/psych decompensation
[2021-05-27 17:56] VITALS: BP 124/70; PULSE 70; TEMP 36.4; O2SAT 70
[2021-05-27] MEDS: QUEtiapine Fumarate 100 MG TABLET 300 MG PO (19:25)
[2021-05-27] MEDS: Tamsulosin HCL 0.4 MG CAPSULE PO (19:25)
[2021-05-28 08:24] VITALS: BP 127/100; PULSE 80
[2021-05-28] MEDS: ARIPiprazole 20 MG TABLET PO (08:24)
[2021-05-28] MEDS: Gabapentin 400 MG CAPSULE PO ×3 (08:24→20:56)
[2021-05-28] MEDS: amLODIPine Besylate 5 MG TABLET PO (08:24)
[2021-05-28] MEDS: Ibuprofen 800 MG TABLET PO ×3 (08:24→16:15)
[2021-05-28] MEDS: Finasteride 5 MG TABLET PO (08:24)
[2021-05-28] MEDS: Docusate Sodium 100 MG CAPSULE PO ×2 (08:24→20:59)
[2021-05-28 08:25] VITALS: BP 127/100; PULSE 80
[2021-05-28] MEDS: diazePAM 5 MG TABLET PO ×4 (08:25→20:59)
[2021-05-28] MEDS: lisinopriL 20 MG TABLET PO (08:25)
[2021-05-28] MEDS: polyethylene glycoL 3350 17 GM POWD.PACK PO (08:28)
--- NOTE | 2021-05-28 10:11 | P.PNPSI_ITS ---
Subjective Subjective Date of Service: 05/28/21 Reason For Visit: Altered mental status Interim History: pt found standing at his dresser reviewing his med list. he described himself as being overwhelmed by it and was asking for help in understanding it. reviewed his meds and popinted out which were scheduled and which were PRN. he did not seem to retain the information well and re peatedly asked about it after the explanations were made. he also was perseverative in his belief he was leaving the hospital today and was going to be arrested, despite numerous assurances by MD and nursing staff that he would not be discharging and he would not be arrested. per staff, pt is anxious, perseverating on bowel and bladder function, although according to staff he appears to be urinating and moving his bowels adequately. abilify and valium recently increased. Mental Status Exam Mental Status Exam Narrative: appropriately dressed in street clothes and well-groomed. cooperative with interview. stiff motor function; PMR. speech halting, decr in amount, incr in rate, flattened prosody. thoughts perseverative. affect masked. no SI/HI/AVH expressed. Diagnostics Vital Signs (24Hr): Vital Signs - 24 hr 05/27/21 17:56 05/28/21 08:24 05/28/21 08:25 Temperature 97.5 F Pulse Rate 70 80 80 Blood Pressure 124/70 127/100 H 127/100 H Pulse Oximetry 70 L Body Mass Index 25.1 Labs Results: 05/09/21 12:54 05/09/21 12:54 Imaging Radiology Impressions: ITS Impressions Abdomen/Pelvis CT 04/22/21 12:16 IMPRESSION: Mild prostatomegaly with moderate central gland calcification.. The periprostatic fat planes are hazy. The bladder is undistended with a Gonzalez's catheter within. Head CT 04/25/21 10:48 IMPRESSION: No acute intracranial hemorrhage or territorial infarction. Chest X-Ray 04/27/21 11:37 IMPRESSION: No evidence for acute disease in the chest. No foreign body seen. KUB X-Ray 05/02/21 10:19 IMPRESSION: Constipation. No evidence of obstruction. Medications Medications Current Medications Generic Name Dose Route Start Last Admin Trade Name Freq PRN Reason Stop Dose Admin Acetaminophen 650 mg 04/22/21 17:58 05/24/21 02:18 Acetaminophen 325 Mg Tablet PO 650 mg Q4H PRN Administration Pain Al Hydroxide/Mg Hydroxide 30 ml 04/23/21 14:17 Magnesium Hydrox/Alum Hydrox 30 Ml Oral.Susp PO Q6H PRN Heartburn/Nausea Amlodipine Besylate 5 mg 04/22/21 18:00 05/28/21 08:24 Amlodipine Besylate 5 Mg Tablet PO 5 mg DAILY MITRA Administration Protocol Aripiprazole 20 mg 05/28/21 09:00 05/28/21 08:24 Aripiprazole 20 Mg Tablet PO 20 mg DAILY MITRA Administration Diazepam 5 mg 05/26/21 15:00 05/28/21 08:25 Diazepam 5 Mg Tablet PO 5 mg TID MITRA Administration Diazepam 5 mg 05/26/21 13:28 Diazepam 5 Mg Tablet PO BID PRN Anxiety Docusate Sodium 100 mg 05/23/21 21:00 05/28/21 08:24 Docusate Sodium 100 Mg Capsule PO 100 mg BID MITRA Administration Finasteride 5 mg 04/26/21 11:15 05/28/21 08:24 Finasteride 5 Mg Tablet PO 5 mg DAILY MITRA Administration Gabapentin 400 mg 05/18/21 15:00 05/28/21 08:24 Gabapentin 400 Mg Capsule PO 400 mg TID MITRA Administration Hydrocortisone 1 appl 05/23/21 21:00 05/28/21 09:02 Hydrocortisone 2.5 % Rectal Cr 30 Gm Tube NC Not Given BID MITRA Ibuprofen 800 mg 04/24/21 12:30 05/28/21 08:24 Ibuprofen 800 Mg Tablet PO 800 mg TIDWM MITRA Administration Lisinopril 20 mg 04/22/21 18:00 05/28/21 08:25 Lisinopril 20 Mg Tablet PO 20 mg DAILY MITRA Administration Protocol Magnesium Hydroxide 30 ml 04/23/21 14:17 05/25/21 09:43 Milk Of Magnesia 30 Ml Oral.Susp PO 30 ml DAILY PRN Administration Constipation Polyethylene Glycol 17 gm 04/22/21 18:00 05/28/21 08:28 Polyethylene Glycol 3350 17 Gm Powd.Pack PO 17 gm DAILY MITRA Administration Quetiapine Fumarate 300 mg 05/08/21 21:00 05/27/21 19:25 Quetiapine Fumarate 100 Mg Tablet PO 300 mg BEDTIME MITRA Administration Sodium Biphosphate/Sodium Phosphate 133 ml 05/07/21 10:10 05/22/21 09:54 Sodium Phosphate,[place]-Dibasic 133 Ml Enema NC 133 ml ONCE PRN Administration Constipation Sodium Biphosphate/Sodium Phosphate 133 ml 05/23/21 14:03 05/23/21 16:29 Sodium Phosphate,[place]-Dibasic 133 Ml Enema NC 133 ml ONCE PRN Administration Constipation Tamsulosin HCl 0.4 mg 04/23/21 21:00 05/27/21 19:25 Tamsulosin Hcl 0.4 Mg Capsule PO 0.4 mg BEDTIME MITRA Administration Allergies Allergies Allergy/AdvReac Type Severity Reaction Status Date / Time atorvastatin [From LIPITOR] Allergy Intermediate ELEVATED Verified 04/24/21 19:53 LIVER ENZYMES Assessment & Plan Assessment & Plan (1) Urinary retention with incomplete bladder emptying: Status: Acute Code(s): R33.9 - Retention of urine, unspecified (2) Bipolar 1 disorder: Status: Acute Code(s): F31.9 - Bipolar disorder, unspecified (3) Catatonia: Status: Acute Code(s): F06.1 - Catatonic disorder due to known physiological condition Assessment and Plan: no changes to evaluation and treatment plan as per primary team Plan: Keep Gabapenitn up to 400 mg po tid and D/C Klonopin PRN Increase Abilify up to 20 mg mg po qam Seroquel at bedtime 300 mg HS. Increase Valium up to 5 mg po tid Rest the same Greater than 50% of the session was spent on counseling and/or coordination of care Reason for contiued inpatient stay Substantial Risk for: inability to function
[2021-05-28 18:00] VITALS: BP 123/78; PULSE 70; RESP 18; TEMP 36.9; O2SAT 99
[2021-05-28] MEDS: Tamsulosin HCL 0.4 MG CAPSULE PO (20:57)
[2021-05-28] MEDS: QUEtiapine Fumarate 100 MG TABLET 300 MG PO (20:57)
[2021-05-29 06:00] VITALS: BP 110/74; PULSE 76; TEMP 36.6; O2SAT 98
[2021-05-29 08:48] VITALS: BP 110/74; PULSE 76
[2021-05-29] MEDS: diazePAM 5 MG TABLET PO ×3 (08:48→20:48)
[2021-05-29] MEDS: Finasteride 5 MG TABLET PO (08:48)
[2021-05-29] MEDS: lisinopriL 20 MG TABLET PO (08:48)
[2021-05-29 08:49] VITALS: BP 110/74; PULSE 76
[2021-05-29] MEDS: Docusate Sodium 100 MG CAPSULE PO ×2 (08:49→20:48)
[2021-05-29] MEDS: Ibuprofen 800 MG TABLET PO (08:49)
[2021-05-29] MEDS: amLODIPine Besylate 5 MG TABLET PO (08:49)
[2021-05-29] MEDS: Gabapentin 400 MG CAPSULE PO ×3 (08:49→20:48)
[2021-05-29] MEDS: ARIPiprazole 20 MG TABLET PO (08:50)
[2021-05-29] MEDS: polyethylene glycoL 3350 17 GM POWD.PACK PO (08:50)
--- NOTE | 2021-05-29 11:34 | P.PNPSI_ITS ---
Subjective Subjective Date of Service: 05/29/21 Reason For Visit: Altered mental status Interim History: pt found standing at his dresser reviewing his med list. he described himself as being overwhelmed by it and was asking for help in understanding it. suggested staff have his medication well under control and he is not leaving soon so he needn't worry about it. he remained focused on the issue as well as his reported inability to urinate or defecate (per staff, he has been overheard to be doing these things and has not complied with requests to use the hat). he was generally unable to be assuaged or redirected. per staff, pt is anxious, perseverating on bowel and bladder function, although according to staff he appears to be urinating and moving his bowels adequately. abilify and valium recently increased. increased restlessness, somewhat helped by PRN valium yesterday. Mental Status Exam Mental Status Exam Narrative: appropriately dressed in street clothes and well-groomed. cooperative with interview. stiff motor function; PMR. speech halting, decr in amount, incr in rate, flattened prosody. thoughts perseverative. affect masked. no SI/HI/AVH expressed. Diagnostics Vital Signs (24Hr): Vital Signs - 24 hr 05/28/21 18:00 05/29/21 06:00 05/29/21 08:48 Temperature 98.5 F 97.8 F Pulse Rate 70 76 76 Respiratory Rate 18 Blood Pressure 123/78 110/74 110/74 Pulse Oximetry 99 98 05/29/21 08:49 Temperature Pulse Rate 76 Respiratory Rate Blood Pressure 110/74 Pulse Oximetry Body Mass Index 25.1 Labs Results: 05/09/21 12:54 05/09/21 12:54 Imaging Radiology Impressions: ITS Impressions Abdomen/Pelvis CT 04/22/21 12:16 IMPRESSION: Mild prostatomegaly with moderate central gland calcification.. The periprostatic fat planes are hazy. The bladder is undistended with a Gonzalez's catheter within. Head CT 04/25/21 10:48 IMPRESSION: No acute intracranial hemorrhage or territorial infarction. Chest X-Ray 04/27/21 11:37 IMPRESSION: No evidence for acute disease in the chest. No foreign body seen. KUB X-Ray 07/12/21 10:19 IMPRESSION: Constipation. No evidence of obstruction. Medications Medications Current Medications Generic Name Dose Route Start Last Admin Trade Name Freq PRN Reason Stop Dose Admin Acetaminophen 650 mg 04/22/21 17:58 05/24/21 02:18 Acetaminophen 325 Mg Tablet PO 650 mg Q4H PRN Administration Pain Al Hydroxide/Mg Hydroxide 30 ml 04/23/21 14:17 Magnesium Hydrox/Alum Hydrox 30 Ml Oral.Susp PO Q6H PRN Heartburn/Nausea Amlodipine Besylate 5 mg 04/22/21 18:00 05/29/21 08:49 Amlodipine Besylate 5 Mg Tablet PO 5 mg DAILY MITRA Administration Protocol Aripiprazole 20 mg 05/28/21 09:00 05/29/21 08:50 Aripiprazole 20 Mg Tablet PO 20 mg DAILY MITRA Administration Diazepam 5 mg 05/26/21 15:00 05/29/21 08:48 Diazepam 5 Mg Tablet PO 5 mg TID MITRA Administration Diazepam 5 mg 05/26/21 13:28 05/28/21 12:17 Diazepam 5 Mg Tablet PO 5 mg BID PRN Administration Anxiety Docusate Sodium 100 mg 05/23/21 21:00 05/29/21 08:49 Docusate Sodium 100 Mg Capsule PO 100 mg BID MITRA Administration Finasteride 5 mg 04/26/21 11:15 05/29/21 08:48 Finasteride 5 Mg Tablet PO 5 mg DAILY MITRA Administration Gabapentin 400 mg 05/18/21 15:00 05/29/21 08:49 Gabapentin 400 Mg Capsule PO 400 mg TID MITRA Administration Hydrocortisone 1 appl 05/23/21 21:00 05/29/21 08:50 Hydrocortisone 2.5 % Rectal Cr 30 Gm Tube MD Not Given BID MITRA Ibuprofen 800 mg 04/24/21 12:30 05/29/21 08:49 Ibuprofen 800 Mg Tablet PO 800 mg TIDWM MITRA Administration Lisinopril 20 mg 04/22/21 18:00 05/29/21 08:48 Lisinopril 20 Mg Tablet PO 20 mg DAILY MITRA Administration Protocol Magnesium Hydroxide 30 ml 04/23/21 14:17 05/25/21 09:43 Milk Of Magnesia 30 Ml Oral.Susp PO 30 ml DAILY PRN Administration Constipation Polyethylene Glycol 17 gm 04/22/21 18:00 05/29/21 08:50 Polyethylene Glycol 3350 17 Gm Powd.Pack PO 17 gm DAILY MITRA Administration Quetiapine Fumarate 300 mg 05/08/21 21:00 05/28/21 20:57 Quetiapine Fumarate 100 Mg Tablet PO 300 mg BEDTIME MITRA Administration Sodium Biphosphate/Sodium Phosphate 133 ml 05/07/21 10:10 05/22/21 09:54 Sodium Phosphate,[place]-Dibasic 133 Ml Enema MD 133 ml ONCE PRN Administration Constipation Sodium Biphosphate/Sodium Phosphate 133 ml 05/23/21 14:03 05/23/21 16:29 Sodium Phosphate,[place]-Dibasic 133 Ml Enema MD 133 ml ONCE PRN Administration Constipation Tamsulosin HCl 0.4 mg 04/23/21 21:00 05/28/21 20:57 Tamsulosin Hcl 0.4 Mg Capsule PO 0.4 mg BEDTIME MITRA Administration Allergies Allergies Allergy/AdvReac Type Severity Reaction Status Date / Time atorvastatin [From LIPITOR] Allergy Intermediate ELEVATED Verified 04/24/21 1 9:53 LIVER ENZYMES Assessment & Plan Assessment & Plan (1) Urinary retention with incomplete bladder emptying: Status: Acute Code(s): R33.9 - Retention of urine, unspecified (2) Bipolar 1 disorder: Status: Acute Code(s): F31.9 - Bipolar disorder, unspecified (3) Catatonia: Status: Acute Code(s): F06.1 - Catatonic disorder due to known physiological condition Assessment and Plan: no changes to evaluation and treatment plan as per primary team Plan: Keep Gabapenitn up to 400 mg po tid and D/C Klonopin PRN Increase Abilify up to 20 mg mg po qam Seroquel at bedtime 300 mg HS. Increase Valium up to 5 mg po tid Rest the same Greater than 50% of the session was spent on counseling and/or coordination of care Reason for contiued inpatient stay Substantial Risk for: inability to function and rapid decompensation
[2021-05-29] MEDS: QUEtiapine Fumarate 100 MG TABLET 300 MG PO (20:48)
[2021-05-29] MEDS: Tamsulosin HCL 0.4 MG CAPSULE PO (20:48)
[2021-05-29 21:10] VITALS: BP 105/62; PULSE 63; RESP 18; TEMP 36.1; O2SAT 99
[2021-05-30 06:00] VITALS: BP 121/77; PULSE 83; RESP 16; TEMP 36.4; O2SAT 98
[2021-05-30 08:28] VITALS: BP 121/77; PULSE 83
[2021-05-30] MEDS: ARIPiprazole 20 MG TABLET PO (08:28)
[2021-05-30] MEDS: Finasteride 5 MG TABLET PO (08:28)
[2021-05-30] MEDS: polyethylene glycoL 3350 17 GM POWD.PACK PO (08:28)
[2021-05-30] MEDS: amLODIPine Besylate 5 MG TABLET PO (08:28)
[2021-05-30] MEDS: diazePAM 5 MG TABLET PO ×4 (08:28→21:32)
[2021-05-30 08:29] VITALS: BP 121/77; PULSE 83
[2021-05-30] MEDS: Gabapentin 400 MG CAPSULE PO ×3 (08:29→21:32)
[2021-05-30] MEDS: Ibuprofen 800 MG TABLET PO ×2 (08:29→13:40)
[2021-05-30] MEDS: Docusate Sodium 100 MG CAPSULE PO ×2 (08:29→21:32)
[2021-05-30] MEDS: lisinopriL 20 MG TABLET PO (08:29)
--- NOTE | 2021-05-30 13:33 | HO.PSYCHPN ---
Subjective Subjective Date of Service: 05/30/21 Reason For Visit: Altered mental status Subjective Notes: Conditional Voluntary Interim History: The patient remains obsessed with his urination and defecation, stating that he can't go to the bathroom but staff has noticed that he has gone and bladder scan showed no urine. We have a family meeting and we aimed to discharge him on Sunday. Medication Compliance: Yes Side effects from medications: No Attending Groups: Intermittent Review of Systems Acute medical concerns: No Medical Review of Systems: unchanged Mental Status Exam Mental Status Exam Patient Appearance: Well Grooomed Patient Orientation: Person, Place, Time and Situation Level of Consciousness: Awake Patient Behavior: Guarded Mood Description: Suspicious and Appropriate Affect Description: Constricted Patient Cognition Impaired: No Ability to Follow Directions: Good Speech Pattern: Delayed Hallucinations: None Delusions: Paranoid Ideation Thought Process: Linear Thought Content: positive for [place], positive for Obsessional Thoughts and positive for Circumstantial Judgement: Fair Diagnostics Vital Signs (24Hr): Vital Signs - 24 hr 05/29/21 21:10 05/30/21 06:00 05/30/21 08:28 Temperature 96.9 F 97.6 F Pulse Rate 63 83 83 Respiratory Rate 18 16 Blood Pressure 105/62 121/77 121/77 Pulse Oximetry 99 98 05/30/21 08:29 Temperature Pulse Rate 83 Respiratory Rate Blood Pressure 121/77 Pulse Oximetry Body Mass Index 25.1 Labs Results: 05/09/21 12:54 05/09/21 12:54 Imaging Radiology Impressions: ITS Impressions Abdomen/Pelvis CT 04/22/21 12:16 IMPRESSION: Mild prostatomegaly with moderate central gland calcification.. The periprostatic fat planes are hazy. The bladder is undistended with a Gonzalez's catheter within. Head CT 04/25/21 10:48 IMPRESSION: No acute intracranial hemorrhage or territorial infarction. Chest X-Ray 04/27/21 11:37 IMPRESSION: No evidence for acute disease in the chest. No foreign body seen. KUB X-Ray 05/02/21 10:19 IMPRESSION: Constipation. No evidence of obstruction. Medications Medications Current Medications Generic Name Dose Route Start Last Admin Trade Name Freq PRN Reason Stop Dose Admin Acetaminophen 650 mg 04/22/21 17:58 05/24/21 02:18 Acetaminophen 325 Mg Tablet PO 650 mg Q4H PRN Administration Pain Al Hydroxide/Mg Hydroxide 30 ml 04/23/21 14:17 Magnesium Hydrox/Alum Hydrox 30 Ml Oral.Susp PO Q6H PRN Heartburn/Nausea Amlodipine Besylate 5 mg 04/22/21 18:00 05/30/21 08:28 Amlodipine Besylate 5 Mg Tablet PO 5 mg DAILY MITRA Administration Protocol Aripiprazole 20 mg 05/28/21 09:00 05/30/21 08:28 Aripiprazole 20 Mg Tablet PO 20 mg DAILY MITRA Administration Diazepam 5 mg 05/26/21 15:00 05/30/21 08:28 Diazepam 5 Mg Tablet PO 5 mg TID MITRA Administration Diazepam 5 mg 05/26/21 13:28 05/30/21 10:43 Diazepam 5 Mg Tablet PO 5 mg BID PRN Administration Anxiety Docusate Sodium 100 mg 05/23/21 21:00 05/30/21 08:29 Docusate Sodium 100 Mg Capsule PO 100 mg BID MITRA Administration Finasteride 5 mg 04/26/21 11:15 05/30/21 08:28 Finasteride 5 Mg Tablet PO 5 mg DAILY MITRA Administration Gabapentin 400 mg 05/18/21 15:00 05/30/21 08:29 Gabapentin 400 Mg Capsule PO 400 mg TID MITRA Administration Hydrocortisone 1 appl 05/23/21 21:00 05/30/21 08:30 Hydrocortisone 2.5 % Rectal Cr 30 Gm Tube ND Not Given BID MITRA Ibuprofen 800 mg 04/24/21 12:30 05/30/21 08:29 Ibuprofen 800 Mg Tablet PO 800 mg TIDWM MITRA Administration Lisinopril 20 mg 04/22/21 18:00 05/30/21 08:29 Lisinopril 20 Mg Tablet PO 20 mg DAILY MITRA Administration Protocol Magnesium Hydroxide 30 ml 04/23/21 14:17 05/25/21 09:43 Milk Of Magnesia 30 Ml Oral.Susp PO 30 ml DAILY PRN Administration Constipation Polyethylene Glycol 17 gm 04/22/21 18:00 05/30/21 08:28 Polyethylene Glycol 3350 17 Gm Powd.Pack PO 17 gm DAILY MITRA Administration Quetiapine Fumarate 300 mg 05/08/21 21:00 05/29/21 20:48 Quetiapine Fumarate 100 Mg Tablet PO 300 mg BEDTIME MITRA Administration Sodium Biphosphate/Sodium Phosphate 133 ml 05/07/21 10:10 05/22/21 09:54 Sodium Phosphate,[place]-Dibasic 133 Ml Enema ND 133 ml ONCE PRN Administration Constipation Sodium Biphosphate/Sodium Phosphate 133 ml 05/23/21 14:03 05/23/21 16:29 Sodium Phosphate,[place]-Dibasic 133 Ml Enema ND 133 ml ONCE PRN Administration Constipation Tamsulosin HCl 0.4 mg 04/23/21 21:00 05/29/21 20:48 Tamsulosin Hcl 0.4 Mg Capsule PO 0.4 mg BEDTIME MITRA Administration Allergies Allergies Allergy/AdvReac Type Severity Reaction Status Date / Time atorvastatin [From LIPITOR] Allergy Intermediate ELEVATED Verified 04/24/21 19:53 LIVER ENZYMES Assessment & Plan Assessment & Plan (1) Urinary retention with incomplete bladder emptying: Status: Acute Code(s): R33.9 - Retention of urine, unspecified (2) Bipolar 1 disorder: Status: Acute Code(s): F31.9 - Bipolar disorder, unspecified (3) Catatonia: Status: Acute Code(s): F06.1 - Catatonic disorder due to known physiological condition Assessment and Plan: no changes to evaluation and treatment plan as per primary team Plan: Keep Gabapenitn up to 400 mg po tid and D/C Klonopin PRN Increase Abilify up to 20 mg mg po qam Seroquel at bedtime 300 mg HS. Increase Valium up to 5 mg po tid Consult to Neurology for periferic neuropathy. Fleet enema today. Rest the same Greater than 50% of the session was spent on counseling and/or coordination of care Reason for contiued inpatient stay Substantial Risk for: inability to function, rapid decompensation and med/psych decompensation
[2021-05-30] MEDS: Sodium Phosphate,Mono-Dibasic 133 ML ENEMA PR (13:43)
--- NOTE | 2021-05-30 14:16 | PC.NURSE ---
Patient had PRN fleet enema. Patient had large pasty BM into commode while nurse stood outside of bathroom. Patient states I didn't go. That's not from me. I have a large hemorrhoid that made it so I can't go. Maybe I'll go later.
--- NOTE | 2021-05-30 15:32 | PM.NEUROCN ---
History of Present Illness Data of Consult Service Date: 05/30/21 Primary Care Provider: Unknown Physician HPI Reason for consult: Hand numbness 60 years old man with underlying psychiatric illness and diagnoses of bipolar disorder and catatonia who I was asked to see for neuropathy. Patient has been complaining for last 2-3 weeks that his hands were numb and achy especially when he was sleeping. There was no complaint of any neck pain or arm pain. He said that sometime he had similar feeling in his feet. [facility] Past Medical History Medical History (Updated 05/30/21 @ 15:34 by Juliet Anne MD) Bipolar 1 disorder Hyperlipemia Hypertension UTI (urinary tract infection) Surgical History Surgical History H/O shoulder surgery Social History Social History Household Members: Family and Other Household Members Other:: 85 year old mother Housing: House Do you presently have visiting nurse or other home services: No Alcohol intake: unknown Patient Tobacco Use Status: Never used Tobacco Smoked in Last 30 Days: No e-Cigarette/Vaping Use: Never Used Patient Interested in Nicotine Replacement: No Patient Given Instructions on How to Stop Smoking: No Second Hand Smoke Exposure: No Use of substances other than those prescribed or required for medical reasons: No Currently Displaying Signs/Symptoms of Drug Intoxication Withdrawal: No Any prior treatment program specific to substance use: No Have you been hit, kicked, punched, or otherwise hurt by someone within the past year? If so, by whom?: No Do you feel safe in your current relationship?: No Is there a partner from a previous relationship who is making you feel unsafe now?: No Are you made to feel afraid or neglected: No Advance Directives: Yes Advance Directives Information Provided: Yes Advance Directives on File: No Healthcare Proxy: No Guardian: No Do you have thoughts of harming others: None Do you have a plan to hurt others: No Plan Recently lost weight without trying: No Nutrition Risks: No Nutritional Risk Poor oral hygiene: No service: No Sexual orientation: Don't Know Meds Allergies Allergy/AdvReac Type Severity Reaction Status Date / Time atorvastatin [From LIPITOR] Allergy Intermediate ELEVATED Verified 04/24/21 19:53 LIVER ENZYMES Active Medications: Current Medications Generic Name Dose Route Start Last Admin Trade Name Akash PRN Reason Stop Dose Admin Acetaminophen 650 mg 04/22/21 17:58 05/24/21 02:18 Acetaminophen 325 Mg Tablet PO 650 mg Q4H PRN Administration Pain Al Hydroxide/Mg Hydroxide 30 ml 04/23/21 14:17 Magnesium Hydrox/Alum Hydrox 30 Ml Oral.Susp PO Q6H PRN Heartburn/Nausea Amlodipine Besylate 5 mg 04/22/21 18:00 05/30/21 08:28 Amlodipine Besylate 5 Mg Tablet PO 5 mg DAILY MITRA Administration Protocol Aripiprazole 20 mg 05/28/21 09:00 05/30/21 08:28 Aripiprazole 20 Mg Tablet PO 20 mg DAILY MITRA Administration Diazepam 5 mg 05/26/21 15:00 05/30/21 13:40 Diazepam 5 Mg Tablet PO 5 mg TID MITRA Administration Diazepam 5 mg 05/26/21 13:28 05/30/21 10:43 Diazepam 5 Mg Tablet PO 5 mg BID PRN Administration Anxiety Docusate Sodium 100 mg 05/23/21 21:00 05/30/21 08:29 Docusate Sodium 100 Mg Capsule PO 100 mg BID MITRA Administration Finasteride 5 mg 04/26/21 11:15 05/30/21 08:28 Finasteride 5 Mg Tablet PO 5 mg DAILY MITRA Administration Gabapentin 400 mg 05/18/21 15:00 05/30/21 13:40 Gabapentin 400 Mg Capsule PO 400 mg TID MITRA Administration Hydrocortisone 1 appl 05/23/21 21:00 05/30/21 08:30 Hydrocortisone 2.5 % Rectal Cr 30 Gm Tube MA Not Given BID MITRA Ibuprofen 800 mg 04/24/21 12:30 05/30/21 13:40 Ibuprofen 800 Mg Tablet PO 800 mg TIDWM MITRA Administration Lisinopril 20 mg 04/22/21 18:00 05/30/21 08:29 Lisinopril 20 Mg Tablet PO 20 mg DAILY MIRTA Administration Protocol Magnesium Hydroxide 30 ml 04/23/21 14:17 05/25/21 09:43 Milk Of Magnesia 30 Ml Oral.Susp PO 30 ml DAILY PRN Administration Constipation Polyethylene Glycol 17 gm 04/22/21 18:00 05/30/21 08:28 Polyethylene Glycol 3350 17 Gm Powd.Pack PO 17 gm DAILY MITRA Administration Quetiapine Fumarate 300 mg 05/08/21 21:00 08/08/21 20:48 Quetiapine Fumarate 100 Mg Tablet PO 300 mg BEDTIME MITRA Administration Sodium Biphosphate/Sodium Phosphate 133 ml 05/23/21 14:03 05/23/21 16:29 Sodium Phosphate,[place]-Dibasic 133 Ml Enema MA 133 ml ONCE PRN Administration Constipation Tamsulosin HCl 0.4 mg 04/23/21 21:00 05/29/21 20:48 Tamsulosin Hcl 0.4 Mg Capsule PO 0.4 mg BEDTIME MITRA Administration Home Medications Medication Instructions Recorded Confirmed Last Taken Type acetaminophen 325 mg tablet 650 mg PO Q4H PRN 04/22/21 04/22/21 Unknown History amlodipine 5 mg tablet 5 mg PO DAILY 04/22/21 04/22/21 04/21/21 History clonazepam 1 mg tablet 1 mg PO DAILY PRN 04/22/21 04/22/21 Unknown History clonazepam 2 mg tablet 2 mg PO BEDTIME 04/22/21 04/22/21 04/21/21 History docusate sodium 100 mg capsule 100 mg PO DAILY PRN 04/22/21 04/22/21 04/21/21 History lisinopril 20 mg tablet 20 mg PO DAILY 04/22/21 04/22/21 04/21/21 History polyethylene glycol 3350 17 gram 17 g PO DAILY 04/22/21 04/22/21 Unknown History oral powder packet (Miralax) quetiapine 300 mg tablet 300 mg PO BEDTIME 04/22/21 04/22/21 04/21/21 History sulfamethoxazole 400 1 tab PO BID 04/22/21 04/22/21 04/21/21 History mg-trimethoprim 80 mg tablet Physical Exam Vital Signs: Vital Signs: Last Vital Signs Temp 97.6 F 05/30/21 06:00 Pulse 83 05/30/21 08:29 Resp 16 05/30/21 06:00 BP 121/77 05/30/21 08:29 Pulse Ox 98 05/30/21 06:00 Body Mass Index 25.1 Neuro: Other: Alert and awake with normal spontaneity of speech fluency comprehension and flat affect. There was mild intrinsic hand muscle atrophy. No fasciculations were noted. Deep tendon reflexes were trace to absent. No obvious tenderness was noted. Results Labs CBC & Chem 7: 05/09/21 12:54 05/09/21 12:54 Microbiology Microbiology Results: Microbiology 04/22/21 13:33 Blood - Venous Blood Culture - Final No growth after 5 days. 04/22/21 13:36 Blood - Venous Blood Culture - Final No growth after 5 days. 04/22/21 13:37 Urine Catheterized - Straight Catheter Urine Culture - Final No growth. Assessment and Plan (1) Hand numbness: Status: Acute Probably carpal tunnel syndrome with the possibility of underlying peripheral neuropathy. I would recommend outpatient EMG nerve conduction study of her upper extremities for evaluation. Procedures Date of Service Date of Service: 05/30/21
[2021-05-30 17:33] VITALS: BP 109/70; PULSE 68; RESP 18; TEMP 36.4; O2SAT 100
--- NOTE | 2021-05-30 18:35 | PC.NURSE ---
Patient is alert and oriented x 3. He continues to perseverates on bladder and bowel functioning stating It's not working, I haven't gone in days. Patient has been voiding freely at will. Patient was administered an enema was a positive Bowel Movement. Patient is very worried about memorizing his medications and how he will manage them at home. Patient signs releases and [facility] application.
--- NOTE | 2021-05-30 18:40 | PC.NURSE ---
At approximately 5:45pm George, Seven's brother called to report their mother Poonam had a serious fall resulting in her being transported to [facility] for Brain surgery. George is very concerned for both Poonam's well-being and Seven's discharge. Discharge planning will need to be revised as Poonam most likely will not be able to be home alone and available to care for Seven.
[2021-05-30] MEDS: QUEtiapine Fumarate 100 MG TABLET 300 MG PO (21:31)
[2021-05-30] MEDS: Tamsulosin HCL 0.4 MG CAPSULE PO (21:32)
[2021-05-31 10:12] VITALS: BP 107/65; PULSE 75; RESP 18; TEMP 36.7; O2SAT 99
[2021-05-31] MEDS: polyethylene glycoL 3350 17 GM POWD.PACK PO (10:14)
[2021-05-31] MEDS: Milk of Magnesia 30 ML ORAL.SUSP PO (10:14)
[2021-05-31] MEDS: Finasteride 5 MG TABLET PO (10:16)
[2021-05-31] MEDS: Ibuprofen 800 MG TABLET PO ×2 (10:17→17:24)
[2021-05-31] MEDS: ARIPiprazole 20 MG TABLET PO (10:17)
[2021-05-31] MEDS: diazePAM 5 MG TABLET PO ×2 (10:17→13:59)
[2021-05-31] MEDS: Gabapentin 400 MG CAPSULE PO ×3 (10:17→20:48)
[2021-05-31] MEDS: Docusate Sodium 100 MG CAPSULE PO ×2 (10:17→20:47)
[2021-05-31 10:18] VITALS: BP 107/65; PULSE 75
[2021-05-31] MEDS: amLODIPine Besylate 5 MG TABLET PO (10:18)
[2021-05-31] MEDS: lisinopriL 20 MG TABLET PO (10:18)
--- NOTE | 2021-05-31 15:58 | P.PNPSI_ITS ---
Subjective Subjective Date of Service: 06/01/21 Reason For Visit: Altered mental status Subjective Notes: Conditional Voluntary Interim History: The patient reminds with obsessive-compulsive thoughts regarding his urination and bowel movements. He is being able to participate tools around groups and he looks more active in the facility. Yesterday, at night, we found out that her mother had an accident, she failed and she had an intracranial hematoma that required surgery. At this moment she is in a critical condition at [facility] but the patient does not know about her mother get. His family wants to talk with him as soon as they have more information. Medication Compliance: Yes Side effects from medications: No Attending Groups: Yes Review of Systems Acute medical concerns: No Medical Review of Systems: unchanged Mental Status Exam Mental Status Exam Patient Appearance: Well Grooomed Patient Orientation: Person and Situation Level of Consciousness: Awake Patient Behavior: Restless and Good Eye Contact Mood Description: Suspicious and Withdrawn Affect Description: Constricted Patient Cognition Impaired: No Ability to Follow Directions: Good Speech Pattern: Clear and Delayed Hallucinations: None Delusions: Not Present Thought Process: Slowed Thinking Thought Content: positive for Obsessional Thoughts and positive for Perseveration Depressive Symptoms: Increased Anxiety Judgement: Fair Diagnostics Vital Signs (24Hr): Vital Signs - 24 hr 05/30/21 17:33 05/31/21 10:12 05/31/21 10:18 Temperature 97.5 F 98.1 F Pulse Rate 68 75 75 Respiratory Rate 18 18 Blood Pressure 109/70 107/65 107/65 Pulse Oximetry 100 99 Body Mass Index 25.1 Labs Results: 05/09/21 12:54 05/09/21 12:54 Imaging Radiology Impressions: ITS Impressions Abdomen/Pelvis CT 04/22/21 12:16 IMPRESSION: Mild prostatomegaly with moderate central gland calcification.. The periprostatic fat planes are hazy. The bladder is undistended with a Gonzalez's catheter within. Head CT 04/25/21 10:48 IMPRESSION: No acute intracranial hemorrhage or territorial infarction. Chest X-Ray 04/27/21 11:37 IMPRESSION: No evidence for acute disease in the chest. No foreign body seen. KUB X-Ray 05/02/21 10:19 IMPRESSION: Constipation. No evidence of obstruction. Medications Medications Current Medications Generic Name Dose Route Start Last Admin Trade Name Freq PRN Reason Stop Dose Admin Acetaminophen 650 mg 04/22/21 17:58 05/24/21 02:18 Acetaminophen 325 Mg Tablet PO 650 mg Q4H PRN Administration Pain Al Hydroxide/Mg Hydroxide 30 ml 04/23/21 14:17 Magnesium Hydrox/Alum Hydrox 30 Ml Oral.Susp PO Q6H PRN Heartburn/Nausea Amlodipine Besylate 5 mg 04/22/21 18:00 05/31/21 10:18 Amlodipine Besylate 5 Mg Tablet PO 5 mg DAILY MITRA Administration Protocol Aripiprazole 20 mg 05/28/21 09:00 05/31/21 10:17 Aripiprazole 20 Mg Tablet PO 20 mg DAILY MITRA Administration Docusate Sodium 100 mg 05/23/21 21:00 05/31/21 10:17 Docusate Sodium 100 Mg Capsule PO 100 mg BID MITRA Administration Finasteride 5 mg 04/26/21 11:15 05/31/21 10:16 Finasteride 5 Mg Tablet PO 5 mg DAILY MITRA Administration Gabapentin 400 mg 05/18/21 15:00 05/31/21 13:59 Gabapentin 400 Mg Capsule PO 400 mg TID MITRA Administration Hydrocortisone 1 appl 05/23/21 21:00 05/31/21 10:56 Hydrocortisone 2.5 % Rectal Cr 30 Gm Tube NE Not Given BID MITRA Ibuprofen 800 mg 04/24/21 12:30 05/31/21 12:16 Ibuprofen 800 Mg Tablet PO Not Given TIDWM MITRA Lisinopril 20 mg 04/22/21 18:00 05/31/21 10:18 Lisinopril 20 Mg Tablet PO 20 mg DAILY MITRA Administration Protocol Magnesium Hydroxide 30 ml 04/23/21 14:17 05/31/21 10:14 Milk Of Magnesia 30 Ml Oral.Susp PO 30 ml DAILY PRN Administration Constipation Polyethylene Glycol 17 gm 04/22/21 18:00 05/31/21 10:14 Polyethylene Glycol 3350 17 Gm Powd.Pack PO 17 gm DAILY MITRA Administration Quetiapine Fumarate 300 mg 05/08/21 21:00 05/30/21 21:31 Quetiapine Fumarate 100 Mg Tablet PO 300 mg BEDTIME MITRA Administration Sodium Biphosphate/Sodium Phosphate 133 ml 05/23/21 14:03 05/23/21 16:29 Sodium Phosphate,[place]-Dibasic 133 Ml Enema NE 133 ml ONCE PRN Administration Constipation Tamsulosin HCl 0.4 mg 04/23/21 21:00 08/09/21 21:32 Tamsulosin Hcl 0.4 Mg Capsule PO 0.4 mg BEDTIME MITRA Administration Allergies Allergies Allergy/AdvReac Type Severity Reaction Status Date / Time atorvastatin [From LIPITOR] Allergy Intermediate ELEVATED Verified 04/24/21 19:53 LIVER ENZYMES Assessment & Plan Assessment & Plan (1) Hand numbness: Status: Acute Code(s): R20.0 - Anesthesia of skin Assessment and Plan: Probably carpal tunnel syndrome with the possibility of underlying peripheral n europathy. I would recommend outpatient EMG nerve conduction study of her upper extremities for evaluation. Greater than 50% of the session was spent on counseling and/or coordination of care Reason for contiued inpatient stay Substantial Risk for: inability to function, rapid decompensation and med/psych decompensation
[2021-05-31 18:00] VITALS: BP 121/75; PULSE 68; TEMP 36.3; O2SAT 99
[2021-05-31] MEDS: QUEtiapine Fumarate 100 MG TABLET 300 MG PO (20:46)
[2021-05-31] MEDS: Tamsulosin HCL 0.4 MG CAPSULE PO (20:47)
[2021-06-01] MEDS: polyethylene glycoL 3350 17 GM POWD.PACK PO (08:24)
[2021-06-01 08:25] VITALS: BP 122/78; PULSE 71
[2021-06-01] MEDS: lisinopriL 20 MG TABLET PO (08:25)
[2021-06-01] MEDS: Ibuprofen 800 MG TABLET PO ×3 (08:26→17:02)
[2021-06-01] MEDS: amLODIPine Besylate 5 MG TABLET PO (08:26)
[2021-06-01] MEDS: Finasteride 5 MG TABLET PO (08:26)
[2021-06-01] MEDS: ARIPiprazole 20 MG TABLET PO (08:27)
[2021-06-01] MEDS: Gabapentin 400 MG CAPSULE PO ×3 (08:27→21:30)
[2021-06-01] MEDS: Hydrocortisone 2.5 % Rectal Cr 30 GM TUBE 1 APPL PR (10:00)
[2021-06-01] MEDS: Docusate Sodium 100 MG CAPSULE PO ×2 (10:02→21:30)
[2021-06-01] MEDS: diazePAM 5 MG TABLET PO ×3 (10:32→21:31)
--- NOTE | 2021-06-01 13:52 | HO.PSYCHPN ---
Subjective Subjective Date of Service: 06/01/21 Reason For Visit: Altered mental status Interim History: The patient has attended several groups. He is taking more care of himself, looks diamond cleaner and shaved. He asked about his possible discharge on Sunday. Neurology saw him due to his wrist and it is most likely due to carpal tunnel syndrome. He will have an EMG as an outpatient Medication Compliance: Yes Side effects from medications: No Attending Groups: Yes Review of Systems Acute medical concerns: No Medical Review of Systems: unchanged Mental Status Exam Mental Status Exam Patient Appearance: Well Grooomed Patient Orientation: Person, Place, Time and Situation Level of Consciousness: Awake Patient Behavior: Appropriate Mood Description: Calm Affect Description: Constricted Patient Cognition Impaired: No Ability to Follow Directions: Good Speech Pattern: Clear Hallucinations: None Delusions: Not Present Thought Process: Goal Oriented and Linear Thought Content: positive for Circumstantial Judgement: Fair Diagnostics Vital Signs (24Hr): Vital Signs - 24 hr 05/31/21 18:00 06/01/21 08:25 Temperature 97.3 F Pulse Rate 68 71 Blood Pressure 121/75 122/78 Pulse Oximetry 99 Body Mass Index 25.1 Labs Results: 05/09/21 12:54 05/09/21 12:54 Imaging Radiology Impressions: ITS Impressions Abdomen/Pelvis CT 04/22/21 12:16 IMPRESSION: Mild prostatomegaly with moderate central gland calcification.. The periprostatic fat planes are hazy. The bladder is undistended with a Gonzalez's catheter within. Head CT 04/25/21 10:48 IMPRESSION: No acute intracranial hemorrhage or territorial infarction. Chest X-Ray 04/27/21 11:37 IMPRESSION: No evidence for acute disease in the chest. No foreign body seen. KUB X-Ray 05/02/21 10:19 IMPRESSION: Constipation. No evidence of obstruction. Medications Medications Current Medications Generic Name Dose Route Start Last Admin Trade Name Freq PRN Reason Stop Dose Admin Acetaminophen 650 mg 04/22/21 17:58 05/24/21 02:18 Acetaminophen 325 Mg Tablet PO 650 mg Q4H PRN Administration Pain Al Hydroxide/Mg Hydroxide 30 ml 04/23/21 14:17 Magnesium Hydrox/Alum Hydrox 30 Ml Oral.Susp PO Q6H PRN Heartburn/Nausea Amlodipine Besylate 5 mg 04/22/21 18:00 06/01/21 08:26 Amlodipine Besylate 5 Mg Tablet PO 5 mg DAILY MITRA Administration Protocol Aripiprazole 20 mg 05/28/21 09:00 06/01/21 08:27 Aripiprazole 20 Mg Tablet PO 20 mg DAILY MITRA Administration Diazepam 5 mg 06/01/21 10:30 06/01/21 10:32 Diazepam 5 Mg Tablet PO 5 mg TID MITRA Administration Diazepam 5 mg 06/01/21 10:27 Diazepam 5 Mg Tablet PO BID PRN anxiety/restlessness Docusate Sodium 100 mg 05/23/21 21:00 06/01/21 10:02 Docusate Sodium 100 Mg Capsule PO 100 mg BID MITRA Administration Finasteride 5 mg 04/26/21 11:15 06/01/21 08:26 Finasteride 5 Mg Tablet PO 5 mg DAILY MITRA Administration Gabapentin 400 mg 05/18/21 15:00 06/01/21 08:27 Gabapentin 400 Mg Capsule PO 400 mg TID MITRA Administration Hydrocortisone 1 appl 05/23/21 21:00 06/01/21 10:00 Hydrocortisone 2.5 % Rectal Cr 30 Gm Tube MD 1 appl BID MITRA Administration Ibuprofen 800 mg 04/24/21 12:30 06/01/21 12:47 Ibuprofen 800 Mg Tablet PO 800 mg TIDWM MITRA Administration Lisinopril 20 mg 04/22/21 18:00 06/01/21 08:25 Lisinopril 20 Mg Tablet PO 20 mg DAILY MITRA Administration Protocol Magnesium Hydroxide 30 ml 04/23/21 14:17 05/31/21 10:14 Milk Of Magnesia 30 Ml Oral.Susp PO 30 ml DAILY PRN Administration Constipation Polyethylene Glycol 17 gm 04/22/21 18:00 06/01/21 08:24 Polyethylene Glycol 3350 17 Gm Powd.Pack PO 17 gm DAILY MITRA Administration Psyllium Hydrophilic Mucilloid 3.4 gm 06/01/21 11:00 06/01/21 10:32 Psyllium Seed 3.4 Gm Powd.Pack PO 3.4 gm DAILY MITRA Administration Quetiapine Fumarate 300 mg 05/08/21 21:00 05/31/21 20:46 Quetiapine Fumarate 100 Mg Tablet PO 300 mg BEDTIME MITRA Administration Sodium Biphosphate/Sodium Phosphate 133 ml 05/23/21 14:03 05/23/21 16:29 Sodium Phosphate,[place]-Dibasic 133 Ml Enema MD 133 ml ONCE PRN Administration Constipation Tamsulosin HCl 0.4 mg 04/23/21 21:00 05/31/21 20:47 Tamsulosin Hcl 0.4 Mg Capsule PO 0.4 mg BEDTIME MITRA Administration Allergies Allergies Allergy/AdvReac Type Severity Reaction Status Date / Time atorvastatin [From LIPITOR] Allergy Intermediate ELEVATED Verified 04/24/21 19:53 LIVER ENZYMES Assessment & Plan Assessment & Plan (1) Hand numbness: Status: Acute Code(s): R20.0 - Anesthesia of skin Assessment and Plan: The patient is an adult male with history of bipolar disorder and OCD who was admitted due to catatonia. At this moment catatonia has resolved but he remains very anxious and perseverative due to his OCD. Abilify has been titrated up to 20 mg to target mood lability and OCD. Probably carpal tunnel syndrome with the possibility of underlying peripheral neuropathy. The neurologist would recommend outpatient EMG nerve conduction study of her upper extremities for evaluation. Plan 1. Continue same treatment. 2. Wrist ferula on both hands Greater than 50% of the session was spent on counseling and/or coordination of care Reason for contiued inpatient stay Substantial Risk for: inability to function, rapid decompensation and med/psych decompensation
[2021-06-01 18:00] VITALS: BP 100/61; PULSE 78; RESP 18; TEMP 36.6; O2SAT 99
[2021-06-01] MEDS: Tamsulosin HCL 0.4 MG CAPSULE PO (21:31)
[2021-06-01] MEDS: QUEtiapine Fumarate 100 MG TABLET 300 MG PO (21:32)
[2021-06-02 07:00] VITALS: BMI 25.1
[2021-06-02] MEDS: Finasteride 5 MG TABLET PO (08:14)
[2021-06-02] MEDS: Gabapentin 400 MG CAPSULE PO ×3 (08:14→21:02)
[2021-06-02] MEDS: Ibuprofen 800 MG TABLET PO ×2 (08:14→16:46)
[2021-06-02] MEDS: diazePAM 5 MG TABLET PO ×4 (08:14→21:02)
[2021-06-02] MEDS: Docusate Sodium 100 MG CAPSULE PO ×2 (08:15→21:02)
[2021-06-02] MEDS: ARIPiprazole 20 MG TABLET PO (08:15)
[2021-06-02] MEDS: lisinopriL 20 MG TABLET PO (08:15)
[2021-06-02] MEDS: amLODIPine Besylate 5 MG TABLET PO (08:15)
[2021-06-02] MEDS: polyethylene glycoL 3350 17 GM POWD.PACK PO (08:15)
--- NOTE | 2021-06-02 13:39 | HO.PSYCHPN ---
Subjective Subjective Date of Service: 06/02/21 Reason For Visit: Altered mental status Subjective Notes: Conditional Voluntary Interim History: The patient learned that his mother is hospitalized at [facility] after a fall and she is on a critical condition. He has been extremely anxious, dysphoric on with obsessive thoughts that has not allowed him to function at all before learning about new school month yesterday he was able to participate in groups and he was more functional but now he is obsessed with his urination and he has been drinking 5 or 6 pitches of water. He has been more perseverative than ever. Since the patient needs a lot of cues and promptings for [employer] his primary caregiver was his mother who is hospitalized at this moment, the discharge planning for tomorrow was canceled. Medication Compliance: Yes Side effects from medications: No Attending Groups: No Review of Systems Acute medical concerns: No Medical Review of Systems: unchanged Mental Status Exam Mental Status Exam Patient Appearance: Well Grooomed Patient Orientation: Person Level of Consciousness: Awake Patient Behavior: Appropriate Mood Description: Withdrawn and Depressed Affect Description: Constricted Patient Cognition Impaired: No Ability to Follow Directions: Good Speech Pattern: Difficulty Finding Words and Delayed Hallucinations: None Delusions: Not Present Thought Process: Rumination Thought Content: positive for Obsessional Thoughts, positive for Perseveration and positive for Poverty of Content Abnormal Motor Activity Signs and Symptoms: Psychomotor Retardation Judgement: Fair Diagnostics Vital Signs (24Hr): Vital Signs - 24 hr 06/01/21 18:00 Temperature 97.8 F Pulse Rate 78 Respiratory Rate 18 Blood Pressure 100/61 Pulse Oximetry 99 Body Mass Index 25.1 Labs Results: 05/09/21 12:54 05/09/21 12:54 Imaging Radiology Impressions: ITS Impressions Abdomen/Pelvis CT 04/22/21 12:16 IMPRESSION: Mild prostatomegaly with moderate central gland calcification.. The periprostatic fat planes are hazy. The bladder is undistended with a Gonzalez's catheter within. Head CT 04/25/21 10:48 IMPRESSION: No acute intracranial hemorrhage or territorial infarction. Chest X-Ray 04/27/21 11:37 IMPRESSION: No evidence for acute disease in the chest. No foreign body seen. KUB X-Ray 05/02/21 10:19 IMPRESSION: Constipation. No evidence of obstruction. Medications Medications Current Medications Generic Name Dose Route Start Last Admin Trade Name Freq PRN Reason Stop Dose Admin Acetaminophen 650 mg 04/22/21 17:58 05/24/21 02:18 Acetaminophen 325 Mg Tablet PO 650 mg Q4H PRN Administration Pain Al Hydroxide/Mg Hydroxide 30 ml 04/23/21 14:17 Magnesium Hydrox/Alum Hydrox 30 Ml Oral.Susp PO Q6H PRN Heartburn/Nausea Amlodipine Besylate 5 mg 04/22/21 18:00 06/02/21 08:15 Amlodipine Besylate 5 Mg Tablet PO 5 mg DAILY MITRA Administration Protocol Aripiprazole 20 mg 05/28/21 09:00 06/02/21 08:15 Aripiprazole 20 Mg Tablet PO 20 mg DAILY MITRA Administration Diazepam 5 mg 06/01/21 10:30 06/02/21 08:14 Diazepam 5 Mg Tablet PO 5 mg TID MITRA Administration Diazepam 5 mg 06/01/21 10:27 Diazepam 5 Mg Tablet PO BID PRN anxiety/restlessness Docusate Sodium 100 mg 05/23/21 21:00 06/02/21 08:15 Docusate Sodium 100 Mg Capsule PO 100 mg BID MITRA Administration Finasteride 5 mg 04/26/21 11:15 06/02/21 08:14 Finasteride 5 Mg Tablet PO 5 mg DAILY MITRA Administration Gabapentin 400 mg 05/18/21 15:00 06/02/21 08:14 Gabapentin 400 Mg Capsule PO 400 mg TID MITRA Administration Hydrocortisone 1 appl 05/23/21 21:00 06/02/21 09:43 Hydrocortisone 2.5 % Rectal Cr 30 Gm Tube IA Not Given BID MITRA Ibuprofen 800 mg 04/24/21 12:30 06/02/21 08:14 Ibuprofen 800 Mg Tablet PO 800 mg TIDWM MITRA Administration Lisinopril 20 mg 04/22/21 18:00 06/02/21 08:15 Lisinopril 20 Mg Tablet PO 20 mg DAILY MITRA Administration Protocol Magnesium Hydroxide 30 ml 04/23/21 14:17 05/31/21 10:14 Milk Of Magnesia 30 Ml Oral.Susp PO 30 ml DAILY PRN Administration Constipation Polyethylene Glycol 17 gm 04/22/21 18:00 06/02/21 08:15 Polyethylene Glycol 3350 17 Gm Powd.Pack PO 17 gm DAILY MITRA Administration Psyllium Hydrophilic Mucilloid 3.4 gm 06/01/21 11:00 06/02/21 08:15 Psyllium Seed 3.4 Gm Powd.Pack PO 3.4 gm DAILY MITRA Administration Quetiapine Fumarate 300 mg 05/08/21 21:00 06/01/21 21:32 Quetiapine Fumarate 100 Mg Tablet PO 300 mg BEDTIME MITRA Administration Sodium Biphosphate/Sodium Phosphate 133 ml 05/23/21 14:03 05/23/21 16:29 Sodium Phosphate,[place]-Dibasic 133 Ml Enema IA 133 ml ONCE PRN Administration Constipation Tamsulosin HCl 0.4 mg 04/23/21 21:00 06/01/21 21:31 Tamsulosin Hcl 0.4 Mg Capsule PO 0.4 mg BEDTIME MITRA Administration Allergies Allergies Allergy/AdvReac Type Severity Reaction Status Date / Time atorvastatin [From LIPITOR] Allergy Intermediate ELEVATED Verified 04/24/21 19:53 LIVER ENZYMES Assessment & Plan Assessment & Plan (1) Hand numbness: Status: Acute Code(s): R20.0 - Anesthesia of skin Assessment and Plan: The patient is an adult male with history of bipolar disorder and OCD who was admitted due to catatonia. At this moment catatonia has resolved but he remains very anxious and perseverative due to his OCD. Abilify has been titrated up to 20 mg to target mood lability and OCD. Probably carpal tunnel syndrome with the possibility of underlying peripheral neuropathy. The neurologist would recommend outpatient EMG nerve conduction study of her upper extremities for evaluation. Plan 1. Continue same treatment. 2. Wrist ferula on both hands Greater than 50% of the session was spent on counseling and/or coordination of care Reason for contiued inpatient stay Substantial Risk for: inability to function, rapid decompensation and med/psych decompensation
[2021-06-02 18:00] VITALS: PULSE 81; RESP 18; TEMP 36.4; O2SAT 100
[2021-06-02] MEDS: QUEtiapine Fumarate 100 MG TABLET 300 MG PO (21:02)
[2021-06-02] MEDS: Tamsulosin HCL 0.4 MG CAPSULE PO (21:03)
[2021-06-03 06:00] VITALS: BP 106/71; PULSE 63; RESP 16; TEMP 36.9; O2SAT 99
[2021-06-03] MEDS: Gabapentin 400 MG CAPSULE PO ×2 (07:36→20:59)
[2021-06-03] MEDS: Finasteride 5 MG TABLET PO (07:36)
[2021-06-03] MEDS: diazePAM 5 MG TABLET PO ×2 (07:36→20:58)
[2021-06-03] MEDS: Docusate Sodium 100 MG CAPSULE PO ×2 (07:36→20:57)
[2021-06-03] MEDS: amLODIPine Besylate 5 MG TABLET PO (07:37)
[2021-06-03] MEDS: lisinopriL 20 MG TABLET PO (07:37)
[2021-06-03] MEDS: ARIPiprazole 20 MG TABLET PO (07:37)
[2021-06-03] MEDS: Ibuprofen 800 MG TABLET PO ×2 (07:37→18:12)
[2021-06-03] MEDS: polyethylene glycoL 3350 17 GM POWD.PACK PO (07:39)
--- NOTE | 2021-06-03 12:37 | P.PNPSI_ITS ---
Subjective Subjective Date of Service: 06/03/21 Reason For Visit: Altered mental status Subjective Notes: Conditional Voluntary Interim History: The patient has been extremely anxious, obsessed with his urination and bowel movements. He claims that he cannot urinate by himself about staff has noticed that he has gone to the bathroom several times. On physical exam, there is bowel sounds and on Doppler scan there is no urine in the bladder. She is also very dysphoric since his mother is in the hospital and he is scared that she could . Medication Compliance: Yes Side effects from medications: No Attending Groups: Yes Review of Systems Acute medical concerns: No Medical Review of Systems: unchanged Mental Status Exam Mental Status Exam Patient Appearance: Well Grooomed Patient Orientation: Person, Place, Time and Situation Level of Consciousness: Awake Patient Behavior: Restless, Anxious and Good Eye Contact Mood Description: Suspicious Affect Description: Constricted Patient Cognition Impaired: No Ability to Follow Directions: Good Speech Pattern: Clear Memory Description: Intact Hallucinations: None Thought Process: Linear Thought Content: positive for Obsessional Thoughts and positive for Poverty of Content Judgement: Fair Diagnostics Vital Signs (24Hr): Vital Signs - 24 hr 06/02/21 18:00 06/03/21 06:00 Temperature 97.6 F 98.4 F Pulse Rate 81 63 Respiratory Rate 18 16 Blood Pressure 106/71 Pulse Oximetry 100 99 Body Mass Index 25.1 Labs Results: 05/09/21 12:54 05/09/21 12:54 Imaging Radiology Impressions: ITS Impressions Abdomen/Pelvis CT 04/22/21 12:16 IMPRESSION: Mild prostatomegaly with moderate central gland calcification.. The periprostatic fat planes are hazy. The bladder is undistended with a Gonzalez's catheter within. Head CT 04/25/21 10:48 IMPRESSION: No acute intracranial hemorrhage or territorial infarction. Chest X-Ray 04/27/21 11:37 IMPRESSION: No evidence for acute disease in the chest. No foreign body seen. KUB X-Ray 05/02/21 10:19 IMPRESSION: Constipation. No evidence of obstruction. Medications Medications Current Medications Generic Name Dose Route Start Last Admin Trade Name Freq PRN Reason Stop Dose Admin Acetaminophen 650 mg 04/22/21 17:58 05/24/21 02:18 Acetaminophen 325 Mg Tablet PO 650 mg Q4H PRN Administration Pain Al Hydroxide/Mg Hydroxide 30 ml 04/23/21 14:17 Magnesium Hydrox/Alum Hydrox 30 Ml Oral.Susp PO Q6H PRN Heartburn/Nausea Amlodipine Besylate 5 mg 04/22/21 18:00 06/03/21 07:37 Amlodipine Besylate 5 Mg Tablet PO 5 mg DAILY MITRA Administration Protocol Aripiprazole 20 mg 05/28/21 09:00 06/03/21 07:37 Aripiprazole 20 Mg Tablet PO 20 mg DAILY MITRA Administration Diazepam 5 mg 06/01/21 10:30 06/03/21 07:36 Diazepam 5 Mg Tablet PO 5 mg TID MITRA Administration Diazepam 5 mg 06/01/21 10:27 06/02/21 16:47 Diazepam 5 Mg Tablet PO 5 mg BID PRN Administration anxiety/restlessness Docusate Sodium 100 mg 05/23/21 21:00 06/03/21 07:36 Docusate Sodium 100 Mg Capsule PO 100 mg BID MITRA Administration Finasteride 5 mg 04/26/21 11:15 06/03/21 07:36 Finasteride 5 Mg Tablet PO 5 mg DAILY MITRA Administration Gabapentin 400 mg 05/18/21 15:00 06/03/21 07:36 Gabapentin 400 Mg Capsule PO 400 mg TID MITRA Administration Hydrocortisone 1 appl 05/23/21 21:00 06/03/21 07:38 Hydrocortisone 2.5 % Rectal Cr 30 Gm Tube AL Not Given BID MITRA Ibuprofen 800 mg 04/24/21 12:30 06/03/21 07:37 Ibuprofen 800 Mg Tablet PO 800 mg TIDWM MITRA Administration Lisinopril 20 mg 04/22/21 18:00 06/03/21 07:37 Lisinopril 20 Mg Tablet PO 20 mg DAILY MITRA Administration Protocol Magnesium Hydroxide 30 ml 04/23/21 14:17 05/31/21 10:14 Milk Of Magnesia 30 Ml Oral.Susp PO 30 ml DAILY PRN Administration Constipation Polyethylene Glycol 17 gm 04/22/21 18:00 06/03/21 07:39 Polyethylene Glycol 3350 17 Gm Powd.Pack PO 17 gm DAILY MITRA Administration Psyllium Hydrophilic Mucilloid 3.4 gm 06/01/21 11:00 06/03/21 07:38 Psyllium Seed 3.4 Gm Powd.Pack PO 3.4 gm DAILY MITRA Administration Quetiapine Fumarate 300 mg 05/08/21 21:00 06/02/21 21:02 Quetiapine Fumarate 100 Mg Tablet PO 300 mg BEDTIME MITRA Administration Sodium Biphosphate/Sodium Phosphate 133 ml 05/23/21 14:03 05/23/21 16:29 Sodium Phosphate,[place]-Dibasic 133 Ml Enema AL 133 ml ONCE PRN Administration Constipation Tamsulosin HCl 0.4 mg 04/23/21 21:00 06/02/21 21:03 Tamsulosin Hcl 0.4 Mg Capsule PO 0.4 mg BEDTIME MITRA Administration Allergies Allergies Allergy/AdvReac Type Severity Reaction Status Date / Time atorvastatin [From LIPITOR] Allergy Intermediate ELEVATED Verified 04/24/21 19:53 LIVER ENZYMES Assessment & Plan Assessment & Plan (1) Hand numbness: Status: Acute Code(s): R20.0 - Anesthesia of skin Assessment and Plan: The patient is an adult male with history of bipolar disorder and OCD who was admitted due to catatonia. At this moment catatonia has resolved but he remains very anxious and perseverative due to his OCD. Abilify has been titrated up to 20 mg to target mood lability and OCD. Probably carpal tunnel syndrome with the possibility of underlying peripheral neuropathy. The neurologist would recommend outpatient EMG nerve conduction study of her upper extremities for evaluation. Plan 1. Continue same treatment. 2. Wrist ferula on both hands Greater than 50% of the session was spent on counseling and/or coordination of care Reason for contiued inpatient stay Substantial Risk for: inability to function, rapid decompensation and med/psych decompensation
[2021-06-03 18:00] VITALS: BP 110/68; PULSE 73; RESP 18; TEMP 36.6; O2SAT 99
[2021-06-03] MEDS: QUEtiapine Fumarate 100 MG TABLET 300 MG PO (20:58)
[2021-06-03] MEDS: Tamsulosin HCL 0.4 MG CAPSULE PO (20:59)
[2021-06-04 06:00] VITALS: BP 117/74; PULSE 89; RESP 16; TEMP 36.2; O2SAT 100
[2021-06-04 06:23] LABS: MANUAL DIFF FLAG NO
[2021-06-04 06:50] LABS: Basophils Percent Auto 0.7 % (0-2); Eosinophils Absolute Auto 0.1 X10*3/uL (0.0-0.4); Eosinophils Percent Auto 2.2 % (0-4); Hematocrit 36.8 % (42-52); Hemoglobin 12.1 g/dl (14.0-18.0); Imm Gran Abs Auto 0.02 X10*3/uL (0.00-0.03); Imm Gran Pct Auto 0.4 % (0.0-0.4); Lymphocytes Absolute Auto 1.8 X10*3/uL (1.2-4.9); Mean Corpuscular HGB Conc 32.9 g/dl (31.0-36.0); Mean Corpuscular Volume 88.2 fL (80-98); Mean Platelet Volume 9.2 fL (9.4-12.4); Monocytes Absolute Auto 0.4 X10*3/uL (0.1-1.2); Monocytes Percent Auto 9.6 % (2-11); Neutrophils Absolute Auto 2.2 X10*3/uL (2.0-8.3); Neutrophils Percent Auto 47.1 % (45-73); Platelet Count 271 X10*3/uL (160-400); Red Blood Count 4.17 X10*6/uL (4.60-5.80); White Blood Count 4.6 X10*3/uL (4.8-10.8)
[2021-06-04 06:52] LABS: Alanine Aminotransferase 11 U/L (0-40); Albumin Level 3.7 g/dL (3.5-5.0); Alkaline Phosphatase 77 U/L (39-117); Anion Gap 11 (12-20); Aspartate Amino Transferase 8 U/L (5-37); Bilirubin Direct 0.2 mg/dL (0.0-0.5); Bilirubin Total 0.3 mg/dL (0.0-1.0); Blood Urea Nitrogen 16 mg/dL (9-16); Calcium 9.3 mg/dL (8.4-10.2); Carbon Dioxide 26 mmol/L (22-29); Chloride 110 mmol/L (96-108); Cholesterol 209 mg/dL; Creatinine Clr Calc Pharmacy 72.6; Estimated Glomerular Filt Rate > 60; Glucose Random 89 mg/dL (60-115); HDL Cholesterol 53 mg/dL; LDL Cholesterol Calculated 141 mg/dl; Potassium 4.3 mmol/L (3.3-5.1); Sodium 143 mmol/L (135-145); Total Protein 5.8 g/dL (6.5-8.0); Triglycerides 78 mg/dL
[2021-06-04 07:09] LABS: Estimated Average Glucose 108 mg/dL; Hemoglobin A1C 110.9589 umol/L; Hemoglobin A1c % 5.4 %
[2021-06-04] MEDS: Docusate Sodium 100 MG CAPSULE PO ×2 (09:14→20:57)
[2021-06-04] MEDS: Gabapentin 400 MG CAPSULE PO ×3 (09:15→20:57)
[2021-06-04] MEDS: Ibuprofen 800 MG TABLET PO ×3 (09:15→18:31)
[2021-06-04] MEDS: ARIPiprazole 20 MG TABLET PO (09:15)
[2021-06-04 09:17] VITALS: BP 117/74; PULSE 89
[2021-06-04] MEDS: lisinopriL 20 MG TABLET PO (09:17)
[2021-06-04 09:18] VITALS: BP 117/74; PULSE 89
[2021-06-04] MEDS: amLODIPine Besylate 5 MG TABLET PO (09:18)
[2021-06-04] MEDS: Finasteride 5 MG TABLET PO (09:21)
[2021-06-04] MEDS: diazePAM 5 MG TABLET PO ×3 (09:23→20:57)
[2021-06-04] MEDS: polyethylene glycoL 3350 17 GM POWD.PACK PO (09:25)
[2021-06-04] MEDS: Hydrocortisone 2.5 % Rectal Cr 30 GM TUBE 1 APPL PR ×2 (09:53→20:58)
--- NOTE | 2021-06-04 10:03 | HO.PSYCHPN ---
Subjective Subjective Date of Service: 06/04/21 Reason For Visit: Altered mental status Subjective Notes: Conditional Voluntary Interim History: The patient remains perseverative with OCD symptoms; mood is dysphoric due to recent accident of his mother. Review of Systems Acute medical concerns: No Medical Review of Systems: unchanged Mental Status Exam Mental Status Exam Patient Appearance: Well Grooomed Patient Orientation: Person and Situation Level of Consciousness: Awake Patient Behavior: Appropriate and Dependent Mood Description: Withdrawn Affect Description: Constricted Patient Cognition Impaired: No Ability to Follow Directions: Good Speech Pattern: Clear Delusions: Not Present Thought Process: Slowed Thinking Thought Content: positive for Perseveration, positive for Poverty of Content and positive for Preoccupation Judgement: Fair Diagnostics Vital Signs (24Hr): Vital Signs - 24 hr 06/03/21 18:00 06/04/21 06:00 06/04/21 09:17 Temperature 97.8 F 97.2 F Pulse Rate 73 89 89 Respiratory Rate 18 16 Blood Pressure 110/68 117/74 117/74 Pulse Oximetry 99 100 06/04/21 09:18 Temperature Pulse Rate 89 Respiratory Rate Blood Pressure 117/74 Pulse Oximetry Body Mass Index 25.1 Labs Results: 06/04/21 06:16 06/04/21 06:16 Labs: Laboratory Results - last 48 hr 06/04/21 06/04/21 06/04/21 06:16 06:16 06:16 WBC 4.6 L RBC 4.17 L Hgb 12.1 L Hct 36.8 L MCV 88.2 MCH 29.0 MCHC 32.9 RDW 13.0 Plt Count 271 MPV 9.2 L Immature Gran % (Auto) 0.4 Neut % (Auto) 47.1 Lymph % (Auto) 40.0 [place] % (Auto) 9.6 Eos % (Auto) 2.2 Baso % (Auto) 0.7 Lymph # (Auto) 1.8 [place] # (Auto) 0.4 Eos # (Auto) 0.1 Baso # (Auto) 0.0 Abs Immat Gran (auto) 0.02 Absolute Neuts (auto) 2.2 Absolute Nucleated RBC 0.000 Nucleated RBC % (auto) 0.0 Sodium 143 Potassium 4.3 Chloride 110 H Carbon Dioxide 26 Anion Gap 11 L BUN 16 Creatinine 1.13 Estim Creat Clear Calc 72.6 Estimated GFR > 60 Random Glucose 89 D Estimat Average Glucose 108 Hemoglobin A1c % 5.4 Calcium 9.3 Total Bilirubin 0.3 Direct Bilirubin 0.2 AST 8 D ALT 11 Alkaline Phosphatase 77 Total Protein 5.8 L Albumin 3.7 Triglycerides 78 Cholesterol 209 LDL Cholesterol, Calc 141 HDL Cholesterol 53 Imaging Radiology Impressions: ITS Impressions Abdomen/Pelvis CT 04/22/21 12:16 IMPRESSION: Mild prostatomegaly with moderate central gland calcification.. The periprostatic fat planes are hazy. The bladder is undistended with a Gonzalez's catheter within. Head CT 04/25/21 10:48 IMPRESSION: No acute intracranial hemorrhage or territorial infarction. Chest X-Ray 04/27/21 11:37 IMPRESSION: No evidence for acute disease in the chest. No foreign body seen. KUB X-Ray 05/02/21 10:19 IMPRESSION: Constipation. No evidence of obstruction. Medications Medications Current Medications Generic Name Dose Route Start Last Admin Trade Name Freq PRN Reason Stop Dose Admin Acetaminophen 650 mg 04/22/21 17:58 05/24/21 02:18 Acetaminophen 325 Mg Tablet PO 650 mg Q4H PRN Administration Pain Al Hydroxide/Mg Hydroxide 30 ml 04/23/21 14:17 Magnesium Hydrox/Alum Hydrox 30 Ml Oral.Susp PO Q6H PRN Heartburn/Nausea Amlodipine Besylate 5 mg 04/22/21 18:00 06/04/21 09:18 Amlodipine Besylate 5 Mg Tablet PO 5 mg DAILY MITRA Administration Protocol Aripiprazole 20 mg 05/28/21 09:00 06/04/21 09:15 Aripiprazole 20 Mg Tablet PO 20 mg DAILY MITRA Administration Diazepam 5 mg 06/01/21 10:30 06/04/21 09:23 Diazepam 5 Mg Tablet PO 5 mg TID MITRA Administration Diazepam 5 mg 06/01/21 10:27 06/02/21 16:47 Diazepam 5 Mg Tablet PO 5 mg BID PRN Administration anxiety/restlessness Docusate Sodium 100 mg 05/23/21 21:00 06/04/21 09:14 Docusate Sodium 100 Mg Capsule PO 100 mg BID MITRA Administration Finasteride 5 mg 04/26/21 11:15 06/04/21 09:21 Finasteride 5 Mg Tablet PO 5 mg DAILY MITRA Administration Gabapentin 400 mg 05/18/21 15:00 06/04/21 09:15 Gabapentin 400 Mg Capsule PO 400 mg TID MITRA Administration Hydrocortisone 1 appl 05/23/21 21:00 06/04/21 09:53 Hydrocortisone 2.5 % Rectal Cr 30 Gm Tube [place] 1 appl BID MITRA Administration Ibuprofen 800 mg 04/24/21 12:30 06/04/21 09:15 Ibuprofen 800 Mg Tablet PO 800 mg TIDWM MITRA Administration Lisinopril 20 mg 04/22/21 18:00 06/04/21 09:17 Lisinopril 20 Mg Tablet PO 20 mg DAILY MITRA Administration Protocol Magnesium Hydroxide 30 ml 04/23/21 14:17 05/31/21 10:14 Milk Of Magnesia 30 Ml Oral.Susp PO 30 ml DAILY PRN Administration Constipation Polyethylene Glycol 17 gm 04/22/21 18:00 06/04/21 09:25 Polyethylene Glycol 3350 17 Gm Powd.Pack PO 17 gm DAILY MITRA Administration Psyllium Hydrophilic Mucilloid 3.4 gm 06/01/21 11:00 06/04/21 09:24 Psyllium Seed 3.4 Gm Powd.Pack PO 3.4 gm DAILY MITRA Administration Quetiapine Fumarate 300 mg 05/08/21 21:00 06/03/21 20:58 Quetiapine Fumarate 100 Mg Tablet PO 300 mg BEDTIME MITRA Administration Sodium Biphosphate/Sodium Phosphate 133 ml 05/23/21 14:03 05/23/21 16:29 Sodium Phosphate,[place]-Dibasic 133 Ml Enema [place] 133 ml ONCE PRN Administration Constipation Tamsulosin HCl 0.4 mg 04/23/21 21:00 06/03/21 20:59 Tamsulosin Hcl 0.4 Mg Capsule PO 0.4 mg BEDTIME MITRA Administration Allergies Allergies Allergy/AdvReac Type Severity Reaction Status Date / Time atorvastatin [From LIPITOR] Allergy Intermediate ELEVATED Verified 04/24/21 19:53 LIVER ENZYMES Assessment & Plan Assessment & Plan (1) Hand numbness: Status: Acute Code(s): R20.0 - Anesthesia of skin Assessment and Plan: The patient is an adult male with history of bipolar disorder and OCD who was admitted due to catatonia. At this moment catatonia has resolved but he remains very anxious and perseverative due to his OCD. Abilify has been titrated up to 20 mg to target mood lability and OCD. Probably carpal tunnel syndrome with the possibility of underlying peripheral neuropathy. The neurologist would recommend outpatient EMG nerve conduction study of her upper extremities for evaluation. Plan 1. Continue same treatment. 2. Wrist ferula on both hands Greater than 50% of the session was spent on counseling and/or coordination of care Reason for contiued inpatient stay Substantial Risk for: inability to function, rapid decompensation and med/psych decompensation
[2021-06-04 18:00] VITALS: BP 122/74; PULSE 71; RESP 16; TEMP 36.2; O2SAT 97
[2021-06-04] MEDS: QUEtiapine Fumarate 100 MG TABLET 300 MG PO (20:58)
[2021-06-04] MEDS: Tamsulosin HCL 0.4 MG CAPSULE PO (20:58)
--- NOTE | 2021-06-05 08:53 | HO.PSYCHPN ---
Subjective Subjective Date of Service: 06/05/21 Reason For Visit: Altered mental status Interim History: The patient has been more perseverative than ever, his OCD symptoms have worsened to the point that he takes long time to redirect him. So far, no side effects with current treatment. His siblings came yesterday and they were upset to see him with more symptoms of OCD. Unfortunately, his mother who was a primary care had an accident and now she is on brain and tomorrow most likely, will . Seven is not aware of the severity of the condition of his mother. The family has not made plans before for Seven's aftercare in the absence of the mother Medication Compliance: Yes Side effects from medications: No Attending Groups: Intermittent Review of Systems Acute medical concerns: No Medical Review of Systems: unchanged Mental Status Exam Mental Status Exam Patient Appearance: Well Grooomed Patient Orientation: Person, Place, Time and Situation Level of Consciousness: Awake Patient Behavior: Suspicious and Restless Mood Description: Suspicious and Withdrawn Affect Description: Constricted Patient Cognition Impaired: No Ability to Follow Directions: Good Speech Pattern: Monotone Hallucinations: None Delusions: Not Present Thought Process: Distracted Thought Content: positive for Obsessional Thoughts, positive for Perseveration, positive for Poverty of Content and positive for Thought Blocking Judgement: Fair Diagnostics Vital Signs (24Hr): Vital Signs - 24 hr 06/04/21 09:17 06/04/21 09:18 06/04/21 18:00 Temperature 97.1 F Pulse Rate 89 89 71 Respiratory Rate 16 Blood Pressure 117/74 117/74 122/74 Pulse Oximetry 97 Body Mass Index 25.1 Labs Results: 06/04/21 06:16 06/04/21 06:16 Labs: Laboratory Results - last 48 hr 06/04/21 06/04/21 06/04/21 06:16 06:16 06:16 WBC 4.6 L RBC 4.17 L Hgb 12.1 L Hct 36.8 L MCV 88.2 MCH 29.0 MCHC 32.9 RDW 13.0 Plt Count 271 MPV 9.2 L Immature Gran % (Auto) 0.4 Neut % (Auto) 47.1 Lymph % (Auto) 40.0 [place] % (Auto) 9.6 Eos % (Auto) 2.2 Baso % (Auto) 0.7 Lymph # (Auto) 1.8 [place] # (Auto) 0.4 Eos # (Auto) 0.1 Baso # (Auto) 0.0 Abs Immat Gran (auto) 0.02 Absolute Neuts (auto) 2.2 Absolute Nucleated RBC 0.000 Nucleated RBC % (auto) 0.0 Sodium 143 Potassium 4.3 Chloride 110 H Carbon Dioxide 26 Anion Gap 11 L BUN 16 Creatinine 1.13 Estim Creat Clear Calc 72.6 Estimated GFR > 60 Random Glucose 89 D Estimat Average Glucose 108 Hemoglobin A1c % 5.4 Calcium 9.3 Total Bilirubin 0.3 Direct Bilirubin 0.2 AST 8 D ALT 11 Alkaline Phosphatase 77 Total Protein 5.8 L Albumin 3.7 Triglycerides 78 Cholesterol 209 LDL Cholesterol, Calc 141 HDL Cholesterol 53 Imaging Radiology Impressions: ITS Impressions Abdomen/Pelvis CT 04/22/21 12:16 IMPRESSION: Mild prostatomegaly with moderate central gland calcification.. The periprostatic fat planes are hazy. The bladder is undistended with a Gonzalez's catheter within. Head CT 04/25/21 10:48 IMPRESSION: No acute intracranial hemorrhage or territorial infarction. Chest X-Ray 04/27/21 11:37 IMPRESSION: No evidence for acute disease in the chest. No foreign body seen. KUB X-Ray 05/02/21 10:19 IMPRESSION: Constipation. No evidence of obstruction. Medications Medications Current Medications Generic Name Dose Route Start Last Admin Trade Name Freq PRN Reason Stop Dose Admin Acetaminophen 650 mg 04/22/21 17:58 05/24/21 02:18 Acetaminophen 325 Mg Tablet PO 650 mg Q4H PRN Administration Pain Al Hydroxide/Mg Hydroxide 30 ml 04/23/21 14:17 Magnesium Hydrox/Alum Hydrox 30 Ml Oral.Susp PO Q6H PRN Heartburn/Nausea Amlodipine Besylate 5 mg 04/22/21 18:00 06/04/21 09:18 Amlodipine Besylate 5 Mg Tablet PO 5 mg DAILY MITRA Administration Protocol Aripiprazole 20 mg 05/28/21 09:00 06/04/21 09:15 Aripiprazole 20 Mg Tablet PO 20 mg DAILY MITRA Administration Diazepam 5 mg 06/01/21 10:30 06/04/21 20:57 Diazepam 5 Mg Tablet PO 5 mg TID MITRA Administration Diazepam 5 mg 06/01/21 10:27 06/02/21 16:47 Diazepam 5 Mg Tablet PO 5 mg BID PRN Administration anxiety/restlessness Docusate Sodium 100 mg 05/23/21 21:00 06/04/21 20:57 Docusate Sodium 100 Mg Capsule PO 100 mg BID MITRA Administration Finasteride 5 mg 04/26/21 11:15 06/04/21 09:21 Finasteride 5 Mg Tablet PO 5 mg DAILY MITRA Administration Gabapentin 400 mg 05/18/21 15:00 06/04/21 20:57 Gabapentin 400 Mg Capsule PO 400 mg TID MITRA Administration Hydrocortisone 1 appl 05/23/21 21:00 06/04/21 20:58 Hydrocortisone 2.5 % Rectal Cr 30 Gm Tube [place] 1 appl BID MITRA Administration Ibuprofen 800 mg 04/24/21 12:30 06/04/21 18:31 Ibuprofen 800 Mg Tablet PO 800 mg TIDWM MITRA Administration Lisinopril 20 mg 04/22/21 18:00 06/04/21 09:17 Lisinopril 20 Mg Tablet PO 20 mg DAILY MITRA Administration Protocol Magnesium Hydroxide 30 ml 04/23/21 14:17 05/31/21 10:14 Milk Of Magnesia 30 Ml Oral.Susp PO 30 ml DAILY PRN Administration Constipation Polyethylene Glycol 17 gm 04/22/21 18:00 06/04/21 09:25 Polyethylene Glycol 3350 17 Gm Powd.Pack PO 17 gm DAILY MITRA Administration Psyllium Hydrophilic Mucilloid 3.4 gm 06/01/21 11:00 06/04/21 09:24 Psyllium Seed 3.4 Gm Powd.Pack PO 3.4 gm DAILY MITRA Administration Quetiapine Fumarate 300 mg 05/08/21 21:00 06/04/21 20:58 Quetiapine Fumarate 100 Mg Tablet PO 300 mg BEDTIME MITRA Administration Sodium Biphosphate/Sodium Phosphate 133 ml 05/23/21 14:03 05/23/21 16:29 Sodium Phosphate,[place]-Dibasic 133 Ml Enema [place] 133 ml ONCE PRN Administration Constipation Tamsulosin HCl 0.4 mg 04/23/21 21:00 06/04/21 20:58 Tamsulosin Hcl 0.4 Mg Capsule PO 0.4 mg BEDTIME MITRA Administration Allergies Allergies Allergy/AdvReac Type Severity Reaction Status Date / Time atorvastatin [From LIPITOR] Allergy Intermediate ELEVATED Verified 04/24/21 19:53 LIVER ENZYMES Assessment & Plan Assessment & Plan (1) Hand numbness: Status: Acute Code(s): R20.0 - Anesthesia of skin Assessment and Plan: The patient is an adult male with history of bipolar disorder and OCD who was admitted due to catatonia. At this moment catatonia has resolved but he remains very anxious and perseverative due to his OCD. Abilify has been titrated up to 20 mg to target mood lability and OCD. Probably carpal tunnel syndrome with the possibility of underlying peripheral neuropathy. The neurologist would recommend outpatient EMG nerve conduction study of her upper extremities for evaluation. Plan 1. Continue same treatment. 2. Wrist ferula on both hands Greater than 50% of the session was spent on counseling and/or coordination of care Reason for contiued inpatient stay Substantial Risk for: inability to function, rapid decompensation and med/psych decompensation
[2021-06-05 09:04] VITALS: BP 135/67; PULSE 83; RESP 18; TEMP 36.2; O2SAT 99
[2021-06-05] MEDS: Finasteride 5 MG TABLET PO (09:08)
[2021-06-05] MEDS: Ibuprofen 800 MG TABLET PO ×3 (09:09→17:19)
[2021-06-05] MEDS: Gabapentin 400 MG CAPSULE PO ×3 (09:09→20:33)
[2021-06-05 09:10] VITALS: BP 135/67; PULSE 83
[2021-06-05] MEDS: ARIPiprazole 20 MG TABLET PO (09:10)
[2021-06-05] MEDS: Docusate Sodium 100 MG CAPSULE PO ×2 (09:10→20:34)
[2021-06-05] MEDS: amLODIPine Besylate 5 MG TABLET PO (09:10)
[2021-06-05 09:11] VITALS: BP 135/67; PULSE 83
[2021-06-05] MEDS: lisinopriL 20 MG TABLET PO (09:11)
[2021-06-05] MEDS: diazePAM 5 MG TABLET PO ×4 (09:11→20:33)
[2021-06-05] MEDS: polyethylene glycoL 3350 17 GM POWD.PACK PO (09:11)
[2021-06-05 17:53] VITALS: BP 132/76; PULSE 68; RESP 16; TEMP 36.6; O2SAT 97
--- NOTE | 2021-06-05 18:29 | PC.NURSE ---
Patient visited with Brother George. Patient discussing paranoid thought process and mother's condition and possible . Patient and George discussed going outside for fresh air break. Security was contacted and patient escorted by security operations analyst, Elie and this freelance writer to front of building for fresh air break. Elie walked around flower beds with Pt. pointing out the beautiful colors and bees. Patient was appropriate and engaged in process. Seven is hoping to go outside for another fresh air break again tomorrow, Sunday, 06/06 with his Brother George, security, and staff.
[2021-06-05 20:00] VITALS: BP 132/76; PULSE 68; RESP 16; TEMP 36.6; O2SAT 97
[2021-06-05] MEDS: Tamsulosin HCL 0.4 MG CAPSULE PO (20:34)
[2021-06-05] MEDS: QUEtiapine Fumarate 100 MG TABLET 300 MG PO (20:34)
[2021-06-05] MEDS: Hydrocortisone 2.5 % Rectal Cr 30 GM TUBE 1 APPL PR (22:22)
[2021-06-06 06:00] VITALS: BP 132/66; PULSE 68; RESP 16; TEMP 36.9; O2SAT 98
[2021-06-06] MEDS: Finasteride 5 MG TABLET PO (07:59)
[2021-06-06] MEDS: lisinopriL 20 MG TABLET PO (07:59)
[2021-06-06] MEDS: ARIPiprazole 20 MG TABLET PO (08:00)
[2021-06-06] MEDS: diazePAM 5 MG TABLET PO ×2 (08:00→21:18)
[2021-06-06] MEDS: Gabapentin 400 MG CAPSULE PO ×3 (08:00→21:18)
[2021-06-06] MEDS: amLODIPine Besylate 5 MG TABLET PO (08:00)
[2021-06-06] MEDS: Ibuprofen 800 MG TABLET PO (08:00)
[2021-06-06] MEDS: Docusate Sodium 100 MG CAPSULE PO ×2 (08:00→21:18)
[2021-06-06] MEDS: polyethylene glycoL 3350 17 GM POWD.PACK PO (08:01)
--- NOTE | 2021-06-06 11:52 | P.PNPSI_ITS ---
Subjective Subjective Date of Service: 06/06/21 Reason For Visit: Altered mental status Interim History: As per nursing staff, the patient is fully aware that his mother is brain and most likely life support will be stopped today. On assessment, the patient was very sad and tearful since his mother is dying, he was perseverative regarding of ?being kicked out of the hospital and I have explained it that we would never do something like that but he was still perseverative. He was also obsessed with his urination and bowel movements. Mental Status Exam Mental Status Exam Patient Appearance: Well Grooomed Patient Orientation: Person and Situation Level of Consciousness: Awake and Alert Patient Behavior: Guarded, Cooperative and Suspicious Mood Description: Depressed Affect Description: Constricted Patient Cognition Impaired: No Ability to Follow Directions: Fair Speech Pattern: Clear Hallucinations: None Delusions: Paranoid Ideation Thought Process: Distracted and Slowed Thinking Thought Content: positive for Circumstantial, positive for Perseveration and positive for Poverty of Content Judgement: Fair Diagnostics Vital Signs (24Hr): Vital Signs - 24 hr 06/05/21 17:53 06/05/21 20:00 Temperature 97.8 F 97.8 F Pulse Rate 68 68 Respiratory Rate 16 16 Blood Pressure 132/76 132/76 Pulse Oximetry 97 97 Body Mass Index 25.1 Labs Results: 06/04/21 06:16 06/04/21 06:16 Imaging Radiology Impressions: ITS Impressions Abdomen/Pelvis CT 04/22/21 12:16 IMPRESSION: Mild prostatomegaly with moderate central gland calcification.. The periprostatic fat planes are hazy. The bladder is undistended with a Gonzalez's catheter within. Head CT 04/25/21 10:48 IMPRESSION: No acute intracranial hemorrhage or territorial infarction. Chest X-Ray 04/27/21 11:37 IMPRESSION: No evidence for acute disease in the chest. No foreign body seen. KUB X-Ray 05/02/21 10:19 IMPRESSION: Constipation. No evidence of obstruction. Medications Medications Current Medications Generic Name Dose Route Start Last Admin Trade Name Freq PRN Reason Stop Dose Admin Acetaminophen 650 mg 04/22/21 17:58 05/24/21 02:18 Acetaminophen 325 Mg Tablet PO 650 mg Q4H PRN Administration Pain Al Hydroxide/Mg Hydroxide 30 ml 04/23/21 14:17 Magnesium Hydrox/Alum Hydrox 30 Ml Oral.Susp PO Q6H PRN Heartburn/Nausea Amlodipine Besylate 5 mg 04/22/21 18:00 06/06/21 08:00 Amlodipine Besylate 5 Mg Tablet PO 5 mg DAILY MITRA Administration Protocol Aripiprazole 20 mg 05/28/21 09:00 06/06/21 08:00 Aripiprazole 20 Mg Tablet PO 20 mg DAILY MITRA Administration Docusate Sodium 100 mg 05/23/21 21:00 06/06/21 08:00 Docusate Sodium 100 Mg Capsule PO 100 mg BID MITRA Administration Finasteride 5 mg 04/26/21 11:15 06/06/21 07:59 Finasteride 5 Mg Tablet PO 5 mg DAILY MITRA Administration Gabapentin 400 mg 05/18/21 15:00 06/06/21 08:00 Gabapentin 400 Mg Capsule PO 400 mg TID MITRA Administration Hydrocortisone 1 appl 05/23/21 21:00 06/06/21 08:01 Hydrocortisone 2.5 % Rectal Cr 30 Gm Tube SD Not Given BID MITRA Ibuprofen 800 mg 04/24/21 12:30 06/06/21 08:00 Ibuprofen 800 Mg Tablet PO 800 mg TIDWM MITRA Administration Lisinopril 20 mg 04/22/21 18:00 06/06/21 07:59 Lisinopril 20 Mg Tablet PO 20 mg DAILY MITRA Administration Protocol Magnesium Hydroxide 30 ml 04/23/21 14:17 05/31/21 10:14 Milk Of Magnesia 30 Ml Oral.Susp PO 30 ml DAILY PRN Administration Constipation Polyethylene Glycol 17 gm 04/22/21 18:00 06/06/21 08:01 Polyethylene Glycol 3350 17 Gm Powd.Pack PO 17 gm DAILY MITRA Administration Psyllium Hydrophilic Mucilloid 3.4 gm 06/01/21 11:00 06/06/21 08:01 Psyllium Seed 3.4 Gm Powd.Pack PO 3.4 gm DAILY MITRA Administration Quetiapine Fumarate 300 mg 05/08/21 21:00 06/05/21 20:34 Quetiapine Fumarate 100 Mg Tablet PO 300 mg BEDTIME MITRA Administration Sodium Biphosphate/Sodium Phosphate 133 ml 05/23/21 14:03 05/23/21 16:29 Sodium Phosphate,[place]-Dibasic 133 Ml Enema [place] 133 ml ONCE PRN Administration Constipation Tamsulosin HCl 0.4 mg 04/23/21 21:00 06/05/21 20:34 Tamsulosin Hcl 0.4 Mg Capsule PO 0.4 mg BEDTIME MITRA Administration Allergies Allergies Allergy/AdvReac Type Severity Reaction Status Date / Time atorvastatin [From LIPITOR] Allergy Intermediate ELEVATED Verified 04/24/21 19: 53 LIVER ENZYMES Assessment & Plan Assessment & Plan (1) Hand numbness: Status: Acute Code(s): R20.0 - Anesthesia of skin Assessment and Plan: The patient is an adult male with history of bipolar disorder and OCD who was admitted due to catatonia. At this moment catatonia has resolved but he remains very anxious and perseverative due to his OCD. Abilify has been titra sepideh up to 20 mg to target mood lability and OCD. Probably carpal tunnel syndrome with the possibility of underlying peripheral neuropathy. The neurologist would recommend outpatient EMG nerve conduction study of her upper extremities for evaluation. Plan 1. Continue same treatment. 2. Wrist ferula on both hands Greater than 50% of the session was spent on counseling and/or coordination of care Reason for contiued inpatient stay Substantial Risk for: inability to function, stable for discharge and med/psych decompensation
[2021-06-06 20:15] VITALS: BP 109/69; PULSE 59; RESP 18; TEMP 36.3; O2SAT 98
[2021-06-06] MEDS: Tamsulosin HCL 0.4 MG CAPSULE PO (21:18)
[2021-06-06] MEDS: QUEtiapine Fumarate 100 MG TABLET 300 MG PO (21:18)
[2021-06-07 06:15] VITALS: BP 115/81; PULSE 88; RESP 16; TEMP 36.1; O2SAT 98
[2021-06-07] MEDS: Finasteride 5 MG TABLET PO (08:08)
[2021-06-07] MEDS: Ibuprofen 800 MG TABLET PO ×2 (08:08→17:53)
[2021-06-07 08:09] VITALS: BP 145/88; PULSE 98
[2021-06-07] MEDS: lisinopriL 20 MG TABLET PO (08:09)
[2021-06-07] MEDS: Gabapentin 400 MG CAPSULE PO ×3 (08:09→21:46)
[2021-06-07 08:10] VITALS: BP 145/88; PULSE 98
[2021-06-07] MEDS: diazePAM 5 MG TABLET PO ×4 (08:10→21:46)
[2021-06-07] MEDS: amLODIPine Besylate 5 MG TABLET PO (08:10)
[2021-06-07] MEDS: ARIPiprazole 20 MG TABLET PO (08:10)
[2021-06-07] MEDS: Docusate Sodium 100 MG CAPSULE PO ×2 (08:10→21:46)
[2021-06-07] MEDS: polyethylene glycoL 3350 17 GM POWD.PACK PO (08:11)
--- NOTE | 2021-06-07 13:57 | P.PNPSI_ITS ---
Subjective Subjective Date of Service: 06/07/21 Reason For Visit: Altered mental status Interim History: The patient remains perseverative regarding that he cannot urinate or defecate even though that nursing staff has notice that he goes to the bathroom. At this moment, there is no evidence of catatonia. The patient does not have symptoms of depression or ramesh, he is waiting for a safe discharge plan since his mother had an accident that she was the primary caregiver. Today we met with the patient and his brother George and we discussed discharge planning. The family is going to take care of him and were aiming for discharge this Sunday. Review of Systems Acute medical concerns: No Medical Review of Systems: unchanged Mental Status Exam Mental Status Exam Patient Appearance: Well Grooomed Patient Orientation: Person and Situation Level of Consciousness: Awake and Follows Commands Patient Behavior: Appropriate Mood Description: Blunted Affect Description: Constricted Patient Cognition Impaired: No Speech Pattern: Monotone and Soft-Spoken Hallucinations: None Delusions: Not Present Thought Process: Linear Thought Content: positive for Perseveration and positive for Poverty of Content Judgement: Fair Diagnostics Vital Signs (24Hr): Vital Signs - 24 hr 06/06/21 20:15 06/07/21 06:15 06/07/21 08:09 Temperature 97.3 F 97 F Pulse Rate 59 88 98 Respiratory Rate 18 16 Blood Pressure 109/69 115/81 145/88 H Pulse Oximetry 98 98 06/07/21 08:10 Temperature Pulse Rate 98 Respiratory Rate Blood Pressure 145/88 H Pulse Oximetry Body Mass Index 25.1 Labs Results: 06/04/21 06:16 06/04/21 06:16 Imaging Radiology Impressions: ITS Impressions Abdomen/Pelvis CT 04/22/21 12:16 IMPRESSION: Mild prostatomegaly with moderate central gland calcification.. The periprostatic fat planes are hazy. The bladder is undistended with a Gonzalez's catheter within. Head CT 04/25/21 10:48 IMPRESSION: No acute intracranial hemorrhage or territorial infarction. Chest X-Ray 04/27/21 11:37 IMPRESSION: No evidence for acute disease in the chest. No foreign body seen. KUB X-Ray 05/02/21 10:19 IMPRESSION: Constipation. No evidence of obstruction. Medications Medications Current Medications Generic Name Dose Route Start Last Admin Trade Name Freq PRN Reason Stop Dose Admin Acetaminophen 650 mg 04/22/21 17:58 05/24/21 02:18 Acetaminophen 325 Mg Tablet PO 650 mg Q4H PRN Administration Pain Al Hydroxide/Mg Hydroxide 30 ml 04/23/21 14:17 Magnesium Hydrox/Alum Hydrox 30 Ml Oral.Susp PO Q6H PRN Heartburn/Nausea Amlodipine Besylate 5 mg 04/22/21 18:00 06/07/21 08:10 Amlodipine Besylate 5 Mg Tablet PO 5 mg DAILY MITRA Administration Protocol Aripiprazole 20 mg 05/28/21 09:00 06/07/21 08:10 Aripiprazole 20 Mg Tablet PO 20 mg DAILY MITRA Administration Diazepam 5 mg 06/06/21 21:00 06/07/21 08:10 Diazepam 5 Mg Tablet PO 5 mg TID MITRA Administration Diazepam 5 mg 06/06/21 19:48 06/07/21 13:52 Diazepam 5 Mg Tablet PO 5 mg BID PRN Administration anxiety/restlessness Docusate Sodium 100 mg 05/23/21 21:00 06/07/21 08:10 Docusate Sodium 100 Mg Capsule PO 100 mg BID MITRA Administration Finasteride 5 mg 04/26/21 11:15 06/07/21 08:08 Finasteride 5 Mg Tablet PO 5 mg DAILY MITRA Administration Gabapentin 400 mg 05/18/21 15:00 06/07/21 08:09 Gabapentin 400 Mg Capsule PO 400 mg TID MITRA Administration Hydrocortisone 1 appl 05/23/21 21:00 06/07/21 08:11 Hydrocortisone 2.5 % Rectal Cr 30 Gm Tube [place] Not Given BID MITRA Ibuprofen 800 mg 04/24/21 12:30 06/07/21 13:05 Ibuprofen 800 Mg Tablet PO Not Given TIDWM MITRA Lisinopril 20 mg 04/22/21 18:00 06/07/21 08:09 Lisinopril 20 Mg Tablet PO 20 mg DAILY MITRA Administration Protocol Magnesium Hydroxide 30 ml 04/23/21 14:17 05/31/21 10:14 Milk Of Magnesia 30 Ml Oral.Susp PO 30 ml DAILY PRN Administration Constipation Polyethylene Glycol 17 gm 04/22/21 18:00 06/07/21 08:11 Polyethylene Glycol 3350 17 Gm Powd.Pack PO 17 gm DAILY MITRA Administration Psyllium Hydrophilic Mucilloid 3.4 gm 06/01/21 11:00 06/07/21 08:11 Psyllium Seed 3.4 Gm Powd.Pack PO 3.4 gm DAILY MITRA Administration Quetiapine Fumarate 300 mg 05/08/21 21:00 06/06/21 21:18 Quetiapine Fumarate 100 Mg Tablet PO 300 mg BEDTIME MITRA Administration Sodium Biphosphate/Sodium Phosphate 133 ml 05/23/21 14:03 05/23/21 16:29 Sodium Phosphate,[place]-Dibasic 133 Ml Enema [place] 133 ml ONCE PRN Administration Constipation Tamsulosin HCl 0.4 mg 04/23/21 21:00 06/06/21 21:18 Tamsulosin Hcl 0.4 Mg Capsule PO 0.4 mg BEDTIME MITRA Administration Allergies Allergies Allergy/AdvReac Type Severity Reaction Status Date / Time atorvastatin [From LIPITOR] Allergy Intermediate ELEVATED Verified 04/24/21 19:53 LIVER ENZYMES Assessment & Plan Assessment & Plan (1) Hand numbness: Status: Acute Code(s): R20.0 - Anesthesia of skin Assessment and Plan: The patient is an adult male with history of bipolar disorder and OCD who was admitted due to catatonia. At this moment catatonia has resolved but he remains very anxious and perseverative due to his OCD. Abilify has been titrated up to 20 mg to target mood lability and OCD. Probably carpal tunnel syndrome with the possibility of underlying peripheral neuropathy. The neurologist would recommend outpatient EMG nerve conduction study of her upper extremities for evaluation. Plan 1. Continue same treatment. 2. Wrist ferula on both hands Greater than 50% of the session was spent on counseling and/or coordination of care Reason for contiued inpatient stay Substantial Risk for: inability to function, rapid decompensation and med/psych decompensation
[2021-06-07 18:28] VITALS: BP 89/51; PULSE 65; RESP 18; TEMP 36.2; O2SAT 98
[2021-06-07] MEDS: Hydrocortisone 2.5 % Rectal Cr 30 GM TUBE 1 APPL PR (21:46)
[2021-06-07] MEDS: Tamsulosin HCL 0.4 MG CAPSULE PO (21:46)
[2021-06-07] MEDS: QUEtiapine Fumarate 100 MG TABLET 300 MG PO (21:46)
[2021-06-08 06:00] VITALS: BP 128/81; PULSE 84; TEMP 36.3; O2SAT 98
[2021-06-08 09:08] VITALS: BP 128/81; PULSE 84
[2021-06-08] MEDS: amLODIPine Besylate 5 MG TABLET PO (09:08)
[2021-06-08] MEDS: ARIPiprazole 20 MG TABLET PO (09:08)
[2021-06-08] MEDS: Docusate Sodium 100 MG CAPSULE PO ×2 (09:08→21:14)
[2021-06-08] MEDS: lisinopriL 20 MG TABLET PO (09:08)
[2021-06-08] MEDS: Gabapentin 400 MG CAPSULE PO ×3 (09:08→21:14)
[2021-06-08] MEDS: diazePAM 5 MG TABLET PO ×3 (09:09→21:15)
[2021-06-08] MEDS: Ibuprofen 800 MG TABLET PO ×2 (09:09→14:42)
[2021-06-08] MEDS: polyethylene glycoL 3350 17 GM POWD.PACK PO (09:10)
[2021-06-08] MEDS: Finasteride 5 MG TABLET PO (09:10)
[2021-06-08] MEDS: Hydrocortisone 2.5 % Rectal Cr 30 GM TUBE 1 APPL PR ×2 (09:59→21:16)
--- NOTE | 2021-06-08 12:17 | P.PNPSI_ITS ---
Subjective Subjective Date of Service: 06/08/21 Reason For Visit: Altered mental status Subjective Notes: Conditional Voluntary Interim History: The nursing staff has reported that the patient complains frequently about inability to urinate. Even though, he has been seen that he has normal bowel sounds and normal bladder scanning. On interview, the patient reported that he has pain that he cannot urinate but his bladder scan was negative. He stated that he is ?miserable,onl hell? and due to his physical of the school for, she has been unable to process the loss of his mom. His brother called to the a.m. he wants to make an appointment with me. Apparently the family has a hard time to find a provider for the patient Review of Systems Acute medical concerns: Yes The patient reports pain on urination Medical Review of Systems: changed Mental Status Exam Mental Status Exam Patient Appearance: Well Grooomed Patient Orientation: Person and Situation Level of Consciousness: Awake and Appropriate Patient Behavior: Cooperative Mood Description: Depressed Affect Description: Constricted Patient Cognition Impaired: No Ability to Follow Directions: Good Speech Pattern: Clear Memory Description: Intact Hallucinations: None Delusions: Not Present Thought Process: Slowed Thinking Thought Content: positive for Obsessional Thoughts and positive for Poverty of Content Judgement: Fair Diagnostics Vital Signs (24Hr): Vital Signs - 24 hr 06/07/21 18:28 06/08/21 06:00 06/08/21 09:08 Temperature 97.2 F 97.4 F Pulse Rate 65 84 84 Respiratory Rate 18 Blood Pressure 89/51 L 128/81 128/81 Pulse Oximetry 98 98 Body Mass Index 25.1 Labs Results: 06/04/21 06:16 06/04/21 06:16 Imaging Radiology Impressions: ITS Impressions Abdomen/Pelvis CT 04/22/21 12:16 IMPRESSION: Mild prostatomegaly with moderate central gland calcification.. The periprostatic fat planes are hazy. The bladder is undistended with a Gonzalez's catheter within. Head CT 04/25/21 10:48 IMPRESSION: No acute intracranial hemorrhage or territorial infarction. Chest X-Ray 04/27/21 11:37 IMPRESSION: No evidence for acute disease in the chest. No foreign body seen. KUB X-Ray 05/02/21 10:19 IMPRESSION: Constipation. No evidence of obstruction. Medications Medications Current Medications Generic Name Dose Route Start Last Admin Trade Name Freq PRN Reason Stop Dose Admin Acetaminophen 650 mg 04/22/21 17:58 05/24/21 02:18 Acetaminophen 325 Mg Tablet PO 650 mg Q4H PRN Administration Pain Al Hydroxide/Mg Hydroxide 30 ml 04/23/21 14:17 Magnesium Hydrox/Alum Hydrox 30 Ml Oral.Susp PO Q6H PRN Heartburn/Nausea Amlodipine Besylate 5 mg 04/22/21 18:00 06/08/21 09:08 Amlodipine Besylate 5 Mg Tablet PO 5 mg DAILY MITRA Administration Protocol Aripiprazole 20 mg 05/28/21 09:00 06/08/21 09:08 Aripiprazole 20 Mg Tablet PO 20 mg DAILY MITRA Administration Diazepam 5 mg 06/06/21 21:00 06/08/21 09:09 Diazepam 5 Mg Tablet PO 5 mg TID MITRA Administration Diazepam 5 mg 06/06/21 19:48 06/07/21 13:52 Diazepam 5 Mg Tablet PO 5 mg BID PRN Administration anxiety/restlessness Docusate Sodium 100 mg 05/23/21 21:00 06/08/21 09:08 Docusate Sodium 100 Mg Capsule PO 100 mg BID MITRA Administration Finasteride 5 mg 04/26/21 11:15 06/08/21 09:10 Finasteride 5 Mg Tablet PO 5 mg DAILY MITRA Administration Gabapentin 400 mg 05/18/21 15:00 06/08/21 09:08 Gabapentin 400 Mg Capsule PO 400 mg TID MITRA Administration Hydrocortisone 1 appl 05/23/21 21:00 06/08/21 09:59 Hydrocortisone 2.5 % Rectal Cr 30 Gm Tube MD 1 appl BID MITRA Administration Ibuprofen 800 mg 04/24/21 12:30 06/08/21 09:09 Ibuprofen 800 Mg Tablet PO 800 mg TIDWM MITRA Administration Lisinopril 20 mg 04/22/21 18:00 06/08/21 09:08 Lisinopril 20 Mg Tablet PO 20 mg DAILY MITRA Administration Protocol Magnesium Hydroxide 30 ml 04/23/21 14:17 05/31/21 10:14 Milk Of Magnesia 30 Ml Oral.Susp PO 30 ml DAILY PRN Administration Constipation Polyethylene Glycol 17 gm 04/22/21 18:00 06/08/21 09:10 Polyethylene Glycol 3350 17 Gm Powd.Pack PO 17 gm DAILY MITRA Administration Psyllium Hydrophilic Mucilloid 3.4 gm 06/01/21 11:00 06/08/21 09:10 Psyllium Seed 3.4 Gm Powd.Pack PO 3.4 gm DAILY MITRA Administration Quetiapine Fumarate 300 mg 05/08/21 21:00 06/07/21 21:46 Quetiapine Fumarate 100 Mg Tablet PO 300 mg BEDTIME MITRA Administration Sodium Biphosphate/Sodium Phosphate 133 ml 05/23/21 14:03 05/23/21 16:29 Sodium Phosphate,[place]-Dibasic 133 Ml Enema MD 133 ml ONCE PRN Administration Constipation Tamsulosin HCl 0.4 mg 04/23/21 21:00 06/07/21 21:46 Tamsulosin Hcl 0.4 Mg Capsule PO 0.4 mg BEDTIME MITRA Administration Allergies Allergies Allergy/AdvReac Type Severity Reaction Status Date / Time atorvastatin [From LIPITOR] Allergy Intermediate ELEVATED Verified 04/24/21 1 9:53 LIVER ENZYMES Assessment & Plan Assessment & Plan (1) Hand numbness: Status: Acute Code(s): R20.0 - Anesthesia of skin Assessment and Plan: The patient is an adult male with history of bipolar disorder and OCD who was admitted due to catatonia. At this moment catatonia has resolved but he remains very anxious and perseverative due to his OCD. Abilify has been tit rated up to 20 mg to target mood lability and OCD. Probably carpal tunnel syndrome with the possibility of underlying peripheral neuropathy. The neurologist would recommend outpatient EMG nerve conduction study of her upper extremities for evaluation. Plan 1. Continue same treatment. 2. Wrist ferula on both hands 3. Bladder scans Q shift. 4. As per last meeting, discharged on Sunday Greater than 50% of the session was spent on counseling and/or coordination of care Reason for contiued inpatient stay Substantial Risk for: inability to function, rapid decompensation and med/psych decompensation
[2021-06-08 18:00] VITALS: BP 123/81; PULSE 74; RESP 18; TEMP 36.4; O2SAT 99
[2021-06-08] MEDS: Tamsulosin HCL 0.4 MG CAPSULE PO (21:14)
[2021-06-08] MEDS: QUEtiapine Fumarate 100 MG TABLET 300 MG PO (21:15)
[2021-06-09 06:00] VITALS: BP 123/74; PULSE 63; RESP 16; TEMP 36.1; O2SAT 97
[2021-06-09 07:00] VITALS: BMI 24.5
[2021-06-09 10:04] VITALS: BP 123/74; PULSE 63
[2021-06-09] MEDS: lisinopriL 20 MG TABLET PO (10:04)
[2021-06-09] MEDS: Docusate Sodium 100 MG CAPSULE PO ×2 (10:05→21:33)
[2021-06-09] MEDS: Ibuprofen 800 MG TABLET PO ×3 (10:06→17:19)
[2021-06-09] MEDS: diazePAM 5 MG TABLET PO ×3 (10:06→21:34)
[2021-06-09] MEDS: ARIPiprazole 20 MG TABLET PO (10:07)
[2021-06-09 10:08] VITALS: BP 123/74; PULSE 63
[2021-06-09] MEDS: amLODIPine Besylate 5 MG TABLET PO (10:08)
[2021-06-09] MEDS: Gabapentin 400 MG CAPSULE PO ×3 (10:08→21:32)
[2021-06-09] MEDS: polyethylene glycoL 3350 17 GM POWD.PACK PO (10:23)
[2021-06-09] MEDS: Finasteride 5 MG TABLET PO (10:23)
[2021-06-09] MEDS: Hydrocortisone 2.5 % Rectal Cr 30 GM TUBE 1 APPL PR ×2 (10:39→21:58)
--- NOTE | 2021-06-09 12:33 | P.PNPSI_ITS ---
Subjective Subjective Date of Service: 06/09/21 Reason For Visit: Altered mental status Subjective Notes: Conditional Voluntary Interim History: Nursing staff has reported that his bladder scan showed 271 cc. The patient is as usual, perseverative and obsessive on somatic complaints. His brother George asks to talk with me regarding treatment options. At this mom ent it is clear that this is a new baseline of the patient. He does not have manic or depressive symptoms, he is dysphoric due to the stressors such as the poor health of her mother that most likely she would . Disposition is going to be challenging since the family does not know how to help him. We had a short conversation with his brother and he will be discharged on Sunday to his family Mental Status Exam Mental Status Exam Patient Appearance: Well Grooomed Patient Orientation: Person, Place and Situation Level of Consciousness: Awake Patient Behavior: Appropriate Mood Description: Depressed Affect Description: Constricted Patient Cognition Impaired: No Ability to Follow Directions: Fair Speech Pattern: Appropriate and Monotone Hallucinations: None Delusions: Not Present Thought Process: Slowed Thinking Thought Content: positive for Obsessional Thoughts, positive for Perseveration, positive for Poverty of Content and positive for Thought Blocking Judgement: Fair Diagnostics Vital Signs (24Hr): Vital Signs - 24 hr 06/08/21 18:00 06/09/21 06:00 06/09/21 10:04 Temperature 97.6 F 97.0 F Pulse Rate 74 63 63 Respiratory Rate 18 16 Blood Pressure 123/81 123/74 123/74 Pulse Oximetry 99 97 06/09/21 10:08 Temperature Pulse Rate 63 Respiratory Rate Blood Pressure 123/74 Pulse Oximetry Body Mass Index 25.1 Labs Results: 06/04/21 06:16 06/04/21 06:16 Imaging Radiology Impressions: ITS Impressions Abdomen/Pelvis CT 04/22/21 12:16 IMPRESSION: Mild prostatomegaly with moderate central gland calcification.. The periprostatic fat planes are hazy. The bladder is undistended with a Gonzalez's catheter within. Head CT 04/25/21 10:48 IMPRESSION: No acute intracranial hemorrhage or territorial infarction. Chest X-Ray 04/27/21 11:37 IMPRESSION: No evidence for acute disease in the chest. No foreign body seen. KUB X-Ray 05/02/21 10:19 IMPRESSION: Constipation. No evidence of obstruction. Medications Medications Current Medications Generic Name Dose Route Start Last Admin Trade Name Ceferinoq PRN Reason Stop Dose Admin Acetaminophen 650 mg 04/22/21 17:58 05/24/21 02:18 Acetaminophen 325 Mg Tablet PO 650 mg Q4H PRN Administration Pain Al Hydroxide/Mg Hydroxide 30 ml 04/23/21 14:17 Magnesium Hydrox/Alum Hydrox 30 Ml Oral.Susp PO Q6H PRN Heartburn/Nausea Amlodipine Besylate 5 mg 04/22/21 18:00 06/09/21 10:08 Amlodipine Besylate 5 Mg Tablet PO 5 mg DAILY MITRA Administration Protocol Aripiprazole 20 mg 05/28/21 09:00 06/09/21 10:07 Aripiprazole 20 Mg Tablet PO 20 mg DAILY MITRA Administration Diazepam 5 mg 06/06/21 21:00 06/09/21 10:06 Diazepam 5 Mg Tablet PO 5 mg TID MITRA Administration Diazepam 5 mg 06/06/21 19:48 06/07/21 13:52 Diazepam 5 Mg Tablet PO 5 mg BID PRN Administration anxiety/restlessness Docusate Sodium 100 mg 05/23/21 21:00 06/09/21 10:05 Docusate Sodium 100 Mg Capsule PO 100 mg BID MITRA Administration Finasteride 5 mg 04/26/21 11:15 06/09/21 10:23 Finasteride 5 Mg Tablet PO 5 mg DAILY MITRA Administration Gabapentin 400 mg 05/18/21 15:00 06/09/21 10:08 Gabapentin 400 Mg Capsule PO 400 mg TID MITRA Administration Hydrocortisone 1 appl 05/23/21 21:00 06/09/21 10:39 Hydrocortisone 2.5 % Rectal Cr 30 Gm Tube [place] 1 appl BID MITRA Administration Ibuprofen 800 mg 04/24/21 12:30 06/09/21 10:06 Ibuprofen 800 Mg Tablet PO 800 mg TIDWM MITRA Administration Lisinopril 20 mg 04/22/21 18:00 06/09/21 10:04 Lisinopril 20 Mg Tablet PO 20 mg DAILY MITRA Administration Protocol Magnesium Hydroxide 30 ml 04/23/21 14:17 05/31/21 10:14 Milk Of Magnesia 30 Ml Oral.Susp PO 30 ml DAILY PRN Administration Constipation Polyethylene Glycol 17 gm 04/22/21 18:00 06/09/21 10:23 Polyethylene Glycol 3350 17 Gm Powd.Pack PO 17 gm DAILY MITRA Administration Psyllium Hydrophilic Mucilloid 3.4 gm 06/01/21 11:00 06/09/21 10:23 Psyllium Seed 3.4 Gm Powd.Pack PO 3.4 gm DAILY MITRA Administration Quetiapine Fumarate 300 mg 05/08/21 21:00 06/08/21 21:15 Quetiapine Fumarate 100 Mg Tablet PO 300 mg BEDTIME MITRA Administration Sodium Biphosphate/Sodium Phosphate 133 ml 05/23/21 14:03 05/23/21 16:29 Sodium Phosphate,[place]-Dibasic 133 Ml Enema [place] 133 ml ONCE PRN Administration Constipation Tamsulosin HCl 0.4 mg 04/23/21 21:00 06/08/21 21:14 Tamsulosin Hcl 0.4 Mg Capsule PO 0.4 mg BEDTIME MITRA Administration Allergies Allergies Allergy/AdvReac Type Severity Reaction Status Date / Time atorvastatin [From LIPITOR] Allergy Intermediate ELEVATED Verified 04/24/21 19:53 LIVER ENZYMES Assessment & Plan Assessment & Plan (1) Hand numbness: Status: Acute Code(s): R20.0 - Anesthesia of skin Assessment and Plan: The patient is an adult male with history of bipolar disorder and OCD who was admitted due to catatonia. At this moment catatonia has resolved but he remains very anxious and perseverative due to his OCD. Abilify has been titrated up to 20 mg to target mood lability and OCD. Probably carpal tunnel syndrome with the possibility of underlying peripheral neuropathy. The neurologist would recommend outpatient EMG nerve conduction study of her upper extremities for evaluation. Plan 1. Continue same treatment. 2. Wrist ferula on both hands 3. Bladder scans Q shift. 4. As per last meeting, discharged on Sunday Greater than 50% of the session was spent on counseling and/or coordination of care Reason for contiued inpatient stay Substantial Risk for: inability to function, rapid decompensation and med/psych decompensation
[2021-06-09 18:00] VITALS: BP 109/62; PULSE 68; RESP 18; TEMP 36.8; O2SAT 97
[2021-06-09] MEDS: QUEtiapine Fumarate 100 MG TABLET 300 MG PO (21:32)
[2021-06-09] MEDS: Tamsulosin HCL 0.4 MG CAPSULE PO (21:32)
[2021-06-10 08:43] VITALS: BP 118/82; PULSE 89; RESP 16; TEMP 36.5; O2SAT 95
[2021-06-10] MEDS: Finasteride 5 MG TABLET PO (09:36)
[2021-06-10] MEDS: polyethylene glycoL 3350 17 GM POWD.PACK PO (09:36)
[2021-06-10 09:37] VITALS: BP 118/82; PULSE 89
[2021-06-10] MEDS: lisinopriL 20 MG TABLET PO (09:37)
[2021-06-10] MEDS: ARIPiprazole 20 MG TABLET PO (09:37)
[2021-06-10] MEDS: Docusate Sodium 100 MG CAPSULE PO ×2 (09:37→22:11)
[2021-06-10] MEDS: diazePAM 5 MG TABLET PO ×3 (09:37→20:46)
[2021-06-10] MEDS: amLODIPine Besylate 5 MG TABLET PO (09:37)
[2021-06-10] MEDS: Gabapentin 400 MG CAPSULE PO ×3 (09:38→20:45)
[2021-06-10] MEDS: Ibuprofen 800 MG TABLET PO ×2 (09:40→17:13)
--- NOTE | 2021-06-10 11:22 | P.PNPSI_ITS ---
Subjective Subjective Date of Service: 06/10/21 Reason For Visit: Altered mental status Interim History: Nursing staff reported that she is anxious. Her bladder scan at night was less than 5 cc. Today, he remained anxious but he is hopeful to be discharge on Sunday. Review of Systems Acute medical concerns: No Medical Review of Systems: unchanged Mental Status Exam Mental Status Exam Patient Appearance: Well Grooomed Patient Orientation: Person and Situation Level of Consciousness: Awake Patient Behavior: Cooperative Mood Description: Calm Affect Description: Constricted Patient Cognition Impaired: No Ability to Follow Directions: Good Speech Pattern: Appropriate Hallucinations: None Delusions: Not Present Thought Process: Linear Thought Content: positive for Circumstantial Judgement: Fair Diagnostics Vital Signs (24Hr): Vital Signs - 24 hr 06/09/21 18:00 06/10/21 08:43 06/10/21 09:37 Temperature 98.3 F 97.7 F Pulse Rate 68 89 89 Respiratory Rate 18 16 Blood Pressure 109/62 118/82 118/82 Pulse Oximetry 97 95 Body Mass Index 24.5 Labs Results: 06/04/21 06:16 06/04/21 06:16 Imaging Radiology Impressions: ITS Impressions Abdomen/Pelvis CT 04/22/21 12:16 IMPRESSION: Mild prostatomegaly with moderate central gland calcification.. The periprostatic fat planes are hazy. The bladder is undistended with a Gonzalez's catheter within. Head CT 04/25/21 10:48 IMPRESSION: No acute intracranial hemorrhage or territorial infarction. Chest X-Ray 04/27/21 11:37 IMPRESSION: No evidence for acute disease in the chest. No foreign body seen. KUB X-Ray 05/02/21 10:19 IMPRESSION: Constipation. No evidence of obstruction. Medications Medications Current Medications Generic Name Dose Route Start Last Admin Trade Name Freq PRN Reason Stop Dose Admin Acetaminophen 650 mg 04/22/21 17:58 05/24/21 02:18 Acetaminophen 325 Mg Tablet PO 650 mg Q4H PRN Administration Pain Al Hydroxide/Mg Hydroxide 30 ml 04/23/21 14:17 Magnesium Hydrox/Alum Hydrox 30 Ml Oral.Susp PO Q6H PRN Heartburn/Nausea Amlodipine Besylate 5 mg 04/22/21 18:00 06/10/21 09:37 Amlodipine Besylate 5 Mg Tablet PO 5 mg DAILY MITRA Administration Protocol Aripiprazole 20 mg 05/28/21 09:00 06/10/21 09:37 Aripiprazole 20 Mg Tablet PO 20 mg DAILY MITRA Administration Diazepam 5 mg 06/06/21 21:00 06/10/21 09:37 Diazepam 5 Mg Tablet PO 5 mg TID MITRA Administration Diazepam 5 mg 06/06/21 19:48 06/07/21 13:52 Diazepam 5 Mg Tablet PO 5 mg BID PRN Administration anxiety/restlessness Docusate Sodium 100 mg 05/23/21 21:00 06/10/21 09:37 Docusate Sodium 100 Mg Capsule PO 100 mg BID MITRA Administration Finasteride 5 mg 04/26/21 11:15 06/10/21 09:36 Finasteride 5 Mg Tablet PO 5 mg DAILY MITRA Administration Gabapentin 400 mg 05/18/21 15:00 06/10/21 09:38 Gabapentin 400 Mg Capsule PO 400 mg TID MITRA Administration Hydrocortisone 1 appl 05/23/21 21:00 06/09/21 21:58 Hydrocortisone 2.5 % Rectal Cr 30 Gm Tube [place] 1 appl BID MITRA Administration Ibuprofen 800 mg 04/24/21 12:30 06/10/21 09:40 Ibuprofen 800 Mg Tablet PO 800 mg TIDWM MITRA Administration Lisinopril 20 mg 04/22/21 18:00 06/10/21 09:37 Lisinopril 20 Mg Tablet PO 20 mg DAILY MITRA Administration Protocol Magnesium Hydroxide 30 ml 04/23/21 14:17 05/31/21 10:14 Milk Of Magnesia 30 Ml Oral.Susp PO 30 ml DAILY PRN Administration Constipation Polyethylene Glycol 17 gm 04/22/21 18:00 06/10/21 09:36 Polyethylene Glycol 3350 17 Gm Powd.Pack PO 17 gm DAILY MITRA Administration Psyllium Hydrophilic Mucilloid 3.4 gm 06/01/21 11:00 06/10/21 09:36 Psyllium Seed 3.4 Gm Powd.Pack PO 3.4 gm DAILY MITRA Administration Quetiapine Fumarate 300 mg 05/08/21 21:00 06/09/21 21:32 Quetiapine Fumarate 100 Mg Tablet PO 300 mg BEDTIME MITRA Administration Sodium Biphosphate/Sodium Phosphate 133 ml 05/23/21 14:03 05/23/21 16:29 Sodium Phosphate,[place]-Dibasic 133 Ml Enema [place] 133 ml ONCE PRN Administration Constipation Tamsulosin HCl 0.4 mg 04/23/21 21:00 06/09/21 21:32 Tamsulosin Hcl 0.4 Mg Capsule PO 0.4 mg BEDTIME MITRA Administration Allergies Allergies Allergy/AdvReac Type Severity Reaction Status Date / Time atorvastatin [From LIPITOR] Allergy Intermediate ELEVATED Verified 04/24/21 19:53 LIVER ENZYMES Assessment & Plan Assessment & Plan (1) Hand numbness: Status: Acute Code(s): R20.0 - Anesthesia of skin Assessment and Plan: The patient is an adult male with history of bipolar disorder and OCD who was admitted due to catatonia. At this moment catatonia has resolved but he remains very anxious and perseverative due to his OCD. Abilify has been titrated up to 20 mg to target mood lability and OCD. Probably carpal tunnel syndrome with the possibility of underlying peripheral neuropathy. The neurologist would recommend outpatient EMG nerve conduction study of her upper extremities for evaluation. Plan 1. Continue same treatment. 2. Wrist ferula on both hands 3. Bladder scans Q shift. 4. As per last meeting, discharged on Sunday Greater than 50% of the session was spent on counseling and/or coordination of care Reason for contiued inpatient stay Substantial Risk for: inability to function, rapid decompensation and med/psych decompensation
--- NOTE | 2021-06-10 11:28 | PM.PSYDC ---
DS: Providers Provider Date of Service: 06/12/21 Date of admission: 04/23/21 14:10 Date of discharge: 06/12/21 Primary care physician: Unknown Physician Attending physician on admission: Pawan Cagle Consults: 04/23/21 18:32 Consult to Hospitalist Routine Consulting Provider: Hospitalist Reason For Exam: delirium requires medical management 04/24/21 07:39 Consult to Urology Stat Consulting Provider: Aly Medina Reason for consultation: acute urinary retetnion/catheter placement with coude/bladder scan 653 ML 04/25/21 17:13 Consult to Neurology Routine Consulting Provider: [facility] Reason for consultation: AMS 05/06/21 08:02 Consult to Urology Routine Consulting Provider: Aly Medina Reason for consultation: Gonzalez Placed 04/24/21 - Re-Evaluation for Removal 05/07/21 18:05 Consult to Hospitalist Stat Consulting Provider: Hospitalist Reason For Exam: IM Medication Restraint 05/30/21 13:42 Consult to Neurology Routine Consulting Provider: [facility] Reason for consultation: periferic neuropathy Has provider been notified: No Attending physician on discharge: Pawan Cagle DS: Diagnosis Discharge Diagnosis (1) Hand numbness: Status: Acute (2) Catatonia: Status: Acute (3) Bipolar 1 disorder: Status: Acute (4) Enlarged prostate: Status: Acute DS: Medications Discharge Medications Home Medications: Home Medications Medication Instructions Recorded Confirmed acetaminophen 325 mg tablet 650 mg PO Q4H PRN 04/22/21 04/22/21 amlodipine 5 mg tablet 5 mg PO DAILY 04/22/21 04/22/21 clonazepam 1 mg tablet 1 mg PO DAILY PRN 04/22/21 04/22/21 clonazepam 2 mg tablet 2 mg PO BEDTIME 04/22/21 04/22/21 docusate sodium 100 mg capsule 100 mg PO DAILY PRN 04/22/21 04/22/21 lisinopril 20 mg tablet 20 mg PO DAILY 04/22/21 04/22/21 polyethylene glycol 3350 17 gram 17 g PO DAILY 04/22/21 04/22/21 oral powder packet (Miralax) quetiapine 300 mg tablet 300 mg PO BEDTIME 04/22/21 04/22/21 sulfamethoxazole 400 1 tab PO BID 04/22/21 04/22/21 mg-trimethoprim 80 mg tablet Mental Status Exam Mental Status Exam Patient Appearance: Well Grooomed Patient Orientation: Person and Situation Level of Consciousness: Awake Patient Behavior: Cooperative Mood Description: Constricted Affect Description: Labile Patient Cognition Impaired: No Ability to Follow Directions: Good Speech Pattern: Appropriate Hallucinations: None Delusions: Not Present Thought Process: Linear Thought Content: positive for Perseveration and positive for Poverty of Content Judgement: Fair Data Data Completed and Pending Completed studies during hospitalization [Text1]: 06/04/21 06/04/21 06/04/21 06:16 06:16 06:16 WBC 4.6 L RBC 4.17 L Hgb 12.1 L Hct 36.8 L MCV 88.2 MCH 29.0 MCHC 32.9 RDW 13.0 Plt Count 271 MPV 9.2 L Immature Gran % (Auto) 0.4 Neut % (Auto) 47.1 Lymph % (Auto) 40.0 Baldwin % (Auto) 9.6 Eos % (Auto) 2.2 Baso % (Auto) 0.7 Lymph # (Auto) 1.8 Baldwin # (Auto) 0.4 Eos # (Auto) 0.1 Baso # (Auto) 0.0 Abs Immat Gran (auto) 0.02 Absolute Neuts (auto) 2.2 Absolute Nucleated RBC 0.000 Nucleated RBC % (auto) 0.0 Sodium 143 Potassium 4.3 Chloride 110 H Carbon Dioxide 26 Anion Gap 11 L BUN 16 Creatinine 1.13 Estim Creat Clear Calc 72.6 Estimated GFR > 60 Random Glucose 89 D Estimat Average Glucose 108 Hemoglobin A1c % 5.4 Calcium 9.3 Total Bilirubin 0.3 Direct Bilirubin 0.2 AST 8 D ALT 11 Alkaline Phosphatase 77 Total Protein 5.8 L Albumin 3.7 Triglycerides 78 Cholesterol 209 LDL Cholesterol, Calc 141 HDL Cholesterol 53 04/22/21 13:33 Blood - Venous Blood Culture - Final No growth after 5 days. 04/22/21 13:36 Blood - Venous Blood Culture - Final No growth after 5 days. 04/22/21 13:37 Urine Catheterized - Straight Catheter Urine Culture - Final No growth. Imaging Diagnostic Imaging Impressions Abdomen/Pelvis CT 04/22/21 12:16 IMPRESSION: Mild prostatomegaly with moderate central gland calcification.. The periprostatic fat planes are hazy. The bladder is undistended with a Gonzalez's catheter within. Head CT 04/25/21 10:48 IMPRESSION: No acute intracranial hemorrhage or territorial infarction. Chest X-Ray 04/27/21 11:37 IMPRESSION: No evidence for acute disease in the chest. No foreign body seen. KUB X-Ray 05/02/21 10:19 IMPRESSION: Constipation. No evidence of obstruction. DS: Summary Hospital Course Hospital Course: The patient is a 60-year-old male, single, with no children, unemployed on disability, living with his mother, with a long history of bipolar disorder type 1. The patient was admitted into this facility because he started becoming catatonic. According to his brother, 3 weeks before the admission, he started having the late responds, slowing of his thought process and diminished physical activity. She was assessed on the emergency room and transferred to this facility for psychiatric stabilization. On admission, the patient's catatonic symptoms worsened to the point that he was mute, unable to communicate, with waxy flexibility. Also he had urinary retention like he needed to be in the 40 for nearly 3 weeks. Since the patient could not sign by himself under was no healthcare proxy, we file for section 7 and 8 and we started using lorazepam on high doses to address catatonia. After nearly 8 days of treatment, the patient started improving and he started talking and responding. Also the patient suffers of severe OCD and his symptoms worsened. We contact his outpatient provider and he reported that he used respect or and he had a short trial of Abilify. Since his OCD and his bipolar symptoms were present mostly depression id to start Abilify and titrated up to 20 mg p.o. q.a.m. with no side effects. We also added Valium 5 mg p.o. t.i.d. to target anxiety and muscle spasms. The patient improved and discharge planning was discussed but unfortunately his mother fell and required neurosurgery and, she was intubated at [facility]. The patient was extremely dysphoric and more and shows due to the poor prognosis of his mother. Eventually we had a family meeting then he is going to be discharged to the care of his family. The patient does not have any safety concerns at this moment Time spent discussing smoking cessation with patient: more than 10 minutes Status at Discharge Cognitive/behavioral status at discharge: Stable Functional status at discharge: independent ambulation Overall status at discharge: patient is back to baseline Time Spent with Patient Time attestation: Total time spent providing and/or coordinating discharge services: Time spent: Less than 30 minutes Discharge Plan Discharge Anticipated Discharge Date/Time: 06/12/21 17:00 Patient Disposition: Home, Self-Care Discharge Diagnosis: Bipolar type 1 most recent episode depressed Catatonia Referrals: [facility] [Other] - 06/20/21 1:00 am (Intake assessment scheduled for 06/20/2021 @ 1 PM with Cheri Burdick.) [facility] [Other] - 1 Week (Therapists is Salazar Mariee @ [phone] ext. [phone] still in process of assigning medication prescriber. Please follow as needed with [facility] @ [phone].) DM referral [place] [facility] [Other] - 1 Week ([facility] application was faxed and received by [place] [facility] on 06/01/21.) [facility] [Other] - 1 Week (Referral faxed to [facility] on 06/03/21, please call [facility] and follow up as needed. T/w called and followed up on referral on 06/10/21 with central registration office, referral was re-faxed today 06/10/21 spoke with Christy in central registration office.) [facility] [Other] - 1 Week (Fax - [phone]) Aly Medina MD [Physician] - 2 days Physician,Unknown [Primary Care Provider] - 2 days (your pcp) Discharge Medications: New ibuprofen 800 mg Tablet 800 mg PO TIDWM 30 Days Qty: 90 RF: 0 gabapentin 400 mg Capsule 400 mg PO TID 30 Days Qty: 90 RF: 0 quetiapine 100 mg Tablet 300 mg PO BEDTIME 30 Days Qty: 90 RF: 0 tamsulosin 0.4 mg Capsule 0.4 mg PO BEDTIME 30 Days Qty: 30 RF: 0 diazepam 5 mg Tablet 5 mg PO TID 30 Days Qty: 90 RF: 0 aripiprazole [Abilify] 20 mg Tablet 20 mg PO DAILY 30 Days Qty: 30 RF: 0 Metamucil Fiber Singles 3.4 gram Powder In Packet 3.4 g PO DAILY 30 Days Qty: 100 RF: 0 hydrocortisone [Proctozone-HC] 2.5 % Cream With Perineal Applicator 1 appl DC BID 30 Days Qty: 20 RF: 0 finasteride [Proscar] 5 mg Tablet 5 mg PO DAILY 30 Days Qty: 30 RF: 0 Continued polyethylene glycol 3350 [Miralax] 17 gram Powder In Packet 17 g PO DAILY 30 Days Qty: 1 RF: 0 lisinopril 20 mg tablet 20 mg PO DAILY 30 Days Qty: 30 RF: 0 amlodipine 5 mg tablet 5 mg PO DAILY 30 Days Qty: 30 RF: 0 docusate sodium 100 mg capsule 100 mg PO DAILY PRN (Reason: constipation) Qty: 30 RF: 0 Discontinued quetiapine 300 mg tablet 300 mg PO BEDTIME RF: 0 sulfamethoxazole-trimethoprim 400-80 mg tablet 1 tab PO BID RF: 0 clonazepam 1 mg Tablet 1 mg PO DAILY PRN (Reason: Anxiety) RF: 0 clonazepam 2 mg tablet 2 mg PO BEDTIME RF: 0 acetaminophen 325 mg Tablet 650 mg PO Q4H PRN (Reason: Pain) RF: 0 Discharge Orders: Discharge Order (Routine); Ordered 06/12/21 Ordered By: Pawan Cagle Diet: regular diet Activity on Discharge: As tolerated Stand Alone Forms: Patient Portal Discharge page Print Language: Divehi Activity Restrictions/Additional Instructions: continue taking your previously prescribed Bactrim as previously prescribed. We sent a urine culture of your urine if that urine culture grows a bacterial that is not susceptible to the antibiotic you are currently on we will call you and change the antibiotic although at this time he should continue taking the Bactrim as prescribed. You have a Gonzalez catheter in place due to an enlarged prostate / urinary retention and urinary tract infection therefore you should follow-up with the urologist I gave him number below. Return if any new or worsening symptoms. Care Plan Goals: Care Plan Goals achieved on this admission since catatonia was resolved. Health Concerns: Continue treatment with PCP. F/U on urology Plan of Treatment: Continue Medication managemenT. [facility] application done and accepted. Assessment: Middle-age male with a history of bipolar disorder and a new onset of catatonia and was treated with benzodiazepines. The catatonic was resolved and he is at baseline at this moment Patient Instructions: Urinary Retention in Men (ED), Enlarged Prostate (BPH) (ED), Urinary Tract Infection in Men (ED), Gonzalez Catheter Placement and Care (ED)
[2021-06-10] MEDS: Hydrocortisone 2.5 % Rectal Cr 30 GM TUBE 1 APPL PR (14:50)
[2021-06-10 18:00] VITALS: BP 121/76; PULSE 65; RESP 18; TEMP 37.1; O2SAT 97
[2021-06-10] MEDS: Tamsulosin HCL 0.4 MG CAPSULE PO (20:46)
[2021-06-10] MEDS: QUEtiapine Fumarate 100 MG TABLET 300 MG PO (20:46)
[2021-06-11 06:00] VITALS: BP 126/84; PULSE 88; TEMP 36.5; O2SAT 99
--- NOTE | 2021-06-11 07:51 | HO.PSYCHPN ---
Subjective Subjective Date of Service: 06/12/21 Reason For Visit: Altered mental status Interim History: Discussed pt with nursing this morning. VS wnl. Pt is casually groomed. He reports mood okay reports feeling anxious about being discharged tomorrow. He reports decrease urinary output, but note that he had several bladder scans that show no retention. Pt advised to follow up with his OP urology. He denies SI/HI. He is visible in the unit. No Behavioral concerns. Medication Compliance: Yes Side effects from medications: No Review of Systems Review of Systems unremarkable Yes all other systems are reviewed and are negative and Unobtainable due to mental status Constitutional: Denies chills and Denies fever(s) Eyes: Reports no additional eye complaints Reports system reviewed and no additional complaints, except as documented and Reports Normal hearing present Cardiovascular: Reports no additional cardiovascular complaints and Denies syncope Respiratory: Reports no additional respiratory complaints and Denies cough Gastrointestinal: Reports no additional gastrointestinal complaints, Denies abdominal pain and Denies heartburn Genitourinary: Reports no additional male genitourinary complaints, Reports as per HPI and Denies change in libido Musculoskeletal: Reports no additional musculoskeletal complaints Skin/Breast: Reports system reviewed and no additional complaints, except as docu Reports as per HPI, Reports Normal hearing present and Denies syncope Psychiatric: Reports as per HPI and Denies change in libido Endocrine: Reports no additional endocrine complaints and Denies change in libido Hematologic/Lymphatic: Reports no additional hematologic/lymphatic complaints Allergic/Immunologic: Reports no additional allergic/immunologic complaints Mental Status Exam Mental Status Exam Narrative: Appearance: casually groomed, good hygiene in NAD Behavior:cooperative psychomotor: no agitation or retardation noted Speech:clear, normal rate/rhythm, soft tone, spontaneous Thought process: perseveration Thought content:no over signs of psychosis, preoccupied with decrease urinary frequency despite medical reassurance that he is not retaining Mood: anxious Affect: congruent, restricted in range SI:denies HI:denies VH/AH:denies Delusions:somatic preoccupation Memory/cog: alert, oriented x 3. Diagnostics Vital Signs (24Hr): Vital Signs - 24 hr 06/11/21 09:08 06/11/21 09:09 06/11/21 18:00 Temperature 98.3 F Pulse Rate 88 88 77 Respiratory Rate 18 Blood Pressure 126/84 126/84 117/75 Pulse Oximetry 97 06/12/21 07:42 Temperature Pulse Rate Respiratory Rate Blood Pressure 149/99 H Pulse Oximetry Body Mass Index 24.5 Labs Results: 06/04/21 06:16 06/04/21 06:16 Imaging Radiology Impressions: ITS Impressions Abdomen/Pelvis CT 04/22/21 12:16 IMPRESSION: Mild prostatomegaly with moderate central gland calcification.. The periprostatic fat planes are hazy. The bladder is undistended with a Gonzalez's catheter within. Head CT 04/25/21 10:48 IMPRESSION: No acute intracranial hemorrhage or territorial infarction. Chest X-Ray 04/27/21 11:37 IMPRESSION: No evidence for acute disease in the chest. No foreign body seen. KUB X-Ray 05/02/21 10:19 IMPRESSION: Constipation. No evidence of obstruction. Medications Medications Current Medications Generic Name Dose Route Start Last Admin Trade Name Freq PRN Reason Stop Dose Admin Acetaminophen 650 mg 04/22/21 17:58 05/24/21 02:18 Acetaminophen 325 Mg Tablet PO 650 mg Q4H PRN Administration Pain Al Hydroxide/Mg Hydroxide 30 ml 04/23/21 14:17 Magnesium Hydrox/Alum Hydrox 30 Ml Oral.Susp PO Q6H PRN Heartburn/Nausea Amlodipine Besylate 5 mg 04/22/21 18:00 06/12/21 07:42 Amlodipine Besylate 5 Mg Tablet PO 5 mg DAILY MITRA Administration Protocol Aripiprazole 20 mg 05/28/21 09:00 06/12/21 07:43 Aripiprazole 20 Mg Tablet PO 20 mg DAILY MITRA Administration Docusate Sodium 100 mg 05/23/21 21:00 06/12/21 07:43 Docusate Sodium 100 Mg Capsule PO 100 mg BID MITRA Administration Finasteride 5 mg 04/26/21 11:15 06/12/21 07:42 Finasteride 5 Mg Tablet PO 5 mg DAILY MITRA Administration Gabapentin 400 mg 05/18/21 15:00 06/12/21 07:43 Gabapentin 400 Mg Capsule PO 400 mg TID MITRA Administration Hydrocortisone 1 appl 05/23/21 21:00 06/12/21 07:44 Hydrocortisone 2.5 % Rectal Cr 30 Gm Tube WI Not Given BID MITRA Ibuprofen 800 mg 04/24/21 12:30 06/12/21 07:42 Ibuprofen 800 Mg Tablet PO 800 mg TIDWM MITRA Administration Lisinopril 20 mg 04/22/21 18:00 06/12/21 07:42 Lisinopril 20 Mg Tablet PO 20 mg DAILY MITRA Administration Protocol Magnesium Hydroxide 30 ml 04/23/21 14:17 05/31/21 10:14 Milk Of Magnesia 30 Ml Oral.Susp PO 30 ml DAILY PRN Administration Constipation Polyethylene Glycol 17 gm 04/22/21 18:00 06/12/21 07:48 Polyethylene Glycol 3350 17 Gm Powd.Pack PO 17 gm DAILY MITRA Administration Psyllium Hydrophilic Mucilloid 3.4 gm 06/01/21 11:00 06/12/21 07:48 Psyllium Seed 3.4 Gm Powd.Pack PO Not Given DAILY MITRA Quetiapine Fumarate 300 mg 05/08/21 21:00 06/11/21 20:10 Quetiapine Fumarate 100 Mg Tablet PO 300 mg BEDTIME MITRA Administration Sodium Biphosphate/Sodium Phosphate 133 ml 05/23/21 14:03 05/23/21 16:29 Sodium Phosphate,[place]-Dibasic 133 Ml Enema WI 133 ml ONCE PRN Administration Constipation Tamsulosin HCl 0.4 mg 04/23/21 21:00 06/11/21 20:10 Tamsulosin Hcl 0.4 Mg Capsule PO 0.4 mg BEDTIME MITRA Administration Allergies Allergies Allergy/AdvReac Type Severity Reaction Status Date / Time atorvastatin [From LIPITOR] Allergy Intermediate ELEVATED Verified 04/24/21 19:53 LIVER ENZYMES Assessment & Plan Assessment & Plan (1) Hand numbness: Status: Acute Code(s): R20.0 - Anesthesia of skin (2) Catatonia: Status: Acute Code(s): F06.1 - Catatonic disorder due to known physiological condition (3) Bipolar 1 disorder: Status: Acute Code(s): F31.9 - Bipolar disorder, unspecified (4) Enlarged prostate: Status: Acute Code(s): N40.0 - Benign prostatic hyperplasia without lower urinary tract symptoms Assessment and Plan: The patient is an adult male with history of bipolar disorder and OCD who was admitted due to catatonia. At this moment catatonia has resolved but he remains very anxious and perseverative due to his OCD. Abilify has been titrated up to 20 mg to target mood lability and OCD. Probably carpal tunnel syndrome with the possibility of underlying peripheral neuropathy. The neurologist would recommend outpatient EMG nerve conduction study of her upper extremities for evaluation. Plan 1. Continue same treatment. 2. Wrist ferula on both hands 3. Bladder scans Q shift. 4. As per last meeting, discharged on Sunday Greater than 50% of the session was spent on counseling and/or coordination of care Reason for contiued inpatient stay Substantial Risk for: stable for discharge
[2021-06-11 09:08] VITALS: BP 126/84; PULSE 88
[2021-06-11] MEDS: amLODIPine Besylate 5 MG TABLET PO (09:08)
[2021-06-11] MEDS: diazePAM 5 MG TABLET PO ×3 (09:08→20:11)
[2021-06-11] MEDS: ARIPiprazole 20 MG TABLET PO (09:08)
[2021-06-11 09:09] VITALS: BP 126/84; PULSE 88
[2021-06-11] MEDS: lisinopriL 20 MG TABLET PO (09:09)
[2021-06-11] MEDS: Gabapentin 400 MG CAPSULE PO ×3 (09:09→20:10)
[2021-06-11] MEDS: Docusate Sodium 100 MG CAPSULE PO ×2 (09:09→20:10)
[2021-06-11] MEDS: polyethylene glycoL 3350 17 GM POWD.PACK PO (09:09)
[2021-06-11] MEDS: Finasteride 5 MG TABLET PO (09:09)
[2021-06-11] MEDS: Ibuprofen 800 MG TABLET PO (15:41)
[2021-06-11 18:00] VITALS: BP 117/75; PULSE 77; RESP 18; TEMP 36.8; O2SAT 97
[2021-06-11] MEDS: Tamsulosin HCL 0.4 MG CAPSULE PO (20:10)
[2021-06-11] MEDS: QUEtiapine Fumarate 100 MG TABLET 300 MG PO (20:10)
[2021-06-12 07:42] VITALS: BP 149/99
[2021-06-12] MEDS: lisinopriL 20 MG TABLET PO (07:42)
[2021-06-12] MEDS: amLODIPine Besylate 5 MG TABLET PO (07:42)
[2021-06-12] MEDS: Finasteride 5 MG TABLET PO (07:42)
[2021-06-12] MEDS: Ibuprofen 800 MG TABLET PO (07:42)
[2021-06-12] MEDS: ARIPiprazole 20 MG TABLET PO (07:43)
[2021-06-12] MEDS: Docusate Sodium 100 MG CAPSULE PO (07:43)
[2021-06-12] MEDS: Gabapentin 400 MG CAPSULE PO (07:43)
[2021-06-12] MEDS: polyethylene glycoL 3350 17 GM POWD.PACK PO (07:48)
--- NOTE | 2021-06-12 07:56 | HO.PSYCHPN ---
Subjective Subjective Date of Service: 06/12/21 Reason For Visit: Altered mental status Interim History: Discussed pt with nursing this morning. VS wnl. Pt seen prior to discharge. No safety concerns at time of discharge. Same perseveration on urinary retention, which is not evidenced with bladder scans. Pt is casually groomed. He reports mood okay reports feeling anxious about being discharged tomorrow. He reports decrease urinary output, but note that he had several bladder scans that show no retention. Pt advised to follow up with his OP urology. He denies SI/HI. He is visible in the unit. No Behavioral concerns. Review of Systems Review of Systems unremarkable Yes all other systems are reviewed and are negative and Unobtainable due to mental status Constitutional: Denies chills and Denies fever(s) Eyes: Reports no additional eye complaints Reports system reviewed and no additional complaints, except as documented and Reports Normal hearing present Cardiovascular: Reports no additional cardiovascular complaints and Denies syncope Respiratory: Reports no additional respiratory complaints and Denies cough Gastrointestinal: Reports no additional gastrointestinal complaints, Denies abdominal pain and Denies heartburn Genitourinary: Reports no additional male genitourinary complaints, Reports as per HPI and Denies change in libido Musculoskeletal: Reports no additional musculoskeletal complaints Skin/Breast: Reports system reviewed and no additional complaints, except as docu Reports as per HPI, Reports Normal hearing present and Denies syncope Psychiatric: Reports as per HPI and Denies change in libido Endocrine: Reports no additional endocrine complaints and Denies change in libido Hematologic/Lymphatic: Reports no additional hematologic/lymphatic complaints Allergic/Immunologic: Reports no additional allergic/immunologic complaints Mental Status Exam Mental Status Exam Narrative: Appearance: casually groomed, good hygiene in NAD Behavior:cooperative psychomotor: no agitation or retardation noted Speech:clear, normal rate/rhythm, soft tone, spontaneous Thought process: perseveration Thought content:no over signs of psychosis, preoccupied with decrease urinary frequency despite medical reassurance that he is not retaining Mood: anxious Affect: congruent, restricted in range SI:denies HI:denies VH/AH:denies Delusions:somatic preoccupation Memory/cog: alert, oriented x 3. Speech Pattern: Appropriate Memory Description: Intact Diagnostics Vital Signs (24Hr): Vital Signs - 24 hr 06/11/21 09:08 06/11/21 09:09 06/11/21 18:00 Temperature 98.3 F Pulse Rate 88 88 77 Respiratory Rate 18 Blood Pressure 126/84 126/84 117/75 Pulse Oximetry 97 06/12/21 07:42 Temperature Pulse Rate Respiratory Rate Blood Pressure 149/99 H Pulse Oximetry Body Mass Index 24.5 Labs Results: 06/04/21 06:16 06/04/21 06:16 Imaging Radiology Impressions: ITS Impressions Abdomen/Pelvis CT 04/22/21 12:16 IMPRESSION: Mild prostatomegaly with moderate central gland calcification.. The periprostatic fat planes are hazy. The bladder is undistended with a Gonzalez's catheter within. Head CT 04/25/21 10:48 IMPRESSION: No acute intracranial hemorrhage or territorial infarction. Chest X-Ray 04/27/21 11:37 IMPRESSION: No evidence for acute disease in the chest. No foreign body seen. KUB X-Ray 05/02/21 10:19 IMPRESSION: Constipation. No evidence of obstruction. Medications Medications Current Medications Generic Name Dose Route Start Last Admin Trade Name Freq PRN Reason Stop Dose Admin Acetaminophen 650 mg 04/22/21 17:58 05/24/21 02:18 Acetaminophen 325 Mg Tablet PO 650 mg Q4H PRN Administration Pain Al Hydroxide/Mg Hydroxide 30 ml 04/23/21 14:17 Magnesium Hydrox/Alum Hydrox 30 Ml Oral.Susp PO Q6H PRN Heartburn/Nausea Amlodipine Besylate 5 mg 04/22/21 18:00 06/12/21 07:42 Amlodipine Besylate 5 Mg Tablet PO 5 mg DAILY MITRA Administration Protocol Aripiprazole 20 mg 05/28/21 09:00 06/12/21 07:43 Aripiprazole 20 Mg Tablet PO 20 mg DAILY MITRA Administration Docusate Sodium 100 mg 05/23/21 21:00 06/12/21 07:43 Docusate Sodium 100 Mg Capsule PO 100 mg BID MITRA Administration Finasteride 5 mg 04/26/21 11:15 06/12/21 07:42 Finasteride 5 Mg Tablet PO 5 mg DAILY MITAR Administration Gabapentin 400 mg 05/18/21 15:00 06/12/21 07:43 Gabapentin 400 Mg Capsule PO 400 mg TID MITRA Administration Hydrocortisone 1 appl 05/23/21 21:00 06/12/21 07:44 Hydrocortisone 2.5 % Rectal Cr 30 Gm Tube TX Not Given BID MITRA Ibuprofen 800 mg 04/24/21 12:30 06/12/21 07:42 Ibuprofen 800 Mg Tablet PO 800 mg TIDWM MITRA Administration Lisinopril 20 mg 04/22/21 18:00 06/12/21 07:42 Lisinopril 20 Mg Tablet PO 20 mg DAILY MITRA Administration Protocol Magnesium Hydroxide 30 ml 04/23/21 14:17 05/31/21 10:14 Milk Of Magnesia 30 Ml Oral.Susp PO 30 ml DAILY PRN Administration Constipation Polyethylene Glycol 17 gm 04/22/21 18:00 06/12/21 07:48 Polyethylene Glycol 3350 17 Gm Powd.Pack PO 17 gm DAILY MITRA Administration Psyllium Hydrophilic Mucilloid 3.4 gm 06/01/21 11:00 06/12/21 07:48 Psyllium Seed 3.4 Gm Powd.Pack PO Not Given DAILY MITRA Quetiapine Fumarate 300 mg 05/08/21 21:00 06/11/21 20:10 Quetiapine Fumarate 100 Mg Tablet PO 300 mg BEDTIME MITRA Administration Sodium Biphosphate/Sodium Phosphate 133 ml 05/23/21 14:03 05/23/21 16:29 Sodium Phosphate,Kidder-Dibasic 133 Ml Enema TX 133 ml ONCE PRN Administration Constipation Tamsulosin HCl 0.4 mg 04/23/21 21:00 06/11/21 20:10 Tamsulosin Hcl 0.4 Mg Capsule PO 0.4 mg BEDTIME MITRA Administration Allergies Allergies Allergy/AdvReac Type Severity Reaction Status Date / Time atorvastatin [From LIPITOR] Allergy Intermediate ELEVATED Verified 04/24/21 19:53 LIVER ENZYMES Assessment & Plan Assessment & Plan (1) Hand numbness: Status: Acute Code(s): R20.0 - Anesthesia of skin (2) Catatonia: Status: Acute Code(s): F06.1 - Catatonic disorder due to known physiological condition (3) Bipolar 1 disorder: Status: Acute Code(s): F31.9 - Bipolar disorder, unspecified (4) Enlarged prostate: Status: Acute Code(s): N40.0 - Benign prostatic hyperplasia without lower urinary tract symptoms Assessment and Plan: The patient is an adult male with history of bipolar disorder and OCD who was admitted due to catatonia. At this moment catatonia has resolved but he remains very anxious and perseverative due to his OCD. Abilify has been titrated up to 20 mg to target mood lability and OCD. Probably carpal tunnel syndrome with the possibility of underlying peripheral neuropathy. The neurologist would recommend outpatient EMG nerve conduction study of her upper extremities for evaluation. Plan 1. Continue same treatment. 2. Wrist ferula on both hands 3. Bladder scans Q shift. 4. As per last meeting, discharged on Sunday Greater than 50% of the session was spent on counseling and/or coordination of care Reason for contiued inpatient stay Substantial Risk for: stable for discharge
--- NOTE | 2021-06-12 10:29 | PC.NURSE ---
Pt walked off the floor with his Brother George, and this RN to assist. Pt continued to state It's not good, I don't think I am ready to go . Pt assured he was ready and safe for discharge.
== END 2021-06-12 09:20 | disposition home or self-care (01) | DRG 885 ==
LOC: HO.ED 04-23 12:27 → HO.PGERI 04-23 14:16
PROVIDERS: Clinical Nurse Specialist Psychiatric/Mental Health; Hospitalist; Internal Medicine; Physician Assistant Medical; Psychiatry & Neurology Psychiatry; Admitting Provider Psychiatry & Neurology Psychiatry; Emergency Provider Emergency Medicine Emergency Medical Services; Visit Provider Psychiatry & Neurology Psychiatry
DX: F31.9 Bipolar disorder, unspecified (principal); E78.5 Hyperlipidemia, unspecified; K59.00 Constipation, unspecified; D72.819 Decreased white blood cell count, unspecified; N40.1 Benign prostatic hyperplasia with lower urinary tract symptoms; F06.1 Catatonic disorder due to known physiological condition; G62.9 Polyneuropathy, unspecified; G56.00 Carpal tunnel syndrome, unspecified upper limb; R33.8 Other retention of urine; I12.9 Hypertensive chronic kidney disease with stage 1 through stage 4 chronic kidney disease, or unspecified chronic kidney disease; N18.2 Chronic kidney disease, stage 2 (mild); Z96.0 Presence of urogenital implants; Z20.822 Contact with and (suspected) exposure to COVID-19; Z79.899 Other long term (current) drug therapy
CPT/HCPCS: 36415; 51798; 70450; 70551; 71045; 74018; 74177; 80048; 80051; 80053; 80061; 80076; 80307; 81001; 82140; 82550; 82607; 82746; 82947; 83036; 83605; 83615; 83735; 84443; 85025; 87040; 87086; 87635; 93005; 95816; 96360; 97161; 99232; 99285; 99291; C1758; J1200; J1650; J2060; Q0163; Q9967

== ENCOUNTER 2021-06-14 14:04 | Emergency (ER) | payer MEDICARE, SELFPAY ==
[2021-06-14 14:16] VITALS: BP 107/71; PULSE 78; RESP 15; TEMP 36.6; O2SAT 97; BMI 25.2
--- NOTE | 2021-06-14 15:17 | ED_ITS ---
HPI - Male Genitourinary General Chief complaint: Urogenital-Male Stated complaint: urinary problem Time Seen by Provider: 06/14/21 15:14 Source: patient Mode of arrival: ambulatory Limitations: no limitations History of Present Illness HPI Narrative: 60 y/o male with history of bipolar disorder, catatonia, HTN, HLD , BPH with recurrent UTI's requiring Gonzalez catheter x2 in the last 2 months who presents to the ER with inability to urinate since last night. His borhter helps provide history who reports he was just admitted at a psych facility and got discharged 2 days ago. He thinks abilify, gabapentin and seroquel are new medications over the last few weeks. He had a Gonzalez while inpatient that was removed about 10 days ago. He has been having intermittent difficultly urinating. No fever, chills, flank pain or blood in his urine. He reports intermittent lower abdominal pain. He last urinated a small amount last night. None today. Poor PO intake today. No current abdominal pain. No pain with urination. Compliant with flomax and finesteride. Complaint: other (urinary retention) Onset (ago): day(s) (1) Duration: intermittent Location: abdomen Severity: moderate Quality: aching Relieving factors: none Exacerbating factors: palpation Context: new medication Associated symptoms: Reports urinary retention Related Data Sexually active: No Previous Rx's Medication Instructions Recorded amlodipine 5 mg tablet 5 mg PO DAILY 30 Days #30 tab 06/10/21 aripiprazole 20 mg tablet (Abilify) 20 mg PO DAILY 30 Days #30 tab 06/10/21 diazepam 5 mg tablet 5 mg PO TID 30 Days #90 tab 06/10/21 docusate sodium 100 mg capsule 100 mg PO DAILY PRN #30 cap 06/10/21 finasteride 5 mg tablet (Proscar) 5 mg PO DAILY 30 Days #30 tab 06/10/21 gabapentin 400 mg capsule 400 mg PO TID 30 Days #90 cap 06/10/21 hydrocortisone 2.5 % topical cream 1 appl MA BID 30 Days #20 g 06/10/21 with perineal applicator (Proctozone-HC) ibuprofen 800 mg tablet 800 mg PO TIDWM 30 Days #90 tab 06/10/21 lisinopril 20 mg tablet 20 mg PO DAILY 30 Days #30 tab 06/10/21 polyethylene glycol 3350 17 gram 17 g PO DAILY 30 Days #1 ea 06/10/21 oral powder packet (Miralax) psyllium husk (aspartame) 3.4 gram 3.4 g PO DAILY 30 Days #100 ea 06/10/21 oral powder packet (Metamucil Fiber Singles) quetiapine 100 mg tablet 300 mg PO BEDTIME 30 Days #90 tab 06/10/21 tamsulosin 0.4 mg capsule 0.4 mg PO BEDTIME 30 Days #30 cap 06/10/21 cefuroxime axetil 250 mg tablet 250 mg PO BID 7 Days #14 tab 06/14/21 Allergies Allergy/AdvReac Type Severity Reaction Status Date / Time atorvastatin [From LIPITOR] Allergy Intermediate ELEVATED Verified 04/24/21 19:53 LIVER ENZYMES Review of Systems Review of Systems: Constitutional: No Fever, No Chills ENT/Mouth: No sore throat, No Rhinorrhea, No Swallowing Difficulty Cardiovascular: No Chest Pain, No SOB Respiratory: No Cough, No Sputum Gastrointestinal: No Nausea, No Vomiting, No Diarrhea, + abdominal Pain Genitourinary: No Dysuria, No Urinary Frequency, No Hematuria, +urinary retention Musculoskeletal: No joint pain, No Myalgias Skin: No Skin Lesions, No rash Neuro: No Weakness, No Numbness Psych: No Anxiety/Panic, No Depression Heme/Lymph: No Bruising, No Lymphadenopathy Endocrine: No Polyuria, No Polydipsia [facility] Past Medical History Medical History (Updated 06/14/21 @ 17:56 by SONIDO Anaya) Bipolar 1 disorder Hyperlipemia Hypertension UTI (urinary tract infection) Surgical History H/O shoulder surgery Social History Social History Household Members: Family and Other Household Members Other:: 85 year old mother Housing: House Do you presently have visiting nurse or other home services: No Alcohol intake: unknown Patient Tobacco Use Status: Never used Tobacco e-Cigarette/Vaping Use: Never Used Second Hand Smoke Exposure: No Advance Directives: No Advance Directives Information Provided: No service: No Sexual orientation: Don't Know Physical Exam Vital Signs: Vital Signs: Last Vital Signs Temp 97.8 F 06/14/21 14:16 Pulse 78 06/14/21 14:16 Resp 15 06/14/21 14:16 BP 107/71 06/14/21 14:16 Pulse Ox 97 06/14/21 14:16 Body Mass Index 25.2 Appearance: Alert. Flat affect, slow to respond at times. No distress Eyes: Pupils equal, round and reactive to light. ENT: Pharynx normal. Neck: Normal inspection. Neck supple. CVS: Normal heart rate and rhythm. Pulses normal. Respiratory: No respiratory distress. Breath sounds normal. Abdomen: Soft and nontender. +BS x4. : normal external genitalia. Skin: Skin warm and dry. Normal skin color. Normal skin turgor. No rashes. Extremities: No lower extremity edema. Neuro: Oriented X 3. No motor deficit. No sensory deficit. Course Course Course Narrative: 60 y/o male presenting with recurrent urinary retention requiring Gonzalez catheter. He is due to see Dr. Medina in 1 week. Bladder scan wi th >400 cc in his bladder now. Coude catheter placed after 2nd attempt. Labs show normal renal function. CBC at his baseline. UA is pending. Not septic. Reevaluation(s) Reevaluation #1: UA positive for infection. Will start ceftin and have him f/u with Dr. Medina in 1 week. Patient and brother educated on Gonzalez care at home. MDM - Male Genitourinary Lab Data Result diagrams: 06/14/21 15:25 06/14/21 15:25 Labs: Lab Results 06/14/21 06/14/21 06/14/21 Range/Units 15:25 15:25 17:19 WBC 4.5 L (4.8-10.8) X10*3/uL RBC 4.32 L (4.60-5.80) X10*6/uL Hgb 12.7 L (14.0-18.0) g/dl Hct 38.1 L (42-52) % MCV 88.2 (80-98) fL MCH 29.4 (27.0-33.0) pg MCHC 33.3 (31.0-36.0) g/dl RDW 13.0 (11.0-16.0) % Plt Count 256 (160-400) X10*3/uL MPV 9.0 L (9.4-12.4) fL Immature Gran % (Auto) 0.2 (0.0-0.4) % Neut % (Auto) 64.1 (45-73) % Lymph % (Auto) 27.0 (20-40) % [place] % (Auto) 7.6 (2-11) % Eos % (Auto) 0.7 (0-4) % Baso % (Auto) 0.4 (0-2) % Lymph # (Auto) 1.2 (1.2-4.9) X10*3/uL [place] # (Auto) 0.3 (0.1-1.2) X10*3/uL Eos # (Auto) 0.0 (0.0-0.4) X10*3/uL Baso # (Auto) 0.0 (0.0-0.2) X10*3/uL Abs Immat Gran (auto) 0.01 (0.00-0.03) X10*3/uL Absolute Neuts (auto) 2.9 (2.0-8.3) X10*3/uL Absolute Nucleated RBC 0.000 (0.0-0.012) X10*3/uL Nucleated RBC % (auto) 0.0 (0.0-0.2) /100WBC Sodium 142 (135-145) mmol/L Potassium 4.1 (3.3-5.1) mmol/L Chloride 108 (96-108) mmol/L Carbon Dioxide 25 (22-29) mmol/L Anion Gap 13 (12-20) BUN 18 H (9-16) mg/dL Creatinine 1.09 (0.5-1.4) mg/dL Estim Creat Clear Calc 72.9 Estimated GFR > 60 Random Glucose 100 (60-115) mg/dL Calcium 9.6 (8.4-10.2) mg/dL Magnesium 2.1 (1.6-2.6) mg/dL Total Bilirubin 0.7 (0.0-1.0) mg/dL Direct Bilirubin 0.2 (0.0-0.5) mg/dL AST 14 D (5-37) U/L ALT 11 (0-40) U/L Alkaline Phosphatase 76 (39-117) U/L Total Protein 6.6 (6.5-8.0) g/dL Albumin 4.3 (3.5-5.0) g/dL Urine Color YELLOW Urine Appearance HAZY Urine pH 6.0 (5.0-8.0) Ur Specific [place] >= 1.030 H (1.005-1.025) Urine Protein NEG (NEG-TRACE) MG/DL Urine Glucose (UA) NEG (NEG) MG/DL Urine Ketones NEG (NEG) MG/DL Urine Blood NEG (NEG) Urine Nitrite NEG (NEG) Ur Leukocyte Esterase 1+ H (NEG) Urine RBC 0 (0) /HPF Urine WBC 5-9 H (0-4) /HPF Ur Squamous Epith Cells 1+ /LPF Amorphous Sediment 1+ /LPF Urine Bacteria 2+ /LPF Urine Mucus 1+ /LPF Discharge Plan Discharge Clinical Impression: Urinary retention with incomplete bladder emptying UTI (urinary tract infection) Qualifiers: Urinary tract infection type: acute cystitis Hematuria presence: without hematuria Qualified Code(s): N30.00 - Acute cystitis without hematuria Patient Disposition: Home, Self-Care Instructions: Urinary Tract Infection in Men (ED), Gonzalez Catheter Placement and Care (ED) Additional Instructions: Take the prescribed antibiotic as directed, start taking in the morning - you were given 1st dose in the ER today. Follow up with Urology next week as scheduled. If you develop new or worsening symptoms call 911 or come back to the ER for further evaluation. Prescriptions: New cefuroxime axetil 250 mg tablet 250 mg PO BID 7 Days Qty: 14 RF: 0 No Action ibuprofen 800 mg Tablet 800 mg PO TIDWM 30 Days Qty: 90 RF: 0 gabapentin 400 mg Capsule 400 mg PO TID 30 Days Qty: 90 RF: 0 quetiapine 100 mg Tablet 300 mg PO BEDTIME 30 Days Qty: 90 RF: 0 tamsulosin 0.4 mg Capsule 0.4 mg PO BEDTIME 30 Days Qty: 30 RF: 0 diazepam 5 mg Tablet 5 mg PO TID 30 Days Qty: 90 RF: 0 aripiprazole [Abilify] 20 mg Tablet 20 mg PO DAILY 30 Days Qty: 30 RF: 0 Metamucil Fiber Singles 3.4 gram Powder In Packet 3.4 g PO DAILY 30 Days Qty: 100 RF: 0 hydrocortisone [Proctozone-HC] 2.5 % Cream With Perineal Applicator 1 appl MA BID 30 Days Qty: 20 RF: 0 finasteride [Proscar] 5 mg Tablet 5 mg PO DAILY 30 Days Qty: 30 RF: 0 polyethylene glycol 3350 [Miralax] 17 gram Powder In Packet 17 g PO DAILY 30 Days Qty: 1 RF: 0 lisinopril 20 mg tablet 20 mg PO DAILY 30 Days Qty: 30 RF: 0 amlodipine 5 mg tablet 5 mg PO DAILY 30 Days Qty: 30 RF: 0 docusate sodium 100 mg capsule 100 mg PO DAILY PRN (Reason: constipation) Qty: 30 RF: 0 Referrals: Aly Medina MD [Physician] - 1 week (recurrent urinary retention requiring Gonzalez, UTI)
[2021-06-14 15:32] LABS: MANUAL DIFF FLAG NO
[2021-06-14 15:34] LABS: Basophils Percent Auto 0.4 % (0-2); Eosinophils Percent Auto 0.7 % (0-4); Hematocrit 38.1 % (42-52); Hemoglobin 12.7 g/dl (14.0-18.0); Imm Gran Abs Auto 0.01 X10*3/uL (0.00-0.03); Imm Gran Pct Auto 0.2 % (0.0-0.4); Lymphocytes Absolute Auto 1.2 X10*3/uL (1.2-4.9); Mean Corpuscular HGB Conc 33.3 g/dl (31.0-36.0); Mean Corpuscular Hemoglobin 29.4 pg (27.0-33.0); Mean Corpuscular Volume 88.2 fL (80-98); Monocytes Absolute Auto 0.3 X10*3/uL (0.1-1.2); Monocytes Percent Auto 7.6 % (2-11); Neutrophils Absolute Auto 2.9 X10*3/uL (2.0-8.3); Neutrophils Percent Auto 64.1 % (45-73); Platelet Count 256 X10*3/uL (160-400); Red Blood Count 4.32 X10*6/uL (4.60-5.80); White Blood Count 4.5 X10*3/uL (4.8-10.8)
[2021-06-14 16:04] LABS: Alanine Aminotransferase 11 U/L (0-40); Albumin Level 4.3 g/dL (3.5-5.0); Alkaline Phosphatase 76 U/L (39-117); Anion Gap 13 (12-20); Aspartate Amino Transferase 14 U/L (5-37); Bilirubin Direct 0.2 mg/dL (0.0-0.5); Bilirubin Total 0.7 mg/dL (0.0-1.0); Blood Urea Nitrogen 18 mg/dL (9-16); Calcium 9.6 mg/dL (8.4-10.2); Carbon Dioxide 25 mmol/L (22-29); Chloride 108 mmol/L (96-108); Creatinine Clr Calc Pharmacy 72.9; Estimated Glomerular Filt Rate > 60; Glucose Random 100 mg/dL (60-115); Magnesium 2.1 mg/dL (1.6-2.6); Potassium 4.1 mmol/L (3.3-5.1); Sodium 142 mmol/L (135-145); Total Protein 6.6 g/dL (6.5-8.0)
[2021-06-14 17:26] LABS: Glucose Urine UA NEG (NEG); Leukocyte Esterase Urine 1+ (NEG); Nitrite Urine NEG (NEG); Specific Gravity - Urine >= 1.030 (1.005-1.025); UACC Culture Trigger YES; Urine Blood NEG (NEG); Urine Ketones NEG (NEG); Urine Protein NEG (NEG-TRACE)
[2021-06-14 17:28] LABS: Appearance Urine HAZY; Color Urine YELLOW
[2021-06-14 17:36] LABS: Amorphous Sediment Urine 1+ /LPF; Bacteria Urine 2+ /LPF; Mucus Urine 1+ /LPF; RBC Urine 0 /HPF (0); Squamous Epithelial Cell Urine 1+ /LPF
== END 2021-06-14 18:56 | disposition home or self-care (01) ==
PROVIDERS: Physician Assistant; Emergency Provider Emergency Medicine; PCP Internal Medicine
DX: N30.00 Acute cystitis without hematuria (principal); R33.9 Retention of urine, unspecified; E78.5 Hyperlipidemia, unspecified; I10 Essential (primary) hypertension; Z87.440 Personal history of urinary (tract) infections; Z79.899 Other long term (current) drug therapy
CPT/HCPCS: 36415; 51702; 51798; 80048; 80076; 81001; 83735; 85025; 87086; 87088; 87186; 99284

== ENCOUNTER → 2021-06-21 11:06 | Outpatient (BNVA) | payer MEDICARE, SELFPAY | PROVIDERS: PCP Internal Medicine; Visit Provider Urology | DX: N40.1 Benign prostatic hyperplasia with lower urinary tract symptoms (principal); N13.8 Other obstructive and reflux uropathy; N39.0 Urinary tract infection, site not specified; R33.9 Retention of urine, unspecified; I10 Essential (primary) hypertension; E78.5 Hyperlipidemia, unspecified; F31.9 Bipolar disorder, unspecified | CPT/HCPCS: 51700; 51798; 99212 ==

== ENCOUNTER → 2021-12-15 10:00 | Outpatient (BNVA) | payer MEDICARE, SELFPAY | PROVIDERS: PCP Internal Medicine; Visit Provider Urology | DX: R33.9 Retention of urine, unspecified (principal); N39.0 Urinary tract infection, site not specified | CPT/HCPCS: 51798; 99212 ==

== ENCOUNTER → 2022-06-21 10:45 | Outpatient (BNVA) | payer MEDICARE, SELFPAY | PROVIDERS: PCP Internal Medicine; Visit Provider Urology | DX: N40.1 Benign prostatic hyperplasia with lower urinary tract symptoms (principal); R33.9 Retention of urine, unspecified; N13.8 Other obstructive and reflux uropathy | CPT/HCPCS: 51798; 99212 ==

== ENCOUNTER → 2022-12-26 11:19 | Outpatient (BNVA) | payer MEDICARE, SELFPAY | PROVIDERS: PCP Nurse Practitioner Family; Visit Provider Urology | DX: N40.1 Benign prostatic hyperplasia with lower urinary tract symptoms (principal); N13.8 Other obstructive and reflux uropathy; N39.0 Urinary tract infection, site not specified; R33.9 Retention of urine, unspecified; R97.20 Elevated prostate specific antigen [PSA]; F31.9 Bipolar disorder, unspecified; Z79.899 Other long term (current) drug therapy | CPT/HCPCS: 99212 ==

== ENCOUNTER 2023-12-28 11:29 | Outpatient (AMB) | payer OTHER, SELFPAY ==
--- NOTE | 2023-12-28 11:43 | A.OFFVIS_ITS ---
Intake Intake Visit Reasons: 1y/PVR Intake Note: Patient is Present for Follow Up Urology Medication: Finasteride, Tamsulosin Antibiotic Allergies: None Blood Thinners: None PVR: 0 Allergies atorvastatin [From LIPITOR] Allergy (Intermediate, Verified 06/20/22 15:27) ELEVATED LIVER ENZYMES HPI HPI Comments History of Present Illness Details [age] is a pleasant male. Lives in [facility] secondary to bipolar management. He is seen for following urologic conditions - lower urinary tract symptoms - urinary retention Here from [facility] Continue medication Responding well to combination tamsulosin and finasteride Bladder emptying fully Minimal nocturia Effective stream 12 month follow-up Lower urinary tract symptoms Initial evaluation for urinary retention April 2021 during hospital admission Recommendation for initiation of combination therapy Background use of antipsychotics with anticholinergic side effects PSA - 03/09 6.4 - 5.2, F 7% PFSH Medical History Bipolar 1 disorder Hyperlipemia Hypertension UTI (urinary tract infection) Surgical History H/O shoulder surgery Social History Household Members: Family and Other Household Members Other:: 85 year old mother Housing: House Do you presently have visiting nurse or other home services: No Alcohol intake: unknown Comment: 1:1 sitter Patient Tobacco Use Status: Never used Tobacco e-Cigarette/Vaping Use: Never Used Second Hand Smoke Exposure: No service: No Sexual orientation: Don't Know Review of Systems Const Denies chills and Denies fever(s) Card Reports no additional complaints and Denies syncope Resp Denies cough GI Denies abdominal pain and Denies heartburn Reports as per HPI and Denies change in libido Neuro Denies syncope Psych Denies change in libido Endo Denies change in libido Physical Exam Const General: cooperative, healthy appearing, comfortable and no acute distress Orientation/consciousness: patient oriented x3 HEENT Face and sinus: Yes normal facial exam Mouth: moist mucous membranes Neck Neck: Yes normal visual inspection, Yes full ROM and Yes trachea midline Chest Chest palpation & inspection: normal inspection of the chest Resp Effort & Inspection: normal respiratory effort, able to speak in complete sentences and no respiratory distress GI Inspection: Yes normal to inspection Back/Spine/Pelvis Cervical Spine: normal cervical lordosis Thoracic/Lumbar Spine: thoracic and lumbar spine normal to inspection Skin General skin exam: no rashes or lesions noted Neuro General: patient oriented x3, gait normal, tone normal and moves all extremities Extrem General: Yes normal to inspection and Yes capillary refill normal Office Procedures Post Void Residual Post Residual Void Post Void Residual (PVR): 0 04120-[id number] Void Residual by ultrasound Assessment & Plan Assessment & Plan (1) Recurrent UTI: Code(s): N39.0 - Urinary tract infection, site not specified (2) Urinary retention with incomplete bladder emptying: Code(s): R33.9 - Retention of urine, unspecified (3) BPH w urinary obs/LUTS: Code(s): N40.1 - Benign prostatic hyperplasia with lower urinary tract symptoms; N13.8 - Other obstructive and reflux uropathy Plan Continue medication Orders: Orders AMB Post Void Residual by ultrasound 12/28/23 R33.9 - Retention of urine, unspecified Medications: Refilled finasteride (Proscar) 5 mg PO DAILY 90 tabs 3RF 90 days N13.8 - Other obstructive and reflux uropathy, N40.1 - Benign prostatic hyperplasia with lower urinary tract symptoms tamsulosin 0.8 mg (2 x 0.4 mg) PO BEDTIME 180 caps 3RF 90 days N13.8 - Other obstructive and reflux uropathy, N40.1 - Benign prostatic hyperplasia with lower urinary tract symptoms Patient Instructions: Imaging studies, laboratory and physical exam results were discussed and reviewed in detail. No major barriers to patient understanding were identified. An opportunity to ask questions regarding the treatment plan was provided. All questions were answered. The patient expressed understanding and agreement with the above treatment plan. The patient is aware they should contact our office by phone for worsening of their current condition or the appearance of new urologic symptoms. Compliance is encouraged with any medications and followup testing that is ordered. It is a privilege to participate in the urologic care of your patient. If you have any questions or concerns regarding treatment for the above conditions, or other urologic issues, please do not hesitate to contact me. The office telephone contact is [phone]. This note is constructed using voice recognition software. While every effort has been made to ensure accuracy x ray service engineer errors may have been included. Yours sincerely, Dr Aly Medina MD, [facility] - Urology Providers of Expert, Compassionate Care for the Genitourinary System Coding Level of Care Code Est Pt Level 4 (79459) Diagnoses Recurrent UTI N39.0 Urinary retention with incomplete bladder emptying R33.9 BPH w urinary obs/LUTS N40.1; N13.8 CPT Codes Post Residual Void - PVR CPT Code: 67709-Ibgh Void Residual by ultrasound ([id number])
== END 2023-12-28 11:59 | disposition home or self-care (01) ==
PROVIDERS: PCP Nurse Practitioner Family; Visit Provider Urology
DX: N39.0 Urinary tract infection, site not specified (principal); R33.9 Retention of urine, unspecified; N40.1 Benign prostatic hyperplasia with lower urinary tract symptoms; N13.8 Other obstructive and reflux uropathy
CPT/HCPCS: 99213

== ENCOUNTER → 2023-12-28 11:29 | Outpatient (BNVA) | payer OTHER, SELFPAY | PROVIDERS: Visit Provider Urology | DX: N40.1 Benign prostatic hyperplasia with lower urinary tract symptoms (principal); N39.0 Urinary tract infection, site not specified; R33.9 Retention of urine, unspecified; N13.8 Other obstructive and reflux uropathy | CPT/HCPCS: 51798; 99212 ==

== ENCOUNTER 2024-09-07 13:43 | Emergency (ER) | payer OTHER, SELFPAY ==
--- NOTE | ~2024-09-07 | CT_ITS ---
EXAMINATION: CT ABDOMEN AND PELVIS WITH CONTRAST CLINICAL INFORMATION: Nausea. COMPARISON: None available. TECHNIQUE: Multidetector volumetric images were obtained from the superior aspect of the liver through the pubic symphysis following administration 85 mL of Omnipaque 350 intravenous contrast. Sagittal and coronal reformatted images were obtained on the technologist's workstation. Oral contrast: No This CT examination was performed using dose optimization techniques as appropriate, variously including the following: *Automated exposure control *Adjustment of mA and/or kV according to patient size (this includes techniques or standardized protocols for targeted exams where dose is matched to indication/reason for exam; i.e. extremities or head) *Use of iterative reconstruction technique DLP: 497 mGy-cm FINDINGS: LUNG BASES: The lung bases appear clear, with no evidence of inflammation or nodules. LIVER, GALLBLADDER, AND BILIARY TREE: Subcentimeter benign segment 8 simple hepatic cyst or hemangioma (image 13, series 3), unchanged compared with April 22, 2021. The liver otherwise appears unremarkable in size, shape, and attenuation. No suspicious focal hepatic lesion or biliary ductal dilatation is appreciated. Unremarkable appearance of the gallbladder. PANCREAS: Unremarkable SPLEEN: Unremarkable ADRENAL GLANDS: Unremarkable KIDNEYS AND URETERS: Subcentimeter benign left lower pole simple renal cyst for which no further dedicated follow-up imaging as indicated. The kidneys otherwise appear unremarkable in size, shape, and attenuation. No hydronephrosis, hydroureter, or calculi seen. BLADDER: Unremarkable GASTROINTESTINAL TRACT: The stomach, small and large bowel appear unremarkable. No diverticulosis. Normal-appearing distal ileum and vermiform appendix. ABDOMINAL WALL: No significant hernia is appreciated. LYMPH NODES: No evidence of adenopathy by size criteria. 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 PELVIC VISCERA: Unremarkable OSSEOUS STRUCTURES: Unremarkable CT/CT abdomen pelvis w IV con IMPRESSION: No significant abnormal finding. Electronically signed by: Michael Bruno MD 09/07/2024 05:17 PM EST
[2024-09-07 14:18] VITALS: PULSE 67; RESP 18; TEMP 36.6; O2SAT 98; BMI 28.1
--- NOTE | 2024-09-07 14:21 | ECG_ITS ---
Test Reason : EPIGASTRIC PAIN Blood Pressure : / mmHG Vent. Rate : 063 BPM Atrial Rate : 063 BPM P-R Int : 178 ms QRS Dur : 090 ms QT Int : 430 ms P-R-T Axes : 026 -34 057 degrees QTc Int : 440 ms Normal sinus rhythm Left axis deviation Abnormal ECG When compared with ECG of 26-APR-2021 14:57, Vent. rate has decreased BY 32 BPM Referred By: Margarito Torrez Electronically Signed By:KAYLA RENTERIA MD
--- NOTE | 2024-09-07 14:23 | ED_ITS ---
HPI - General Adult General Chief complaint: Nausea/Vomiting/Diarrhea Stated complaint: Nausea Time Seen by Provider: 09/07/24 15:41 Related Data Home Medications ?Medication ?Instructions ?Recorded ?Confirmed cephalexin 500 mg capsule 500 mg PO QID 12/15/21 12/26/22 fluoxetine 10 mg capsule 10 mg PO DAILY 12/15/21 12/26/22 lubiprostone 24 mcg capsule mcg PO 12/15/21 12/26/22 pantoprazole 40 mg tablet,delayed 40 mg PO DAILY 12/15/21 12/26/22 release rosuvastatin 20 mg tablet 20 mg PO BEDTIME 12/15/21 12/26/22 cholecalciferol (vitamin D3) 25 25 mcg PO DAILY 12/26/22 12/26/22 mcg (1,000 unit) tablet (Vitamin D3) hydroxyzine pamoate 25 mg capsule 0 mg PO BID 12/26/22 12/26/22 lithium carbonate 450 mg 0 mg PO 12/26/22 12/26/22 tablet,extended release quetiapine 200 mg tablet 200 mg PO BID 12/26/22 12/26/22 quetiapine 50 mg tablet 0 mg PO BID 12/26/22 12/26/22 trazodone 50 mg tablet mg PO 12/26/22 12/26/22 Previous Rx's ?Medication ?Instructions ?Recorded amlodipine 5 mg tablet 5 mg PO DAILY 30 days #30 tabs 06/10/21 aripiprazole 20 mg tablet (Abilify) 20 mg PO DAILY 30 days #30 tabs 06/10/21 diazepam 5 mg tablet 5 mg PO TID 30 days #90 tabs 06/10/21 docusate sodium 100 mg capsule 100 mg PO DAILY PRN constipation 06/10/21 #30 caps gabapentin 400 mg capsule 400 mg PO TID 30 days #90 caps 06/10/21 hydrocortisone 2.5 % topical cream 1 appl [place] BID 30 days #20 grams 06/10/21 with perineal applicator (Proctozone-HC) ibuprofen 800 mg tablet 800 mg PO TIDWM 30 days #90 tabs 06/10/21 lisinopril 20 mg tablet 20 mg PO DAILY 30 days #30 tabs 06/10/21 polyethylene glycol 3350 17 gram 17 g PO DAILY 30 days #1 ea 06/10/21 oral powder packet (Miralax) psyllium husk (aspartame) 3.4 gram 3.4 g PO DAILY 30 days #100 ea 06/10/21 oral powder packet (Metamucil Fiber Singles) quetiapine 100 mg tablet 300 mg (3 x 100 mg) PO BEDTIME 30 06/10/21 days #90 tabs cefuroxime axetil 250 mg tablet 250 mg PO BID 7 days #14 tabs 06/14/21 finasteride 5 mg tablet (Proscar) 5 mg PO DAILY 90 days #90 tabs 12/28/23 tamsulosin 0.4 mg capsule 0.8 mg (2 x 0.4 mg) PO BEDTIME 90 12/28/23 days #180 caps ondansetron 4 mg disintegrating 4 mg PO TID PRN nausea and 09/07/24 tablet vomiting 5 days #10 tabs Allergies Allergy/AdvReac Type Severity Reaction Status Date / Time atorvastatin [From LIPITOR] Allergy Intermediate ELEVATED Verified 09/07/24 14:20 LIVER ENZYMES PMFSH Past Medical History Medical History UTI (urinary tract infection) Bipolar 1 disorder Hyperlipemia Hypertension Surgical History H/O shoulder surgery Social History Social History Household Members: Family and Other Household Members Other:: 85 year old mother Housing: House Do you presently have visiting nurse or other home services: No Alcohol intake: unknown Comment: 1:1 sitter Patient Tobacco Use Status: Never used Tobacco Smoked in Last 30 Days: No e-Cigarette/Vaping Use: Never Used Second Hand Smoke Exposure: No Use of substances other than those prescribed or required for medical reasons: No Advance Directives: No Advance Directives Information Provided: Yes Do you have a plan to hurt others: No Plan service: No Sexual orientation: Don't Know Physical Exam ED Vital Signs: Vital Signs - 24 hr 09/07/24 14:18 09/07/24 16:01 09/07/24 17:20 Temperature 98 F 98.1 F Pulse Rate 67 67 63 Respiratory Rate 18 16 Blood Pressure 142/94 H 138/91 H Pulse Oximetry 98 97 Oxygen Delivery Method Room Air Room Air 09/07/24 17:20 09/07/24 17:21 Temperature Pulse Rate 67 71 Respiratory Rate Blood Pressure 146/94 H 149/100 H Pulse Oximetry Oxygen Delivery Method BMI result Body Mass Index 28.1 Course Course Course Narrative: LAYO: 63-year-old male presents to ED for nausea and slight epigastric discomfort since last night. Patient denies any chest pain or shortness of breath. Abdomen benign soft nontender. EKG labs ordered. Medications Administered Discontinued Medications Generic Name Dose Route Start Last Admin Trade Name Freq PRN Reason Stop Dose Admin Sodium Chloride 1,000 mls @ 999 mls/hr 09/07/24 16:00 09/07/24 17:10 Ns IV 09/07/24 17:00 Infused .Q1H1M MITRA Infusion Iohexol 100 ml 09/07/24 16:44 09/07/24 16:45 Iohexol 350 Mg/Ml 100 Ml Infus..Btl IV 09/07/24 16:45 85 ml ONCE ONE Administration Ondansetron HCl 4 mg 09/07/24 15:53 09/07/24 16:06 Ondansetron Hcl 4 Mg/2 Ml Vial IVPUSH 09/07/24 15:54 4 mg ONCE ONE Administration Medical Decision Making Lab Data 09/07/24 14:32 09/07/24 14:32 Labs: Lab Results 09/07/24 Range/Units 14:32 WBC 8.0 (4.8-10.8) X10*3/uL RBC 4.81 (4.60-5.80) X10*6/uL Hgb 14.4 (14.0-18.0) g/dl Hct 42.4 (42.0-52.0) % MCV 88.1 (80.0-98.0) fL MCH 29.9 (27.0-33.0) pg MCHC 34.0 (31.0-36.0) g/dl RDW 11.9 (11.0-16.0) % Plt Count 272 (160-400) X10*3/uL MPV 9.2 L (9.4-12.4) fL Immature Gran % (Auto) 0.3 (0.0-0.4) % Neut % (Auto) 81.3 H (45-73) % Lymph % (Auto) 13.7 L (20-40) % [place] % (Auto) 4.0 (2-11) % Eos % (Auto) 0.3 (0-4) % Baso % (Auto) 0.4 (0-2) % Lymph # (Auto) 1.1 L (1.2-4.9) X10*3/uL [place] # (Auto) 0.3 (0.1-1.2) X10*3/uL Eos # (Auto) 0.0 (0.0-0.4) X10*3/uL Baso # (Auto) 0.0 (0.0-0.2) X10*3/uL Abs Immat Gran (auto) 0.02 (0.00-0.03) X10*3/uL Absolute Neuts (auto) 6.5 (2.0-8.3) x10*3/uL Absolute Nucleated RBC 0.000 (0.0-0.012) X10*3/uL Nucleated RBC % (auto) 0.0 (0.0-0.2) /100WBC PT 11.0 (10.9-12.4) SEC INR 0.9 (0.9-1.1) APTT 28.0 (26.0-36.8) SEC Sodium 140 (135-145) mmol/L Potassium 3.8 (3.3-5.1) mmol/L Chloride 110 H (96-108) mmol/L Carbon Dioxide 24 (22-29) mmol/L Anion Gap 10 L (12-20) BUN 13 (9-16) mg/dL Creatinine 0.99 (0.5-1.4) mg/dL Estim Creat Clear Calc 84.1 Estimated GFR > 60 Random Glucose 143 H (60-115) mg/dL Calcium 9.2 (8.4-10.2) mg/dL Total Bilirubin 0.9 (0.0-1.0) mg/dL AST 35 (5-37) U/L ALT 30 (0-40) U/L Alkaline Phosphatase 83 (39-117) U/L Troponin I High Sens < 2.7 (<3.5-35.0) ng/L Total Protein 7.5 (6.5-8.0) g/dL Albumin 4.7 (3.5-5.0) g/dL Lipase 11 (8-78) U/L Influenza Type A (PCR) NEGATIVE (Negative) Influenza Type B (PCR) NEGATIVE (Negative) RSV RNA Qual (PCR) NEGATIVE (Negative) SARS-CoV-2 RNA (RT-PCR) NEGATIVE (Negative) S. pyogenes GrpA ECHO Negative (Negative) Discharge Plan Discharge Clinical Impression: Nausea Patient Disposition: Home, Self-Care Instructions: Acute Nausea and Vomiting (ED) Prescriptions: New ondansetron 4 mg tablet,disintegrating 4 mg PO TID PRN (Reason: nausea and vomiting) 5 Days Qty: 10 0RF No Action ibuprofen 800 mg Tablet 800 mg PO TIDWM 30 Days Qty: 90 0RF gabapentin 400 mg Capsule 400 mg PO TID 30 Days Qty: 90 0RF quetiapine 100 mg Tablet 300 mg PO BEDTIME 30 Days Qty: 90 0RF diazepam 5 mg Tablet 5 mg PO TID 30 Days Qty: 90 0RF aripiprazole [Abilify] 20 mg Tablet 20 mg PO DAILY 30 Days Qty: 30 0RF Metamucil Fiber Singles 3.4 gram Powder In Packet 3.4 g PO DAILY 30 Days Qty: 100 0RF hydrocortisone [Proctozone-HC] 2.5 % Cream With Perineal Applicator 1 appl SC BID 30 Days Qty: 20 0RF polyethylene glycol 3350 [Miralax] 17 gram Powder In Packet 17 g PO DAILY 30 Days Qty: 1 0RF lisinopril 20 mg tablet 20 mg PO DAILY 30 Days Qty: 30 0RF amlodipine 5 mg tablet 5 mg PO DAILY 30 Days Qty: 30 0RF docusate sodium 100 mg capsule 100 mg PO DAILY PRN (Reason: constipation) Qty: 30 0RF cefuroxime axetil 250 mg tablet 250 mg PO BID 7 Days Qty: 14 0RF rosuvastatin 20 mg tablet 20 mg PO BEDTIME cephalexin 500 mg capsule 500 mg PO QID pantoprazole 40 mg tablet,delayed release (DR/EC) 40 mg PO DAILY fluoxetine 10 mg capsule 10 mg PO DAILY lubiprostone 24 mcg capsule PO finasteride [Proscar] 5 mg tablet 5 mg PO DAILY 90 Days Qty: 90 3RF tamsulosin 0.4 mg capsule 0.8 mg PO BEDTIME 90 Days Qty: 180 3RF trazodone 50 mg tablet PO lithium carbonate 450 mg tablet extended release 0 mg PO quetiapine 200 mg tablet 200 mg PO BID hydroxyzine pamoate 25 mg capsule 0 mg PO BID quetiapine 50 mg tablet 0 mg PO BID cholecalciferol (vitamin D3) [Vitamin D3] 25 mcg (1,000 unit) tablet 25 mcg PO DAILY Referrals: Gabi Acevedo NP [Primary Care Provider] - 09/10/24 Print Language: Nigerian
[2024-09-07 14:36] LABS: MANUAL DIFF FLAG NO
[2024-09-07 14:39] LABS: Basophils Percent Auto 0.4 % (0-2); Eosinophils Percent Auto 0.3 % (0-4); Hematocrit 42.4 % (42.0-52.0); Hemoglobin 14.4 g/dl (14.0-18.0); Imm Gran Abs Auto 0.02 X10*3/uL (0.00-0.03); Imm Gran Pct Auto 0.3 % (0.0-0.4); Lymphocytes Absolute Auto 1.1 X10*3/uL (1.2-4.9); Lymphocytes Percent Auto 13.7 % (20-40); Mean Corpuscular Hemoglobin 29.9 pg (27.0-33.0); Mean Corpuscular Volume 88.1 fL (80.0-98.0); Mean Platelet Volume 9.2 fL (9.4-12.4); Monocytes Absolute Auto 0.3 X10*3/uL (0.1-1.2); Neutrophils Absolute Auto 6.5 x10*3/uL (2.0-8.3); Neutrophils Percent Auto 81.3 % (45-73); Platelet Count 272 X10*3/uL (160-400); Red Blood Count 4.81 X10*6/uL (4.60-5.80); Red Cell Distribution Width 11.9 % (11.0-16.0)
[2024-09-07 14:44] LABS: INTERNATIONAL NORM RATIO 0.9 (0.9-1.1)
[2024-09-07 14:53] LABS: Alanine Aminotransferase 30 U/L (0-40); Albumin Level 4.7 g/dL (3.5-5.0); Alkaline Phosphatase 83 U/L (39-117); Anion Gap 10 (12-20); Aspartate Amino Transferase 35 U/L (5-37); Bilirubin Total 0.9 mg/dL (0.0-1.0); Blood Urea Nitrogen 13 mg/dL (9-16); Calcium 9.2 mg/dL (8.4-10.2); Carbon Dioxide 24 mmol/L (22-29); Chloride 110 mmol/L (96-108); Creatinine Clr Calc Pharmacy 84.1; Estimated Glomerular Filt Rate > 60; Glucose Random 143 mg/dL (60-115); Lipase 11 U/L (8-78); Potassium 3.8 mmol/L (3.3-5.1); Sodium 140 mmol/L (135-145); Total Protein 7.5 g/dL (6.5-8.0)
[2024-09-07 14:55] LABS: IDNOW Serial# 08D9AD1C; Strep A Nucleic Acid Negative (Negative)
[2024-09-07 15:01] LABS: Troponin-I High Sensitivity < 2.7 ng/L (<3.5-35.0)
[2024-09-07 15:16] LABS: Influenza A PCR NEGATIVE (Negative); Influenza B PCR NEGATIVE (Negative); Resp Syncy Virus RNA Qual PCR NEGATIVE (Negative); SARS COV2 PCR INHOUSE NEGATIVE (Negative)
--- NOTE | 2024-09-07 15:55 | ED.NAVMDI ---
HPI - Nausea/Vomiting/Diarrhea General Chief complaint: Nausea/Vomiting/Diarrhea Stated complaint: Nausea Time Seen by Provider: 09/07/24 15:41 History of Present Illness HPI Narrative: Patient is a 63-year-old male with a history of nausea stomach upset starting this morning. Patient denies any actual vomiting. Been having normal bowel movement. There is no radiation of the pain. No history of abdominal surgery in the past. No recent antibiotics. Has a history of bipolar on medication. History of hypertension on medication. No fever no chills. No travel history. Patient from home. Related Data Home Medications ?Medication ?Instructions ?Recorded ?Confirmed cephalexin 500 mg capsule 500 mg PO QID 12/15/21 12/26/22 fluoxetine 10 mg capsule 10 mg PO DAILY 12/15/21 12/26/22 lubiprostone 24 mcg capsule mcg PO 12/15/21 12/26/22 pantoprazole 40 mg tablet,delayed 40 mg PO DAILY 12/15/21 12/26/22 release rosuvastatin 20 mg tablet 20 mg PO BEDTIME 12/15/21 12/26/22 cholecalciferol (vitamin D3) 25 25 mcg PO DAILY 12/26/22 12/26/22 mcg (1,000 unit) tablet (Vitamin D3) hydroxyzine pamoate 25 mg capsule 0 mg PO BID 12/26/22 12/26/22 lithium carbonate 450 mg 0 mg PO 12/26/22 12/26/22 tablet,extended release quetiapine 200 mg tablet 200 mg PO BID 12/26/22 12/26/22 quetiapine 50 mg tablet 0 mg PO BID 12/26/22 12/26/22 trazodone 50 mg tablet mg PO 12/26/22 12/26/22 Previous Rx's ?Medication ?Instructions ?Recorded amlodipine 5 mg tablet 5 mg PO DAILY 30 days #30 tabs 06/10/21 aripiprazole 20 mg tablet (Abilify) 20 mg PO DAILY 30 days #30 tabs 06/10/21 diazepam 5 mg tablet 5 mg PO TID 30 days #90 tabs 06/10/21 docusate sodium 100 mg capsule 100 mg PO DAILY PRN constipation 06/10/21 #30 caps gabapentin 400 mg capsule 400 mg PO TID 30 days #90 caps 06/10/21 hydrocortisone 2.5 % topical cream 1 appl [place] BID 30 days #20 grams 06/10/21 with perineal applicator (Proctozone-HC) ibuprofen 800 mg tablet 800 mg PO TIDWM 30 days #90 tabs 06/10/21 lisinopril 20 mg tablet 20 mg PO DAILY 30 days #30 tabs 06/10/21 polyethylene glycol 3350 17 gram 17 g PO DAILY 30 days #1 ea 06/10/21 oral powder packet (Miralax) psyllium husk (aspartame) 3.4 gram 3.4 g PO DAILY 30 days #100 ea 06/10/21 oral powder packet (Metamucil Fiber Singles) quetiapine 100 mg tablet 300 mg (3 x 100 mg) PO BEDTIME 30 06/10/21 days #90 tabs cefuroxime axetil 250 mg tablet 250 mg PO BID 7 days #14 tabs 06/14/21 finasteride 5 mg tablet (Proscar) 5 mg PO DAILY 90 days #90 tabs 12/28/23 tamsulosin 0.4 mg capsule 0.8 mg (2 x 0.4 mg) PO BEDTIME 90 12/28/23 days #180 caps ondansetron 4 mg disintegrating 4 mg PO TID PRN nausea and 09/07/24 tablet vomiting 5 days #10 tabs Allergies Allergy/AdvReac Type Severity Reaction Status Date / Time atorvastatin [From LIPITOR] Allergy Intermediate ELEVATED Verified 09/07/24 14:20 LIVER ENZYMES Review of Systems Review of Systems: Positive nausea positive mild pain Yes all other systems are reviewed and are negative PMFSH Past Medical History Attestation statement: The following information was validated with the patient. Medical History UTI (urinary tract infection) Bipolar 1 disorder Hyperlipemia Hypertension Surgical History H/O shoulder surgery Social History Social History Household Members: Family and Other Household Members Other:: 85 year old mother Housing: House Do you presently have visiting nurse or other home services: No Alcohol intake: unknown Comment: 1:1 sitter Patient Tobacco Use Status: Never used Tobacco Smoked in Last 30 Days: No e-Cigarette/Vaping Use: Never Used Second Hand Smoke Exposure: No Use of substances other than those prescribed or required for medical reasons: No Advance Directives: No Advance Directives Information Provided: Yes Do you have a plan to hurt others: No Plan service: No Sexual orientation: Don't Know Physical Exam Vital Signs: Vital Signs: Last Vital Signs Temp 98.1 F 09/07/24 16:01 Pulse 71 09/07/24 17:21 Resp 16 09/07/24 16:01 BP 149/100 H 09/07/24 17:21 Pulse Ox 97 09/07/24 16:01 O2 Del Method Room Air 09/07/24 16:01 BMI result Body Mass Index 28.1 Appearance: Alert. Oriented X3. No acute distress. Eyes: Pupils equal, round and reactive to light. ENT: Pharynx normal. Neck: Normal inspection. Neck supple. No lymph nodes noted. No crepitus CVS: Normal heart rate and rhythm. Pulses normal. Normal S1 and S2 Respiratory: No respiratory distress. Breath sounds normal. No Wheezing. No rales Abdomen: Soft and nontender. No rigidity. No distention. good BS x4 Skin: Skin warm and dry. Normal skin color. Normal skin turgor. Extremities: No lower extremity edema. Neurovascular intact to all extremities. No Lacerations. No Rash Neuro: Oriented X 3. No motor deficit. No sensory deficit. Moving all extermities. No slurred speech Medications Administered Discontinued Medications Generic Name Dose Route Start Last Admin Trade Name Freq PRN Reason Stop Dose Admin Sodium Chloride 1,000 mls @ 999 mls/hr 09/07/24 16:00 09/07/24 17:10 Ns IV 09/07/24 17:00 Infused .Q1H1M MITRA Infusion Iohexol 100 ml 09/07/24 16:44 09/07/24 16:45 Iohexol 350 Mg/Ml 100 Ml Infus..Btl IV 09/07/24 16:45 85 ml ONCE ONE Administration Ondansetron HCl 4 mg 09/07/24 15:53 09/07/24 16:06 Ondansetron Hcl 4 Mg/2 Ml Vial IVPUSH 09/07/24 15:54 4 mg ONCE ONE Administration Medical Decision Making Medical Decision Making MDM Narrative: Patient presented today with having mild nausea generalized malaise. Flu COVID RSV were all negative. My interpretation of patient's EKG showed a sinus rhythm heart rate is 70 [place] QRS QTC normal no acute ST segment elevation troponin negative in the setting of no discernible pain but positive nausea only. Patient troponin being negative EKG being atypical for ACS patient's heart score is less than 3. Positive nausea not feeling well will get a CT scan of the abdomen to rule out possibility of obstruction abscess perforation. LFTs are normal lipase is normal there is no evidence for biliary disease. CT scan revealed no evidence of obstruction no abscess no perforation. Patient's LFTs are normal. Lipase is normal. No evidence for biliary disease. My interpretation of patient's EKG was unremarkable. Troponin is negative. Symptoms not consistent with ACS. Will discharge patient home. Differential Diagnosis Differential Diagnoses: The differential diagnosis associated with the presentation includes Abdominal pain, nausea, obstruction, perforation Admission/Observation Consideration of admission/observation: Escalation of care including admission/observation considered Lab Data MDM Lab Attestation statement: I reviewed the patient's lab results. 09/07/24 14:32 09/07/24 14:32 Labs: Lab Results 09/07/24 Range/Units 14:32 WBC 8.0 (4.8-10.8) X10*3/uL RBC 4.81 (4.60-5.80) X10*6/uL Hgb 14.4 (14.0-18.0) g/dl Hct 42.4 (42.0-52.0) % MCV 88.1 (80.0-98.0) fL MCH 29.9 (27.0-33.0) pg MCHC 34.0 (31.0-36.0) g/dl RDW 11.9 (11.0-16.0) % Plt Count 272 (160-400) X10*3/uL MPV 9.2 L (9.4-12.4) fL Immature Gran % (Auto) 0.3 (0.0-0.4) % Neut % (Auto) 81.3 H (45-73) % Lymph % (Auto) 13.7 L (20-40) % [place] % (Auto) 4.0 (2-11) % Eos % (Auto) 0.3 (0-4) % Baso % (Auto) 0.4 (0-2) % Lymph # (Auto) 1.1 L (1.2-4.9) X10*3/uL [place] # (Auto) 0.3 (0.1-1.2) X10*3/uL Eos # (Auto) 0.0 (0.0-0.4) X10*3/uL Baso # (Auto) 0.0 (0.0-0.2) X10*3/uL Abs Immat Gran (auto) 0.02 (0.00-0.03) X10*3/uL Absolute Neuts (auto) 6.5 (2.0-8.3) x10*3/uL Absolute Nucleated RBC 0.000 (0.0-0.012) X10*3/uL Nucleated RBC % (auto) 0.0 (0.0-0.2) /100WBC PT 11.0 (10.9-12.4) SEC INR 0.9 (0.9-1.1) APTT 28.0 (26.0-36.8) SEC Sodium 140 (135-145) mmol/L Potassium 3.8 (3.3-5.1) mmol/L Chloride 110 H (96-108) mmol/L Carbon Dioxide 24 (22-29) mmol/L Anion Gap 10 L (12-20) BUN 13 (9-16) mg/dL Creatinine 0.99 (0.5-1.4) mg/dL Estim Creat Clear Calc 84.1 Estimated GFR > 60 Random Glucose 143 H (60-115) mg/dL Calcium 9.2 (8.4-10.2) mg/dL Total Bilirubin 0.9 (0.0-1.0) mg/dL AST 35 (5-37) U/L ALT 30 (0-40) U/L Alkaline Phosphatase 83 (39-117) U/L Troponin I High Sens < 2.7 (<3.5-35.0) ng/L Total Protein 7.5 (6.5-8.0) g/dL Albumin 4.7 (3.5-5.0) g/dL Lipase 11 (8-78) U/L Influenza Type A (PCR) NEGATIVE (Negative) Influenza Type B (PCR) NEGATIVE (Negative) RSV RNA Qual (PCR) NEGATIVE (Negative) SARS-CoV-2 RNA (RT-PCR) NEGATIVE (Negative) S. pyogenes GrpA ECHO Negative (Negative) Independent Interpretation I performed an independent interpretation of an: EKG (Sinus heart rate is 80 [place] QRS QTC within normal limits no acute ST segment elevation) Radiology Impression Discussion of test interpretation with radiology: I have reviewed the radiologist's reading. (Of the CT abdomen pelvis) Discharge Plan Discharge Clinical Impression: Nausea Patient Disposition: Home, Self-Care Instructions: Acute Nausea and Vomiting (ED) Prescriptions: New ondansetron 4 mg tablet,disintegrating 4 mg PO TID PRN (Reason: nausea and vomiting) 5 Days Qty: 10 0RF No Action ibuprofen 800 mg Tablet 800 mg PO TIDWM 30 Days Qty: 90 0RF gabapentin 400 mg Capsule 400 mg PO TID 30 Days Qty: 90 0RF quetiapine 100 mg Tablet 300 mg PO BEDTIME 30 Days Qty: 90 0RF diazepam 5 mg Tablet 5 mg PO TID 30 Days Qty: 90 0RF aripiprazole [Abilify] 20 mg Tablet 20 mg PO DAILY 30 Days Qty: 30 0RF Metamucil Fiber Singles 3.4 gram Powder In Packet 3.4 g PO DAILY 30 Days Qty: 100 0RF hydrocortisone [Proctozone-HC] 2.5 % Cream With Perineal Applicator 1 appl [place] BID 30 Days Qty: 20 0RF polyethylene glycol 3350 [Miralax] 17 gram Powder In Packet 17 g PO DAILY 30 Days Qty: 1 0RF lisinopril 20 mg tablet 20 mg PO DAILY 30 Days Qty: 30 0RF amlodipine 5 mg tablet 5 mg PO DAILY 30 Days Qty: 30 0RF docusate sodium 100 mg capsule 100 mg PO DAILY PRN (Reason: constipation) Qty: 30 0RF cefuroxime axetil 250 mg tablet 250 mg PO BID 7 Days Qty: 14 0RF rosuvastatin 20 mg tablet 20 mg PO BEDTIME cephalexin 500 mg capsule 500 mg PO QID pantoprazole 40 mg tablet,delayed release (DR/EC) 40 mg PO DAILY fluoxetine 10 mg capsule 10 mg PO DAILY lubiprostone 24 mcg capsule PO finasteride [Proscar] 5 mg tablet 5 mg PO DAILY 90 Days Qty: 90 3RF tamsulosin 0.4 mg capsule 0.8 mg PO BEDTIME 90 Days Qty: 180 3RF trazodone 50 mg tablet PO lithium carbonate 450 mg tablet extended release 0 mg PO quetiapine 200 mg tablet 200 mg PO BID hydroxyzine pamoate 25 mg capsule 0 mg PO BID quetiapine 50 mg tablet 0 mg PO BID cholecalciferol (vitamin D3) [Vitamin D3] 25 mcg (1,000 unit) tablet 25 mcg PO DAILY Referrals: Gabi Acevedo NP [Primary Care Provider] - 09/10/24 Print Language: Andorran
[2024-09-07 16:01] VITALS: BP 142/94; PULSE 67; RESP 16; TEMP 36.7; O2SAT 97
[2024-09-07] MEDS: 0.9 % Sodium Chloride 1,000 ML 999 ML IV (16:06)
[2024-09-07] MEDS: ondansetron HCL 4 MG/2 ML VIAL IVPUSH (16:06)
[2024-09-07] MEDS: iohexoL 350 MG/ML 100 ML INFUS..BTL IV (16:45)
--- NOTE | 2024-09-07 17:19 | PC.NURSE ---
patient reports nausea is coming back and started again after he got up to go to bathroom. patient reports urinating but no BM and denies any other symptoms. Orthostatics taken.
[2024-09-07 17:20] VITALS: BP 138/91; BP 146/94; PULSE 63; PULSE 67
[2024-09-07 17:21] VITALS: BP 149/100; PULSE 71
[2024-09-07 17:45] VITALS: BP 142/88; PULSE 63; RESP 16; TEMP 36.9; O2SAT 98
[2024-09-07 17:50] VITALS: BP 142/88; PULSE 63; RESP 16; TEMP 36.9; O2SAT 98
== END 2024-09-07 17:52 | disposition home or self-care (01) ==
PROVIDERS: Physician Assistant; Emergency Provider Emergency Medicine Emergency Medical Services; PCP Nurse Practitioner Family
DX: R11.2 Nausea with vomiting, unspecified (principal); R10.2 Pelvic and perineal pain; R94.31 Abnormal electrocardiogram [ECG] [EKG]; Z03.818 Encounter for observation for suspected exposure to other biological agents ruled out; Z79.899 Other long term (current) drug therapy
CPT/HCPCS: 0241U; 74177; 80053; 83690; 84484; 85025; 85610; 85730; 87651; 93005; 96361; 96374; 99284; 99285; J2405; Q9967

== ENCOUNTER → 2024-09-07 14:21 | Outpatient (BNV) | payer OTHER, SELFPAY | PROVIDERS: Emergency Provider Emergency Medicine Emergency Medical Services; PCP Nurse Practitioner Family; Visit Provider Internal Medicine Cardiovascular Disease | DX: R10.13 Epigastric pain (principal) | CPT/HCPCS: 93010 ==

== ENCOUNTER 2025-03-17 13:25 | Outpatient (AMB) | payer OTHER, SELFPAY ==
--- NOTE | 2025-03-17 13:27 | MHC.OFFVIS ---
Intake Visit Reasons: 1yr/PVR Intake Note: Patient is present for 1 year follow up/PVR Urology Medication: Finasteride, Tamsulosin Antibiotic Allergies: None Blood Thinners: None PVR:155ml Allergies atorvastatin [From LIPITOR] Allergy (Intermediate, Verified 03/17/25 13:49) ELEVATED LIVER ENZYMES HPI Comments Details: [age] is a pleasant male. Lives in alf secondary to bipolar management. He is seen for following urologic conditions - lower urinary tract symptoms - urinary retention Here from alf Continue medication PVR 150 cc Responding well to combination tamsulosin and finasteride Bladder emptying fully Minimal nocturia Effective stream 12 month follow-up with PSA Lower urinary tract symptoms Initial evaluation for urinary retention April 2021 during hospital admission Recommendation for initiation of combination therapy Background use of antipsychotics with anticholinergic side effects PSA - 03/09 6.4 - 5.2, F 7%, 01/11 3.9 0.2 PFSH Medical History UTI (urinary tract infection) Bipolar 1 disorder Hyperlipemia Hypertension Surgical History H/O shoulder surgery Social History Household Members: Family and Other Household Members Other:: 85 year old mother Housing: House Do you presently have visiting nurse or other home services: No Alcohol intake: unknown Comment: 1:1 sitter Patient Tobacco Use Status: Never used Tobacco e-Cigarette/Vaping Use: Never Used Second Hand Smoke Exposure: No service: No Sexual orientation: Don't Know Review of Systems Const Denies chills and Denies fever(s) Card Reports no additional complaints and Denies syncope Resp Denies cough GI Denies abdominal pain and Denies heartburn Reports as per HPI and Denies change in libido Neuro Denies syncope Psych Denies change in libido Endo Denies change in libido Physical Exam Const General: cooperative, healthy appearing, comfortable and no acute distress Orientation/consciousness: patient oriented x3 HEENT Face and sinus: Yes normal facial exam Mouth: moist mucous membranes Neck Neck: Yes normal visual inspection, Yes full ROM and Yes trachea midline Chest Chest palpation & inspection: normal inspection of the chest Resp Effort & Inspection: normal respiratory effort, able to speak in complete sentences and no respiratory distress GI Inspection: Yes normal to inspection Back/Spine/Pelvis Cervical Spine: normal cervical lordosis Thoracic/Lumbar Spine: thoracic and lumbar spine normal to inspection Skin General skin exam: no rashes or lesions noted Neuro General: patient oriented x3, gait normal, tone normal and moves all extremities Extrem General: Yes normal to inspection and Yes capillary refill normal Assessment & Plan Assessment & Plan (1) BPH w urinary obs/LUTS: Code(s): N40.1 - Benign prostatic hyperplasia with lower urinary tract symptoms; N13.8 - Other obstructive and reflux uropathy Category: Medical (2) Urinary retention with incomplete bladder emptying: Code(s): R33.9 - Retention of urine, unspecified Category: Medical Plan Twelve month follow-up PSA Orders: Orders PSA,Total (Free>4and<10) 12 Months N13.8 - Other obstructive and reflux uropathy, N40.1 - Benign prostatic hyperplasia with lower urinary tract symptoms Patient Instructions: This note is constructed using voice recognition software. While every effort has been made to ensure accuracy senior talent management consultant errors may have been included. Imaging studies, laboratory and physical exam results were discussed and reviewed in detail. No major barriers to patient understanding were identified. An opportunity to ask questions regarding the treatment plan was provided. All questions were answered. The patient expressed understanding and agreement with the above treatment plan. The patient is aware they should contact our office by phone for worsening of their current condition or the appearance of new urologic symptoms. Compliance is encouraged with any medications and followup testing that is ordered. It is a privilege to participate in the urologic care of your patient. If you have any questions or concerns regarding treatment for the above conditions, or other urologic issues, please do not hesitate to contact me. The office telephone contact is [phone]. Sincerely, Dr Aly Medina MD, [facility] - Urology Compassionate Specialist Care for the Genitourinary System Coding Level of Care Code Est Pt Level 4 (05288) Complex EM visit Add On G2211 Diagnoses BPH w urinary obs/LUTS N40.1; N13.8 Urinary retention with incomplete bladder emptying R33.9
--- OUTSIDE RECORDS SUMMARY | 2025-03-17 13:30 | XMS_ITS | Patient Health Record ---
Author Organization [facility] Address [address] [place] [phone] Care Team Providers Care Office 365 Consultant Name Role Phone Curtis Gabi HONEYCUTT Primary Care Provider Vinicius Keenan [phone] Allergies Allergen (clinical drug ingredient) Drug/Non Drug Allergy documented on EMR Reaction Allergy Type Onset Date Status atorvastatin Lipitor Unknown Drug Allergy Acti ve Reason For Referral No Information Medications Medication SIG (Take, Route, Frequency, Duration) Notes Start Date End Date Status Simvastatin 40mg Not -Taking clonazePAM 2 MG 1 tablet at bedtime Orally Active QUEtiapine Fumarate 100 MG adjusted per his psych team Oral Active Immunizations Vaccine Route Administration Date Status Comme nts Influenza Unknown 06/22/2019 Administered Problems Problem Type SNOMED Code ICD Code Onset Dates Problem Status W/U Status Risk Notes Problem 242197055 History of adenomatous polyp of colon (Z86.010) Active confirmed Problem [id number] Iron deficiency anemia, unspecified iron deficiency anemia type (D50.9) Active confirmed Encounters Encounter Location Date Provider Diagnosis [facility] [address] [place] [phone] 01/22/2025 Vinicius Joyce Plan Of Treatment Pending Test Test Name Order Date GI BIOPSY 04/01/2020 Future Test Test Name Order Date COLONOSCOPY 11/11/2013 UPPER GI ENDOSCOPY 03/12/2020 COLONOSCOPY 03/12/2020 Insurance Providers Payer Name Payer Address Payer Phone Subscriber Number Group Number Insured Name Patient Relationship to Insured Coverage Start Date Coverage End Date [facility] [address] [place] [address] [id number] DAVONTE LAURA Self - patient is the insured Medical (General) History Medical History History ICD Code Hypertension-off meds as of 02/2020 Denies AR,DM,CVA,Lung disease,renal dise ase Manic-depressive disorder Hyperlipidemia--off meds as of 02/2020 Screening colonoscopy 12/2013 with 2 small tubular adenomas removed, minimal diverticulosis and hemorrhoids Iron def. anemia in 06/2019---3 neg. Hemo ccults in 06/2019 Surgical History Surgery Date(Month/Year) Rotator cuff right shoulder
== END 2025-03-17 14:14 | disposition home or self-care (01) ==
LOC: HO.HUSH 13:25
PROVIDERS: PCP Nurse Practitioner Family; Visit Provider Urology
DX: Z13.9 Encounter for screening, unspecified (principal)
CPT/HCPCS: 99214; G2211

== ENCOUNTER → 2025-03-17 13:25 | Outpatient (BNVA) | payer OTHER, SELFPAY | PROVIDERS: PCP Nurse Practitioner Family; Visit Provider Urology | DX: N40.1 Benign prostatic hyperplasia with lower urinary tract symptoms (principal); N13.8 Other obstructive and reflux uropathy; R33.8 Other retention of urine | CPT/HCPCS: 51798; 81003; 99212 ==